=== PATIENT | male | born 1950 | race Caucasian/White ===

== ENCOUNTER 2017-01-28 10:33 | Outpatient (CLI) | payer OTHER | END 2017-01-28 10:34 | disposition home or self-care (01) | DX: Z00.00 Encounter for general adult medical examination without abnormal findings (principal); I10 Essential (primary) hypertension; Z79.899 Other long term (current) drug therapy; B19.20 Unspecified viral hepatitis C without hepatic coma; N40.0 Benign prostatic hyperplasia without lower urinary tract symptoms; Z87.820 Personal history of traumatic brain injury; M54.5 Low back pain; R73.01 Impaired fasting glucose; C44.91 Basal cell carcinoma of skin, unspecified ==

== ENCOUNTER 2017-04-15 11:06 | Outpatient (CLI) | payer OTHER | END 2017-04-15 11:07 | disposition home or self-care (01) | LOC: LAB 11:06 | PROVIDERS: ATTEND Urology | DX: N40.0 Benign prostatic hyperplasia without lower urinary tract symptoms (principal) | CPT/HCPCS: 36415; 84153 ==

== ENCOUNTER 2017-06-18 10:45 | Day surgery (SDC) | payer MEDICARE, OTHER ==
[2017-06-18] MEDS ORDERED: LACTATED RINGERS 1,000 ML IV ONE (11:15)
[2017-06-18] MEDS ORDERED: MIDAZOLAM 2 MG/2 ML VIAL IVP ONE (12:02)
[2017-06-18] MEDS ORDERED: fentaNYL 100 MCG/2 ML VIAL IVP ONE (12:02)
[2017-06-18 13:33] VITALS: BP 112/67
== END 2017-06-18 10:46 | disposition home or self-care (01) ==
LOC: SDS 10:45
PROVIDERS: ATTEND Surgery
PROC: 0DBN8ZX Excision of Sigmoid Colon, Via Natural or Artificial Opening Endoscopic, Diagnostic (ICD-10-PCS; 2017-06-18)
PROC: 0DBH8ZX Excision of Cecum, Via Natural or Artificial Opening Endoscopic, Diagnostic (ICD-10-PCS; principal; 2017-06-18 12:15)
DX: R19.5 Other fecal abnormalities (principal); D12.5 Benign neoplasm of sigmoid colon; I10 Essential (primary) hypertension; F32.9 Major depressive disorder, single episode, unspecified; E66.9 Obesity, unspecified; F17.210 Nicotine dependence, cigarettes, uncomplicated; Z68.30 Body mass index [BMI] 30.0-30.9, adult
CPT/HCPCS: 45380; 45385; J7120; 88305

== ENCOUNTER 2017-09-18 13:22 | Outpatient (CLI) | payer MEDICARE, OTHER ==
[2017-09-18 13:50] LABS: INR 1.5 (0.8-1.2); PT - PROTHROMBIN TIME 16.3 secs (9.9-12.6)
[2017-09-18 13:57] LABS: PARTIAL THROMBOPLASTIN TIME 41.4 secs (24.9-33.3)
[2017-09-18 14:13] LABS: ALBUMIN/GLOBULIN RATIO 0.6 (1.0-2.2); BILIRUBIN,DIRECT 0.5 mg/dL (0.1-0.5); BILIRUBIN,TOTAL 1.5 mg/dL (0.2-1.0); BUN - BLOOD UREA NITROGEN < 5 mg/dL (6-20); CALCIUM 8.6 mg/dL (8.5-10.3); CARBON DIOXIDE - CO2 22 mmol/L (21-32); CHLORIDE 97 mmol/L (101-111); CREATININE 0.6 mg/dL (0.6-1.2); GFR - MDRD 135 (>89); GLUCOSE 166 mg/dL (70-100); POTASSIUM 3.9 mmol/L (3.5-5.0); SODIUM 131 mmol/L (135-145); TOTAL PROTEIN 7.9 g/dL (6.7-8.2)
== END 2017-09-18 13:23 | disposition home or self-care (01) ==
LOC: LAB 13:22
PROVIDERS: ATTEND Surgery
DX: K74.60 Unspecified cirrhosis of liver (principal)
CPT/HCPCS: 36415; 80053; 80076; 82247; 85610; 85730

== ENCOUNTER 2017-11-26 12:37 | Outpatient (CLI) | payer MEDICARE, OTHER ==
[2017-11-26 13:11] LABS: CREATININE 0.8 mg/dL (0.6-1.2)
== END 2017-11-26 12:38 | disposition home or self-care (01) ==
LOC: LAB 12:37
DX: K70.31 Alcoholic cirrhosis of liver with ascites (principal)
CPT/HCPCS: 36415; 80048

== ENCOUNTER 2017-11-28 07:03 | Outpatient (CLI) | payer MEDICARE, OTHER ==
--- NOTE | 2017-11-28 19:09 | Ultrasound Report ---
DATE OF SERVICE: 11/28/2017 RIGHT UPPER QUADRANT ULTRASOUND: 11/28/2017 CLINICAL INDICATION: Cirrhosis, hepatitis C, surveillance. COMPARISON: CT 09/04/2017. TECHNIQUE: Real-time scanning was performed with energy conservation representative static images obtained. The liver measures 18.4 cm. Cirrhotic changes are stable. Trace perihepatic ascites is again seen. There are multiple small hypoechoic nodules in the left lobe of the liver, the largest, in the mid portion, measuring 1.1 x 0.9 x 0.8 cm. Inferiorly, one measures 1.0 x 0.9 x 0.6 cm, and more superiorly, one measures 0.8 x 0.8 x 0.7 cm. The gallbladder demonstrates small calculi. No wall thickening or pericholecystic fluid is seen. The common bile duct measures 7 mm. The right kidney measures 11.3 cm, and demonstrates no hydronephrosis. IMPRESSION: Cirrhotic liver. Three small nodules in the left lobe. Consider liver MRI for further evaluation. Cholelithiasis, without evidence of acute cholecystitis or biliary dilatation. TD: 11/28/2017 20:07
== END 2017-11-28 07:04 | disposition home or self-care (01) ==
LOC: DI 07:03
DX: K70.30 Alcoholic cirrhosis of liver without ascites (principal); B19.20 Unspecified viral hepatitis C without hepatic coma; K80.20 Calculus of gallbladder without cholecystitis without obstruction
CPT/HCPCS: 76705

== ENCOUNTER 2017-12-17 12:08 | Outpatient (CLI) | payer MEDICARE, OTHER ==
[~2017-12-17 12:08] MED LIST: GADOBUTROL 10 MMOL/10 ML VIAL ONE
[2017-12-17] MEDS ORDERED: GADOBUTROL 10 MMOL/10 ML VIAL IVP ONE (13:25)
--- NOTE | 2017-12-18 08:48 | MRI Report ---
EXAM: MR ABDOMEN WITH AND WITHOUT CONTRAST (MR LIVER) EXAM DATE: 12/17/2017 01:36 PM. CLINICAL HISTORY: OTHER CIRRHOSIS OF LIVER,ABNORMAL FINDINGS ON DX I. COMPARISON: CT abdomen and pelvis 09/04/2017 and ultrasound 11/28/2017. TECHNIQUE: Multiplanar breath-hold T1, T2, and DWI sequences obtained through the abdomen on an [facility] valerie. Images obtained before and after administration of 8 mL Gadavist intravenous contrast. Multiph ase postcontrast images obtained of the liver and abdomen. FINDINGS: Lung Bases: Unremarkable. Liver: Nodular liver contour. Widening of the fissures. Delayed reticular enhancement. Enlargement of the lateral segment left hepatic lobe and caudate. Cirrhosis. Liver loses signal on out of phase imaging consistent with hepatic steatosis. Portosystemic collateral vessels. Esophageal varices. Portal hypertension. No arterial phase hyperenhancing lesions with washout to indicate hepatocellular carcinoma. T2 hyperintense, T1 hypointense nonenhancing biliary cystic hamartoma in segment 8 of the right hepat ic lobe near the dome, series 701, axial image 31, measuring a few millimeters. Multiple intrinsically T1 hyperintense liver nodules without arterial phase hyperenhancement or washo ut or restricted diffusion consistent with LR-3 nodules Gallbladder: Small gallstones. Pancreas: Moderate atrophy. No ductal dilatation. No mass. Spleen: The spleen appears normal. Kidneys and Adrenals: The kidneys appear normal with no mass or hydronephrosis. T2 hyperintense, T1 h ypointense cyst in the right mid kidney measures 1.2 cm. Tiny cortical cysts in the left kidney. The adrenals appear normal. Bowel: The small bowel and colon appear normal with no inflammation or obstruction. Retroperitoneum: The retroperitoneal structures appear normal with no mass or lymphadenopathy. IMPRESSION: 1. Cirrhosis with portal hypertension including esophageal varices 2. Hepatic steatosis 3. No evidence of hepatocellular carcinoma 4. Innumerable LR-3 liver nodules 5. Small gallstones [facility] Referring Provider Line: [phone] SITE ID: [id number]
== END 2017-12-17 12:09 | disposition home or self-care (01) ==
LOC: DI 12:08
DX: K74.69 Other cirrhosis of liver (principal); K76.0 Fatty (change of) liver, not elsewhere classified; K76.9 Liver disease, unspecified; K76.6 Portal hypertension; I85.10 Secondary esophageal varices without bleeding
CPT/HCPCS: 74183; A9585

== ENCOUNTER 2017-12-19 14:46 | Outpatient (CLI) | payer MEDICARE, OTHER ==
[2017-12-19 15:28] LABS: CALCIUM 9.2 mg/dL (8.5-10.3); CREATININE 0.7 mg/dL (0.6-1.2)
== END 2017-12-19 14:47 | disposition home or self-care (01) ==
LOC: LAB 14:46
DX: K70.31 Alcoholic cirrhosis of liver with ascites (principal)
CPT/HCPCS: 36415; 80048

== ENCOUNTER 2018-01-15 16:14 | Outpatient (CLI) | payer MEDICARE, OTHER ==
[2018-01-15 16:37] LABS: CALCIUM 9.4 mg/dL (8.5-10.3)
== END 2018-01-15 16:15 | disposition home or self-care (01) ==
LOC: LAB 16:14
DX: K70.30 Alcoholic cirrhosis of liver without ascites (principal)
CPT/HCPCS: 36415; 80048

== ENCOUNTER 2018-03-26 14:00 | Outpatient (CLI) | payer MEDICARE, OTHER ==
[2018-03-26 14:32] LABS: ALBUMIN 3.3 g/dL (3.2-5.5); BILIRUBIN,DIRECT 0.3 mg/dL (0.1-0.5); BILIRUBIN,TOTAL 1.3 mg/dL (0.2-1.0); CREATININE 0.6 mg/dL (0.6-1.2)
[2018-03-28 15:56] LABS: HCV RNA QNT <1.18 NOT DETECTED Log IU/mL (NOT DETECTED); HCV RNA QUANT RT PCR <15 NOT DETECTED IU/mL (NOT DETECTED)
== END 2018-03-26 14:01 | disposition home or self-care (01) ==
LOC: LAB 14:00
PROVIDERS: ATTEND Nurse Practitioner Family
DX: B18.2 Chronic viral hepatitis C (principal)
CPT/HCPCS: 36415; 80048; 80076; 87522

== ENCOUNTER 2018-04-01 13:41 | Outpatient (CLI) | payer MEDICARE, OTHER ==
[2018-04-01] MEDS ORDERED: GADOBUTROL 10 MMOL/10 ML VIAL IVP ONE (14:26)
--- NOTE | 2018-04-02 15:21 | MRI Report ---
EXAM: MR ABDOMEN WITH AND WITHOUT CONTRAST (MR LIVER). EXAM DATE: 04/01/2018 03:10 PM. CLINICAL HISTORY: Liver lesion, abnormal liver diagnostic, cirrhosis. COMPARISON: 12/17/2007 comparison. TECHNIQUE: Multiplanar breath-hold T1, T2, and DWI sequences obtained through the abdomen on an [facility] valerie. Images obtained before and after administration of 80 mL Gadavist given IV, no reaction intrav enous contrast. Multiphase postcontrast images obtained of the liver and abdomen. FINDINGS: Lung Bases: Unremarkable. Liver: Similar morphology to previous, please note there is a focal artifact on diffusion weighted se quences located in the right lobe liver which is not corroborated on other imaging sequences. Liver shows a fine and irregular nodular border. As the previous exam, numerous intrinsically hyperde nse T1 liver nodules. No arterial phase enhancement. These are small, measuring 1 cm or less. Largest is seen in segment 4 on series 1201 image 78 measuring about 1 cm. This is unchanged. Short gastric varices, splenic varices and left renal in the left renal hilum, compatible with colla terals and portal venous hypertension. Gallbladder: Small amount of dependent debris is present in the gallbladder, probably small stones. Pancreas: The pancreas appears normal with no mass or ductal dilatation. Spleen: The spleen appears normal. Kidneys and Adrenals: The kidneys appear normal with no mass or hydronephrosis. Stable benign left po sterior kidney cyst, also measuring about 1.1 cm. Series 801 image 16. The adrenals appear normal. Bowel: The small bowel and colon appear normal with no inflammation or obstruction. Retroperitoneum: The retroperitoneal structures appear normal with no mass or lymphadenopathy. IMPRESSION: 1. No MRI evidence for arterially enhancing nodules to suspect hepatocellular carcinoma. 2. Cirrhosis, portal venous hypertension. 3. Numerous small 1 cm or less nodules are seen in the liver, similar to previous. (LR-3). [facility] Referring Provider Line: [phone] SITE ID: [id number]
== END 2018-04-01 13:42 | disposition home or self-care (01) ==
LOC: DI 13:41
DX: K74.69 Other cirrhosis of liver (principal); K76.9 Liver disease, unspecified; K76.6 Portal hypertension; R93.2 Abnormal findings on diagnostic imaging of liver and biliary tract
CPT/HCPCS: 74183; A9585

== ENCOUNTER 2018-05-09 21:00 | Outpatient (CLI) | payer MEDICARE, OTHER | END 2018-05-09 21:01 | disposition critical access hospital (66) | LOC: EMS 21:00 | PROVIDERS: ATTEND Surgery | DX: S69.91XA Unspecified injury of right wrist, hand and finger(s), initial encounter (principal); S09.90XA Unspecified injury of head, initial encounter; M54.2 Cervicalgia; M54.9 Dorsalgia, unspecified; W17.89XA Other fall from one level to another, initial encounter; Y93.H2 Activity, gardening and landscaping; Y92.007 Garden or yard of unspecified non-institutional (private) residence as the place of occurrence of the external cause; Z72.89 Other problems related to lifestyle | CPT/HCPCS: A0425; A0429 ==

== ENCOUNTER 2018-05-09 21:25 | Emergency (ER) | payer OTHER ==
--- NOTE | 2018-05-09 21:46 | ED Physician Documentation ---
PD HPI Fall - Stated complaint Stated Complaint: GLF/WRIST DEFORMITY - Chief complaint Chief Complaint: Trauma Hd/Nk - History obtained from History obtained from: Patient, Family - History of Present Illness Mechanism of injury: Slipped Fall distance: Standing position, 5 to 10ft Where injury occurred: Home Timing - onset: Today Injury(ies) location: Head, Neck, Right Upper Extremity Quality of pain: Pain, Throbbing Associated symptoms: Neck pain. No: LOC, AMS, Amnesia, Seizures, Ear drainage, Nasal drainage, Weakness, Paresthesias, Dyspnea, Nausea / vomiting Symptoms improve with: Rest Worsens with: Movement, Palpation Contributing factors: No: Anticoagulated Similar symptoms before: Has not had sx before Recently seen: Not recently seen - Additional information Additional information: 67 year-old male was the top of his bulkhead today pulling weeds when he slipped and fell over the bulkhead about 5-6 feet he landed on his head and his right wrist has deformity. He states that he cried out for about half an hour and he eventually was able to walk to a neighbors ladder and get back to his home where his was able to call the ambulance. He denies any loss of consciousness or vomiting he does have an abrasion to his forehead and pain in his neck. He has pain in the shoulder his elbow and his wrist and knows he has a deformity of the wrist. He arrives to the emergency department on a backboard in C-spine precaution with his neck slightly flexed as he has a prior cervical disc issue and has pain if he extends his neck completely. PD PAST MEDICAL HISTORY - Past Medical History Cardiovascular: Hypertension GI: GI bleed, Ulcers Other Past Medical History: hep C - Past Surgical History Past Surgical History: Yes General: EGD Ortho: Knee replacement - Present Medications Home Medications: Ambulatory Orders Medication Instructions Recorded Confirmed Citalopram [CeleXA] 40 mg PO DAILY 05/09/18 05/09/18 Furosemide 10 mg PO 05/09/18 Sofosbuvir/Velpatasvir [Epclusa 1 each PO 05/09/18 400 mg-100 mg Tablet] Spironolactone 25 mg 05/09/18 Terazosin [Hytrin] 10 mg PO DAILY 05/09/18 05/09/18 amLODIPine [Norvasc] 10 mg PO DAILY 05/09/18 05/09/18 HYDROcod/ACETAM 5/325 [[place] 5/325] 1 - 2 ea PO Q6H PRN #15 tablet 05/10/18 - Allergies Allergies/Adverse Reactions: Allergies Allergy/AdvReac Type Severity Reaction Status Date / Time lisinopril Allergy Edema Verified 05/09/18 21:32 any "prils". Allergy Unknown Uncoded 05/09/18 21:32 - Social History Does the pt smoke?: Yes Smoking Status: Current every day smoker Does the pt drink ETOH?: Yes Does the pt have substance abuse?: No - Immunizations Immunizations are current?: Yes PD ED PE NORMAL - Vitals Vital signs reviewed: Yes (hypertensive ) - General General: Alert and oriented X 3, Well developed/nourished, Other (on a backboard with C-spine in place appears to be in pain ) - HEENT HEENT: PERRL, EOMI, Other (abrasion to the left forehead) - Neck Neck: Supple, no meningeal sign, Other (bony point tenderness to mid c-spine) - Cardiac Cardiac: RRR, No murmur - Respiratory Respiratory: No respiratory distress, Clear bilaterally - Abdomen Abdomen: Soft, Non tender - Back Back: No CVA TTP, Other (lower lumbar paraspinous muscle tenderness bilaterally ) - Derm Derm: Normal color, Warm and dry, No rash - Extremities Extremities: Other (There is deformity to the right wrist dorsally and there is tenderness to the elbow and shoulder. Distal n/v is intact ) - Neuro Neuro: Alert and oriented X 3, No motor deficit, No sensory deficit, Normal speech Eye Opening: Spontaneous Motor: Obeys Commands Verbal: Oriented GCS Score: 15 - Psych Psych: Normal mood, Normal affect Results - Vitals Vitals: Vital Signs - 24 hr 05/09/18 05/09/18 05/10/18 21:28 23:45 01:00 Temperature 37.1 C Heart Rate 64 70 69 Respiratory 168 H 16 18 Rate Blood Pressure 145/89 H 140/73 H 122/69 O2 Saturation 94 94 96 05/10/18 02:55 Temperature Heart Rate 72 Respiratory 18 Rate Blood Pressure 126/72 O2 Saturation 94 Oxygen O2 Source Room air - Rads (name of study) shoulder Radiology: Prelim report reviewed (Impression: No acute bony abnormality.), EMP read indepedently, See rad report elbow Radiology: Prelim report reviewed (Impression: No acute elbow abnormality or joint effusion.), EMP read indepedently, See rad report wrist Radiology: Prelim report reviewed (Impression: Displaced radial metaphyseal and ulnar styloid fractures.), EMP read indepedently, See rad report head CT Radiology: Prelim report reviewed (Impression: No acute intracranial process.), EMP read indepedently, See rad report CT c-spine Radiology: Prelim report reviewed (Impression: No acute cervical spine fracture or malalignment.), EMP read indepedently, See rad report lumbar spine Radiology: Prelim report reviewed (Impression: 1. No acute lumbar spine abnormality), EMP read indepedently, See rad report Procedures - Splint (location) right wrist Splint applied by: Tech Type of splint: Fiberglass, Sugar tong Other: Patient tolerated well, No complications, Neurovascular intact, Good alignment, Sling provided PD MEDICAL DECISION MAKING - ED course Complexity details: reviewed old records, reviewed results, re-evaluated patient , considered differential, d/w patient, d/w family ED course: 67-year-old male who is fallen off a bulk head and fractured his right wrist. He has a number of other injuries all without radiographic abnormalities. Dr. Zacarias Senior is consulted in the case with the patient's fracture and after review of the patient's films he recommends placement of a sugar tong splint and follow -up in the orthopedic clinic. Hematoma block is performed patient's placed into finger traps and the fracture is manipulated forward slightly and is placed into a sugar tong. He appears to tolerate this well and is discharged ambulating with a sling in place. - Sepsis Event Vital Signs: Vital Signs - 24 hr 05/09/18 05/09/18 05/10/18 21:28 23:45 01:00 Temperature 37.1 C Heart Rate 64 70 69 Respiratory 168 H 16 18 Rate Blood Pressure 145/89 H 140/73 H 122/69 O2 Saturation 94 94 96 05/10/18 02:55 Temperature Heart Rate 72 Respiratory 18 Rate Blood Pressure 126/72 O2 Saturation 94 Oxygen O2 Source Room air Departure - Departure Disposition: 01 Home, Self Care Clinical Impression: Distal radial fracture Qualifiers: Encounter type: initial encounter Fracture type: closed Fracture morphology: Colles' Laterality: right Qualified Code(s): S52.531A - Colles' fracture of right radius, initial encounter for closed fracture Condition: Stable Instructions: ED Fx Forearm Radius Ulna Redu Requ Follow-Up: [facility] [Provider Group] Prescriptions: HYDROcod/ACETAM 5/325 [[place] 5/325] 1 - 2 ea PO Q6H PRN #15 tablet PRN Reason: Pain Discharge Date/Time: 05/10/18 03:18
--- NOTE | 2018-05-09 23:03 | CT Report ---
Procedure Date: 05/09/2018 Accession Number: [id number] / [id number] Procedure: CT - Head W/O CPT Code: FULL RESULT: EXAM: CT HEAD EXAM DATE: 05/09/2018 10:00 PM. CLINICAL HISTORY: Head pain, fall. COMPARISON: None. TECHNIQUE: Multiaxial CT images were obtained from the foramen magnum to the vertex. Reformats: Coronal. IV contrast: None. In accordance with CT protocol optimization, one or more of the following dose reduction techniques were utilized for this exam: automated exposure control, adjustment of mA and/or KV based on patient size, or use of iterative reconstructive technique. FINDINGS: Parenchyma: No intraparenchymal hemorrhage. No evidence of mass, midline shift, or CT findings of infarction. Andrade-white differentiation is distinct. Extraaxial Spaces: Normal for age. No subdural or epidural collections identified. Ventricles: Normal in size and position. Sinuses and Orbits: There is moderate right maxillary sinus mucosal thickening. The orbits and mastoid sinuses are unremarkable. Bones: No evidence of fracture or calvarial defect. Other: Mild intracranial atherosclerosis is noted. IMPRESSION: No acute intracranial process. [facility]
--- NOTE | 2018-05-09 23:09 | XRAY Report ---
Procedure Date: 05/09/2018 Accession Number: [id number] / [id number] Procedure: XR - Wrist 4 View RT CPT Code: FULL RESULT: EXAM: RIGHT WRIST RADIOGRAPHY EXAM DATE: 05/09/2018 10:46 PM. CLINICAL HISTORY: Fall. Wrist pain and deformity. COMPARISON: None. TECHNIQUE: 4 views. FINDINGS: Bones: Radial metaphyseal fracture displaced dorsally by about 6 mm with dorsal impaction, comminution, and intra-articular extension. Displaced ulnar styloid fracture. Joints: Normal. No subluxations. Soft Tissues: Associated soft tissue swelling. IMPRESSION: Displaced radial metaphyseal and ulnar styloid fractures. [facility]
--- NOTE | 2018-05-09 23:10 | XRAY Report ---
Procedure Date: 05/09/2018 Accession Number: [id number] / [id number] Procedure: XR - Shoulder 3 View RT CPT Code: FULL RESULT: EXAM: RIGHT SHOULDER RADIOGRAPHY EXAM DATE: 05/09/2018 10:46 PM. CLINICAL HISTORY: Fall with shoulder pain. COMPARISON: None. TECHNIQUE: 3 views. FINDINGS: Bones: Old fifth rib fracture. No acute traumatic or destructive bone abnormalities. Joints: The glenohumeral and acromioclavicular joints are normal. Soft tissues: The visualized hemithorax is unremarkable. IMPRESSION: No acute bony abnormality. [facility]
--- NOTE | 2018-05-09 23:10 | XRAY Report ---
Procedure Date: 05/09/2018 Accession Number: [id number] / [id number] Procedure: XR - Lumbar Spine 2 View CPT Code: FULL RESULT: EXAM: LUMBOSACRAL SPINE RADIOGRAPHY EXAM DATE: 05/09/2018 10:49 PM. CLINICAL HISTORY: Fall low back pain. COMPARISONS: None. TECHNIQUE: 2 views. FINDINGS: Alignment: Unremarkable. Bones: Five [id number]-[id number] lumbar vertebral bodies are present. No fractures or bone lesions. Disks: Disk heights are relatively well maintained. Mild marginal osteophyte formation. Facets: Mild degenerative joint disease in the lower lumbar spine. Sacroiliac Joints: Unremarkable. Soft Tissues: Vascular calcifications. IMPRESSION: 1. No acute lumbar spine abnormality. [facility]
--- NOTE | 2018-05-09 23:11 | XRAY Report ---
Procedure Date: 05/09/2018 Accession Number: [id number] / [id number] Procedure: XR - Elbow 3 View RT CPT Code: FULL RESULT: EXAM: RIGHT ELBOW RADIOGRAPHY EXAM DATE: 05/09/2018 10:46 PM. CLINICAL HISTORY: Fall. Elbow pain. COMPARISON: None. TECHNIQUE: 3 views. FINDINGS: Bones: No traumatic or destructive bone abnormality. Olecranon enthesophyte noted. Joints: Normal. No effusion. No subluxation. Soft Tissues: Unremarkable. IMPRESSION: No acute elbow abnormality or joint effusion. [facility]
--- NOTE | 2018-05-09 23:12 | CT Report ---
Procedure Date: 05/09/2018 Accession Number: [id number] / [id number] Procedure: CT - Cervical Spine W/O CPT Code: FULL RESULT: EXAM: CT CERVICAL SPINE WITHOUT CONTRAST DATE: 05/09/2018 10:11 PM. HISTORY: Fall, head injury, neck pain. COMPARISONS: None. TECHNIQUE: Thin-section axial images were acquired of the cervical spine without contrast. Post-processing: Coronal and sagittal reformats. Other: None. In accordance with CT protocol optimization, one or more of the following dose reduction techniques were utilized for this exam: automated exposure control, adjustment of mA and/or KV based on patient size, or use of iterative reconstructive technique. FINDINGS: Alignment: No scoliosis or spondylolisthesis. Bones: There is no acute cervical spine fracture. Interspace Levels/Facets: C1-C2: Mild degenerative changes are present anteriorly with craniocervical stenosis. C2-C3: Unremarkable. C3-C4: Unremarkable. 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 The foramina are patent. C5-C6: A disk bulge results in mild spinal canal stenosis. There is mild bilateral foraminal narrowing due to uncovertebral hypertrophy. C6-C7: Unremarkable. C7-T1: Unremarkable. Musculature: Normal. No fatty atrophy. Other: No acute abnormality is seen in the remaining soft tissues of the neck. The lung apices are clear. IMPRESSION: No acute cervical spine fracture or malalignment. [facility]
[2018-05-09] MEDS ORDERED: ONDANSETRON 4 MG/2 ML VIAL IVP STA (23:28)
[2018-05-09] MEDS ORDERED: HYDROmorphone 1 MG/ML CARPUJECT IVP STA (23:28)
[2018-05-10] MEDS ORDERED: BUPIVACAINE 0.5% PF 10 ML VIAL SUBQ STA (02:14)
[2018-05-10] MEDS ORDERED: HYDROcod/ACET 5/325 Prepack 4 PO STA (02:49)
[2018-05-10 03:02] VITALS: BP 126/72
== END 2018-05-10 03:18 | disposition home or self-care (01) ==
LOC: EDUNIT# → EDBD → ED 21:25 → EDUNIT# 21:25 → ED 05-10 03:18
DX: S52.531A Colles' fracture of right radius, initial encounter for closed fracture (principal); W01.0XXA Fall on same level from slipping, tripping and stumbling without subsequent striking against object, initial encounter; W17.89XA Other fall from one level to another, initial encounter; Y93.H2 Activity, gardening and landscaping; Y92.007 Garden or yard of unspecified non-institutional (private) residence as the place of occurrence of the external cause; I10 Essential (primary) hypertension; B19.20 Unspecified viral hepatitis C without hepatic coma; Z96.659 Presence of unspecified artificial knee joint; F17.200 Nicotine dependence, unspecified, uncomplicated
CPT/HCPCS: 29125; 70450; 72100; 72125; 73030; 73080; 73110; 96374; 96375; 99283; J1170; 99281

== ENCOUNTER 2018-05-21 11:13 | Outpatient (CLI) | payer MEDICARE, OTHER ==
[2018-05-21 11:30] LABS: BASOPHILS # (AUTO) 0.1 10^3/uL (0.0-0.1); BASOPHILS % (AUTO) 0.9 %; EOSINOPHILS # (AUTO) 0.1 10^3/uL (0.0-0.7); EOSINOPHILS % (AUTO) 1.5 %; HGB - HEMOGLOBIN 15.5 g/dL (14.0-18.0); LYMPHOCYTES # (AUTO) 0.8 10^3/uL (1.5-3.5); LYMPHOCYTES % (AUTO) 13.9 %; MEAN CORPUSCULAR HEMOGLOBIN 35.9 pg (27.0-31.0); MEAN CORPUSCULAR HGB CONC 34.6 g/dL (32.0-36.0); MEAN CORPUSCULAR VOLUME 103.9 fL (80.0-94.0); MEAN PLATELET VOLUME 7.2 fL (7.4-11.4); MONOCYTES # (AUTO) 1.1 10^3/uL (0.0-1.0); MONOCYTES % (AUTO) 18.4 %; NEUTROPHILS # (AUTO) 3.8 10^3/uL (1.5-6.6); NEUTROPHILS % (AUTO) 65.3 %; PLT - PLATELET COUNT 160 10^3/uL (130-450); RED CELL DISTRIBUTION WIDTH 14.5 % (12.0-15.0); WHITE BLOOD COUNT 5.9 x10^3/uL (4.8-10.8)
[2018-05-21 11:45] LABS: BILIRUBIN,URINE NEGATIVE (NEGATIVE); GLUCOSE, URINE (UA) NEGATIVE (NEGATIVE); KETONES,URINE (UA) NEGATIVE (NEGATIVE); LEUKOCYTE ESTERASE, URINE NEGATIVE (NEGATIVE); NITRITE,URINE NEGATIVE (NEGATIVE); OCCULT BLOOD,URINE TRACE-INTA (NEGATIVE); PROTEIN,URINE NEGATIVE (NEGATIVE); UROBILINOGEN,URINE 0.2 (NORMAL) E.U./dL (NORMAL)
[2018-05-21 11:46] LABS: HB2 TOTAL 16.9 g/dL; HEMOGLOBIN A1C 0.57 g/dL; HEMOGLOBIN A1C % 5.2 % (4.6-6.2)
[2018-05-21 11:48] LABS: CLARITY,URINE CLEAR (CLEAR)
[2018-05-21 11:55] LABS: ALBUMIN 3.4 g/dL (3.2-5.5); ALBUMIN/GLOBULIN RATIO 0.6 (1.0-2.2); ALKALINE PHOSPHATASE 59 IU/L (42-121); ALT ALANINE AMINOTRANSFERASE 40 IU/L (10-60); AST ASPARTATE AMINOTRANSFERASE 87 IU/L (10-42); BILIRUBIN,TOTAL 1.5 mg/dL (0.2-1.0); BUN - BLOOD UREA NITROGEN 7 mg/dL (6-20); CALCIUM 8.9 mg/dL (8.5-10.3); CARBON DIOXIDE - CO2 26 mmol/L (21-32); CHLORIDE 95 mmol/L (101-111); CHOL/HDL RATIO 5.3 (<5.0); CHOLESTEROL 168 mg/dL; CREATININE 0.6 mg/dL (0.6-1.2); GFR - MDRD 135 (>89); GLUCOSE 106 mg/dL (70-100); HDL CHOLESTEROL 32 mg/dL; LDL CHOLESTEROL,CALCULATED 118 mg/dL; LDL/HDL RATIO 3.7 (<3.6); SODIUM 129 mmol/L (135-145); TOTAL PROTEIN 8.8 g/dL (6.7-8.2); VLDL CHOLESTEROL 18 mg/dL
[2018-05-21 12:08] LABS: BACTERIA,URINE None Seen /HPF (None Seen); RBC,URINE 0-5 /HPF (0-5); SQUAMOUS EPITHELIAL CELL,UR NONE SEEN (<= Few)
== END 2018-05-21 11:14 | disposition home or self-care (01) ==
LOC: LAB 11:13
PROVIDERS: ATTEND Internal Medicine
DX: Z79.899 Other long term (current) drug therapy (principal); Z12.5 Encounter for screening for malignant neoplasm of prostate; B18.2 Chronic viral hepatitis C; Z87.820 Personal history of traumatic brain injury; R73.01 Impaired fasting glucose; F32.9 Major depressive disorder, single episode, unspecified; F41.9 Anxiety disorder, unspecified
CPT/HCPCS: 36415; 80053; 80061; 81001; 83036; 84443; 85025; G0103; 83721; 84153

== ENCOUNTER 2018-07-14 13:49 | Outpatient (CLI) | payer MEDICARE, OTHER ==
[2018-07-14 14:27] LABS: ALBUMIN 3.3 g/dL (3.2-5.5); BILIRUBIN,DIRECT 0.5 mg/dL (0.1-0.5); BILIRUBIN,TOTAL 1.9 mg/dL (0.2-1.0); CALCIUM 8.9 mg/dL (8.5-10.3); CREATININE 0.7 mg/dL (0.6-1.2); TOTAL PROTEIN 7.9 g/dL (6.7-8.2)
== END 2018-07-14 13:50 | disposition home or self-care (01) ==
LOC: LAB 13:49
PROVIDERS: ATTEND Nurse Practitioner Family
DX: B18.2 Chronic viral hepatitis C (principal)
CPT/HCPCS: 36415; 80048; 80076; 87522

== ENCOUNTER 2018-07-15 12:37 | Outpatient (CLI) | payer MEDICARE, OTHER ==
[2018-07-15] MEDS ORDERED: GADOBUTROL 7.5 MMOL/7.5 ML VIAL ONE (13:20)
[2018-07-15] MEDS ORDERED: GADOBUTROL 7.5 MMOL/7.5 ML VIAL IVP ONE (13:42)
--- NOTE | 2018-07-16 14:50 | MRI Report ---
Reason: LIVER LESION,ABN DIAG IMAG,OTHER CIRRHOSI OF LIVER Procedure Date: 07/15/2018 Accession Number: [id number] / [id number] Procedure: MRI - Abdomen W/WO CPT Code: FULL RESULT: EXAM: MR ABDOMEN WITH AND WITHOUT CONTRAST (MR LIVER). EXAM DATE: 07/15/2018 01:36 PM. CLINICAL HISTORY: Cirrhosis of the liver. Liver mass. COMPARISON: Abdomen with and without 12/17/2017. TECHNIQUE: Multiplanar breath-hold T1, T2, and DWI sequences obtained through the abdomen on an MR scanner. Images obtained before and after administration of intravenous contrast. Multiphase postcontrast images obtained of the liver and abdomen. FINDINGS: Lung Bases: Unremarkable. Liver: Nodular cirrhotic liver is again demonstrated. As before, the liver parenchyma demonstrates heterogeneous T1 and T2 signal change primarily due to underlying cirrhosis. There is some loss of signal on T1 out of phase imaging which may represent a component of fatty change. As before, there are a few scattered hyperintense T1 signal lesions which are difficult to visualize on precontrast imaging due to respiratory motion artifact; however, appearance is similar to prior study on arterial phase imaging. These areas are most notably seen in segment 2 (image 74, series 1101) and segment 5/6 (image 51, series 1101). There is no definitive washout or capsular enhancement seen. These lesions remain LI-RADS 3. No new liver lesion or masses suggested. Gallbladder/bile ducts: Tiny gallstones are suggested in the gallbladder. There is no gallbladder wall thickening or biliary dilation. Pancreas: Generalized atrophy of the pancreas is seen. No pancreatic mass or ductal dilation is suggested. Spleen: Normal overall size. Tiny subcapsular cyst is seen posteriorly similar to prior study. Kidneys and Adrenals: The kidneys appear normal with no mass or hydronephrosis. There are small cysts in the kidneys. The adrenals appear normal. Bowel: The visualized bowel loops are unremarkable. Trace ascites is seen in the right upper quadrant region. Moderate short gastric varices are seen along the proximal stomach. Retroperitoneum: The retroperitoneal structures appear normal with no mass or lymphadenopathy. IMPRESSION: 1. Stable exam compared with 12/17/2017. Again demonstrating a few scattered hyperintense T1 nodules in the liver parenchyma consistent with LR 3. 2. No arterial hyperenhancing nodule or washout to suggest hepatocellular carcinoma. 3. Stable cirrhosis with possible fatty change and moderate short gastric varices. Trace ascites seen. No splenomegaly. 4. Cholelithiasis without biliary dilation. [facility]
== END 2018-07-15 12:38 | disposition home or self-care (01) ==
LOC: DI 12:37
DX: K74.69 Other cirrhosis of liver (principal); K76.9 Liver disease, unspecified; K80.20 Calculus of gallbladder without cholecystitis without obstruction; R93.2 Abnormal findings on diagnostic imaging of liver and biliary tract
CPT/HCPCS: 74183; A9585

== ENCOUNTER 2018-09-13 12:27 | Outpatient (CLI) | payer MEDICARE, OTHER ==
[2018-09-13 14:05] LABS: ALBUMIN 3.2 g/dL (3.2-5.5); BILIRUBIN,DIRECT 0.4 mg/dL (0.1-0.5); BILIRUBIN,TOTAL 1.5 mg/dL (0.2-1.0); CALCIUM 8.4 mg/dL (8.5-10.3); CREATININE 0.7 mg/dL (0.6-1.2); TOTAL PROTEIN 7.5 g/dL (6.7-8.2)
== END 2018-09-13 12:28 | disposition home or self-care (01) ==
LOC: LAB 12:27
PROVIDERS: ATTEND Nurse Practitioner Family
DX: B18.2 Chronic viral hepatitis C (principal)
CPT/HCPCS: 36415; 80048; 80076; 87522

== ENCOUNTER 2018-11-12 07:30 | Outpatient (CLI) | payer MEDICARE, OTHER ==
[2018-11-12] MEDS ORDERED: GADOBUTROL 10 MMOL/10 ML VIAL ONE (08:04)
[2018-11-12] MEDS ORDERED: GADOBUTROL 10 MMOL/10 ML VIAL IVP ONE (09:55)
--- NOTE | 2018-11-12 17:21 | MRI Report ---
Reason: LIVER LESION Procedure Date: 11/12/2018 Accession Number: [id number] / [id number] Procedure: MRI - Abdomen W/WO CPT Code: FULL RESULT: EXAM: MR ABDOMEN WITH AND WITHOUT CONTRAST (MR LIVER) EXAM DATE: 11/12/2018 09:56 AM. CLINICAL HISTORY: LIVER LESION. COMPARISON: Liver MRI from 07/15/2018, 04/01/2018. TECHNIQUE: Multiplanar breath-hold T1, T2, and DWI sequences obtained through the liver and abdomen on an MR scanner. Images obtained before and after administration of 10 cc Gadavist intravenous contrast. Multiphase postcontrast sequences obtained through the pancreas. FINDINGS: Lung Bases: The visualized portions are unremarkable. Liver: There is hypertrophy of the lateral segment of the left hepatic lobe with fissural widening and surface nodularity, compatible with known cirrhosis. There are several nodules with intrinsic T1 signal hyperintensity scattered throughout the liver. This includes a 1.6 x 1.5 cm lesion with peripheral T1 signal hyperintensity in central signal hypointensity in segment 2/3 (series 1101, image 72). Associated mild T2 signal hyperintensity is demonstrated. However, given intrinsic T1 signal hyperintensity, it does not demonstrate definite arterial phase enhancement. Furthermore, no convincing washout or pseudocapsule. This lesion previously measured approximately 1.3 x 1.2 cm. Previously described 0.7 cm lesion in hepatic segment 5/6 (series 1201, image 52) also demonstrates intrinsic T1 signal hyperintensity and therefore does not demonstrate convincing arterial phase enhancement, washout, or pseudocapsule. There are small foci of arterial phase enhancement in hepatic segment 7 and 8, measuring 0.3-0.4 cm (series 1201, images 103 and 102). These appear to have been present on the previous examination. A 0.5 cm focus of arterial phase enhancement is present in segment 5 (series 1201, image 62), not definitely seen previously. No washout or pseudocapsule demonstrated. Gallbladder: Multiple stones demonstrated. No gallbladder wall thickening. Bile ducts: Common bile duct measures 9 mm, which is mildly dilated but similar to prior examinations. No choledocholithiasis. Only minimal prominence of the central intrahepatic bile ducts, similar to the prior examination. Pancreas: Unremarkable. No focal lesion or ductal dilation. Spleen: There is a 0.5 cm cyst in the medial aspect. Otherwise within normal limits. No splenomegaly. Kidneys and Adrenals: There are bilateral nonenhancing renal cysts. No solid renal lesion. No hydronephrosis. No adrenal nodules. Bowel: There appears to be mild wall thickening of the ascending colon with small amount of surrounding edema. This is similar to the previous examination. No evidence of bowel obstruction. Retroperitoneum: No abdominal aortic aneurysm. No retroperitoneal adenopathy. Other: There appear to be prominent varices in the region of the gastrohepatic ligament and around the esophagus. Trace perihepatic ascites present. IMPRESSION: 1. Cirrhosis configuration of the liver with prominent portal-systemic collaterals and trace perihepatic ascites, compatible with portal hypertension. 2. Previously seen liver lesions do not demonstrate convincing arterial phase enhancement, washout, or pseudocapsule. However, the lesion in segment 2/3 demonstrates more conspicuous T2 signal hyperintensity and is slightly increased in size from the prior examination. Despite its increase in size, it does not meet criteria for "threshold growth." Therefore, it remains most compatible with a LI-RADS 3 lesion (intermediate probability for hepatocellular carcinoma). 3. Additional subcentimeter arterial phase enhancing foci in hepatic segments 5, 7, and 8 do not demonstrate washout or pseudocapsule and are also compatible with LI-RADS 3 lesions. 4. No convincing LI-RADS 4 or 5 lesions demonstrated. 5. Mild wall thickening and edema around the ascending colon, similar to the prior examination. In the setting of portal hypertension, this may represent sequela of portal hypertensive colopathy. Inflammatory colitis is not excluded. 6. Cholelithiasis without sonographic evidence for acute cholecystitis. The common bile duct is mildly dilated; however, this is not significantly changed from prior examinations. RADIA
== END 2018-11-12 07:31 | disposition home or self-care (01) ==
LOC: DI 07:30
PROVIDERS: ATTEND Nurse Practitioner Family
DX: K76.9 Liver disease, unspecified (principal); K80.20 Calculus of gallbladder without cholecystitis without obstruction; K74.60 Unspecified cirrhosis of liver
CPT/HCPCS: 74183; A9585

== ENCOUNTER 2019-01-30 11:59 | Outpatient (CLI) | payer MEDICARE, OTHER ==
[2019-01-30 12:31] LABS: BASOPHILS # (AUTO) 0.1 10^3/uL (0.0-0.1); BASOPHILS % (AUTO) 0.8 %; EOSINOPHILS # (AUTO) 0.1 10^3/uL (0.0-0.7); EOSINOPHILS % (AUTO) 1.8 %; GLUCOSE, URINE (UA) NEGATIVE (NEGATIVE); KETONES,URINE (UA) 15 mg/dL (NEGATIVE); LEUKOCYTE ESTERASE, URINE NEGATIVE (NEGATIVE); LYMPHOCYTES % (AUTO) 13.9 %; MEAN CORPUSCULAR HEMOGLOBIN 35.5 pg (27.0-31.0); MEAN CORPUSCULAR HGB CONC 34.3 g/dL (32.0-36.0); MEAN CORPUSCULAR VOLUME 103.6 fL (80.0-94.0); MEAN PLATELET VOLUME 7.8 fL (7.4-11.4); MONOCYTES # (AUTO) 1.7 10^3/uL (0.0-1.0); MONOCYTES % (AUTO) 24.3 %; NEUTROPHILS # (AUTO) 4.2 10^3/uL (1.5-6.6); NEUTROPHILS % (AUTO) 59.2 %; NITRITE,URINE NEGATIVE (NEGATIVE); OCCULT BLOOD,URINE NEGATIVE (NEGATIVE); PLT - PLATELET COUNT 78 10^3/uL (130-450); PROTEIN,URINE NEGATIVE (NEGATIVE); RED BLOOD COUNT 3.37 10^6/uL (4.70-6.10); RED CELL DISTRIBUTION WIDTH 19.8 % (12.0-15.0); UROBILINOGEN,URINE 1 (NORMAL) E.U./dL (NORMAL); WHITE BLOOD COUNT 7.1 x10^3/uL (4.8-10.8)
[2019-01-30 12:35] LABS: BILIRUBIN,URINE SMALL (NEGATIVE); CLARITY,URINE CLEAR (CLEAR); ICTOTEST,URINE POSITIVE
[2019-01-30 12:43] LABS: ALBUMIN 3.1 g/dL (3.2-5.5); ALBUMIN/GLOBULIN RATIO 0.7 (1.0-2.2); BILIRUBIN,TOTAL 4.3 mg/dL (0.2-1.0); CALCIUM 8.9 mg/dL (8.5-10.3); CREATININE 0.8 mg/dL (0.6-1.2); TOTAL PROTEIN 7.7 g/dL (6.7-8.2)
[2019-01-30] MEDS ORDERED: IOPAMIDOL-300 50 ML VIAL ONE (13:03)
[2019-01-30] MEDS ORDERED: IOPAMIDOL-300 100 ML VIAL ONE (13:03)
[2019-01-30] MEDS ORDERED: IOPAMIDOL-300 100 ML VIAL IVP ONE (14:16)
[2019-01-30] MEDS ORDERED: IOVERSOL 320 50 ML VIAL PO ONE (14:16)
[2019-01-30] MEDS ORDERED: IOPAMIDOL-300 50 ML VIAL PO ONE (14:16)
--- NOTE | 2019-01-30 15:05 | CT Report ---
Reason: ABDM PAIN,FEVER Procedure Date: 01/30/2019 Accession Number: [id number] / [id number] Procedure: CT - Abdomen/Pelvis W CPT Code: FULL RESULT: EXAM: CT ABDOMEN AND PELVIS EXAM DATE: 01/30/2019 02:14 PM. CLINICAL HISTORY: ABDM PAIN,FEVER. COMPARISONS: ABDOMEN/PELVIS W/ 09/04/2017 11:39 AM ABDOMEN W/WO 11/12/2018 7:57 AM ABDOMEN W/WO 07/15/2018 1:36 PM ABDOMEN/LIVER W/WO 04/01/2018 2:11 PM ABDOMEN W/WO 12/17/2017 1:00 PM. TECHNIQUE: Routine helical CT imaging was performed through the abdomen and pelvis. IV contrast: ISOVUE 300 100mL. Enteric contrast: Yes. Reconstructions: Coronal and sagittal. In accordance with CT protocol optimization, one or more of the following dose reduction techniques were utilized for this exam: automated exposure control, adjustment of mA and/or KV based on patient size, or use of iterative reconstructive technique. FINDINGS: Lung Bases: Unremarkable. Liver: Marked diffuse heterogeneity and generally decreased density. Irregular surface typical for his cirrhosis. Gallbladder/Bile Ducts: Mildly distended with multiple small stones. No ductal dilation. Spleen: Tiny calcified granuloma. Otherwise unremarkable. Pancreas: Normal. Adrenal Glands: Normal. Kidneys: Normal. No masses or hydronephrosis. Peritoneal Cavity/Bowel: Moderate amount of ascites. No free air. No bowel dilation. No lymphadenopathy. The appendix is well visualized and normal. Pelvic Organs: Normal. The bladder and visualized pelvic organs are within normal limits. Vasculature: Gastric varices and other upper abdominal collateral vessels related to portal hypertension. No aneurysm. Bones: No significant abnormality. Other: None. IMPRESSION: 1. Cirrhosis with small to moderate amount of ascites. Marked heterogeneity of liver parenchyma compared to previous studies. 2. Portal hypertension with gastric varices. 3. Cholelithiasis. RADIA
== END 2019-01-30 12:00 | disposition home or self-care (01) ==
LOC: DI 11:59
PROVIDERS: ATTEND Internal Medicine
DX: K74.60 Unspecified cirrhosis of liver (principal); R18.8 Other ascites; K76.6 Portal hypertension; I86.4 Gastric varices; K80.20 Calculus of gallbladder without cholecystitis without obstruction; R50.9 Fever, unspecified; R11.2 Nausea with vomiting, unspecified; R19.7 Diarrhea, unspecified
CPT/HCPCS: 36415; 74177; 80053; 81003; 82150; 83605; 83690; 85025; Q9967; 81001; 87086

== ENCOUNTER 2019-05-14 12:45 | Outpatient (CLI) | payer MEDICARE, OTHER ==
[2019-05-14] MEDS ORDERED: GADOBUTROL 10 MMOL/10 ML VIAL ONE (13:05)
[2019-05-14] MEDS ORDERED: GADOBUTROL 10 MMOL/10 ML VIAL IV ONE (17:27)
--- NOTE | 2019-05-15 16:26 | MRI Report ---
Reason: LIVER LESION,HEPATIC CIRRHOSIS,UNSPECIFIED,ALCOHOL Procedure Date: 05/14/2019 Accession Number: [id number] / [id number] Procedure: MRI - Abdomen W/WO CPT Code: FULL RESULT: EXAM: MR ABDOMEN WITH AND WITHOUT CONTRAST MRI LIVER. EXAM DATE: 05/14/2019 02:30 PM. CLINICAL HISTORY: Liver lesion, hepatic cirrhosis, unspecified, alcohol. COMPARISON: ABDOMEN W/WO 11/12/2018 7:57 AM ABDOMEN/PELVIS W/ 01/30/2019 2:08 PM ABDOMEN W/WO 07/15/2018 1:36 PM ABDOMEN/LIVER W/WO 04/01/2018 2:11 PM ABDOMEN/PELVIS W/ 09/04/2017 11:39 AM. TECHNIQUE: Multiplanar breath-hold T1, T2, and DWI sequences obtained through the abdomen on an MR scanner. Images obtained before and after administration of 8 mL Gadavist intravenous contrast. Multiphase postcontrast sequences obtained through the abdomen. Variable patient motion artifact. FINDINGS: Lung Bases: Unremarkable. Liver: Cirrhotic liver morphology with left liver lobe hypertrophy and nodular contour as previously noted. Heterogeneous liver. In addition, there is a diffuse fatty infiltration with generalized decreased signal on [id number] series. Subtraction images were requested, however soil technologist Julienne was unable to process. I asked technologist to contact director of enterprise applications to see if subtraction images can be obtained from current exam. As previously noted, there are multiple scattered T1 hyperintense observations within the liver. Of note, there is a 2.2 x 2.2 cm observation within segment 2/3 on series 1001 image 60 previously measuring 1.6 x 1.6 cm on MRI 01/30/2019 and 1.3 x 1.2 cm on MRI 04/01/2018. Progressive increase in size, demonstrating subthreshold growth. In addition, there is focal fatty sparing on series 701 image 39 and questionable restricted diffusion. Incidental ghosting artifact within posterior left liver dome segment 2 on series 1001 image 78. Portions of mid to posterior right liver dome were not imaged on postcontrast axial images due to patient's variability in breath holds. The entire liver, with exception of a small portion of posterior liver dome, was imaged on 100 second coronal series 1301. Gallbladder: Distended gallbladder contains small layering stones. Bile Ducts: No intrahepatic or extrahepatic duct dilatation. Pancreas: Spleen: The spleen appears normal. No splenomegaly. Kidneys: Small bilateral renal cysts. No suspicious renal mass or hydronephrosis. Adrenals: The adrenals appear normal. Bowel: The visualized segments of the small bowel and colon appear normal with no inflammation or obstruction. Retroperitoneum: The retroperitoneal structures appear normal with no mass or lymphadenopathy. Other: Small amount of ascites, mostly within right upper quadrant. Nonocclusive thrombus within portal vein. Esophageal and 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. IMPRESSION: 1. Cirrhotic liver with progressive increase in size of a T1 hyperintense observation within segment 2/3. Observation now measures 2.2 x 2.2 cm, previously 1.6 x 1.6 on 11/12/18 and 1.3 x 1.2 cm on MRI 04/01/2018. There is focal fatty sparing within this region and questionable restricted diffusion. Findings are concerning for malignancy, however not necessarily from hepatocellular carcinoma. Recommend ultrasound to see if this observation is amenable to biopsy and consider reviewing patient at tumor board. 2. Nonocclusive portal vein thrombus. 3. Portal hypertension with esophageal and left upper quadrant varices. Splenorenal shunting. No splenomegaly. 4. Small amount of ascites. 5. Cholelithiasis. RAD[facility] The call report notification system was initiated by Dr. Murali Martin at 02:37 PM on 05/15/2019. The above call report findings were discussed with Michelle Talley by Dr. Murali Martin at 02:50 PM on 05/15/2019.
== END 2019-05-14 12:46 | disposition home or self-care (01) ==
LOC: DI 12:45
PROVIDERS: ATTEND Nurse Practitioner
DX: K74.60 Unspecified cirrhosis of liver (principal); R18.8 Other ascites; I81 Portal vein thrombosis; K76.6 Portal hypertension; K72.90 Hepatic failure, unspecified without coma; K80.20 Calculus of gallbladder without cholecystitis without obstruction; F10.10 Alcohol abuse, uncomplicated; Z86.19 Personal history of other infectious and parasitic diseases
CPT/HCPCS: 74183; A9585

== ENCOUNTER 2019-05-25 11:04 | Emergency (ER) | payer MEDICARE, OTHER ==
[2019-05-25] MEDS ORDERED: ONDANSETRON 4 MG/2 ML VIAL IVP STA (11:30)
[2019-05-25] MEDS ORDERED: HYDROmorphone 1 MG/ML CARPUJECT IVP STA (11:30)
--- NOTE | 2019-05-25 11:32 | ED Physician Documentation ---
PD HPI ABD PAIN - Stated complaint Stated Complaint: ABD PX - Chief complaint Chief Complaint: Abd Pain - History obtained from History obtained from: Patient, Family () - History of Present Illness Timing - onset: Other (69-year-old gentleman presents by private vehicle with his complaining of joint pain all over and abdominal pain that have been going on chronically. He has a history of cirrhosis due to hepatitis C and presumed alcohol use and he admits to ongoing alcohol use including this morning. He is taking oxycodone for pain but says it is intermittently insufficient. They were on their way to [place] to morning this morning for medical appointments but [place] Review of Systems Constitutional: reports: Fatigue, Weight Loss. denies: Fever, Chills Cardiac: denies: Chest pain / pressure, Palpitations Respiratory: denies: Dyspnea, Cough GI: reports: Abdominal Pain, Nausea, Vomiting. denies: Constipation, Diarrhea PD PAST MEDICAL HISTORY - Past Medical History Past Medical History: Yes Cardiovascular: Hypertension Respiratory: None Endocrine/Autoimmune: None GI: Hepatitis, Cirrhosis : Benign prostate hypertrophy HEENT: Glaucoma, Other Psych: None Musculoskeletal: Osteoarthritis Derm: None - Past Surgical History General: Colonoscopy Ortho: Knee replacement Derm: Skin cancer surgery - Present Medications Home Medications: Ambulatory Orders Medication Instructions Recorded Confirmed Citalopram Hydrobromide 40 mg PO DAILY 06/17/17 06/17/17 [Citalopram HBr] RX: Amlodipine Besylate 10 mg PO DAILY 06/17/17 06/17/17 RX: Terazosin HCl 10 mg PO DAILY 06/17/17 06/17/17 oxyCODONE [Roxicodone] 5 mg PO PRN PRN 06/17/17 06/17/17 Citalopram [CeleXA] 40 mg PO DAILY 05/09/18 05/09/18 RX: Furosemide 10 mg PO 05/09/18 RX: Spironolactone 25 mg 05/09/18 Sofosbuvir/Velpatasvir [Epclusa 1 each PO 05/09/18 400 mg-100 mg Tablet] Terazosin [Hytrin] 10 mg PO DAILY 05/09/18 05/09/18 amLODIPine [Norvasc] 10 mg PO DAILY 05/09/18 05/09/18 RX: HYDROcod/ACETAM 5/325 [[place] 1 - 2 ea PO Q6H PRN #15 tablet 05/10/18 5/325] RX: oxyCODONE [Roxicodone] 5 mg PO Q4-6H PRN #14 tablet 05/10/18 - Allergies Allergies/Adverse Reactions: Allergies Allergy/AdvReac Type Severity Reaction Status Date / Time ELIU Inhibitors Allergy Severe Edema Verified 05/25/19 11:19 lisinopril Allergy Edema Verified 05/25/19 11:19 - Social History Does the pt smoke?: Yes Smoking Status: Current every day smoker Does the pt drink ETOH?: Yes Does the pt have substance abuse?: No PD ED PE NORMAL - Vitals Vital signs reviewed: Yes - General General: Alert and oriented X 3, No acute distress - HEENT HEENT: Other (Mildly icteric gentleman's in bed in no distress but obviously frustrated and depressed. Smells of alcohol.) - Neck Neck: Supple, no meningeal sign, No bony TTP - Cardiac Cardiac: RRR, No murmur - Respiratory Respiratory: No respiratory distress, Clear bilaterally - Abdomen Abdomen: Other (Mild ascites, not tense. Umbilical hernia, not tender and reducible. No tenderness.) - Back Back: No CVA TTP, No spinal TTP - Derm Derm: Normal color, Warm and dry - Neuro Neuro: Alert and oriented X 3, Normal speech Results - Vitals Vitals: Vital Signs - 24 hr 05/25/19 05/25/19 05/25/19 11:15 11:52 12:40 Temperature 37.0 C Heart Rate 96 86 86 Respiratory 14 17 13 Rate Blood Pressure 153/84 H 137/86 H 141/79 H O2 Saturation 98 97 94 Oxygen O2 Source Room air - Labs Labs: Laboratory Tests 05/25/19 05/25/19 05/25/19 11:53 11:53 11:53 WBC 7.4 RBC 3.25 L Hgb 11.5 L Hct 32.7 L MCV 100.6 H MCH 35.4 H MCHC 35.2 RDW 17.6 H Plt Count 87 L MPV 9.6 Neut # (Auto) 4.4 Lymph # (Auto) 1.5 [place] # (Auto) 1.3 H Eos # (Auto) 0.1 Baso # (Auto) 0.1 Absolute Nucleated RBC 0.00 Nucleated RBC % 0.0 PT 16.1 H INR 1.4 H Sodium 135 Potassium 3.6 Chloride 95 L Carbon Dioxide 24 Anion Gap 16.0 H BUN 7 Creatinine 0.8 Estimated GFR (MDRD) 96 Glucose 126 H Calcium 8.7 Total Bilirubin 2.8 H AST 233 H ALT 52 Alkaline Phosphatase 67 Ammonia Total Protein 7.9 Albumin 2.9 L Globulin 5.0 H Albumin/Globulin Ratio 0.6 L Lipase 38 Ethyl Alcohol 285.0 05/25/19 11:53 WBC RBC Hgb Hct MCV MCH MCHC RDW Plt Count MPV Neut # (Auto) Lymph # (Auto) [place] # (Auto) Eos # (Auto) Baso # (Auto) Absolute Nucleated RBC Nucleated RBC % PT INR Sodium Potassium Chloride Carbon Dioxide Anion Gap BUN Creatinine Estimated GFR (MDRD) Glucose Calcium Total Bilirubin AST ALT Alkaline Phosphatase Ammonia 31.3 Total Protein Albumin Globulin Albumin/Globulin Ratio Lipase Ethyl Alcohol PD MEDICAL DECISION MAKING - ED course ED course: 69-year-old gentleman presents for an exacerbation of chronic body wide pain complicated by cirrhosis and ongoing alcohol use. He felt much better after a dose of pain medication. We discussed with him and his the importance of quitting drinking given his ongoing liver disease. There is no evidence of an acute intra-abdominal emergency including SBP which is considered but he is not tender. Departure - Departure Disposition: 01 Home, Self Care Clinical Impression: Chronic pain, Cirrhosis, Alcohol intoxication Condition: Good Record reviewed to determine appropriate education?: Yes Instructions: ED Alcohol Intoxication Comments: Continue current medications. As discussed your symptoms will continue to worsen as long as you are drinking alcohol and no one will be able to reverse that. Follow up with your physician at [facility] for ongoing management of your liver disease and to discuss biopsy of the liver lesion. Your blood pressure was elevated today on check into the emergency department. This does not mean that you have hypertension, it is a common phenomenon to come to the emergency department and have elevated blood pressure. I recommend that you see your primary care physician within the week to have it rechecked when you are feeling better. Discharge Date/Time: 05/25/19 12:49
[2019-05-25 11:55] LABS: BASOPHILS # (AUTO) 0.1 10^3/uL (0.0-0.1); BASOPHILS % (AUTO) 1.2 %; EOSINOPHILS # (AUTO) 0.1 10^3/uL (0.0-0.7); EOSINOPHILS % (AUTO) 1.2 %; HGB - HEMOGLOBIN 11.5 g/dL (14.0-18.0); LYMPHOCYTES # (AUTO) 1.5 10^3/uL (1.5-3.5); LYMPHOCYTES % (AUTO) 19.9 %; MEAN CORPUSCULAR HEMOGLOBIN 35.4 pg (27.0-31.0); MEAN CORPUSCULAR HGB CONC 35.2 g/dL (32.0-36.0); MEAN CORPUSCULAR VOLUME 100.6 fL (80.0-94.0); MEAN PLATELET VOLUME 9.6 fL (7.4-11.4); MONOCYTES # (AUTO) 1.3 10^3/uL (0.0-1.0); MONOCYTES % (AUTO) 18.2 %; NEUTROPHILS # (AUTO) 4.4 10^3/uL (1.5-6.6); NEUTROPHILS % (AUTO) 59.1 %; PLT - PLATELET COUNT 87 10^3/uL (130-450); RED BLOOD COUNT 3.25 10^6/uL (4.70-6.10); RED CELL DISTRIBUTION WIDTH 17.6 % (12.0-15.0); WHITE BLOOD COUNT 7.4 x10^3/uL (4.8-10.8)
[2019-05-25 12:08] LABS: INR 1.4 (0.8-1.2); PT - PROTHROMBIN TIME 16.1 secs (9.9-12.6)
[2019-05-25 12:09] LABS: BILIRUBIN,TOTAL 2.8 mg/dL (0.2-1.0); CALCIUM 8.7 mg/dL (8.5-10.3); CREATININE 0.8 mg/dL (0.6-1.2); TOTAL PROTEIN 7.9 g/dL (6.7-8.2)
[2019-05-25 12:10] LABS: ALBUMIN 2.9 g/dL (3.2-5.5); ALBUMIN/GLOBULIN RATIO 0.6 (1.0-2.2)
[2019-05-25 12:40] VITALS: BP 141/79
== END 2019-05-25 12:49 | disposition home or self-care (01) ==
LOC: ED 11:04
DX: R10.9 Unspecified abdominal pain (principal); M25.50 Pain in unspecified joint; G89.29 Other chronic pain; R11.2 Nausea with vomiting, unspecified; F10.929 Alcohol use, unspecified with intoxication, unspecified; K74.60 Unspecified cirrhosis of liver; B19.20 Unspecified viral hepatitis C without hepatic coma; K42.9 Umbilical hernia without obstruction or gangrene; I10 Essential (primary) hypertension; F17.200 Nicotine dependence, unspecified, uncomplicated
CPT/HCPCS: 36415; 80053; 82140; 83690; 85025; 85610; 96374; 99283; J1170; 80320

== ENCOUNTER 2019-09-07 11:24 | Outpatient (CLI) | payer MEDICARE, OTHER ==
[2019-09-07 11:39] LABS: BASOPHILS # (AUTO) 0.1 10^3/uL (0.0-0.1); EOSINOPHILS # (AUTO) 0.1 10^3/uL (0.0-0.7); EOSINOPHILS % (AUTO) 1.3 %; HGB - HEMOGLOBIN 13.2 g/dL (14.0-18.0); LYMPHOCYTES # (AUTO) 0.9 10^3/uL (1.5-3.5); LYMPHOCYTES % (AUTO) 15.7 %; MEAN CORPUSCULAR HEMOGLOBIN 38.9 pg (27.0-31.0); MEAN CORPUSCULAR VOLUME 111.2 fL (80.0-94.0); MEAN PLATELET VOLUME 9.2 fL (7.4-11.4); MONOCYTES # (AUTO) 1.5 10^3/uL (0.0-1.0); MONOCYTES % (AUTO) 24.7 %; NEUTROPHILS # (AUTO) 3.4 10^3/uL (1.5-6.6); NEUTROPHILS % (AUTO) 56.6 %; PLT - PLATELET COUNT 91 10^3/uL (130-450); RED BLOOD COUNT 3.39 10^6/uL (4.70-6.10); RED CELL DISTRIBUTION WIDTH 15.9 % (12.0-15.0)
[2019-09-07 11:47] LABS: INR 1.6 (0.8-1.2); PT - PROTHROMBIN TIME 17.5 secs (9.9-12.6)
[2019-09-07 12:04] LABS: ALBUMIN 3.1 g/dL (3.2-5.5); ALBUMIN/GLOBULIN RATIO 0.6 (1.0-2.2); BILIRUBIN,TOTAL 3.1 mg/dL (0.2-1.0); CALCIUM 9.1 mg/dL (8.5-10.3); CREATININE 0.8 mg/dL (0.6-1.2); TOTAL PROTEIN 8.4 g/dL (6.7-8.2)
[2019-09-07 12:42] LABS: PLATELET ESTIMATE, MANUAL DECREASED (<130,000) (NORMAL); PLATELET MORPHOLOGY NORMAL APPEARANCE (NORMAL)
== END 2019-09-07 11:25 | disposition home or self-care (01) ==
LOC: LAB 11:24
PROVIDERS: ATTEND Physician Assistant
DX: C22.0 Liver cell carcinoma (principal); K74.60 Unspecified cirrhosis of liver
CPT/HCPCS: 36415; 80053; 82105; 85025; 85610

== ENCOUNTER 2019-09-08 12:50 | Outpatient (CLI) | payer MEDICARE, OTHER ==
[2019-09-08] MEDS ORDERED: IOVERSOL 320 100 ML VIAL IVP ONE ×2 (13:16→16:49)
[2019-09-08] MEDS ORDERED: IOVERSOL 320 50 ML VIAL PO ONE (16:49)
--- NOTE | 2019-09-09 11:27 | CT Report ---
Reason: HCC MONITORING,ALCOHOLIC CIRRHOSIS OF LIVER Procedure Date: 09/08/2019 Accession Number: [id number] / [id number] Procedure: CT - ABDOMEN W/WO CPT Code: Final Report FULL RESULT: EXAM: CT LIVER WITHOUT AND WITH CONTRAST EXAM DATE: 09/08/2019 01:19 PM. CLINICAL HISTORY: HCC MONITORING,ALCOHOLIC CIRRHOSIS OF LIVER. COMPARISONS: ABDOMEN W/WO 05/14/2019 1:24 PM ABDOMEN/PELVIS W/ 01/30/2019 2:08 PM. TECHNIQUE: Routine multiphase liver CT before and after the administration of IV contrast. IV contrast: OPTI 320 100ML. Enteric contrast: None. Reconstructions: Coronal and sagittal. In accordance with CT protocol optimization, one or more of the following dose reduction techniques were utilized for this exam: automated exposure control, adjustment of mA and/or KV based on patient size, or use of iterative reconstructive technique. FINDINGS: Lung Bases: Normal. Liver: Nodular liver again seen consistent with macronodular cirrhosis. Focal liver lesions are as follows: 1. Wedge shaped treatment cavity is evident in segment 3 measuring 3 x 2.4 cm (5/15). No residual enhancing nodularity or washout seen associated with the treatment cavity to suspect residual disease or recurrence (LRTR nonviable). 2. 1.7 cm curvilinear arterial phase hyperenhancing lesion in segment 8 (5/13) is seen without associated washout or capsule representing an indeterminate lesion (LR 3). 3. Adjacent somewhat ill-defined additional 1.7 cm segment 8 lesion is also seen without associated washout or capsule representing an indeterminate lesion (LR 3). 4. 1.3 cm segment 4B lesion (5/15) is seen without washout or capsule representing an additional indeterminate lesion (LR 3). 5. 0.8 cm segment 5 lesion (5/25) is seen without washout or capsule representing an additional indeterminate lesion (LR 3). Gallbladder/Biliary System: Gallstones seen in the gallbladder. No pericholecystic fluid or biliary dilation. Other Solid Organs: No splenomegaly no focal splenic lesion. Unremarkable pancreas and bilateral adrenal glands. No solid renal masses or hydronephrosis. Bowel: Mild perihepatic ascites. Normal caliber bowel loops without obstruction. Bones: Degenerative changes in the spine. Other: Again seen is nonocclusive thrombus in the extrahepatic main portal vein. IMPRESSION: 1. Again seen is hepatic cirrhosis with ascites reflecting portal hypertension. 2. Ablation cavity seen in segment 3 without evidence for residual disease or recurrence (LRTR nonviable). 3. A few additional indeterminate observations are seen in the liver for which attention on follow-up studies is recommended (LR 3).. 4. Cholelithiasis again noted. RADIA
== END 2019-09-08 12:51 | disposition home or self-care (01) ==
LOC: DI 12:50
PROVIDERS: ATTEND Nurse Practitioner Family
DX: K70.31 Alcoholic cirrhosis of liver with ascites (principal); K80.20 Calculus of gallbladder without cholecystitis without obstruction
CPT/HCPCS: 74170; Q9967

== ENCOUNTER 2019-12-30 14:14 | Outpatient (CLI) | payer MEDICARE, OTHER ==
[2019-12-30 15:00] LABS: INR 1.5 (0.8-1.2); PT - PROTHROMBIN TIME 16.4 secs (9.9-12.6)
[2019-12-30 15:06] LABS: ALBUMIN 2.6 g/dL (3.2-5.5); BILIRUBIN,DIRECT 0.6 mg/dL (0.1-0.5); BILIRUBIN,TOTAL 1.7 mg/dL (0.2-1.0); CALCIUM 8.6 mg/dL (8.5-10.3); CREATININE 0.6 mg/dL (0.6-1.2); TOTAL PROTEIN 7.3 g/dL (6.7-8.2)
== END 2019-12-30 14:15 | disposition home or self-care (01) ==
LOC: LAB 14:14
PROVIDERS: ATTEND Internal Medicine
DX: K72.90 Hepatic failure, unspecified without coma (principal); K70.31 Alcoholic cirrhosis of liver with ascites
CPT/HCPCS: 36415; 80048; 80076; 85610

== ENCOUNTER 2020-01-14 07:26 | Outpatient (CLI) | payer MEDICARE, OTHER | END 2020-01-14 07:27 | disposition critical access hospital (66) | LOC: EMS 07:26 | PROVIDERS: ATTEND Surgery | DX: M54.2 Cervicalgia (principal); M25.511 Pain in right shoulder; W18.30XA Fall on same level, unspecified, initial encounter; Y92.008 Other place in unspecified non-institutional (private) residence as the place of occurrence of the external cause | CPT/HCPCS: A0425; A0429 ==

== ENCOUNTER 2020-01-14 07:44 | Inpatient (IN) | payer MEDICARE, OTHER ==
[2020-01-14] MEDS ORDERED: TETANUS/DIPHTHERIA/PERTUSSIS 0.5 ML SYRINGE IM ONE (08:02)
[2020-01-14] MEDS ORDERED: MORPHINE 2 MG/ML CARPUJECT IVP STA (08:02)
--- NOTE | 2020-01-14 08:04 | ED Physician Documentation ---
History of Present Illness - Stated complaint Stated Complaint: FALL - Chief complaint Chief Complaint: General - History obtained from History obtained from: Patient, EMS - History of Present Illness Timing: Today (This is a 69-year-old gentleman with alcohol-related cirrhosis who admits to drinking last night and then fell in his driveway. He could not really get up because he was generally weak. He has number of scrapes and what not. He complains mostly of right shoulder pain. Brought in by ambulance after the neighbor heard him screaming in the driveway.) Review of Systems Ten Systems: 10 systems reviewed and negative Constitutional: denies: Fever, Chills Nose: denies: Rhinorrhea / runny nose Throat: denies: Sore throat Cardiac: denies: Chest pain / pressure, Palpitations Respiratory: denies: Dyspnea, Cough PD PAST MEDICAL HISTORY - Past Medical History Cardiovascular: Hypertension Respiratory: None Endocrine/Autoimmune: None GI: Hepatitis, Cirrhosis : Benign prostate hypertrophy HEENT: Glaucoma, Other Psych: None Musculoskeletal: Osteoarthritis Derm: None - Past Surgical History General: Colonoscopy Ortho: Knee replacement Derm: Skin cancer surgery - Present Medications Home Medications: Ambulatory Orders Medication Instructions Recorded Confirmed oxyCODONE [Roxicodone] 5 mg PO PRN PRN 06/17/17 06/17/17 Furosemide 40 mg PO DAILY 05/09/18 Spironolactone 100 mg DAILY 05/09/18 Lactulose [Constulose] 15 ml BID 01/14/20 01/14/20 Tamsulosin [Flomax] 0.4 mg DAILY 01/14/20 01/14/20 rifAXIMin [Xifaxan] 550 mg BID 01/14/20 01/14/20 - Allergies Allergies/Adverse Reactions: Allergies Allergy/AdvReac Type Severity Reaction Status Date / Time ELIU Inhibitors Allergy Severe Edema Verified 01/14/20 08:49 lisinopril Allergy Edema Verified 01/14/20 08:49 - Social History Does the pt smoke?: Yes Smoking Status: Current every day smoker Does the pt drink ETOH?: Yes Does the pt have substance abuse?: No PD ED PE NORMAL - Vitals Vital signs reviewed: Yes - General General: Alert and oriented X 3, No acute distress, Other (He is alert oriented and cooperative, slightly slurred speech. He was logrolled off the backboard during initial examination but cervical collar was maintained pending imaging.) - HEENT HEENT: Other (Smallish but reactive pupils with lateral nystagmus in either direction) - Neck Neck: No bony TTP - Cardiac Cardiac: RRR, No murmur - Respiratory Respiratory: No respiratory distress, Clear bilaterally - Abdomen Abdomen: Soft, Non tender - Back Back: No CVA TTP, No spinal TTP - Derm Derm: Normal color, Warm and dry - Extremities Extremities: No tenderness to palpate, Other (There is bruising over the right shoulder with mild tenderness over the glenohumeral joint. But he seems to have pretty full range of motion. There is no asterixis, he has scrapes all over including the dorsum of the right hand, the left foot, both legs. 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, No motor deficit, No sensory deficit, Normal speech Results - Vitals Vitals: Vital Signs - 24 hr 01/14/20 01/14/20 07:53 09:11 Temperature 36.6 C 36.8 C Heart Rate 88 82 Respiratory 17 16 Rate Blood Pressure 141/82 H 147/98 H O2 Saturation 99 97 Oxygen O2 Source Room air - Labs Labs: Laboratory Tests 01/14/20 01/14/20 01/14/20 08:56 08:56 08:56 WBC 6.1 RBC 3.21 L Hgb 11.7 L Hct 33.3 L MCV 103.7 H MCH 36.4 H MCHC 35.1 RDW 15.2 H Plt Count 70 L MPV 9.8 Neut # (Auto) 4.7 Lymph # (Auto) 0.4 L Baca # (Auto) 0.9 Eos # (Auto) 0.0 Baso # (Auto) 0.1 Absolute Nucleated RBC 0.00 Nucleated RBC % 0.0 PT 17.4 H INR 1.6 H Sodium 124 L Potassium 4.2 Chloride 90 L Carbon Dioxide 24 Anion Gap 10.0 BUN 9 Creatinine 0.8 Estimated GFR (MDRD) 96 Glucose 121 H Calcium 8.0 L Total Bilirubin 2.0 H AST 87 H ALT 29 Alkaline Phosphatase 85 Ammonia Total Creatine Kinase 318 H Total Protein 7.9 Albumin 3.2 Globulin 4.7 H Albumin/Globulin Ratio 0.7 L Lipase 33 Ethyl Alcohol 291.5 03/12/20 08:56 WBC RBC Hgb Hct MCV MCH MCHC RDW Plt Count MPV Neut # (Auto) Lymph # (Auto) Baca # (Auto) Eos # (Auto) Baso # (Auto) Absolute Nucleated RBC Nucleated RBC % PT INR Sodium Potassium Chloride Carbon Dioxide Anion Gap BUN Creatinine Estimated GFR (MDRD) Glucose Calcium Total Bilirubin AST ALT Alkaline Phosphatase Ammonia 40.5 H Total Creatine Kinase Total Protein Albumin Globulin Albumin/Globulin Ratio Lipase Ethyl Alcohol - Rads (name of study) CT of the head and cervical spine Radiology: EMP read contemporaneously (No acute disease) Chest x-ray and right shoulder x-ray Radiology: EMP read contemporaneously (Nondisplaced right clavicular fracture) PD MEDICAL DECISION MAKING - ED course ED course: This is a 69-year-old gentleman with alcoholic cirrhosis who presents by ambulance after a fall in his driveway from which she could not get up. He has multiple skin tears and is found to have a clavicular fracture which is placed in a sling. Work-up is notable for alcohol intoxication, evidence of ongoing cirrhosis, and acute hyponatremia at 124, it looks like his baseline is about 132. He was given gentle IV fluids and IV thiamine. Spoke with Dr. Bonilla for observation given the acute hyponatremia and weakness at 9:58AM. Departure - Departure Disposition: ED Place in Observation Clinical Impression: Alcohol intoxication, Right clavicle fracture, Hyponatremia, Cirrhosis, Fall from ground level, Generalized weakness, Multiple skin tears Condition: Fair
--- NOTE | 2020-01-14 08:57 | XRAY Report ---
Reason: fall alcohol Procedure Date: 01/14/2020 Accession Number: [id number] / [id number] Procedure: XR - Chest 1 View X-Ray CPT Code: 84554 Final Report FULL RESULT: EXAM: CHEST RADIOGRAPHY EXAM DATE: 01/14/2020 08:09 AM. CLINICAL HISTORY: Fall alcohol. COMPARISON: XR CHEST PA AND LAT 03/13/2009 8:18 AM CERVICAL SPINE W/O 01/14/2020 8:12 AM SHOULDER 3 VIEW RT 01/14/2020 8:11 AM. TECHNIQUE: 1 view. FINDINGS: Lungs/Pleura: No focal opacities. No effusions. Mediastinum: Stable Other: Nondisplaced distal right clavicular fracture. Old right posterior fifth rib fracture. IMPRESSION: 1. No acute radiographic cardiopulmonary process. 2. Nondisplaced right distal clavicular fracture RADIA
[2020-01-14] MEDS ORDERED: BACITRACIN ZINC OINT 1 PACKET TOP STA (08:59)
--- NOTE | 2020-01-14 09:00 | XRAY Report ---
Reason: fall shoulder pain Procedure Date: 01/14/2020 Accession Number: [id number] / [id number] Procedure: XR - Shoulder 3 View RT CPT Code: Final Report FULL RESULT: EXAM: RIGHT SHOULDER RADIOGRAPHY EXAM DATE: 01/14/2020 08:11 AM. CLINICAL HISTORY: Right shoulder pain. COMPARISON: SHOULDER 3 VIEW RT 05/09/2018 10:11 PM. TECHNIQUE: 3 views. FINDINGS: Bones: There is deformity of the distal clavicle suggesting nondisplaced fracture. Old appearing right lateral rib fractures are seen. Remainder osseous structures are intact. Joints: Mild glenohumeral joint degenerative disease is seen. Mild acromioclavicular degenerative joint disease is seen. Alignment is preserved. Soft tissues: The visualized hemithorax is unremarkable. No soft tissue swelling. IMPRESSION: Nondisplaced distal clavicle fracture suggested. RADIA
--- NOTE | 2020-01-14 09:02 | CT Report ---
Reason: fall alcohol Procedure Date: 01/14/2020 Accession Number: [id number] / [id number] Procedure: CT - HEAD WO CPT Code: Final Report FULL RESULT: EXAM: CT HEAD EXAM DATE: 01/14/2020 08:24 AM. CLINICAL HISTORY: Acute pain due to trauma. COMPARISON: HEAD W/O 05/09/2018 10:00 PM. TECHNIQUE: Multiaxial CT images were obtained from the foramen magnum to the vertex. Reformats: Sagittal and coronal. IV contrast: None. In accordance with CT protocol optimization, one or more of the following dose reduction techniques were utilized for this exam: automated exposure control, adjustment of mA and/or KV based on patient size, or use of iterative reconstructive technique. FINDINGS: Parenchyma: No intraparenchymal hemorrhage. No evidence of mass, midline shift, or CT findings of infarction. Andrade-white differentiation is distinct. Extraaxial Spaces: Normal for age. No subdural or epidural collections identified. Ventricles: Normal in size and position. Sinuses and Orbits: Chronic mild right maxillary sinus disease is again seen. Orbits are intact. Bones: No evidence of fracture or calvarial defect. Other: None. IMPRESSION: No acute findings. Chronic right maxillary sinus disease again seen. RADIA
[2020-01-14 09:05] LABS: BASOPHILS # (AUTO) 0.1 10^3/uL (0.0-0.1); BASOPHILS % (AUTO) 0.8 %; EOSINOPHILS % (AUTO) 0.3 %; HGB - HEMOGLOBIN 11.7 g/dL (14.0-18.0); LYMPHOCYTES # (AUTO) 0.4 10^3/uL (1.5-3.5); LYMPHOCYTES % (AUTO) 6.6 %; MEAN CORPUSCULAR HEMOGLOBIN 36.4 pg (27.0-31.0); MEAN CORPUSCULAR HGB CONC 35.1 g/dL (32.0-36.0); MEAN CORPUSCULAR VOLUME 103.7 fL (80.0-94.0); MEAN PLATELET VOLUME 9.8 fL (7.4-11.4); MONOCYTES # (AUTO) 0.9 10^3/uL (0.0-1.0); MONOCYTES % (AUTO) 14.6 %; NEUTROPHILS # (AUTO) 4.7 10^3/uL (1.5-6.6); NEUTROPHILS % (AUTO) 76.9 %; PLT - PLATELET COUNT 70 10^3/uL (130-450); RED BLOOD COUNT 3.21 10^6/uL (4.70-6.10); RED CELL DISTRIBUTION WIDTH 15.2 % (12.0-15.0); WHITE BLOOD COUNT 6.1 x10^3/uL (4.8-10.8)
--- NOTE | 2020-01-14 09:10 | CT Report ---
Reason: neck injury Procedure Date: 01/14/2020 Accession Number: [id number] / [id number] Procedure: CT - CERVICAL SPINE WO CPT Code: Final Report FULL RESULT: EXAM: CT CERVICAL SPINE WITHOUT CONTRAST DATE: 01/14/2020 08:24 AM. HISTORY: Acute pain due to trauma. COMPARISONS: CERVICAL SPINE W/O 05/09/2018 10:04 PM. TECHNIQUE: Thin-section axial images were acquired of the cervical spine without contrast. Post-processing: Coronal and sagittal reformats. Other: None. In accordance with CT protocol optimization, one or more of the following dose reduction techniques were utilized for this exam: automated exposure control, adjustment of mA and/or KV based on patient size, or use of iterative reconstructive technique. FINDINGS: Alignment: No scoliosis or spondylolisthesis. Bones: No fracture or bone lesion. Interspace Levels/Facets: There is mild diffuse degenerative disk and facet disease seen throughout the mid and lower aspects of the cervical spine. Musculature: Normal. No fatty atrophy. Other: The paravertebral and prevertebral soft tissues are unremarkable. Mild left carotid bulb calcification is seen. The lung apices are clear. IMPRESSION: No acute osseous abnormality demonstrated. RADIA
[2020-01-14 09:19] LABS: ALBUMIN 3.2 g/dL (3.2-5.5); ALBUMIN/GLOBULIN RATIO 0.7 (1.0-2.2); CREATININE 0.8 mg/dL (0.6-1.2); TOTAL PROTEIN 7.9 g/dL (6.7-8.2)
[2020-01-14 09:26] LABS: INR 1.6 (0.8-1.2); PT - PROTHROMBIN TIME 17.4 secs (9.9-12.6)
[2020-01-14] MEDS ORDERED: THIAMINE INJ 100 MG in SODIUM CHLORIDE 0.9% 50 ML IV STA (09:29)
[2020-01-14] MEDS ORDERED: SODIUM CHLORIDE 0.9% 1,000 ML IV ONE (09:29)
[2020-01-14] MEDS ORDERED: THIAMINE INJ 100 MG in SODIUM CHLORIDE 0.9% 50 ML IV ONE (09:44)
[2020-01-14] MEDS ORDERED: SODIUM CHLORIDE FLUSH 0.9% 10 ML SYRINGE IVP PRN (10:00)
[2020-01-14] MEDS ORDERED: SODIUM CHLORIDE 0.9% 1,000 ML IV SCH (10:00)
[2020-01-14] MEDS ORDERED: ONDANSETRON 4 MG/2 ML VIAL IVP PRN (10:00)
[2020-01-14] MEDS ORDERED: ACETAMINOPHEN 325 MG TABLET PO PRN (10:00)
[2020-01-14] MEDS ORDERED: LORazepam 2 MG/ML VIAL IVP PRN (10:06)
--- NOTE | 2020-01-14 10:40 | PHARMACY PROGRESS NOTE ---
- Best Possible Medication History Admit Date and Time: 01/14/20 1000 Processed by: Pharmacy Medication History completed: Yes Patient Interview: Pt unable to participate Secondary Source(s): Physician records, Pharmacy records, Insurance records As the person ultimately responsible for medication therapy, providers are able to order a medication from an existing home medication list in [facility] via the "Reconcile Routine" prior to Confirmation of that medication by credit support specialist. Such practice is discouraged except when the physician, in their clinical judgment, deems that a medical need exists for a medication without regard to previous use.
--- NOTE | 2020-01-14 10:44 | HISTORY & PHYSICAL EXAMINATION ---
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 after pt report he drunk 3 glasses of alcohol, the he fell in his driveway. He could not really get up because he felt generally weak. he was brought in by ambulance after the neighbor heard him screamed in the driveway. He has number of scrapes on his face, shoulder. He complains mostly of right shoulder pain. now he complain of left shoulder pain. he denies chest pain, headache, abdominal pain, fever, chill, cough, shortness of breath. pt report he continue cigarette smoking now and continue drunk with alcohol. Route lab test reveals pt has Na at 124, elevated Bili at 2, AST 87, a mmonia level 41 and CK 318, and elevated INR at 1.6. Image studies reveals nondisplaced distal clavicle fracture in right shoulder Xray. pt is admitted for above medical reason in observation unit now. Discussed with care goal with pt, pt clearly expressed DNR/DNI for his code status. History - Past Medical History Cardiovascular: reports: Hypertension Respiratory: reports: None Endocrine/Autoimmune: reports: None GI: reports: Hepatitis, Cirrhosis : reports: Benign prostate hypertrophy HEENT: reports: Glaucoma, Other Psych: reports: None Musculoskeletal: reports: Osteoarthritis Derm: reports: None MRSA Hx?: No - Past Surgical History General: reports: Colonoscopy Ortho: reports: Knee replacement Derm: reports: Skin cancer surgery - Family & Social History Family History: Mother: , Cancer, Father: , Cancer Family History Comment/Other: pt report both his pareants from cancer, his two brother also . he has four children, and living with his at [facility]. Living arrangement: At home Living Situation: With spouse/s.o. Social History Notes: pt report he continue smoking with cigrette and drink alcohol now, he denies drug issue. he report he has been working at [employer] for his whole life. Meds/Allgy - Home Medications Home Medications: Ambulatory Orders Medication Instructions Recorded Confirmed oxyCODONE [Roxicodone] 5 mg PO QID PRN 06/17/17 01/14/20 Furosemide 40 mg PO DAILY 01/14/20 01/14/20 Lactulose [Constulose] 10 gm PO BID 01/14/20 01/14/20 Spironolactone 100 mg PO DAILY 01/14/20 01/14/20 Tamsulosin [Flomax] 0.4 mg DAILY 01/14/20 01/14/20 rifAXIMin [Xifaxan] 550 mg BID 01/14/20 01/14/20 - Allergies Allergies/Adverse Reactions: Allergies Allergy/AdvReac Type Severity Reaction Status Date / Time ELIU Inhibitors Allergy Severe Edema Verified 01/14/20 08:49 lisinopril Allergy Edema Verified 01/14/20 08:49 Review of Systems - Constitutional Constitutional: denies: Fatigue, Fever, Chills, Malaise, Weakness, Poor appetite, Diaphoresis, Night sweats - Eyes Eyes: denies: Pain, Irritation, Amaurosis, Blurred vision, Spots in vision, Field loss, Vision loss, Dipolpia - Ears, Nose & Throat Ears, Nose & Throat: denies: Ear pain, Hearing loss, Hearing aids, Tinnitus, Vertigo, Nasal discharge, Nosebleeds, Nasal congestion, Postnasal drainage, Dentures, Sore throat, Hoarseness - Cardiovascular Cariovascular: denies: Irregular heart rate, Palpitations, Chest pain, Edema, Lightheadedness, Syncope, Exertional dyspnea, Decr. exercise tolerance - Respiratory Respiratory: denies: Cough, Sputum production, Wheezing, Snoring, Hemoptysis, Orthopnea, SOB at rest, SOB with exertion - Gastrointestinal Gastrointestinal: denies: Abdominal pain, Abdominal distention, Constipation, Diarrhea, Change in bowel habits, Rectal bleeding, Black stools, Bloody stools, Nausea, Vomiting, Bile emesis, Harshal blood emesis, Coffee grounds emesis - Genitourinary Genitourinary: denies: Dysuria, Urgency, Incontinence, Flank pain, Nocturia - Musculoskeletal Musculoskeletal: reports: Muscle pain, Back pain, Limited range of motion. denies: Muscle aches, Stiffness, Muscle weakness, Gout, Joint pain - Integumentary Integumentary: reports: Rash. denies: Pruritis, Dryness, Lumps, Acne - Neurological Neurological: denies: General weakness, Focal weakness, Headache, Dizziness, Numbness, Memory problems, Pre-existing deficit, Abnormal gait, Seizures, Inc oordination, Slurred speech - Psychiatric Psychiatric: denies: Depression, Anxiety, Suicidal, Delusions, Hallucinations, Homicidal - Endocrine Endocrine: denies: Polyuria, Polydypsia, Polyphagia, Intolerance to cold - Hematologic/Lymphatic Hematologic/Lymphatic: reports: Bruising. denies: Anemia, Petechiae, Blood clots, Lymphadenopathy, Bleeding tendencies Exam - Vital Signs Vital Signs: Vital Signs x48h Temp Pulse Resp BP Pulse Ox 01/14/20 09:11 36.8 C 82 16 147/98 H 97 01/14/20 07:53 36.6 C 88 17 141/82 H 99 - Physical Exam General Appearance: positive: No acute distress, Alert. negative: Lethargic Eyes Bilateral: positive: Normal inspection, PERRL, No lid inflammation ENT: positive: ENT inspection nml, Pharynx nml, No signs of dehydration. negative: Purulent nasal drainage Neck: positive: Nml inspection, Thyroid nml, No JVD, Trachea midline. negative: Thyromegaly, Lymphadenopathy (R), Lymphadenopathy (L), Stiff neck, Tracheal deviation Respiratory: positive: Chest non-tender, No respiratory distress, Breath sounds nml. negative: Wheezes, Rales, Rhonchi Cardiovascular: positive: Regular rate & rhythm, No murmur, No gallop. negative: Irregularly irregular, Extrasystoles, Tachycardia, Bradycardia, JVD present, Systolic murmur, Diastolic murmur Peripheral Pulses: positive: 2+ Abdomen: positive: Non-tender, Nml bowel sounds. negative: Tenderness, Guarding, Rebound Back: negative: CVA tenderness (R), CVA tenderness (L) Skin: positive: Warm, Dry. negative: Cyanosis, Diaphoresis, Pallor Extremities: positive: Non-tender. negative: Calf tenderness, Myla's sign/cords Neurologic/Psychiatric: positive: Oriented x3, Sensation nml. negative: Weakness, Sensory loss, Facial droop, Slurred/abnml speech, Depressed mood/affect Sepsis Event Note (H) - Evaluation Current Stage of Sepsis: Ruled out Conclusion/Plan - Problem List (1) Fall Conclusion/Plan: pt has fall at home after he had alcohol drunk. right shoulder Xray reveals right clavicle fracture without other fracture. pt present multiple location of skin bruises and tear from the fall. Left shoulder Xray did not reveal fracture. pt has sling for his right shoulder and hand fall precaution pain control advise pt quit alcohol (2) Alcohol intoxication Conclusion/Plan: pt has long hx of alcohol abuse. alcohol test is positive at 290. pt had a fall after he had drunk alcohol. plan: advise pt quit alcohol, consult with certified social workers in health care to help pt quit start CIWA protocol start banna bag start ativan IV as CIWA protocol Qualifiers: Complication of substance-induced condition: uncomplicated Qualified Code(s): F10.920 - Alcohol use, unspecified with intoxication, uncomplicated (3) Hyponatremia Conclusion/Plan: pt's Na is 124 today, it is likely from his alcoholic drinking, hypovolumia hyponatremia. start with IV of NS. lab monitor (4) Right clavicle fracture Conclusion/Plan: Xray reveals right clavicle fracture from his fall due to alcoholic intoxicaition. there is No other injury as far pt has sling for the injury. start pain control Qualifiers: Encounter type: initial encounter Clavicle location: lateral end Fracture type: closed Fracture alignment: nondisplaced Qualified Code(s): S42.034A - Nondisplaced fracture of lateral end of right clavicle, initial encounter for closed fracture (5) Cirrhosis Conclusion/Plan: previous image studies revealed pt has alcoholic hepatic cirrhosis. pt has elevated ammonia level, elevated bili and AST, elevated INR level. advise pt quit alcohol resume home meds Lactulose and rifaximan lab monitor Qualifiers: Hepatic cirrhosis type: alcoholic cirrhosis Ascites presence: unspecified Qualified Code(s): K70.30 - Alcoholic cirrhosis of liver without ascites (6) Varices, esophageal Conclusion/Plan: pt's previous study reveals pt has varices vain in esophageal with splenorenal shunting, caused by pt's port hypertension, cirrhosis and alcohol abuse closely monitor pt if bleeding, hold blood thinner, vital monitor and lab monitor. (7) Thrombocytopenia Conclusion/Plan: plt is 70 today, likely caused by alcoholic hepatic cirrhosis, liver failure. hold blood thinner, closely monitor if pt has bleeding. lab monitor advise pt quit alcohol - Lab Results Fish Bones: 01/14/20 08:56 01/14/20 08:56 Core Measures - Anticipated LOS I expect patient to be DC'd or transferred within 96 hours.: Yes - DVT/VTE - Prophylaxis VTE/DVT Device ordered at admit?: Yes VTE/DVT Prophylaxis med ordered at admit?: Yes
[2020-01-14] MEDS: oxyCODONE 5 MG TABLET PO PRN ×3 (11:00→21:58)
[2020-01-14] MEDS: MORPHINE 2 MG/ML CARPUJECT IVP PRN ×2 (11:00→16:55)
[2020-01-14] MEDS: SODIUM CHLORIDE 0.9% 1,000 ML IV SCH ×2 (11:04→22:00)
[2020-01-14] MEDS: PANTOPRAZOLE 40 MG TABLET PO SCH (11:33)
[2020-01-14] MEDS: rifAXIMin 550 MG TABLET PO SCH ×2 (11:33→20:08)
[2020-01-14] MEDS: LACTULOSE 10 GM /15 ML UDC PO SCH ×2 (11:33→20:08)
[2020-01-14 12:13] LABS: MUDS CUTOFF CONCENTRATIONS CUTOFF CONC BELOW:
[2020-01-14 12:16] LABS: BILIRUBIN,URINE NEGATIVE (NEGATIVE); GLUCOSE, URINE (UA) NEGATIVE (NEGATIVE); KETONES,URINE (UA) NEGATIVE (NEGATIVE); LEUKOCYTE ESTERASE, URINE NEGATIVE (NEGATIVE); NITRITE,URINE NEGATIVE (NEGATIVE); OCCULT BLOOD,URINE NEGATIVE (NEGATIVE); PH,URINE 5.5 PH (5.0-7.5); PROTEIN,URINE NEGATIVE (NEGATIVE); UROBILINOGEN,URINE 0.2 (NORMAL) E.U./dL (NORMAL)
[2020-01-14 12:18] LABS: CLARITY,URINE CLEAR (CLEAR)
[2020-01-14] MEDS: NICOTINE 14 MG PATCH TOP SCH (12:23)
[2020-01-14 12:26] LABS: AMPHETAMINE SCREEN,URINE NEGATIVE (NEGATIVE); BENZODIAZEPINES SCREEN, URINE NEGATIVE (NEGATIVE); COCAINE SCREEN URINE NEGATIVE (NEGATIVE); METHADONE SCREEN, URINE NEGATIVE (NEGATIVE); METHAMPHETAMINES SCREEN, URINE NEGATIVE (NEGATIVE); OPIATE SCREEN, URINE POSITIVE (NEGATIVE); OXYCODONE SCREEN, URINE POSITIVE (NEGATIVE); PROPOXYPHENE SCREEN, URINE NEGATIVE (NEGATIVE); TRICYCLIC ANTIDEPRESSANT,URINE NEGATIVE (NEGATIVE)
--- NOTE | 2020-01-14 13:44 | XRAY Report ---
Reason: fall Procedure Date: 01/14/2020 Accession Number: [id number] / [id number] Procedure: XR - Shoulder 3 View LT CPT Code: Final Report FULL RESULT: EXAM: LEFT SHOULDER RADIOGRAPHY EXAM DATE: 01/14/2020 12:12 PM. CLINICAL HISTORY: Fall. Left shoulder pain. COMPARISON: SHOULDER 3 VIEW RT 01/14/2020 8:11 AM. TECHNIQUE: 3 views. FINDINGS: Bones: No acute fracture or dislocation. Joints: The glenohumeral and acromioclavicular joints are intact with mild degenerative changes. Soft tissues: Unremarkable. IMPRESSION: No acute fracture or dislocation visualized. RADIA
[2020-01-14] MEDS: SODIUM CHLORIDE FLUSH 0.9% 10 ML SYRINGE IVP SCH (17:50)
[2020-01-14] MEDS ORDERED: rifAXIMin 550 MG TABLET PO SCH (21:00)
[2020-01-15] MEDS: SODIUM CHLORIDE FLUSH 0.9% 10 ML SYRINGE IVP SCH ×3 (00:05→17:28)
[2020-01-15] MEDS: MORPHINE 2 MG/ML CARPUJECT IVP PRN ×6 (01:13→20:57)
[2020-01-15 05:24] LABS: BASOPHILS % (AUTO) 0.5 %; EOSINOPHILS % (AUTO) 0.7 %; LYMPHOCYTES # (AUTO) 0.6 10^3/uL (1.5-3.5); LYMPHOCYTES % (AUTO) 10.5 %; MEAN CORPUSCULAR HEMOGLOBIN 34.9 pg (27.0-31.0); MEAN CORPUSCULAR HGB CONC 34.2 g/dL (32.0-36.0); MEAN CORPUSCULAR VOLUME 101.9 fL (80.0-94.0); MEAN PLATELET VOLUME 9.2 fL (7.4-11.4); MONOCYTES # (AUTO) 1.1 10^3/uL (0.0-1.0); MONOCYTES % (AUTO) 18.4 %; NEUTROPHILS % (AUTO) 69.4 %; PLT - PLATELET COUNT 46 10^3/uL (130-450); RED BLOOD COUNT 2.58 10^6/uL (4.70-6.10); RED CELL DISTRIBUTION WIDTH 15.6 % (12.0-15.0); WHITE BLOOD COUNT 5.8 x10^3/uL (4.8-10.8)
[2020-01-15 05:43] LABS: ALBUMIN 2.4 g/dL (3.2-5.5); ALBUMIN/GLOBULIN RATIO 0.6 (1.0-2.2); BILIRUBIN,TOTAL 2.8 mg/dL (0.2-1.0); CALCIUM 7.8 mg/dL (8.5-10.3); CREATININE 0.8 mg/dL (0.6-1.2); MAGNESIUM 1.7 mg/dL (1.7-2.8); TOTAL PROTEIN 6.3 g/dL (6.7-8.2)
[2020-01-15] MEDS: PANTOPRAZOLE 40 MG TABLET PO SCH (06:45)
[2020-01-15] MEDS: oxyCODONE 5 MG TABLET PO PRN ×3 (06:46→17:26)
[2020-01-15] MEDS: PRENATAL VITAMIN TABLET PO SCH (08:52)
[2020-01-15] MEDS: rifAXIMin 550 MG TABLET PO SCH ×2 (08:53→20:58)
[2020-01-15] MEDS: NICOTINE 14 MG PATCH TOP SCH (08:53)
[2020-01-15] MEDS: THIAMINE 100 MG TABLET PO SCH (08:53)
[2020-01-15] MEDS: TAMSULOSIN 0.4 MG CAPSULE PO SCH (08:53)
[2020-01-15] MEDS: LACTULOSE 10 GM /15 ML UDC PO SCH ×3 (09:00→20:59)
[2020-01-15] MEDS ORDERED: ENOXAPARIN 40 MG/0.4 ML SYRINGE SUBQ SCH (09:00)
[2020-01-15] MEDS ORDERED: MULTIVITAMIN 10 ML, THIAMINE INJ 100 MG, FOLIC ACID INJ 1 MG in SODIUM CHLORIDE 0.9% 1,... IV SCH (09:00)
[2020-01-15] MEDS ORDERED: SODIUM CHLORIDE 0.9% 1,000 ML IV ONE (10:30)
[2020-01-15] MEDS: SODIUM CHLORIDE 0.9% 1,000 ML IV SCH ×3 (10:30→19:48)
--- NOTE | 2020-01-15 11:21 | PROVIDER PROGRESS NOTE ---
Assessment/Plan - Problem List (1) Rhabdomyolysis Assessment/Plan: 01/14 pt's CK is upto over 1000 now, it is likely from pt's multiple fall, muscle damage, slight delay released. pt's renal function is stable now. increase IVF to 125 daily. pt has cirrhosis and ascites so IVF is not upto too much lab monitor (2)elevated ammonia level 01/14 pt's mental status seems stable today. pt was given Lactulose and rifaximin. today his ammonia level increased to 70 from 40. increase Lactulose dosage and continue rifaximin, continue lab monitor (3) Fall Conclusion/Plan: 01/14 left shoulder xray reveals no fracture, continue right shoulder sling, pain control pt has fall at home after he had alcohol drunk. right shoulder Xray reveals right clavicle fracture without other fracture. pt present multiple location of skin bruises and tear from the fall. Left shoulder Xray did not reveal fracture. pt has sling for his right shoulder and hand fall precaution pain control advise pt quit alcohol (4) Alcohol intoxication Conclusion/Plan: 01/14 pt's alcohol is running down, will add librium, continue CIWA protocol for alcohol withdrawal pt has long hx of alcohol abuse. alcohol test is positive at 290. pt had a fall after he had drunk alcohol. plan: advise pt quit alcohol, consult with social studies teacher to help pt quit start CIWA protocol start banna bag start ativan IV as CIWA protocol Qualifiers: Complication of substance-induced condition: uncomplicated Qualified Code(s): F10.920 - Alcohol use, unspecified with intoxication, uncomplicated (5) Hyponatremia Conclusion/Plan: 01/14 improved. Na is 131 today. continue IVF of NS, lab monitor pt's Na is 124 today, it is likely from his alcoholic drinking, hypovolumia hyponatremia. start with IV of NS. lab monitor (6) Right clavicle fracture Conclusion/Plan: Xray reveals right clavicle fracture from his fall due to alcoholic intoxicaition. there is No other injury as far pt has sling for the injury. start pain control (7) Cirrhosis Conclusion/Plan: previous image studies revealed pt has alcoholic hepatic cirrhosis. pt has elevated ammonia level, elevated bili and AST, elevated INR level. advise pt quit alcohol resume home meds Lactulose and rifaximan lab monitor Qualifiers: Hepatic cirrhosis type: alcoholic cirrhosis Ascites presence: unspecified Qualified Code(s): K70.30 - Alcoholic cirrhosis of liver without ascites (8) Varices, esophageal Conclusion/Plan: pt's previous study reveals pt has varices vain in esophageal with splenorenal shunting, caused by pt's port hypertension, cirrhosis and alcohol abuse closely monitor pt if bleeding, hold blood thinner, vital monitor and lab monitor. (9) Thrombocytopenia Conclusion/Plan: 01/14 Plt is 46 today, closely monitor if bleeding, continue lab monitor plt is 70 today, likely caused by alcoholic hepatic cirrhosis, liver failure. hold blood thinner, closely monitor if pt has bleeding. lab monitor advise pt quit alcohol (4) Alcohol intoxication Qualifiers: Complication of substance-induced condition: uncomplicated Qualified Code(s): F10.920 - Alcohol use, unspecified with intoxication, uncomplicated (6) Right clavicle fracture Qualifiers: Encounter type: initial encounter Clavicle location: lateral end Fracture type: closed Fracture alignment: nondisplaced Qualified Code(s): S42.034A - Nondisplaced fracture of lateral end of right clavicle, initial encounter for closed fracture (7) Cirrhosis Qualifiers: Hepatic cirrhosis type: alcoholic cirrhosis Ascites presence: unspecified Qualified Code(s): K70.30 - Alcoholic cirrhosis of liver without ascites - Current Meds Current Meds: Current Medications Generic Name Dose Route Start Last Admin Trade Name Freq PRN Reason Stop Dose Admin Acetaminophen 650 mg 01/14/20 10:01/14/20 11:00 Tylenol PO 650 mg Q4HR PRN Administration Pain 1 to 4 Lactulose 10 gm 01/15/20 08:53 01/15/20 09:00 Enulose PO 10 gm TID BROWN Administration Morphine Sulfate 2 mg 01/14/20 10:01/15/20 09:25 Morphine (Carpuject) IVP 2 mg Q2HR PRN Administration Pain 8 to 10 Nicotine 1 patch 01/14/20 13:00 01/15/20 08:53 Nicoderm TOP 1 patch DAILY BROWN Administration Oxycodone HCl 5 mg 01/14/20 10:00 01/15/20 06:46 Roxicodone PO 5 mg Q4HR PRN Administration Pain 5 to 7 Pantoprazole Sodium 40 mg 01/14/20 11:00 01/15/20 06:45 Protonix PO 40 mg QDAC BROWN Administration Multivit/Folic Acid/Iron 1 tab 01/15/20 08:00 01/15/20 08:52 Trinatal Rx 1 PO 1 tab DAILYWM BROWN Administration Rifaximin 550 mg 01/14/20 11:00 01/15/20 08:53 Xifaxan PO 550 mg BID BROWN Administration Sodium Chloride 10 ml 01/14/20 17:00 01/15/20 08:53 Normal Saline Flush 0.9% IVP 10 ml 0100,0900,1700 BROWN Administration Tamsulosin HCl 0.4 mg 01/15/20 09:00 01/15/20 08:53 Flomax PO 0.4 mg DAILY BROWN Administration Thiamine HCl 100 mg 01/15/20 09:00 01/15/20 08:53 Vitamin B-1 PO 100 mg DAILY BROWN Administration - Lab Result Fish Bone Diagrams: 01/15/20 05:05 01/15/20 05:05 - Additional Planning My Orders: My Active Orders 01/14/20 11:00 Pantoprazole [Protonix] 40 mg PO QDAC rifAXIMin [Xifaxan] 550 mg PO BID 01/14/20 13:00 Nicotine 14 mg Patch [Nicoderm] 1 patch TOP DAILY 01/14/20 13:02 Code Status [OTHERS] Routine 01/14/20 17:00 Sodium Chloride Flush 0.9% [Normal Saline Flush 0.9%] 10 ml IVP 0100,0900,1700 01/14/20 Lunch Regular Diet [DIET] 01/15/20 08:00 Vitamin [Trinatal Rx 1] 1 tab PO DAILYWM 01/15/20 08:53 Lactulose [Enulose] 10 gm PO TID 01/15/20 09:00 Tamsulosin [Flomax] 0.4 mg PO DAILY Thiamine [Vitamin B-1] 100 mg PO DAILY 01/16/20 05:00 AMMONIA [CHEM] DAILYLAB CBC - COMP BLD CT W/AUTO DIFF [HEME] DAILYLAB CK- CREATINE KINASE [CHEM] DAILYLAB CMP [COMPREHENSIVE METABOLIC PANEL] [CHEM] DAILYLAB 01/17/20 05:00 AMMONIA [CHEM] DAILYLAB CBC - COMP BLD CT W/AUTO DIFF [HEME] DAILYLAB CK- CREATINE KINASE [CHEM] DAILYLAB CMP [COMPREHENSIVE METABOLIC PANEL] [CHEM] DAILYLAB 01/18/20 05:00 AMMONIA [CHEM] DAILYLAB CBC - COMP BLD CT W/AUTO DIFF [HEME] DAILYLAB CK- CREATINE KINASE [CHEM] DAILYLAB CMP [COMPREHENSIVE METABOLIC PANEL] [CHEM] DAILYLAB Subjective - Subjective Patient Reports: Pain Objective Vital Signs: Vital Signs - 24 hr 01/14/20 01/14/20 01/15/20 16:00 20:05 00:18 Temperature 37.0 C 36.9 C 36.9 C Heart Rate [ 77 81 79 Brachial] Respiratory 16 16 20 Rate Blood Pressure 114/61 106/55 L 121/53 L [Left Brachial artery] O2 Saturation 94 94 93 01/15/20 01/15/20 03:42 09:00 Temperature 36.8 C 36.7 C Heart Rate [ 80 81 Brachial] Respiratory 18 20 Rate Blood Pressure 130/56 L 128/58 L [Left Brachial artery] O2 Saturation 93 95 Oxygen O2 Source Room air I&O (Last 24 Hrs): Intake and Output Totals x24h 01/13/20 01/14/20 01/15/20 23:59 23:59 23:59 Intake Total 1760 Output Total 1200 1100 Balance 560 -1100 General: Alert, Mild distress HEENT: Atraumatic Neck: Supple Lymphatic: no adenopathy Neuro: Alert, Non Focal, Oriented Times 3 Cardiovascular: Regular rate, Normal S1, Normal S2 Respiratory: Chest non-tender, No respiratory distress, Breath sounds nml Abdomen: Normal bowel sounds, Soft, No tenderness Extremities: No edema, Normal pulses - Results Results: Laboratory Results WBC 5.8 x10^3/uL (4.8-10.8) 01/15/20 05:05 RBC 2.58 10^6/uL (4.70-6.10) L 01/15/20 05:05 Hgb 9.0 g/dL (14.0-18.0) L 01/15/20 05:05 Hct 26.3 % (42.0-52.0) L 01/15/20 05:05 MCV 101.9 fL (80.0-94.0) H 01/15/20 05:05 MCH 34.9 pg (27.0-31.0) H 01/15/20 05:05 MCHC 34.2 g/dL (32.0-36.0) 01/15/20 05:05 RDW 15.6 % (12.0-15.0) H 01/15/20 05:05 Plt Count 46 10^3/uL (130-450) L 01/15/20 05:05 MPV 9.2 fL (7.4-11.4) 01/15/20 05:05 Neut # (Auto) 4.0 10^3/uL (1.5-6.6) 01/15/20 05:05 Lymph # (Auto) 0.6 10^3/uL (1.5-3.5) L 01/15/20 05:05 [place] # (Auto) 1.1 10^3/uL (0.0-1.0) H 01/15/20 05:05 Eos # (Auto) 0.0 10^3/uL (0.0-0.7) 01/15/20 05:05 Baso # (Auto) 0.0 10^3/uL (0.0-0.1) 01/15/20 05:05 Absolute Nucleated RBC 0.00 x10^3/uL 01/15/20 05:05 Nucleated RBC % 0.0 /100WBC 01/15/20 05:05 PT 17.4 secs (9.9-12.6) H 01/14/20 08:56 INR 1.6 (0.8-1.2) H 01/14/20 08:56 Sodium 131 mmol/L (135-145) L 01/15/20 05:05 Potassium 4.3 mmol/L (3.5-5.0) 01/15/20 05:05 Chloride 100 mmol/L (101-111) L 01/15/20 05:05 Carbon Dioxide 25 mmol/L (21-32) 01/15/20 05:05 Anion Gap 6.0 (6-13) 01/15/20 05:05 BUN 10 mg/dL (6-20) 01/15/20 05:05 Creatinine 0.8 mg/dL (0.6-1.2) 01/15/20 05:05 Estimated GFR (MDRD) 96 (>89) 01/15/20 05:05 Glucose 113 mg/dL (70-100) H 01/15/20 05:05 Calcium 7.8 mg/dL (8.5-10.3) L 01/15/20 05:05 Magnesium 1.7 mg/dL (1.7-2.8) 01/15/20 05:05 Total Bilirubin 2.8 mg/dL (0.2-1.0) H 01/15/20 05:05 AST 118 IU/L (10-42) H 01/15/20 05:05 ALT 25 IU/L (10-60) 01/15/20 05:05 Alkaline Phosphatase 56 IU/L (42-121) 01/15/20 05:05 Ammonia 75.0 umol/L (7-35) H 01/15/20 05:05 Total Creatine Kinase 1604 IU/L (22-269) H* 01/15/20 05:05 Total Protein 6.3 g/dL (6.7-8.2) L 01/15/20 05:05 Albumin 2.4 g/dL (3.2-5.5) L 01/15/20 05:05 Globulin 3.9 g/dL (2.1-4.2) 01/15/20 05:05 Albumin/Globulin Ratio 0.6 (1.0-2.2) L 01/15/20 05:05 Lipase 33 U/L (22-51) 01/14/20 08:56 Urine Color YELLOW 01/14/20 11:30 Urine Clarity CLEAR (CLEAR) 01/14/20 11:30 Urine pH 5.5 PH (5.0-7.5) 01/14/20 11:30 Ur Specific [place] 1.020 (1.002-1.030) 01/14/20 11:30 Urine Protein NEGATIVE mg/dL (NEGATIVE) 01/14/20 11:30 Urine Glucose (UA) NEGATIVE mg/dL (NEGATIVE) 01/14/20 11:30 Urine Ketones NEGATIVE mg/dL (NEGATIVE) 01/14/20 11:30 Urine Occult Blood NEGATIVE (NEGATIVE) 01/14/20 11:30 Urine Nitrite NEGATIVE (NEGATIVE) 01/14/20 11:30 Urine Bilirubin NEGATIVE (NEGATIVE) 01/14/20 11:30 Urine Urobilinogen 0.2 (NORMAL) E.U./dL (NORMAL) 01/14/20 11:30 Ur Leukocyte Esterase NEGATIVE (NEGATIVE) 01/14/20 11:30 Ur Microscopic Review NOT INDICATED 01/14/20 11:30 Urine Culture Comments NOT INDICATED 01/14/20 11:30 Urine Opiates Screen POSITIVE (NEGATIVE) H 01/14/20 11:30 Ur Oxycodone Screen POSITIVE (NEGATIVE) H 01/14/20 11:30 Urine Methadone Screen NEGATIVE (NEGATIVE) 01/14/20 11:30 Ur Propoxyphene Screen NEGATIVE (NEGATIVE) 01/14/20 11:30 Ur Barbiturates Screen NEGATIVE (NEGATIVE) 01/14/20 11:30 Ur Tricyclics Screen NEGATIVE (NEGATIVE) 01/14/20 11:30 Ur Phencyclidine Scrn NEGATIVE (NEGATIVE) 01/14/20 11:30 Ur Amphetamine Screen NEGATIVE (NEGATIVE) 01/14/20 11:30 U Methamphetamines Scrn NEGATIVE (NEGATIVE) 01/14/20 11:30 U Benzodiazepines Scrn NEGATIVE (NEGATIVE) 01/14/20 11:30 Urine Cocaine Screen NEGATIVE (NEGATIVE) 01/14/20 11:30 U Cannabinoids Screen NEGATIVE (NEGATIVE) 01/14/20 11:30 Ethyl Alcohol 184.9 mg/dL 01/14/20 15:12 - Procedures Procedures: Procedures EXCISION OF CECUM, ENDO, DIAGN (06/18/17) EXCISION OF SIGMOID COLON, ENDO, DIAGN (06/18/17) Sepsis Event Note (H) - Evaluation Current Stage of Sepsis: Ruled out ABX Reporting Has patient been on IV antibiotics over the past 48 hours?: No Current Medications - Current Medications Current Medications: Active Medications Acetaminophen (Tylenol) 650 mg PO Q4HR PRN PRN Reason: Pain 1 to 4 Last Admin: 01/14/20 11:00 Dose: 650 mg Chlordiazepoxide HCl (Librium) 25 mg PO Q6HR BROWN Lactulose (Enulose) 10 gm PO TID [facility] Last Admin: 01/15/20 09:00 Dose: 10 gm Lorazepam (Ativan Inj (Vial)) 1 mg IVP Q30M PRN; Protocol PRN Reason: CIWA >8 Morphine Sulfate (Morphine (Carpuject)) 2 mg IVP Q2HR PRN PRN Reason: Pain 8 to 10 Last Admin: 01/15/20 09:25 Dose: 2 mg Nicotine (Nicoderm) 1 patch TOP DAILY [facility] Last Admin: 01/15/20 08:53 Dose: 1 patch Ondansetron HCl (Zofran Inj) 4 mg IVP Q6HR PRN PRN Reason: Nausea / Vomiting Oxycodone HCl (Roxicodone) 5 mg PO Q4HR PRN PRN Reason: Pain 5 to 7 Last Admin: 01/15/20 11:13 Dose: 5 mg Pantoprazole Sodium (Protonix) 40 mg PO QDAC [facility] Last Admin: 01/15/20 06:45 Dose: 40 mg Multivit/Folic Acid/Iron (Trinatal Rx 1) 1 tab PO DAILYWM [facility] Last Admin: 01/15/20 08:52 Dose: 1 tab Rifaximin (Xifaxan) 550 mg PO BID [facility] Last Admin: 01/15/20 08:53 Dose: 550 mg Sodium Chloride (Normal Saline Flush 0.9%) 10 ml IVP PRN PRN PRN Reason: NEEDED PER PROVIDER ORDERS Sodium Chloride (Normal Saline Flush 0.9%) 10 ml IVP 0100,0900,1700 [facility] Last Admin: 01/15/20 08:53 Dose: 10 ml Tamsulosin HCl (Flomax) 0.4 mg PO DAILY [facility] Last Admin: 01/15/20 08:53 Dose: 0.4 mg Thiamine HCl (Vitamin B-1) 100 mg PO DAILY [facility] Last Admin: 01/15/20 08:53 Dose: 100 mg oxyCODONE [Roxicodone] 5 mg PO QID PRN 06/17/17 Furosemide 40 mg PO DAILY 01/14/20 Lactulose [Constulose] 10 gm PO BID 01/14/20 Spironolactone 100 mg PO DAILY 01/14/20 Tamsulosin [Flomax] 0.4 mg DAILY 01/14/20 rifAXIMin [Xifaxan] 550 mg BID 01/14/20
[2020-01-15] MEDS: chlordiazePOXIDE 25 MG CAPSULE PO SCH ×2 (13:28→18:34)
[2020-01-16] MEDS: SODIUM CHLORIDE FLUSH 0.9% 10 ML SYRINGE IVP SCH ×3 (00:42→19:50)
[2020-01-16] MEDS: chlordiazePOXIDE 25 MG CAPSULE PO SCH ×4 (00:43→19:14)
[2020-01-16] MEDS: SODIUM CHLORIDE 0.9% 1,000 ML IV SCH ×3 (01:14→19:49)
[2020-01-16] MEDS: oxyCODONE 5 MG TABLET PO PRN ×5 (01:14→21:59)
[2020-01-16] MEDS: MORPHINE 2 MG/ML CARPUJECT IVP PRN ×2 (04:38→16:11)
[2020-01-16 05:34] LABS: BASOPHILS % (AUTO) 0.9 %; EOSINOPHILS # (AUTO) 0.2 10^3/uL (0.0-0.7); EOSINOPHILS % (AUTO) 3.3 %; HGB - HEMOGLOBIN 9.6 g/dL (14.0-18.0); LYMPHOCYTES # (AUTO) 0.6 10^3/uL (1.5-3.5); LYMPHOCYTES % (AUTO) 13.8 %; MEAN CORPUSCULAR HEMOGLOBIN 35.2 pg (27.0-31.0); MEAN CORPUSCULAR HGB CONC 32.8 g/dL (32.0-36.0); MEAN CORPUSCULAR VOLUME 107.3 fL (80.0-94.0); MONOCYTES # (AUTO) 1.1 10^3/uL (0.0-1.0); MONOCYTES % (AUTO) 23.8 %; NEUTROPHILS # (AUTO) 2.6 10^3/uL (1.5-6.6); PLT - PLATELET COUNT 49 10^3/uL (130-450); RED BLOOD COUNT 2.73 10^6/uL (4.70-6.10); RED CELL DISTRIBUTION WIDTH 16.2 % (12.0-15.0); WHITE BLOOD COUNT 4.5 x10^3/uL (4.8-10.8)
[2020-01-16 05:49] LABS: ALBUMIN 2.4 g/dL (3.2-5.5); ALBUMIN/GLOBULIN RATIO 0.6 (1.0-2.2); BILIRUBIN,TOTAL 4.2 mg/dL (0.2-1.0); CALCIUM 8.3 mg/dL (8.5-10.3); CREATININE 0.7 mg/dL (0.6-1.2); TOTAL PROTEIN 6.5 g/dL (6.7-8.2)
[2020-01-16] MEDS: LACTULOSE 10 GM /15 ML UDC PO SCH ×3 (06:49→21:59)
[2020-01-16] MEDS: PANTOPRAZOLE 40 MG TABLET PO SCH (06:50)
[2020-01-16] MEDS: THIAMINE 100 MG TABLET PO SCH (09:17)
[2020-01-16] MEDS: TAMSULOSIN 0.4 MG CAPSULE PO SCH (09:17)
[2020-01-16] MEDS: NICOTINE 14 MG PATCH TOP SCH (09:17)
[2020-01-16] MEDS: rifAXIMin 550 MG TABLET PO SCH ×2 (09:17→21:59)
[2020-01-16] MEDS: PRENATAL VITAMIN TABLET PO SCH (09:18)
--- NOTE | 2020-01-16 16:33 | PROVIDER PROGRESS NOTE ---
Subjective - Prog Note Date Prog Note Date: 01/16/20 Prog Note Time: 16:29 - Subjective Pt reports feeling: Improved Subjective: Ashutosh complains of wanting to "get out of bed", but remains too weak. He states he does have anxiety, tremors, and no nausea. Current Medications - Current Medications Current Medications: Active Medications: Acetaminophen (Tylenol) 650 mg PO Q6HR PRN Chlordiazepoxide HCl (Librium) 25 mg PO Q6HR BROWN Sodium Chloride (Normal Saline 0.9%) 1,000 mls @ 125 mls/hr IV .Q8H BROWN Lactulose (Enulose) 10 gm PO TID BROWN Lorazepam (Ativan Inj (Vial)) 1 mg IVP Q30M PRN; Protocol Morphine Sulfate (Morphine (Carpuject)) 2 mg IVP Q2HR PRN Nicotine (Nicoderm) 1 patch TOP DAILY BROWN Ondansetron HCl (Zofran Inj) 4 mg IVP Q6HR PRN Oxycodone HCl (Roxicodone) 5 mg PO Q4HR PRN Pantoprazole Sodium (Protonix) 40 mg PO QDAC [facility] Polyethylene Glycol (Miralax) 17 gm PO DAILY [facility] Multivit/Folic Acid/Iron (Trinatal Rx 1) 1 tab PO DAILYWM [facility] Rifaximin (Xifaxan) 550 mg PO BID [facility] Tamsulosin HCl (Flomax) 0.4 mg PO DAILY [facility] Thiamine HCl (Vitamin B-1) 100 mg PO DAILY [facility] HOME meds: oxyCODONE [Roxicodone] 5 mg PO QID PRN 06/17/17 Furosemide 40 mg PO DAILY 01/14/20 Lactulose [Constulose] 10 gm PO BID 01/14/20 Spironolactone 100 mg PO DAILY 01/14/20 Tamsulosin [Flomax] 0.4 mg DAILY 01/14/20 rifAXIMin [Xifaxan] 550 mg BID 01/14/20 Objective - Vital Signs/Intake & Output Reviewed Vital Signs: Yes Vital Signs: Vital Signs x48h Temp Pulse Resp BP Pulse Ox 01/16/20 16:20 36.9 C 86 20 108/54 L 94 01/16/20 13:00 87 20 133/58 H 96 01/16/20 08:59 36.7 C 72 20 111/67 91 L Intake & Output: Intake & Output 01/13/20 01/14/20 01/15/20 01/16/20 23:59 23:59 23:59 23:59 Intake Total 1760 2676.000 3542.917 Output Total 1200 1425 1350 Balance 560 5755.333 6234.917 - Objective General Appearance: positive: Alert, Moderate distress, Anxious, Lethargic Eyes Bilateral: positive: No lid inflammation Eyes: OU Scleral icterus ENT: positive: Pharyngeal erythema, Dry mucous membranes Neck: positive: Trachea midline, Stiff neck Respiratory: positive: Chest non-tender, No respiratory distress, Other (diminshed bilaterally) Cardiovascular: positive: Regular rate & rhythm, No gallop, JVD present, Systolic murmur, Decreased pulse(s) Peripheral Pulses: 1+ Radial (R), 1+ Radial (L) Abdomen: positive: Non-tender, Nml bowel sounds, Other (tympanic, rounded, soft) Back: positive: Nml inspection Skin: positive: No rash, Warm, Dry, Other (bronze toned skin) Extremities: positive: Non-tender, Pedal edema, Joint swelling Neurologic/Psychiatric: positive: Disoriented to place, Disoriented to time, Weakness, Sensory loss, Slurred/abnml speech, Depressed mood/affect Reflexes: Bicep (R): 2+, Bicep (L): 2+ - Lab Results Fish Bones: 01/16/20 05:15 01/16/20 05:15 Other Labs: Lab Results x24hrs 01/16/20 01/16/20 01/16/20 Range/Units 05:15 05:15 05:15 WBC 4.5 L (4.8-10.8) x10^3/uL RBC 2.73 L (4.70-6.10) 10^6/uL Hgb 9.6 L (14.0-18.0) g/dL Hct 29.3 L (42.0-52.0) % MCV 107.3 H (80.0-94.0) fL MCH 35.2 H (27.0-31.0) pg MCHC 32.8 (32.0-36.0) g/dL RDW 16.2 H (12.0-15.0) % Plt Count 49 L (130-450) 10^3/uL MPV 10.0 (7.4-11.4) fL Neut # (Auto) 2.6 (1.5-6.6) 10^3/uL Lymph # (Auto) 0.6 L (1.5-3.5) 10^3/uL [place] # (Auto) 1.1 H (0.0-1.0) 10^3/uL Eos # (Auto) 0.2 (0.0-0.7) 10^3/uL Baso # (Auto) 0.0 (0.0-0.1) 10^3/uL Absolute Nucleated RBC 0.00 x10^3/uL Nucleated RBC % 0.0 /100WBC Sodium 134 L (135-145) mmol/L Potassium 3.9 (3.5-5.0) mmol/L Chloride 106 (101-111) mmol/L Carbon Dioxide 23 (21-32) mmol/L Anion Gap 5.0 L (6-13) BUN 8 (6-20) mg/dL Creatinine 0.7 (0.6-1.2) mg/dL Estimated GFR (MDRD) 112 (>89) Glucose 104 H (70-100) mg/dL Calcium 8.3 L (8.5-10.3) mg/dL Total Bilirubin 4.2 H (0.2-1.0) mg/dL AST 126 H (10-42) IU/L ALT 26 (10-60) IU/L Alkaline Phosphatase 47 (42-121) IU/L Ammonia 41.1 H (7-35) umol/L Total Creatine Kinase 624 H (22-269) IU/L Total Protein 6.5 L (6.7-8.2) g/dL Albumin 2.4 L (3.2-5.5) g/dL Globulin 4.1 (2.1-4.2) g/dL Albumin/Globulin Ratio 0.6 L (1.0-2.2) ABX Reporting Has patient been on IV antibiotics over the past 48 hours?: No Sepsis Event Note (H) - Evaluation Current Stage of Sepsis: Ruled out Assessment/Plan - Problem List (1) Rhabdomyolysis Impression: -Upon admission, CK was moderately elevated at 318, then peaked at 1604, now coming back down to 624 -Likely a result of physical decompensation with multiple falls resulting in acute muscle damage -Continues on IVFs at 125/ml per hour -Patient also has cirrhosis with ascites and takes chronic Lasix/spironolactone- on HOLD -Routine labs, adjust IV fluids as needed Hepatic encephalopathy -known alcoholism, found down by neighbor, leading to this admission -Still has profound confusion, CIWA scores 3-7 Elevated ammonia level -Upon admission, serum ammonia level was 40.5, peaked at 75.0, now 41.1 -No BMs since at least 01/12, still none today -Consider gastro-grafin if no results -Patient continues on Lactulose TID and rifaximin BID -Routine labs, CIWA protocol per nursing, monitor for BMs Fall -Patient was found on the floor by a neighbor, who called 911, resulting in this admission -PT/OT evaluation after medically stable -Fall precautions -CIWA protocol per nursing Alcohol intoxication -Blood alcohol level was 291, and 184 since admission -Patient continues to have profound confusion, staying in bed -Multiple complications 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, cirrhosis, falls, deconditioning, and soon an inability to care for himself -Patient continues on Librium, lorazepam, PRN and continuous CIWA protocol -Social work consult to evaluate for placement or rehab Hyponatremia -Upon admission, serum sodium was very low at 124, now improved at 134 -Indicator of severity of cirrhosis, now on IV fluids for acute rhabdo -Routine labs, monitor for worsening mental status Right clavicle fracture -X-ray shows a right clavicle fracture from his fall likely due to alcoholic intoxication -Pain control with IV morphine, resume home oxycodone as appropriate -OT evaluation in the AM Cirrhosis -Prior imaging showed hepatic cirrhosis, also with esophageal varices -Patient continues on home lactulose, rifaximin -Elevated ammonia level, elevated bili and AST, elevated INR level -Encourage cessation, social work consult Varices, esophageal -Prior work up showed varices within the esophagus with spleno-renal shunting, caused by portal hypertension, cirrhosis and alcohol abuse -Monitor for vomiting blood, soft diet when eating, routine labs Thrombocytopenia -Serum platelets are low, now 49 from 46 yesterday -Routine labs
[2020-01-16] MEDS: SENNA 8.6 MG TABLET PO SCH (19:14)
[2020-01-16] MEDS: DOCUSATE SODIUM 250 MG CAPSULE PO SCH (19:15)
[2020-01-17] MEDS: chlordiazePOXIDE 25 MG CAPSULE PO SCH ×4 (01:44→20:09)
[2020-01-17] MEDS: SODIUM CHLORIDE FLUSH 0.9% 10 ML SYRINGE IVP SCH ×3 (01:57→20:09)
[2020-01-17] MEDS: oxyCODONE 5 MG TABLET PO PRN ×2 (02:08→13:34)
[2020-01-17] MEDS: SODIUM CHLORIDE 0.9% 1,000 ML IV SCH (03:10)
[2020-01-17 05:37] LABS: BASOPHILS % (AUTO) 0.8 %; EOSINOPHILS # (AUTO) 0.1 10^3/uL (0.0-0.7); EOSINOPHILS % (AUTO) 1.9 %; LYMPHOCYTES # (AUTO) 0.6 10^3/uL (1.5-3.5); LYMPHOCYTES % (AUTO) 12.1 %; MEAN CORPUSCULAR HEMOGLOBIN 34.6 pg (27.0-31.0); MEAN CORPUSCULAR HGB CONC 33.1 g/dL (32.0-36.0); MEAN CORPUSCULAR VOLUME 104.6 fL (80.0-94.0); MEAN PLATELET VOLUME 9.2 fL (7.4-11.4); MONOCYTES # (AUTO) 1.3 10^3/uL (0.0-1.0); MONOCYTES % (AUTO) 25.3 %; NEUTROPHILS # (AUTO) 3.1 10^3/uL (1.5-6.6); NEUTROPHILS % (AUTO) 59.5 %; PLT - PLATELET COUNT 52 10^3/uL (130-450); RED CELL DISTRIBUTION WIDTH 16.3 % (12.0-15.0); WHITE BLOOD COUNT 5.2 x10^3/uL (4.8-10.8)
[2020-01-17 05:50] LABS: ALBUMIN 2.2 g/dL (3.2-5.5); ALBUMIN/GLOBULIN RATIO 0.6 (1.0-2.2); BILIRUBIN,TOTAL 3.6 mg/dL (0.2-1.0); CALCIUM 7.8 mg/dL (8.5-10.3); CREATININE 0.7 mg/dL (0.6-1.2); TOTAL PROTEIN 6.1 g/dL (6.7-8.2)
[2020-01-17] MEDS: LACTULOSE 10 GM /15 ML UDC PO SCH ×2 (07:00→14:35)
[2020-01-17] MEDS: PANTOPRAZOLE 40 MG TABLET PO SCH (07:01)
[2020-01-17] MEDS: NICOTINE 14 MG PATCH TOP SCH (09:07)
[2020-01-17] MEDS: THIAMINE 100 MG TABLET PO SCH (09:08)
[2020-01-17] MEDS: DOCUSATE SODIUM 250 MG CAPSULE PO SCH (09:08)
[2020-01-17] MEDS: PRENATAL VITAMIN TABLET PO SCH (09:08)
[2020-01-17] MEDS: SENNA 8.6 MG TABLET PO SCH (09:08)
[2020-01-17] MEDS: rifAXIMin 550 MG TABLET PO SCH ×2 (09:08→20:14)
[2020-01-17] MEDS: TAMSULOSIN 0.4 MG CAPSULE PO SCH (09:08)
[2020-01-17] MEDS: polyethylene glycoL 3350 17 GM PACKET PO SCH (09:09)
[2020-01-17] MEDS ORDERED: DIATR MEGLU/DIATRIZOATE SODIUM 120 ML BOTTLE PO SCH (10:00)
[2020-01-17] MEDS: FUROSEMIDE 40 MG/4 ML VIAL IVP SCH (10:03)
[2020-01-17] MEDS: SPIRONOLACTONE 25 MG TABLET PO SCH (10:03)
[2020-01-17] MEDS: THIAMINE INJ 500 MG in SODIUM CHLORIDE 0.9% 50 ML IV SCH ×3 (10:04→21:59)
[2020-01-17] MEDS: ACETAMINOPHEN 325 MG TABLET PO PRN (10:11)
--- NOTE | 2020-01-17 10:42 | PROVIDER PROGRESS NOTE ---
Subjective - Prog Note Date Prog Note Date: 01/17/20 Prog Note Time: 10:38 - Subjective Pt reports feeling: No change Subjective: Ashutosh will not answer questions on exam. He appears much more confused. By mid- morning he has finally had good results from all the bowel meds. He now has a fever of 38.4 C, so undergoing a sepsis work up. Current Medications - Current Medications Current Medications: Active Medications: Acetaminophen (Tylenol) 650 mg PO Q6HR PRN Chlordiazepoxide HCl (Librium) 25 mg PO Q6H [facility] Diatrizoate Meglum/Diatrizoate Sod 120 ml PO ONCE [facility] Docusate Sodium (Colace 250mg Capsule) 250 - 500 mg PO DAILY [facility] Furosemide (Lasix Inj 40 Mg Vial) 40 mg IVP DAILY [facility] Thiamine HCl 500 mg/ Sodium (Chloride) 55 mls @ 100 mls/hr IV TID [facility] Lactulose (Enulose) 10 gm PO TID [facility] Lorazepam (Ativan Inj (Vial)) 1 mg IVP Q30M PRN; Protocol Morphine Sulfate (Morphine (Carpuject)) 2 mg IVP Q2HR PRN Nicotine (Nicoderm) 1 patch TOP DAILY [facility] Ondansetron HCl (Zofran Inj) 4 mg IVP Q6HR PRN Oxycodone HCl (Roxicodone) 5 mg PO Q4HR PRN Pantoprazole Sodium (Protonix) 40 mg PO QDAC [facility] Polyethylene Glycol (Miralax) 17 gm PO DAILY [facility] Multivit/Folic Acid/Iron (Trinatal Rx 1) 1 tab PO DAILYWM [facility] Rifaximin (Xifaxan) 550 mg PO BID [facility] Senna (Senokot) 8.6 - 17.2 mg PO DAILY [facility] Spironolactone (Aldactone) 100 mg PO DAILY [facility] Tamsulosin HCl (Flomax) 0.4 mg PO DAILY [facility] HOME meds: oxyCODONE [Roxicodone] 5 mg PO QID PRN 06/17/17 Furosemide 40 mg PO DAILY 01/14/20 Lactulose [Constulose] 10 gm PO BID 01/14/20 Spironolactone 100 mg PO DAILY 01/14/20 Tamsulosin [Flomax] 0.4 mg DAILY 01/14/20 rifAXIMin [Xifaxan] 550 mg BID 01/14/20 Objective - Vital Signs/Intake & Output Reviewed Vital Signs: Yes Vital Signs: Vital Signs x48h Temp Pulse Resp BP Pulse Ox 01/17/20 09:39 38.4 C H 84 20 138/66 H 93 Intake & Output: Intake & Output 01/14/20 01/15/20 01/16/20 01/17/20 23:59 23:59 23:59 23:59 Intake Total 1760 2676.000 4515.000 1454.167 Output Total 1200 1425 1550 375 Balance 560 4135.543 9315.000 1079.167 - Objective General Appearance: positive: Alert, Moderate distress, Anxious, Lethargic, Other (more confusion) Eyes Bilateral: positive: No lid inflammation Eyes: OU Scleral icterus ENT: positive: Pharynx nml, Dry mucous membranes Neck: positive: No JVD, Trachea midline, Stiff neck Respiratory: positive: Chest non-tender, No respiratory distress, Wheezes, Rhonchi Cardiovascular: positive: Regular rate & rhythm, No gallop, Tachycardia, Systolic murmur, Decreased pulse(s) Peripheral Pulses: 1+ Radial (R), 1+ Radial (L) Abdomen: positive: Nml bowel sounds, Tenderness, Guarding, Hepatomegaly, Other (rounded, soft) Back: positive: Nml inspection Skin: positive: No rash, Warm, Dry, Other (bronze, jaundice) Extremities: positive: Pedal edema, Joint swelling Neurologic/Psychiatric: positive: Disoriented to time, Weakness, Sensory loss, Slurred/abnml speech (less speech today), Depressed mood/affect (flat) Reflexes: Bicep (R): 2+, Bicep (L): 2+ - Lab Results Fish Bones: 01/17/20 05:15 01/17/20 05:15 Other Labs: Lab Results x24hrs 01/17/20 01/17/20 01/17/20 Range/Units 05:15 05:15 05:15 WBC 5.2 (4.8-10.8) x10^3/uL RBC 2.60 L (4.70-6.10) 10^6/uL Hgb 9.0 L (14.0-18.0) g/dL Hct 27.2 L (42.0-52.0) % MCV 104.6 H (80.0-94.0) fL MCH 34.6 H (27.0-31.0) pg MCHC 33.1 (32.0-36.0) g/dL RDW 16.3 H (12.0-15.0) % Plt Count 52 L (130-450) 10^3/uL MPV 9.2 (7.4-11.4) fL Neut # (Auto) 3.1 (1.5-6.6) 10^3/uL Lymph # (Auto) 0.6 L (1.5-3.5) 10^3/uL [place] # (Auto) 1.3 H (0.0-1.0) 10^3/uL Eos # (Auto) 0.1 (0.0-0.7) 10^3/uL Baso # (Auto) 0.0 (0.0-0.1) 10^3/uL Absolute Nucleated RBC 0.00 x10^3/uL Nucleated RBC % 0.0 /100WBC Sodium 131 L (135-145) mmol/L Potassium 4.0 (3.5-5.0) mmol/L Chloride 102 (101-111) mmol/L Carbon Dioxide 23 (21-32) mmol/L Anion Gap 6.0 (6-13) BUN 8 (6-20) mg/dL Creatinine 0.7 (0.6-1.2) mg/dL Estimated GFR (MDRD) 112 (>89) Glucose 95 (70-100) mg/dL Calcium 7.8 L (8.5-10.3) mg/dL Total Bilirubin 3.6 H (0.2-1.0) mg/dL AST 102 H (10-42) IU/L ALT 24 (10-60) IU/L Alkaline Phosphatase 33 L (42-121) IU/L Ammonia 50.3 H (7-35) umol/L Total Creatine Kinase 266 (22-269) IU/L Total Protein 6.1 L (6.7-8.2) g/dL Albumin 2.2 L (3.2-5.5) g/dL Globulin 3.9 (2.1-4.2) g/dL Albumin/Globulin Ratio 0.6 L (1.0-2.2) ABX Reporting Has patient been on IV antibiotics over the past 48 hours?: No Sepsis Event Note (H) - Evaluation Current Stage of Sepsis: Sepsis - Sepsis Criteria Sepsis Criteria: Recorded Temperature greater than 38.3C or Less than 36C, Recorded Heart Rate greater than 90 bpm, ABRASIVE WHEEL MOLDER: altered consciousness (unrelated to primary neuro pathology), Hepatic: Bilirubin greater than 2mg/dl, Hematologic: platelets < 100,000; INR > 1.5, or a PTT>60 seconds Assessment/Plan - Problem List (1) Sepsis Impression: -Now with a fever of 38.4 C -New confusion, which was originally thought to be Wernicke encephalopathy -Septic work up; chest x-ray, blood cultures, new urine culture via straight cath, labs, lactic acid -Await a few results, before starting empiric antibiotics ~ 30 minutes -Follow results, monitor for improvement, vital signs Rhabdomyolysis -Upon admission, CK was moderately elevated at 318, then peaked at 1604, now coming back down to 624 -Likely a result of physical decompensation with multiple falls resulting in acute muscle damage -Continues on IVFs at 125/ml per hour -Patient also has cirrhosis with ascites and takes chronic Lasix/spironolactone- on HOLD -Routine labs, adjust IV fluids as needed Wernicke's encephalopathy -known alcoholism, found down by neighbor, leading to this admission -Still has profound confusion, CIWA scores 3-7 -High dose IV thiamine 500 mg TID x3 days -Monitor for improvement -Fall precautions Elevated ammonia level -Upon admission, serum ammonia level was 40.5, peaked at 75.0, now 41.1 -Finally moving bowels today after gastro-grafin x1 -Patient continues on Lactulose TID and rifaximin BID -Routine labs, CIWA protocol per nursing, monitor for BMs Fall -Patient was found on the floor by a neighbor, who called 911, resulting in this admission -PT/OT evaluation after medically stable -Fall precautions -CIWA protocol per nursing Alcohol intoxication -Blood alcohol level was 291, and 184 since admission -Patient continues to have profound confusion, staying in bed -Multiple complications due to his assisted use of alcohol, cirrhosis, falls, deconditioning, and soon an inability to care for himself -Patient continues on Librium, lorazepam, PRN and continuous CIWA protocol -Social work consult to evaluate for placement or rehab Hyponatremia -Upon admission, serum sodium was very low at 124, now improved at 131 -Indicator of severity of cirrhosis -Status post IV fluids for acute rhabdo, now resumed on diuretics, unless sepsis is found -Routine labs, monitor for worsening mental status Right clavicle fracture -X-ray shows a right clavicle fracture from his fall likely due to alcoholic intoxication -Pain control with IV morphine, resume home oxycodone as appropriate -Profound right shoulder bruising, sling for getting out of bed and for comfort -OT evaluation when medically stable Cirrhosis -Prior imaging showed hepatic cirrhosis, also with esophageal varices -Patient continues on home lactulose, rifaximin -Elevated ammonia level, elevated bili and AST, elevated INR level -Encourage cessation, social work consult Varices, esophageal -Prior work up showed varices within the esophagus with spleno-renal shunting, caused by portal hypertension, cirrhosis and alcohol abuse -Monitor for vomiting blood, soft diet when eating, routine labs Thrombocytopenia -Serum platelets are low, now 52 from 49 yesterday -Routine labs
[2020-01-17 10:56] LABS: BASOPHILS % (AUTO) 0.7 %; EOSINOPHILS % (AUTO) 0.7 %; HGB - HEMOGLOBIN 10.6 g/dL (14.0-18.0); LYMPHOCYTES # (AUTO) 0.4 10^3/uL (1.5-3.5); LYMPHOCYTES % (AUTO) 8.2 %; MEAN CORPUSCULAR HEMOGLOBIN 37.2 pg (27.0-31.0); MEAN CORPUSCULAR HGB CONC 34.5 g/dL (32.0-36.0); MEAN CORPUSCULAR VOLUME 107.7 fL (80.0-94.0); MEAN PLATELET VOLUME 9.7 fL (7.4-11.4); MONOCYTES # (AUTO) 1.3 10^3/uL (0.0-1.0); MONOCYTES % (AUTO) 23.9 %; NEUTROPHILS # (AUTO) 3.6 10^3/uL (1.5-6.6); NEUTROPHILS % (AUTO) 66.3 %; PLT - PLATELET COUNT 70 10^3/uL (130-450); RED BLOOD COUNT 2.85 10^6/uL (4.70-6.10); RED CELL DISTRIBUTION WIDTH 16.4 % (12.0-15.0); WHITE BLOOD COUNT 5.4 x10^3/uL (4.8-10.8)
[2020-01-17] MEDS ORDERED: LIDOCAINE 2% URO-JET 5 ML SYRINGE UR PRN (11:44)
[2020-01-17 11:53] LABS: INR 1.7 (0.8-1.2); PT - PROTHROMBIN TIME 19.3 secs (9.9-12.6)
--- NOTE | 2020-01-17 13:23 | XRAY Report ---
Reason: cough, fever Procedure Date: 01/17/2020 Accession Number: [id number] / [id number] Procedure: XR - Chest 1 View X-Ray CPT Code: 25708 Final Report FULL RESULT: EXAM: CHEST RADIOGRAPHY EXAM DATE: 01/17/2020 11:07 AM. CLINICAL HISTORY: Cough, fever. COMPARISON: CHEST 1 VIEW 01/14/2020 8:09 AM. TECHNIQUE: 1 view. FINDINGS: Lungs/Pleura: No focal opacities evident. No pleural effusion. No pneumothorax. Mediastinum: Within exam limitations, the cardiomediastinal contour is normal. Other: Old right rib fracture. Recent right clavicle fracture. IMPRESSION: No acute process seen in the chest. RADIA
[2020-01-17 13:48] LABS: BILIRUBIN,URINE NEGATIVE (NEGATIVE); GLUCOSE, URINE (UA) NEGATIVE (NEGATIVE); KETONES,URINE (UA) NEGATIVE (NEGATIVE); LEUKOCYTE ESTERASE, URINE NEGATIVE (NEGATIVE); NITRITE,URINE NEGATIVE (NEGATIVE); OCCULT BLOOD,URINE NEGATIVE (NEGATIVE); PH,URINE 5.5 PH (5.0-7.5); PROTEIN,URINE NEGATIVE (NEGATIVE); UROBILINOGEN,URINE 0.2 (NORMAL) E.U./dL (NORMAL)
[2020-01-17 13:57] LABS: CLARITY,URINE CLEAR (CLEAR)
[2020-01-17] MEDS: LACTULOSE 10 GM/15 ML BOTTLE PO SCH (21:59)
[2020-01-18] MEDS: ACETAMINOPHEN 325 MG TABLET PO PRN (02:03)
[2020-01-18] MEDS: chlordiazePOXIDE 25 MG CAPSULE PO SCH ×4 (02:03→19:25)
[2020-01-18] MEDS: SODIUM CHLORIDE FLUSH 0.9% 10 ML SYRINGE IVP SCH ×4 (02:03→23:51)
[2020-01-18] MEDS ORDERED: SODIUM CHLORIDE 0.9% 500 ML ONE (06:04)
[2020-01-18] MEDS: LACTULOSE 10 GM/15 ML BOTTLE PO SCH ×3 (06:10→21:09)
[2020-01-18] MEDS: THIAMINE INJ 500 MG in SODIUM CHLORIDE 0.9% 50 ML IV SCH ×3 (06:11→21:27)
[2020-01-18] MEDS: PANTOPRAZOLE 40 MG TABLET PO SCH (06:11)
[2020-01-18] MEDS: oxyCODONE 5 MG TABLET PO PRN ×3 (06:14→21:13)
[2020-01-18 06:15] LABS: BASOPHILS % (AUTO) 0.5 %; EOSINOPHILS % (AUTO) 0.5 %; HGB - HEMOGLOBIN 8.6 g/dL (14.0-18.0); LYMPHOCYTES # (AUTO) 0.5 10^3/uL (1.5-3.5); LYMPHOCYTES % (AUTO) 13.2 %; MEAN CORPUSCULAR HEMOGLOBIN 34.8 pg (27.0-31.0); MEAN CORPUSCULAR HGB CONC 33.2 g/dL (32.0-36.0); MEAN CORPUSCULAR VOLUME 104.9 fL (80.0-94.0); MONOCYTES # (AUTO) 1.1 10^3/uL (0.0-1.0); NEUTROPHILS # (AUTO) 2.1 10^3/uL (1.5-6.6); NEUTROPHILS % (AUTO) 56.3 %; PLT - PLATELET COUNT 62 10^3/uL (130-450); RED BLOOD COUNT 2.47 10^6/uL (4.70-6.10); RED CELL DISTRIBUTION WIDTH 16.8 % (12.0-15.0); WHITE BLOOD COUNT 3.7 x10^3/uL (4.8-10.8)
[2020-01-18 06:24] LABS: ALBUMIN 2.1 g/dL (3.2-5.5); ALBUMIN/GLOBULIN RATIO 0.6 (1.0-2.2); BILIRUBIN,TOTAL 2.7 mg/dL (0.2-1.0); CALCIUM 7.9 mg/dL (8.5-10.3); CREATININE 0.7 mg/dL (0.6-1.2); TOTAL PROTEIN 5.6 g/dL (6.7-8.2)
[2020-01-18] MEDS ORDERED: VANCOMYCIN PER PHARMACY 100 GM in SODIUM CHLORIDE 0.9% 250 ML IV SCH (07:00)
--- NOTE | 2020-01-18 07:52 | PHARMACY PROGRESS NOTE ---
- Therapy Status Vancomycin regimen day #: 1 (Loading dose: 2 g IV x 1, Maintenance dose: 1.5 g IV q12h per protocol) Therapy status: Awaiting steady state Basis for treatment: Empirical Treatment indication: sepsis Trough goal: 15-20 - MARIS Risk Acute Kidney Injury risk factors: Goal trough >15, Chronic baseline hypertension, Sepsis - Monitoring and Recommendation Clinical response to treatment: I&O Previous 24 hours 01/16/20 01/17/20 01/18/20 23:59 23:59 23:59 Intake Total 4515.000 2759.167 205 Output Total 1550 525 100 Balance 2965.000 2234.167 105 Lab Results 01/18/20 01/17/20 01/17/20 05:31 10:45 05:15 ESR 34 H BUN 9 8 Creatinine 0.7 0.7 Estimated GFR (MDRD) 112 112 01/16/20 01/15/20 01/14/20 05:15 05:05 08:56 ESR BUN 8 10 9 Creatinine 0.7 0.8 0.8 Estimated GFR (MDRD) 112 96 96 Cultures 01/17/20 11:20 Blood Blood Culture - Preliminary 01/17/20 10:45 Blood Blood Culture - Preliminary Monitoring plan: Daily serum creatinine Next trough due prior to maintenance dose #: 4 Next trough due (date/time): 01/18 at 1830 Areas for additional monitoring: IV to PO when appropriate, Therapy de- escalation based on culture results, Acute Kidney Injury Pharmacy recommendation: Continue current regime
[2020-01-18] MEDS ORDERED: VANCOMYCIN INJ 2 GM in SODIUM CHLORIDE 0.9% 500 ML IV ONE (08:00)
[2020-01-18] MEDS: PRENATAL VITAMIN TABLET PO SCH (08:04)
[2020-01-18] MEDS: NICOTINE 14 MG PATCH TOP SCH (08:04)
[2020-01-18] MEDS: rifAXIMin 550 MG TABLET PO SCH ×2 (08:04→21:09)
[2020-01-18] MEDS: polyethylene glycoL 3350 17 GM PACKET PO SCH (08:05)
[2020-01-18] MEDS: TAMSULOSIN 0.4 MG CAPSULE PO SCH (08:05)
[2020-01-18] MEDS: SENNA 8.6 MG TABLET PO SCH (08:05)
[2020-01-18] MEDS: DOCUSATE SODIUM 250 MG CAPSULE PO SCH (08:06)
[2020-01-18] MEDS: FUROSEMIDE 40 MG/4 ML VIAL IVP SCH (08:06)
[2020-01-18] MEDS: SPIRONOLACTONE 25 MG TABLET PO SCH (08:06)
--- NOTE | 2020-01-18 16:01 | PROVIDER PROGRESS NOTE ---
Subjective - Prog Note Date Prog Note Date: 01/18/20 Prog Note Time: 15:55 - Subjective Pt reports feeling: Improved Subjective: Ashutosh cannot contribute to his review of systems and appears calm and comfortable on exam. He denies anxiety, shaking, itching, prickly skin, chest pain, nausea, vomiting, abdominal pain, dizziness, or hallucinations when asked. Current Medications - Current Medications Current Medications: Active Medications: Acetaminophen (Tylenol) 650 mg PO Q6HR PRN Chlordiazepoxide HCl (Librium) 25 mg PO Q6H [facility] Docusate Sodium (Colace 250mg Capsule) 250 - 500 mg PO DAILY [facility] Thiamine HCl 500 mg/ Sodium (Chloride) 55 mls @ 100 mls/hr IV TID [facility] Vancomycin HCl 1.5 gm/ Sodium (Chloride) 500 mls @ 250 mls/hr IV Q12H [facility] Dextrose/Sodium Chloride (D5.45ns) 1,000 mls @ 83.333 mls/hr IV .Q12H [facility] Lactulose (Lactulose) 10 gm PO TID [facility] Lidocaine HCl (Xylocaine Uro-Jet 2%) 2.5 ml UR Q6H PRN Morphine Sulfate (Morphine (Carpuject)) 2 mg IVP Q2HR PRN Ondansetron HCl (Zofran Inj) 4 mg IVP Q6HR PRN Oxycodone HCl (Roxicodone) 5 mg PO Q4HR PRN Pantoprazole Sodium (Protonix) 40 mg PO QDAC [facility] Multivit/Folic Acid/Iron (Trinatal Rx 1) 1 tab PO DAILYWM [facility] Rifaximin (Xifaxan) 550 mg PO BID [facility] Tamsulosin HCl (Flomax) 0.4 mg PO DAILY [facility] HOME meds: OxyCODONE [Roxicodone] 5 mg PO QID PRN 06/17/17 Furosemide 40 mg PO DAILY 01/14/20 Lactulose [Constulose] 10 gm PO BID 01/14/20 Spironolactone 100 mg PO DAILY 01/14/20 Tamsulosin [Flomax] 0.4 mg DAILY 01/14/20 rifAXIMin [Xifaxan] 550 mg BID 01/14/20 Objective - Vital Signs/Intake & Output Reviewed Vital Signs: Yes Vital Signs: Vital Signs x48h Temp Pulse Pulse Pulse Pulse Resp BP 01/18/20 14:15 85 79 75 03/16/20 11:35 79 85 75 01/18/20 08:05 38.2 C H 69 16 98/50 L BP BP BP Pulse Ox Pulse Ox Pulse Ox 01/18/20 14:15 98/56 L 96/58 L 118/58 L 95 01/18/20 11:35 98/56 L 96/53 L 118/58 L 95 01/18/20 08:05 92 Intake & Output: Intake & Output 01/15/20 01/16/20 01/17/20 01/18/20 23:59 23:59 23:59 23:59 Intake Total 2676.000 4515.000 2759.167 1240 Output Total 1425 1550 525 100 Balance 1133.026 5658.000 2234.167 1140 - Objective General Appearance: positive: Alert, Moderate distress, Anxious, Lethargic Eyes: OU Scleral icterus ENT: positive: Pharyngeal erythema, Oral lesions, Dry mucous membranes Neck: positive: Trachea midline, Stiff neck Respiratory: positive: Chest non-tender, No respiratory distress, Other (diminished bilaterally) Cardiovascular: positive: Regular rate & rhythm, No gallop, Tachycardia, Systolic murmur, Decreased pulse(s) Peripheral Pulses: 1+ Radial (R), 1+ Radial (L) Abdomen: positive: Non-tender, Nml bowel sounds, Other (rounded, soft) Back: positive: Nml inspection Skin: positive: No rash, Warm, Dry, Diaphoresis (at times), Other (bronze, jaundice, scleral icterus, profound deep purple bruising noted to right shoulder extending down to forearm) Extremities: positive: Non-tender, Pedal edema, Joint swelling Neurologic/Psychiatric: positive: Disoriented to place, Disoriented to time, Weakness, Sensory loss, Slurred/abnml speech, Depressed mood/affect, Other (baseline alcoholic dementia) Reflexes: Bicep (L): 1+ - Lab Results Fish Bones: 01/18/20 05:31 01/18/20 05:31 Other Labs: Lab Results x24hrs 01/18/20 01/18/20 Range/Units 05:31 05:31 WBC 3.7 L (4.8-10.8) x10^3/uL RBC 2.47 L (4.70-6.10) 10^6/uL Hgb 8.6 L (14.0-18.0) g/dL Hct 25.9 L (42.0-52.0) % MCV 104.9 H (80.0-94.0) fL MCH 34.8 H (27.0-31.0) pg MCHC 33.2 (32.0-36.0) g/dL RDW 16.8 H (12.0-15.0) % Plt Count 62 L (130-450) 10^3/uL MPV 10.0 (7.4-11.4) fL Neut # (Auto) 2.1 (1.5-6.6) 10^3/uL Lymph # (Auto) 0.5 L (1.5-3.5) 10^3/uL [place] # (Auto) 1.1 H (0.0-1.0) 10^3/uL Eos # (Auto) 0.0 (0.0-0.7) 10^3/uL Baso # (Auto) 0.0 (0.0-0.1) 10^3/uL Absolute Nucleated RBC 0.00 x10^3/uL Nucleated RBC % 0.0 /100WBC Sodium 133 L (135-145) mmol/L Potassium 3.6 (3.5-5.0) mmol/L Chloride 106 (101-111) mmol/L Carbon Dioxide 22 (21-32) mmol/L Anion Gap 5.0 L (6-13) BUN 9 (6-20) mg/dL Creatinine 0.7 (0.6-1.2) mg/dL Estimated GFR (MDRD) 112 (>89) Glucose 100 (70-100) mg/dL Calcium 7.9 L (8.5-10.3) mg/dL Total Bilirubin 2.7 H (0.2-1.0) mg/dL AST 139 H (10-42) IU/L ALT 34 (10-60) IU/L Alkaline Phosphatase 34 L (42-121) IU/L Total Protein 5.6 L (6.7-8.2) g/dL Albumin 2.1 L (3.2-5.5) g/dL Globulin 3.5 (2.1-4.2) g/dL Albumin/Globulin Ratio 0.6 L (1.0-2.2) ABX Reporting Has patient been on IV antibiotics over the past 48 hours?: Yes Sepsis Event Note (H) - Evaluation Current Stage of Sepsis: Sepsis - Sepsis Criteria Sepsis Criteria: Recorded Temperature greater than 38.3C or Less than 36C, Recorded Heart Rate greater than 90 bpm, JEWELRY DESIGNER: altered consciousness (unrelated to primary neuro pathology), Renal: urine output less than 0.5ml/kg/hr for 2 hours or creatinine gr, Hepatic: Bilirubin greater than 2mg/dl, Hematologic: pl atelets < 100,000; INR > 1.5, or a PTT>60 seconds Assessment/Plan - Problem List (1) Gram-positive cocci in chains, clusters, and pairs present Impression: -Continues with fevers today, 38.2 C, ok for small amounts of tylenol for comfort -Ongoing confusion, which was originally thought to be Wernicke encephalopathy -Septic work up; chest x-ray, blood cultures x2 are positive for gram + cocci, new urine culture via straight cath was negative, labs showed no WBC -Elevated inflammatory markers with an ESR of 37, CRP 1.7, lactic acid was normal -Night Hospitalist started IV vancomycin per pharmacy -Follow results, monitor for improvement, treat symptoms, fall precautions, vital signs Rhabdomyolysis -Upon admission, CK was moderately elevated at 318, then peaked at 1604, now coming back down to 624 -Likely a result of physical decompensation with multiple falls resulting in acute muscle damage -Resumed gentle IV fluids today since finding blood stream infection, source of infection may be skin -Patient also has cirrhosis with ascites and takes chronic Lasix/spironolactone- on HOLD -Routine labs, adjust IV fluids as needed Wernicke's encephalopathy -known alcoholism, found down by neighbor, leading to this admission -Still has profound confusion, but may be a further consequence of blood stream infection -High dose IV thiamine 500 mg TID x3 days -Monitor for improvement -Fall precautions Elevated ammonia level -Upon admission, serum ammonia level was 40.5, peaked at 75.0, now 41.1 -Finally moving bowels after gastro-grafin x1 -Patient continues on Lactulose TID and rifaximin BID -Routine labs, monitor for BMs Fall -Patient was found on the floor by a neighbor, who called 911, resulting in this admission -PT/OT evaluation today since being treated for blood stream infection -Fall precautions Alcoholism -Blood alcohol level was 291, and 184 since admission -Patient continues to have profound confusion, staying in bed -Multiple complications due to his long goods drier use of alcohol, cirrhosis, falls, deconditioning, and soon an inability to care for himself -Patient continues on Librium, thiamin high dose via IV -CIWA protocol no longer indicated -Social work consult to evaluate for placement or rehab Hyponatremia -Upon admission, serum sodium was very low at 124, now improved at 133 -Indicator of severity of cirrhosis -Positive blood cultures today since having fevers yesterday -Routine labs, monitor for worsening mental status Macrocytic anemia -Trending down H/H, now 8.6/25.9, elevated MCV at 104 -Likely due to longstanding alcoholism -No recent iron studies, B12 or folate, now ordered for the AM -Monitor for bleeding, transfuse for hemoglobin less than 7.0 -Routine labs, await studies Right clavicle fracture -X-ray shows a right clavicle fracture from his fall likely due to alcoholic intoxication -Pain control with IV morphine, resume home oxycodone as appropriate -Profound right shoulder bruising, sling for getting out of bed and for comfort -OT/PT evaluation when medically stable Cirrhosis -Prior imaging showed hepatic cirrhosis, also with esophageal varices -Patient continues on home lactulose, rifaximin, holding diuretics since becoming bacteremic -Elevated ammonia level, elevated bili and AST, elevated INR level -Encourage cessation, social work consult Varices, esophageal -Prior work up showed varices within the esophagus with spleno-renal shunting, caused by portal hypertension, cirrhosis and alcohol abuse -Avoid the use of blood thinners or aspirin -Monitor for vomiting blood, soft diet when eating, routine labs Thrombocytopenia -Serum platelets 62 today, no evidence of bleeding -Routine labs
[2020-01-18] MEDS: DEXTROSE 5%-0.45% NACL 1,000 ML IV SCH (16:28)
[2020-01-18] MEDS: VANCOMYCIN INJ 1.5 GM in SODIUM CHLORIDE 0.9% 500 ML IV SCH (19:25)
[2020-01-19] MEDS: chlordiazePOXIDE 25 MG CAPSULE PO SCH ×4 (02:03→21:48)
[2020-01-19] MEDS: THIAMINE INJ 500 MG in SODIUM CHLORIDE 0.9% 50 ML IV SCH ×3 (05:28→22:24)
[2020-01-19] MEDS: PANTOPRAZOLE 40 MG TABLET PO SCH (05:29)
[2020-01-19] MEDS: SODIUM CHLORIDE FLUSH 0.9% 10 ML SYRINGE IVP SCH ×2 (05:29→20:12)
[2020-01-19] MEDS: oxyCODONE 5 MG TABLET PO PRN ×2 (05:41→14:47)
[2020-01-19 05:48] LABS: BASOPHILS % (AUTO) 0.7 %; EOSINOPHILS % (AUTO) 3.6 %; LYMPHOCYTES % (AUTO) 17.1 %; MEAN CORPUSCULAR HEMOGLOBIN 35.3 pg (27.0-31.0); MEAN CORPUSCULAR HGB CONC 33.2 g/dL (32.0-36.0); MEAN CORPUSCULAR VOLUME 106.3 fL (80.0-94.0); MEAN PLATELET VOLUME 9.7 fL (7.4-11.4); MONOCYTES % (AUTO) 35.2 %; NEUTROPHILS % (AUTO) 42.9 %; PLT - PLATELET COUNT 62 10^3/uL (130-450); RED BLOOD COUNT 2.55 10^6/uL (4.70-6.10); RED CELL DISTRIBUTION WIDTH 17.1 % (12.0-15.0); WHITE BLOOD COUNT 4.2 x10^3/uL (4.8-10.8)
[2020-01-19 06:06] LABS: INR 1.9 (0.8-1.2); PT - PROTHROMBIN TIME 20.7 secs (9.9-12.6)
[2020-01-19 06:09] LABS: ALBUMIN/GLOBULIN RATIO 0.6 (1.0-2.2); BILIRUBIN,TOTAL 2.2 mg/dL (0.2-1.0); CALCIUM 7.7 mg/dL (8.5-10.3); CREATININE 0.7 mg/dL (0.6-1.2); CRP - C-REACTIVE PROTEIN 1.2 mg/dL (0-1.0); MAGNESIUM 1.5 mg/dL (1.7-2.8); PHOSPHORUS 3.6 mg/dL (2.5-4.6); TOTAL PROTEIN 5.4 g/dL (6.7-8.2)
[2020-01-19 06:12] LABS: ABNORMAL LYMPHS % (MANUAL) 5 %; BAND NEUTROPHILS % (MANUAL) 4 %; EOSINOPHILS # (MANUAL) 0.3 10^3/uL (0-0.7); LYMPHOCYTES # (MANUAL) 1.1 10^3/uL (1.5-3.5); LYMPHOCYTES % (MANUAL) 20 %; MONOCYTES # (MANUAL) 1.1 10^3/uL (0.0-1.0)
[2020-01-19 06:13] LABS: RBC MORPHOLOGY (MULTIPLE) 1+ HYPOCHROMASIA (NORMAL)
[2020-01-19 06:14] LABS: DIFFERENTIAL COMMENT MANUAL DIFFERENTIAL; PLATELET ESTIMATE, MANUAL DECREASED (<130,000) (NORMAL); PLATELET MORPHOLOGY NORMAL APPEARANCE (NORMAL)
[2020-01-19 06:18] LABS: THYROID STIMULATING HORMONE 7.92 uIU/mL (0.34-5.60)
[2020-01-19] MEDS: LACTULOSE 10 GM/15 ML BOTTLE PO SCH ×3 (06:21→21:48)
[2020-01-19 06:29] LABS: FOLATE 14.15 ng/mL (5.90 - >24.8)
[2020-01-19] MEDS ORDERED: MAGNESIUM SULFATE 2 GRAM 2 GM/50 ML BAG IV ONE (07:26)
[2020-01-19] MEDS: DEXTROSE 5%-0.45% NACL 1,000 ML IV SCH (07:59)
[2020-01-19] MEDS: VANCOMYCIN INJ 1.5 GM in SODIUM CHLORIDE 0.9% 500 ML IV SCH ×2 (10:23→19:59)
[2020-01-19] MEDS: DOCUSATE SODIUM 250 MG CAPSULE PO SCH (10:24)
[2020-01-19] MEDS: PRENATAL VITAMIN TABLET PO SCH (10:24)
[2020-01-19] MEDS: TAMSULOSIN 0.4 MG CAPSULE PO SCH (10:24)
[2020-01-19] MEDS: FERROUS GLUCONATE 324 MG TABLET PO SCH (10:24)
[2020-01-19] MEDS: rifAXIMin 550 MG TABLET PO SCH ×2 (10:25→21:48)
--- NOTE | 2020-01-19 12:43 | PROVIDER PROGRESS NOTE ---
Subjective - Prog Note Date Prog Note Date: 01/19/20 - Subjective Pt reports feeling: Improved Subjective: pt is alert and orient to himself and location but no time. he denies fever and chill. he denies chest pain, shortness of breath. pt's first blood culture in both tube were positive gram positive CoNS. the second blood culture are pending now. Current Medications - Current Medications Current Medications: Active Medications Acetaminophen (Tylenol) 650 mg PO Q6HR PRN PRN Reason: Pain 1 to 4 Last Admin: 01/17/20 10:11 Dose: 650 mg Chlordiazepoxide HCl (Librium) 25 mg PO Q6H [facility] Last Admin: 01/19/20 10:24 Dose: 25 mg Docusate Sodium (Colace 250mg Capsule) 250 - 500 mg PO DAILY [facility] Last Admin: 01/19/20 10:24 Dose: 250 mg Ferrous Gluconate (Fergon) 324 mg PO DAILYWM [facility] Last Admin: 01/19/20 10:24 Dose: 324 mg Thiamine HCl 500 mg/ Sodium (Chloride) 55 mls @ 100 mls/hr IV TID [facility] Stop: 01/20/20 09:59 Last Infusion: 01/19/20 07:00 Dose: Infused Vancomycin HCl 1.5 gm/ Sodium (Chloride) 500 mls @ 250 mls/hr IV Q12H [facility] Last Admin: 01/19/20 10:23 Dose: 250 mls/hr Dextrose/Sodium Chloride (D5.45ns) 1,000 mls @ 83.333 mls/hr IV .Q12H [facility] Last Admin: 01/19/20 07:59 Dose: 83.33 mls/hr Lactulose (Lactulose) 10 gm PO TID [facility] Last Admin: 01/19/20 06:21 Dose: 10 gm Lidocaine HCl (Xylocaine Uro-Jet 2%) 2.5 ml UR Q6H PRN PRN Reason: PAIN Morphine Sulfate (Morphine (Carpuject)) 2 mg IVP Q2HR PRN PRN Reason: Pain 8 to 10 Last Admin: 01/16/20 16:11 Dose: 2 mg Ondansetron HCl (Zofran Inj) 4 mg IVP Q6HR PRN PRN Reason: Nausea / Vomiting Oxycodone HCl (Roxicodone) 5 mg PO Q4HR PRN PRN Reason: Pain 5 to 7 Last Admin: 01/19/20 05:41 Dose: 5 mg Pantoprazole Sodium (Protonix) 40 mg PO QDAC [facility] Last Admin: 01/19/20 05:29 Dose: 40 mg Multivit/Folic Acid/Iron (Trinatal Rx 1) 1 tab PO DAILYWM [facility] Last Admin: 01/19/20 10:24 Dose: 1 tab Rifaximin (Xifaxan) 550 mg PO BID [facility] Last Admin: 01/19/20 10:25 Dose: 550 mg Sodium Chloride (Normal Saline Flush 0.9%) 10 ml IVP PRN PRN PRN Reason: NEEDED PER PROVIDER ORDERS Last Admin: 01/17/20 22:02 Dose: 10 ml Sodium Chloride (Normal Saline Flush 0.9%) 10 ml IVP 0100,0900,1700 [facility] Last Admin: 01/19/20 05:29 Dose: 10 ml Tamsulosin HCl (Flomax) 0.4 mg PO DAILY [facility] Last Admin: 01/19/20 10:24 Dose: 0.4 mg oxyCODONE [Roxicodone] 5 mg PO QID PRN 06/17/17 Furosemide 40 mg PO DAILY 01/14/20 Lactulose [Constulose] 10 gm PO BID 01/14/20 Spironolactone 100 mg PO DAILY 01/14/20 Tamsulosin [Flomax] 0.4 mg DAILY 01/14/20 rifAXIMin [Xifaxan] 550 mg BID 01/14/20 Objective - Vital Signs/Intake & Output Vital Signs: Vital Signs x48h Temp Pulse Resp BP Pulse Ox 01/19/20 11:18 37.3 C 01/19/20 07:52 36.8 C 63 20 114/69 93 Intake & Output: Intake & Output 01/16/20 01/17/20 01/18/20 01/19/20 23:59 23:59 23:59 23:59 Intake Total 4515.000 2759.167 2539.443 1110.557 Output Total 1550 525 350 275 Balance 2965.000 2234.167 2189.443 835.557 - Objective General Appearance: positive: No acute distress, Alert. negative: Lethargic Eyes Bilateral: positive: Normal inspection, PERRL ENT: positive: ENT inspection nml, Pharynx nml, No signs of dehydration. negative: Purulent nasal drainage Neck: positive: Nml inspection, Thyroid nml, No JVD, Trachea midline. negative: Thyromegaly, Lymphadenopathy (R), Lymphadenopathy (L), Stiff neck, Tracheal deviation Respiratory: positive: Chest non-tender, No respiratory distress, Breath sounds nml. negative: Wheezes, Rales, Rhonchi Cardiovascular: positive: Regular rate & rhythm, No murmur, No gallop. n egative: Irregularly irregular, Extrasystoles, Tachycardia, Bradycardia, JVD present, Systolic murmur, Diastolic murmur Peripheral Pulses: 2+ Radial (R), 2+ Radial (L), 2+ Dorsalis pedis (R), 2+ Dorsalis pedis (L) Abdomen: positive: Non-tender, No organomegaly, Nml bowel sounds. negative: Tenderness, Guarding, Rebound Back: positive: Nml inspection. negative: CVA tenderness (R), CVA tenderness (L) Skin: positive: Warm, Dry. negative: Cyanosis, Diaphoresis, Pallor Extremities: positive: Non-tender. negative: Calf tenderness, Myla's sign/cords Neurologic/Psychiatric: positive: Sensation nml. negative: Weakness, Sensory loss, Facial droop, Slurred/abnml speech, Depressed mood/affect - Lab Results Fish Bones: 01/19/20 05:30 01/19/20 05:30 Other Labs: Lab Results x24hrs 01/19/20 01/19/20 01/19/20 Range/Units 05:30 05:30 05:30 WBC (4.8-10.8) x10^3/uL RBC (4.70-6.10) 10^6/uL Hgb (14.0-18.0) g/dL Hct (42.0-52.0) % MCV (80.0-94.0) fL MCH (27.0-31.0) pg MCHC (32.0-36.0) g/dL RDW (12.0-15.0) % Plt Count (130-450) 10^3/uL MPV (7.4-11.4) fL Neut # (Auto) Lymph # (Auto) [place] # (Auto) Eos # (Auto) Baso # (Auto) Absolute Nucleated RBC Total Counted Band Neuts % (Manual) (0 - 10) % Abnorm Lymph % (Manual) % Nucleated RBC % Neutrophils # (Manual) (1.5-6.6) 10^3/uL Lymphocytes # (Manual) (1.5-3.5) 10^3/uL Monocytes # (Manual) (0.0-1.0) 10^3/uL Eosinophils # (Manual) (0-0.7) 10^3/uL Basophils # (Manual) (0-0.1) 10^3/uL Differential Comment WBC Morphology (NORMAL) Platelet Estimate (NORMAL) Platelet Morphology (NORMAL) RBC Morph Micro Appear (NORMAL) ESR 25 H (0-20) mm/Hr PT (9.9-12.6) secs INR (0.8-1.2) Sodium 134 L (135-145) mmol/L Potassium 3.6 (3.5-5.0) mmol/L Chloride 108 (101-111) mmol/L Carbon Dioxide 22 (21-32) mmol/L Anion Gap 4.0 L (6-13) BUN 9 (6-20) mg/dL Creatinine 0.7 (0.6-1.2) mg/dL Estimated GFR (MDRD) 112 (>89) Glucose 111 H (70-100) mg/dL Lactic Acid 1.1 (0.5-2.2) mmol/L Calcium 7.7 L (8.5-10.3) mg/dL Phosphorus 3.6 (2.5-4.6) mg/dL Magnesium 1.5 L (1.7-2.8) mg/dL Iron 24 L (45-182) ug/dL TIBC 220 L (250-450) ug/dL % Saturation 11 L (20-50) % Transferrin 157 L (180-329) mg/dL Total Bilirubin 2.2 H (0.2-1.0) mg/dL AST 149 H (10-42) IU/L ALT 44 (10-60) IU/L Alkaline Phosphatase 34 L (42-121) IU/L C-Reactive Protein 1.2 H (0-1.0) mg/dL Total Protein 5.4 L (6.7-8.2) g/dL Albumin 2.0 L (3.2-5.5) g/dL Globulin 3.4 (2.1-4.2) g/dL Albumin/Globulin Ratio 0.6 L (1.0-2.2) Vitamin B12 (180-914) pg/mL Folate (5.90 - >24.8) ng/mL TSH (0.34-5.60) uIU/mL 01/19/20 01/19/20 01/19/20 Range/Units 05:30 05:30 05:30 WBC 4.2 L (4.8-10.8) x10^3/uL RBC 2.55 L (4.70-6.10) 10^6/uL Hgb 9.0 L (14.0-18.0) g/dL Hct 27.1 L (42.0-52.0) % MCV 106.3 H (80.0-94.0) fL MCH 35.3 H (27.0-31.0) pg MCHC 33.2 (32.0-36.0) g/dL RDW 17.1 H (12.0-15.0) % Plt Count 62 L (130-450) 10^3/uL MPV 9.7 (7.4-11.4) fL Neut # (Auto) Not Reportable Lymph # (Auto) Not Reportable [place] # (Auto) Not Reportable Eos # (Auto) Not Reportable Baso # (Auto) Not Reportable Absolute Nucleated RBC Not Reportable Total Counted 100 Band Neuts % (Manual) 4 (0 - 10) % Abnorm Lymph % (Manual) 5 % Nucleated RBC % Not Reportable Neutrophils # (Manual) 1.8 (1.5-6.6) 10^3/uL Lymphocytes # (Manual) 1.1 L (1.5-3.5) 10^3/uL Monocytes # (Manual) 1.1 H (0.0-1.0) 10^3/uL Eosinophils # (Manual) 0.3 (0-0.7) 10^3/uL Basophils # (Manual) 0.0 (0-0.1) 10^3/uL Differential Comment MANUAL DIFFERENTIAL WBC Morphology NORMAL APPEARANCE (NORMAL) Platelet Estimate DECREASED (<130,000) (NORMAL) Platelet Morphology NORMAL APPEARANCE (NORMAL) RBC Morph Micro Appear 1+ HYPOCHROMASIA (NORMAL) ESR (0-20) mm/Hr PT 20.7 H (9.9-12.6) secs INR 1.9 H (0.8-1.2) Sodium (135-145) mmol/L Potassium (3.5-5.0) mmol/L Chloride (101-111) mmol/L Carbon Dioxide (21-32) mmol/L Anion Gap (6-13) BUN (6-20) mg/dL Creatinine (0.6-1.2) mg/dL Estimated GFR (MDRD) (>89) Glucose (70-100) mg/dL Lactic Acid (0.5-2.2) mmol/L Calcium (8.5-10.3) mg/dL Phosphorus (2.5-4.6) mg/dL Magnesium (1.7-2.8) mg/dL Iron (45-182) ug/dL TIBC (250-450) ug/dL % Saturation (20-50) % Transferrin (180-329) mg/dL Total Bilirubin (0.2-1.0) mg/dL AST (10-42) IU/L ALT (10-60) IU/L Alkaline Phosphatase (42-121) IU/L C-Reactive Protein (0-1.0) mg/dL Total Protein (6.7-8.2) g/dL Albumin (3.2-5.5) g/dL Globulin (2.1-4.2) g/dL Albumin/Globulin Ratio (1.0-2.2) Vitamin B12 1691 H (180-914) pg/mL Folate 14.15 (5.90 - >24.8) ng/mL TSH 7.92 H (0.34-5.60) uIU/mL ABX Reporting Has patient been on IV antibiotics over the past 48 hours?: Yes Sepsis Event Note (H) - Evaluation Current Stage of Sepsis: Sepsis - Sepsis Criteria Sepsis Criteria: Recorded Temperature greater than 38.3C or Less than 36C, Recorded Heart Rate greater than 90 bpm, ELEVATING [employer]ER [employer]PERATOR: altered consciousness (unrelated to primary neuro pathology), Renal: urine output less than 0.5ml/kg/hr for 2 hours or creatinine gr, Hepatic: Bilirubin greater than 2mg/dl, Hematologic: platelets < 100,000; INR > 1.5, or a PTT>60 seconds Assessment/Plan - Problem List (1) Fever Impression: pt had 3/15, and 3/16 twice lower degree fever, first two tube blood culture was positive for CoNS. pt was treated with vancomycin. pt has no fever for 24 hours. it is unknown etiology. pt's CXR and UTI were negative for infection. pt has ascites with his alcoholic liver failure, spontaneous ascites caused infection is not excluded. ESR and CRP indicate infection is improved. second blood culture is pending now. pt has no more fever for 24 hours. continue vancomycin, and blood culture sensitive study. Rhabdomyolysis resolved. Wernicke's encephalopathy started on High dose IV thiamine 500 mg TID x3 days -Monitor for improvement -Fall precautions Elevated ammonia level the last ammonia is 50.3, still higher than normal. will check Ammonia level, continue lactulose and rifaximin Fall fall after pt had drunk. Fall precautions, advise pt quit alcohol abuse Alcoholism -Patient continues on Librium, thiamin high dose via IV. Social work consult to evaluate for placement or rehab Hyponatremia Na is 131 today. pt has hx of chronic hyponatremia, likely from his ascites and cirrhosis Right clavicle fracture X-ray shows a right clavicle fracture from his fall likely due to alcoholic intoxication continue pain control and OT evaluation and treatment Cirrhosis Prior imaging showed hepatic cirrhosis, also with esophageal varices. Patient continues on home lactulose, rifaximin impaired liver function including Elevated ammonia level, elevated bili and AST, elevated INR level Encourage cessation of alcohol, social work consult Varices, esophageal Prior work up showed varices within the esophagus with spleno-renal shunting, caused by portal hypertension, cirrhosis and alcohol abuse. Avoid the use of blood thinners or aspirin Monitor for vomiting blood, soft diet when eating, routine labs Thrombocytopenia stable as his chronic conditions, Routine lab monitor. (5) Alcohol intoxication Qualifiers: Complication of substance-induced condition: uncomplicated Qualified Code(s): F10.920 - Alcohol use, unspecified with intoxication, uncomplicated (7) Right clavicle fracture Qualifiers: Encounter type: initial encounter Clavicle location: lateral end Fracture type: closed Fracture alignment: nondisplaced Qualified Code(s): S42.034A - Nondisplaced fracture of lateral end of right clavicle, initial encounter for closed fracture (8) Cirrhosis Qualifiers: Hepatic cirrhosis type: alcoholic cirrhosis Ascites presence: unspecified Qualified Code(s): K70.30 - Alcoholic cirrhosis of liver without ascites
[2020-01-19 18:56] LABS: VANCOMYCIN,TROUGH 19.9 ug/mL (10.0-20.0)
[2020-01-19] MEDS: CALCIUM CARBONATE CHEW 500 MG TABLET PO SCH (21:48)
[2020-01-20] MEDS: DEXTROSE 5%-0.45% NACL 1,000 ML IV SCH ×2 (01:21→14:38)
[2020-01-20] MEDS: SODIUM CHLORIDE FLUSH 0.9% 10 ML SYRINGE IVP SCH ×3 (01:23→19:46)
[2020-01-20] MEDS: chlordiazePOXIDE 25 MG CAPSULE PO SCH ×3 (01:23→19:45)
[2020-01-20 05:44] LABS: BASOPHILS % (AUTO) 0.9 %; EOSINOPHILS % (AUTO) 3.1 %; HGB - HEMOGLOBIN 9.3 g/dL (14.0-18.0); MEAN CORPUSCULAR HEMOGLOBIN 36.6 pg (27.0-31.0); MEAN CORPUSCULAR HGB CONC 34.3 g/dL (32.0-36.0); MEAN CORPUSCULAR VOLUME 106.7 fL (80.0-94.0); MEAN PLATELET VOLUME 9.6 fL (7.4-11.4); MONOCYTES % (AUTO) 32.2 %; NEUTROPHILS % (AUTO) 53.2 %; PLT - PLATELET COUNT 67 10^3/uL (130-450); RED BLOOD COUNT 2.54 10^6/uL (4.70-6.10); WHITE BLOOD COUNT 5.4 x10^3/uL (4.8-10.8)
[2020-01-20 05:48] LABS: ALBUMIN/GLOBULIN RATIO 0.6 (1.0-2.2); BILIRUBIN,TOTAL 2.2 mg/dL (0.2-1.0); CALCIUM 7.6 mg/dL (8.5-10.3); CREATININE 0.7 mg/dL (0.6-1.2); TOTAL PROTEIN 5.4 g/dL (6.7-8.2)
[2020-01-20 05:53] LABS: INR 1.8 (0.8-1.2); PT - PROTHROMBIN TIME 20.1 secs (9.9-12.6)
[2020-01-20 05:56] LABS: ABNORMAL LYMPHS % (MANUAL) 0 %
[2020-01-20] MEDS: THIAMINE INJ 500 MG in SODIUM CHLORIDE 0.9% 50 ML IV SCH (05:58)
[2020-01-20] MEDS: LACTULOSE 10 GM/15 ML BOTTLE PO SCH ×2 (06:02→14:38)
[2020-01-20] MEDS: PANTOPRAZOLE 40 MG TABLET PO SCH (06:05)
[2020-01-20 06:29] LABS: BAND NEUTROPHILS % (MANUAL) 1 %; BASOPHILS # (MANUAL) 0.1 10^3/uL (0-0.1); BASOPHILS % (MANUAL) 2 %; EOSINOPHILS # (MANUAL) 0.1 10^3/uL (0-0.7); LYMPHOCYTES # (MANUAL) 1.1 10^3/uL (1.5-3.5); LYMPHOCYTES % (MANUAL) 21 %; METAMYELOCYTES % (MANUAL) 1 %; MONOCYTES # (MANUAL) 0.9 10^3/uL (0.0-1.0); MYELOCYTES % (MANUAL) 1 %; RBC MORPHOLOGY (MULTIPLE) NORMAL APPEARANCE (NORMAL)
[2020-01-20 06:30] LABS: DIFFERENTIAL COMMENT MANUAL DIFFERENTIAL; PLATELET ESTIMATE, MANUAL DECREASED (<130,000) (NORMAL)
[2020-01-20] MEDS: CHOLECALCIFEROL 1,000 UNIT TABLET PO SCH (08:24)
[2020-01-20] MEDS: PRENATAL VITAMIN TABLET PO SCH (08:24)
[2020-01-20] MEDS: TAMSULOSIN 0.4 MG CAPSULE PO SCH (08:24)
[2020-01-20] MEDS: rifAXIMin 550 MG TABLET PO SCH ×2 (08:24→22:48)
[2020-01-20] MEDS: CALCIUM CARBONATE CHEW 500 MG TABLET PO SCH ×2 (08:24→22:48)
[2020-01-20] MEDS: DOCUSATE SODIUM 250 MG CAPSULE PO SCH (08:25)
[2020-01-20] MEDS: FERROUS GLUCONATE 324 MG TABLET PO SCH (08:25)
[2020-01-20] MEDS: VANCOMYCIN INJ 1.5 GM in SODIUM CHLORIDE 0.9% 500 ML IV SCH (08:26)
[2020-01-20] MEDS: oxyCODONE 5 MG TABLET PO PRN (11:20)
[2020-01-20] MEDS: polyethylene glycoL 3350 17 GM PACKET PO SCH (12:05)
[2020-01-20] MEDS: SENNA 8.6 MG TABLET PO SCH (12:05)
--- NOTE | 2020-01-20 13:30 | PROVIDER PROGRESS NOTE ---
Subjective - Prog Note Date Prog Note Date: 01/20/20 - Subjective Pt reports feeling: Worse Subjective: pt present profound weakness today, he was having difficult feeding himself, as the food kept failing off the spoon. He denies fever, chill, chest pain. Current Medications - Current Medications Current Medications: Active Medications Acetaminophen (Tylenol) 650 mg PO Q6HR PRN PRN Reason: Pain 1 to 4 Last Admin: 01/17/20 10:11 Dose: 650 mg Calcium Carbonate/Glycine (Tums) 500 mg PO BID PENDING SALE TO [facility] Last Admin: 01/20/20 08:24 Dose: 500 mg Chlordiazepoxide HCl (Librium) 25 mg PO Q12H PENDING SALE TO [facility] Cholecalciferol (Vitamin D3) 2,000 unit PO DAILY PENDING SALE TO [facility] Last Admin: 01/20/20 08:24 Dose: 2,000 unit Docusate Sodium (Colace 250mg Capsule) 250 - 500 mg PO DAILY PENDING SALE TO [facility] Last Admin: 01/20/20 08:25 Dose: 250 mg Ferrous Gluconate (Fergon) 324 mg PO DAILYWM PENDING SALE TO [facility] Last Admin: 01/20/20 08:25 Dose: 324 mg Vancomycin HCl 1.5 gm/ Sodium (Chloride) 500 mls @ 250 mls/hr IV Q12H PENDING SALE TO [facility] Last Infusion: 01/20/20 10:25 Dose: Infused Dextrose/Sodium Chloride (D5.45ns) 1,000 mls @ 83.333 mls/hr IV .Q12H PENDING SALE TO [facility] Last Admin: 01/20/20 01:21 Dose: 83.3 mls/hr Lactulose (Lactulose) 10 gm PO TID PENDING SALE TO [facility] Last Admin: 01/20/20 06:02 Dose: 10 gm Lidocaine HCl (Xylocaine Uro-Jet 2%) 2.5 ml UR Q6H PRN PRN Reason: PAIN Ondansetron HCl (Zofran Inj) 4 mg IVP Q6HR PRN PRN Reason: Nausea / Vomiting Pantoprazole Sodium (Protonix) 40 mg PO QDAC PENDING SALE TO [facility] Last Admin: 01/20/20 06:05 Dose: 40 mg Polyethylene Glycol (Miralax) 17 gm PO DAILY PENDING SALE TO [facility] Last Admin: 01/20/20 12:05 Dose: 17 gm Multivit/Folic Acid/Iron (Trinatal Rx 1) 1 tab PO DAILYWM PENDING SALE TO [facility] Last Admin: 01/20/20 08:24 Dose: 1 tab Rifaximin (Xifaxan) 550 mg PO BID PENDING SALE TO [facility] Last Admin: 01/20/20 08:24 Dose: 550 mg Senna (Senokot) 8.6 - 17.2 mg PO DAILY PENDING SALE TO [facility] Last Admin: 01/20/20 12:05 Dose: 8.6 mg Sodium Chloride (Normal Saline Flush 0.9%) 10 ml IVP PRN PRN PRN Reason: NEEDED PER PROVIDER ORDERS Last Admin: 01/17/20 22:02 Dose: 10 ml Sodium Chloride (Normal Saline Flush 0.9%) 10 ml IVP 0100,0900,1700 PENDING SALE TO [facility] Last Admin: 01/20/20 08:25 Dose: 10 ml Tamsulosin HCl (Flomax) 0.4 mg PO DAILY PENDING SALE TO [facility] Last Admin: 01/20/20 08:24 Dose: 0.4 mg oxyCODONE [Roxicodone] 5 mg PO QID PRN 06/17/17 Furosemide 40 mg PO DAILY 01/14/20 Lactulose [Constulose] 10 gm PO BID 01/14/20 Spironolactone 100 mg PO DAILY 01/14/20 Tamsulosin [Flomax] 0.4 mg DAILY 01/14/20 rifAXIMin [Xifaxan] 550 mg BID 01/14/20 Objective - Vital Signs/Intake & Output Vital Signs: Vital Signs x48h Temp Pulse Resp BP Pulse Ox 01/20/20 08:05 37.0 C 65 22 103/55 L 91 L Intake & Output: Intake & Output 01/17/20 01/18/20 01/19/20 01/20/20 23:59 23:59 23:59 23:59 Intake Total 2759.167 2539.443 2865.517 1350 Output Total 525 350 600 700 Balance 2234.167 2189.443 2265.517 650 - Objective General Appearance: positive: No acute distress, Alert, Lethargic Eyes Bilateral: positive: Normal inspection, PERRL, No lid inflammation ENT: positive: ENT inspection nml, Pharynx nml, No signs of dehydration. negative: Purulent nasal drainage Neck: positive: Nml inspection, Thyroid nml, No JVD, Trachea midline. negative: Thyromegaly, Lymphadenopathy (R), Lymphadenopathy (L), Stiff neck, Tracheal deviation Respiratory: positive: Chest non-tender, No respiratory distress, Breath sounds nml. negative: Wheezes, Rales, Rhonchi Cardiovascular: positive: Regular rate & rhythm, No murmur, No gallop. negative: Irregularly irregular, Extrasystoles, Tachycardia, Bradycardia, JVD present, Systolic murmur, Diastolic murmur Peripheral Pulses: 2+ Radial (R), 2+ Radial (L), 2+ Dorsalis pedis (R), 2+ Dorsalis pedis (L) Abdomen: positive: Non-tender, No organomegaly, Nml bowel sounds. negative: Tenderness, Guarding, Rebound Back: positive: Nml inspection. negative: CVA tenderness (R), CVA tenderness (L) Skin: positive: Warm, Dry. negative: Cyanosis, Diaphoresis, Pallor Extremities: positive: Nml appearance. negative: Calf tenderness, Myla's sign/cords Neurologic/Psychiatric: positive: Sensation nml. negative: Weakness, Sensory loss, Facial droop, Slurred/abnml speech, Depressed mood/affect - Lab Results Fish Bones: 01/20/20 05:15 01/20/20 05:15 Other Labs: Lab Results x24hrs 01/20/20 01/20/20 01/20/20 Range/Units 05:15 05:15 05:15 WBC (4.8-10.8) x10^3/uL RBC (4.70-6.10) 10^6/uL Hgb (14.0-18.0) g/dL Hct (42.0-52.0) % MCV (80.0-94.0) fL MCH (27.0-31.0) pg MCHC (32.0-36.0) g/dL RDW (12.0-15.0) % Plt Count (130-450) 10^3/uL MPV (7.4-11.4) fL Neut # (Auto) Lymph # (Auto) Levy # (Auto) Eos # (Auto) Baso # (Auto) Absolute Nucleated RBC Total Counted Band Neuts % (Manual) (0 - 10) % Abnorm Lymph % (Manual) % Metamyelocytes % ( - 0) % Myelocytes % ( - 0) % Nucleated RBC % Neutrophils # (Manual) (1.5-6.6) 10^3/uL Lymphocytes # (Manual) (1.5-3.5) 10^3/uL Monocytes # (Manual) (0.0-1.0) 10^3/uL Eosinophils # (Manual) (0-0.7) 10^3/uL Basophils # (Manual) (0-0.1) 10^3/uL Differential Comment Platelet Estimate (NORMAL) RBC Morph Micro Appear (NORMAL) PT 20.1 H (9.9-12.6) secs INR 1.8 H (0.8-1.2) Sodium 135 (135-145) mmol/L Potassium 3.8 (3.5-5.0) mmol/L Chloride 109 (101-111) mmol/L Carbon Dioxide 22 (21-32) mmol/L Anion Gap 4.0 L (6-13) BUN 8 (6-20) mg/dL Creatinine 0.7 (0.6-1.2) mg/dL Estimated GFR (MDRD) 112 (>89) Glucose 117 H (70-100) mg/dL Calcium 7.6 L (8.5-10.3) mg/dL Total Bilirubin 2.2 H (0.2-1.0) mg/dL AST 107 H (10-42) IU/L ALT 41 (10-60) IU/L Alkaline Phosphatase 36 L (42-121) IU/L Ammonia 49.5 H (7-35) umol/L Total Protein 5.4 L (6.7-8.2) g/dL Albumin 2.0 L (3.2-5.5) g/dL Globulin 3.4 (2.1-4.2) g/dL Albumin/Globulin Ratio 0.6 L (1.0-2.2) Free T4 (0.58-1.64) ng/dL Last Dose Date Last Dose Time Vancomycin Trough (10.0-20.0) ug/mL 01/20/20 01/20/20 01/19/20 Range/Units 05:15 05:15 18:39 WBC 5.4 (4.8-10.8) x10^3/uL RBC 2.54 L (4.70-6.10) 10^6/uL Hgb 9.3 L (14.0-18.0) g/dL Hct 27.1 L (42.0-52.0) % MCV 106.7 H (80.0-94.0) fL MCH 36.6 H (27.0-31.0) pg MCHC 34.3 (32.0-36.0) g/dL RDW 17.0 H (12.0-15.0) % Plt Count 67 L (130-450) 10^3/uL MPV 9.6 (7.4-11.4) fL Neut # (Auto) Not Reportable Lymph # (Auto) Not Reportable Levy # (Auto) Not Reportable Eos # (Auto) Not Reportable Baso # (Auto) Not Reportable Absolute Nucleated RBC Not Reportable Total Counted 100 Band Neuts % (Manual) 1 (0 - 10) % Abnorm Lymph % (Manual) 0 % Metamyelocytes % 1 H ( - 0) % Myelocytes % 1 H ( - 0) % Nucleated RBC % Not Reportable Neutrophils # (Manual) 3.1 (1.5-6.6) 10^3/uL Lymphocytes # (Manual) 1.1 L (1.5-3.5) 10^3/uL Monocytes # (Manual) 0.9 (0.0-1.0) 10^3/uL Eosinophils # (Manual) 0.1 (0-0.7) 10^3/uL Basophils # (Manual) 0.1 (0-0.1) 10^3/uL Differential Comment MANUAL DIFFERENTIAL Platelet Estimate DECREASED (<130,000) (NORMAL) RBC Morph Micro Appear NORMAL APPEARANCE (NORMAL) PT (9.9-12.6) secs INR (0.8-1.2) Sodium (135-145) mmol/L Potassium (3.5-5.0) mmol/L Chloride (101-111) mmol/L Carbon Dioxide (21-32) mmol/L Anion Gap (6-13) BUN (6-20) mg/dL Creatinine (0.6-1.2) mg/dL Estimated GFR (MDRD) (>89) Glucose (70-100) mg/dL Calcium (8.5-10.3) mg/dL Total Bilirubin (0.2-1.0) mg/dL AST (10-42) IU/L ALT (10-60) IU/L Alkaline Phosphatase (42-121) IU/L Ammonia (7-35) umol/L Total Protein (6.7-8.2) g/dL Albumin (3.2-5.5) g/dL Globulin (2.1-4.2) g/dL Albumin/Globulin Ratio (1.0-2.2) Free T4 0.88 (0.58-1.64) ng/dL Last Dose Date Last Dose Time 1223 Vancomycin Trough 19.9 (10.0-20.0) ug/mL 01/19/20 Range/Units 14:13 WBC (4.8-10.8) x10^3/uL RBC (4.70-6.10) 10^6/uL Hgb (14.0-18.0) g/dL Hct (42.0-52.0) % MCV (80.0-94.0) fL MCH (27.0-31.0) pg MCHC (32.0-36.0) g/dL RDW (12.0-15.0) % Plt Count (130-450) 10^3/uL MPV (7.4-11.4) fL Neut # (Auto) Lymph # (Auto) Levy # (Auto) Eos # (Auto) Baso # (Auto) Absolute Nucleated RBC Total Counted Band Neuts % (Manual) (0 - 10) % Abnorm Lymph % (Manual) % Metamyelocytes % ( - 0) % Myelocytes % ( - 0) % Nucleated RBC % Neutrophils # (Manual) (1.5-6.6) 10^3/uL Lymphocytes # (Manual) (1.5-3.5) 10^3/uL Monocytes # (Manual) (0.0-1.0) 10^3/uL Eosinophils # (Manual) (0-0.7) 10^3/uL Basophils # (Manual) (0-0.1) 10^3/uL Differential Comment Platelet Estimate (NORMAL) RBC Morph Micro Appear (NORMAL) PT (9.9-12.6) secs INR (0.8-1.2) Sodium (135-145) mmol/L Potassium (3.5-5.0) mmol/L Chloride (101-111) mmol/L Carbon Dioxide (21-32) mmol/L Anion Gap (6-13) BUN (6-20) mg/dL Creatinine (0.6-1.2) mg/dL Estimated GFR (MDRD) (>89) Glucose (70-100) mg/dL Calcium (8.5-10.3) mg/dL Total Bilirubin (0.2-1.0) mg/dL AST (10-42) IU/L ALT (10-60) IU/L Alkaline Phosphatase (42-121) IU/L Ammonia 37.1 H (7-35) umol/L Total Protein (6.7-8.2) g/dL Albumin (3.2-5.5) g/dL Globulin (2.1-4.2) g/dL Albumin/Globulin Ratio (1.0-2.2) Free T4 (0.58-1.64) ng/dL Last Dose Date Last Dose Time Vancomycin Trough (10.0-20.0) ug/mL ABX Reporting Has patient been on IV antibiotics over the past 48 hours?: Yes Sepsis Event Note (H) - Evaluation Current Stage of Sepsis: Sepsis - Sepsis Criteria Sepsis Criteria: Recorded Temperature greater than 38.3C or Less than 36C, Recorded Heart Rate greater than 90 bpm, SENIOR TELLER: altered consciousness (unrelated to primary neuro pathology), Renal: urine output less than 0.5ml/kg/hr for 2 hours or creatinine gr, Hepatic: Bilirubin greater than 2mg/dl, Hematologic: platelets < 100,000; INR > 1.5, or a PTT>60 seconds Assessment/Plan - Problem List (1) Weakness generalized Impression: 01/19 Patient present generalized profound weakness today, difficult to hold his spoon to eat his lunch. pt had his oxycodone for his pain at 1100, pt had right clavicle fracture. hold his pain meds Oxy codone and Morphine, keep Tylenol. Reduce Librium dosage to reduce of the meds's side effect of drowsiness and dizziness since pt already had 6 days inpt and acute withdrawal of alcohol is good controlled. continue PT/OT evaluation and treatment dysphagia 01/19 pt present dysphagia and hx of varices esophagus. ST had evaluation for pt, and recommended dysphagia area mechanic soft diet with aspiration precaution. Fever 01/19 no more fever for 48 hours. The second blood culture was negative for bacteremia. continue antibiotics Vancomycin pt had 01/16, and 01/17 twice lower degree fever, first two tube blood culture was positive for CoNS. pt was treated with vancomycin. pt has no fever for 24 hours. it is unknown etiology. pt's CXR and UTI were negative for infection. pt has ascites with his alcoholic liver failure, spontaneous ascites caused infection is not excluded. ESR and CRP indicate infection is improved. second blood culture is pending now. pt has no more fever for 24 hours. continue vancomycin, and blood culture sensitive study. Rhabdomyolysis resolved. Wernicke's encephalopathy started on High dose IV thiamine 500 mg TID x3 days will continue PO B1 Elevated ammonia level 01/19 pt's ammonia level is 49 today, slight higher than yesterday, continue lactulose and rifaximin, and lab monitor the last ammonia is 50.3, still higher than normal. will check Ammonia level, continue lactulose and rifaximin Fall 01/19 continue PT/OT, fall precaution. fall after pt had drunk. Fall precautions, advise pt quit alcohol abuse Alcoholism -Patient continues on Librium, thiamin high dose via IV. Social work consult to evaluate for placement or rehab Hyponatremia resolved, Na is 35 Na is 131 today. pt has hx of chronic hyponatremia, likely from his ascites and cirrhosis Right clavicle fracture X-ray shows a right clavicle fracture from his fall likely due to alcoholic intoxication continue pain control and OT evaluation and treatment Cirrhosis Prior imaging showed hepatic cirrhosis, also with esophageal varices. Patient continues on home lactulose, rifaximin impaired liver function including Elevated ammonia level, elevated bili and AST, elevated INR level Encourage cessation of alcohol, social work consult Varices, esophageal Prior work up showed varices within the esophagus with spleno-renal shunting, caused by portal hypertension, cirrhosis and alcohol abuse. Avoid the use of blood thinners or aspirin Monitor for vomiting blood, soft diet when eating, routine labs Thrombocytopenia stable as his chronic conditions, Routine lab monitor. (6) Alcohol intoxication Qualifiers: Complication of substance-induced condition: uncomplicated Qualified Code(s): F10.920 - Alcohol use, unspecified with intoxication, uncomplicated (8) Right clavicle fracture Qualifiers: Encounter type: initial encounter Clavicle location: lateral end Fracture type: closed Fracture alignment: nondisplaced Qualified Code(s): S42.034A - Nondisplaced fracture of lateral end of right clavicle, initial encounter for closed fracture (9) Cirrhosis Qualifiers: Hepatic cirrhosis type: alcoholic cirrhosis Ascites presence: unspecified Qualified Code(s): K70.30 - Alcoholic cirrhosis of liver without ascites
[2020-01-20] MEDS: ACETAMINOPHEN 325 MG TABLET PO PRN (19:46)
[2020-01-20] MEDS: LACTULOSE 10 GM /15 ML UDC PO SCH (23:56)
[2020-01-21 00:42] LABS: VANCOMYCIN,TROUGH 18.3 ug/mL (10.0-20.0)
[2020-01-21] MEDS ORDERED: oxyCODONE 5 MG TABLET PO PRN (00:52)
[2020-01-21] MEDS ORDERED: VANCOMYCIN INJ 1 GM, VANCOMYCIN INJ 250 MG in SODIUM CHLORIDE 0.9% 250 ML IV SCH ×5 (02:00→14:00)
[2020-01-21] MEDS: SODIUM CHLORIDE FLUSH 0.9% 10 ML SYRINGE IVP SCH ×3 (02:06→16:16)
[2020-01-21] MEDS: DEXTROSE 5%-0.45% NACL 1,000 ML IV SCH ×2 (03:51→10:00)
[2020-01-21 05:46] LABS: BASOPHILS # (AUTO) 0.1 10^3/uL (0.0-0.1); BASOPHILS % (AUTO) 1.1 %; EOSINOPHILS # (AUTO) 0.2 10^3/uL (0.0-0.7); EOSINOPHILS % (AUTO) 3.4 %; HGB - HEMOGLOBIN 9.3 g/dL (14.0-18.0); LYMPHOCYTES # (AUTO) 0.7 10^3/uL (1.5-3.5); LYMPHOCYTES % (AUTO) 14.4 %; MEAN CORPUSCULAR HEMOGLOBIN 37.1 pg (27.0-31.0); MEAN CORPUSCULAR HGB CONC 34.2 g/dL (32.0-36.0); MEAN CORPUSCULAR VOLUME 108.4 fL (80.0-94.0); MEAN PLATELET VOLUME 9.9 fL (7.4-11.4); MONOCYTES # (AUTO) 1.2 10^3/uL (0.0-1.0); NEUTROPHILS # (AUTO) 2.6 10^3/uL (1.5-6.6); NEUTROPHILS % (AUTO) 54.9 %; PLT - PLATELET COUNT 78 10^3/uL (130-450); RED BLOOD COUNT 2.51 10^6/uL (4.70-6.10); RED CELL DISTRIBUTION WIDTH 17.1 % (12.0-15.0); WHITE BLOOD COUNT 4.7 x10^3/uL (4.8-10.8)
[2020-01-21 05:48] LABS: INR 1.7 (0.8-1.2); PT - PROTHROMBIN TIME 18.8 secs (9.9-12.6)
[2020-01-21 06:03] LABS: ALBUMIN/GLOBULIN RATIO 0.6 (1.0-2.2); BILIRUBIN,TOTAL 2.6 mg/dL (0.2-1.0); CALCIUM 7.6 mg/dL (8.5-10.3); CREATININE 0.9 mg/dL (0.6-1.2); TOTAL PROTEIN 5.4 g/dL (6.7-8.2)
[2020-01-21] MEDS: PANTOPRAZOLE 40 MG TABLET PO SCH (06:28)
[2020-01-21] MEDS: LACTULOSE 10 GM /15 ML UDC PO SCH ×2 (06:28→13:43)
[2020-01-21] MEDS: chlordiazePOXIDE 25 MG CAPSULE PO SCH (06:28)
[2020-01-21] MEDS ORDERED: SODIUM CHLORIDE 0.9% 500 ML IV ONE (08:07)
[2020-01-21] MEDS ORDERED: ALBUMIN 25% 12.5 GM/50 ML VIAL IV STA (08:08)
[2020-01-21] MEDS ORDERED: THIAMINE 100 MG TABLET PO SCH (09:00)
[2020-01-21] MEDS: FERROUS GLUCONATE 324 MG TABLET PO SCH (10:00)
[2020-01-21] MEDS: ACETAMINOPHEN 325 MG TABLET PO PRN (10:00)
[2020-01-21] MEDS: CHOLECALCIFEROL 1,000 UNIT TABLET PO SCH (10:00)
[2020-01-21] MEDS: TAMSULOSIN 0.4 MG CAPSULE PO SCH (10:01)
[2020-01-21] MEDS: rifAXIMin 550 MG TABLET PO SCH (10:01)
[2020-01-21] MEDS: CALCIUM CARBONATE CHEW 500 MG TABLET PO SCH (10:01)
[2020-01-21] MEDS: PRENATAL VITAMIN TABLET PO SCH (10:01)
[2020-01-21] MEDS: SENNA 8.6 MG TABLET PO SCH (10:02)
[2020-01-21] MEDS: DOCUSATE SODIUM 250 MG CAPSULE PO SCH (10:02)
[2020-01-21] MEDS: polyethylene glycoL 3350 17 GM PACKET PO SCH (10:02)
--- NOTE | 2020-01-21 14:49 | Discharge Plan ---
"Discharge Plan for SNF / [facility] - Discharge Plan And Transition Orders Problem Reviewed?: Yes Disposition: 61 Swing Bed DC/Xfer Condition: Poor Allergies and Adverse Reactions: Allergies Allergy/AdvReac Type Severity Reaction Status Date / Time ELIU Inhibitors Allergy Severe Edema Verified 01/14/20 08:49 lisinopril Allergy Edema Verified 01/14/20 08:49 Health Concerns: generalized weakness, fall with right clavicle fracture, bacteremia, alcoholism, varices esophageal Plan of Treatment: may continue PT/OT training and fall precautions in Swing bed, continue sling on right hand and pain control for right clavicle fracture, continue total two weeks IV of vancomycin for MRSA bacteremia, continue dysphagia mechanical diet for varices esophagus Care Goals: stabilization and improvement of pt's medical conditions Assessment: discussed the care plan, and d/c to swing bed with pt, pt state he understood. - SNF / [facility] Transition Orders Admit to (Facility): Swing bed Under the care of (Name): Alivia Ortiz Discharge Diagnosis: generalized weakness, fall, right clavicle fracture, bacteremia, sepsis, alcohol intoxication, alcoholism, cirrhosis, varices esophageal, thrombocytopenia Medicare Certification Statement: I certify that [facility] long[facility] care is medically necessary on a continuing basis for any of the conditions for which she/he is receiving care during hospitalization. Notify PCP of admission and forward orders to primary provider for signature. Weight on admission and: Daily Call PCP immediately if weight increases by: 2 kg Other Notification Orders: Call PCP immediately if patient develops dyspnea, chest pain/tightness or edema. House Bowel Program: Yes Additional Bowel Program Orders: If no BM after 2 days, nurse may give M.O.M. 30ml PO PRN and/or ducolax Supp 1 NH and/or SYBIL 250mg P.O., and/or senna 1-2 tabs PO. On day 3 nurse may give r epeat above order until residents constipation is resolved. Annual Influenza Vaccine (between Jul 05 and February 01): Yes Two-step PPD per [facility] [phone] or approved exception documents: Yes Treatments & Other Orders: may continue PT/OT training and fall precautions in Swing bed, continue sling on right hand and pain control for right clavicle fracture, continue total two weeks IV of vancomycin for MRSA bacteremia, continue dysphagia mechanical diet for varices esophagus Medication Orders: PLEASE REFER TO THE DISCHARGE MEDICATION LIST. Insulin Orders?: No - Diet Type: Geriatric Texture: Dysphagia mech Liquids: [place] thick May have monthly special meal: Yes - Therapies | Activity Therapy: Evaluation | Treat if indicated: PT, OT Rehabilitation Potential: Maximize functional status Activity: Activity as Tolerated"
--- NOTE | 2020-01-21 15:41 | DISCHARGE SUMMARY ---
Discharge Summary Admit Date: 01/14/20 Discharge Date: 01/21/20 Discharging Provider: Elan Meek Primary Care Provider: Ramonita Mansfield Condition at Discharge: Poor Discharge Disposition: 61 Swing Bed DC/Xfer Discharge Facility Name: [facility] bed in [facility] - DIAGNOSES Admission Diagnoses: (1) Fall (2) Alcohol intoxication (3) Hyponatremia (4) Right clavicle fracture (5) Cirrhosis (6) Varices, esophageal (7) Thrombocytopenia Discharge Diagnoses with Status of Each Condition: Weakness generalized continue PT/OT in swing bed dysphagia stable, dysphagia mobile home mechanic soft diet with aspiration precaution. Sepsis pt was found to have fever, decreased BP, bacteremia with MRSA. continue IV of vancomycin for two weeks bacteremia two tube of blood culture were MRSA positive. continue IV of vancomycin for two weeks Rhabdomyolysis resolved. Wernicke's encephalopathy stable, finished High dose IV thiamine 500 mg TID x3 days continue PO B1 Elevated ammonia level stable Ammonia level, continue lactulose and rifaximin Fall continue PT/OT Alcoholism continue swing bed, advise pt quit alcohol Hyponatremia resolved Right clavicle fracture X-ray shows a right clavicle fracture from his fall likely due to alcoholic intoxication continue pain control and sling on right hand Cirrhosis stable, chronic continues on home lactulose, rifaximin impaired liver function including Elevated ammonia level, elevated bili and AST, elevated INR level Encourage cessation of alcohol Varices, esophageal stable, mechanical dysphagia diet Thrombocytopenia stable - HPI History of Present Illness: This is a 69-yrs-old make with hx of alcohol abuse, fall, Hypertension, alcoholic Hepatitis, Cirrhosis with liver lesions, ascites, esophageal and 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, nonocclusive portal vein thrombus, Benign prostate hypertrophy, Glaucoma, Osteoarthritis, who present ER complain of fall and shoulder pain. after pt report he drunk 3 glasses of alcohol, the he fell in his driveway. He could not really get up because he felt generally weak. he was brought in by ambulance after the neighbor heard him screamed in the driveway. He has number of scrapes on his face, shoulder. He complains mostly of right shoulder pain. now he complain of left shoulder pain. he denies chest pain, headache, abdominal pain, fever, chill, cough, shortness of breath. pt report he continue cigarette smoking now and continue drunk with alcohol. Route lab test reveals pt has Na at 124, elevated Bili at 2, AST 87, ammonia level 41 and CK 318, and elevated INR at 1.6. Image studies reveals nondisplaced distal clavicle fracture in right shoulder Xray. pt is admitted for above medical reason in observation unit now. Discussed with care goal with pt, pt clearly expressed DNR/DNI for his code status. - HOSPITAL COURSE Hospital Course: pt was admitted for alcohol intoxication, fall with right clavicle fracture. pt was put sling for right hand, and pain control. pt has long hx of hepatic failure with cirrhosis, mild asites, varices esophageal. pt was put on CIWA protocol for his alcohol withdrawal. pt also was found elevated CK and rhadb domyolysis. after hydration, his rhabdomyolysis was resolved. Then pt was found to have fever, bacteremia with positve MRSA and sepsis. pt was treated with Vancomycin. PT/OT was consulted for his weakness. Pt was recommended to swing bed for continuing training. The detail hospital course is as the below: Weakness generalized continue PT/OT in swing bed dysphagia stable, dysphagia mobile home mechanic soft diet with aspiration precaution. Sepsis pt was found to have fever, decreased BP, bacteremia with MRSA. continue IV of vancomycin for two weeks bacteremia two tube of blood culture were MRSA positive. continue IV of vancomycin for two weeks Rhabdomyolysis resolved. Wernicke's encephalopathy stable, finished High dose IV thiamine 500 mg TID x3 days continue PO B1 Elevated ammonia level stable Ammonia level, continue lactulose and rifaximin Fall continue PT/OT Alcoholism continue swing bed, advise pt quit alcohol Hyponatremia resolved Right clavicle fracture X-ray shows a right clavicle fracture from his fall likely due to alcoholic intoxication continue pain control and sling on right hand Cirrhosis stable, chronic continues on home lactulose, rifaximin impaired liver function including Elevated ammonia level, elevated bili and AST, elevated INR level Encourage cessation of alcohol Varices, esophageal stable, mechanical dysphagia diet Thrombocytopenia stable - ALLERGIES Allergies/Adverse Reactions: Allergies Allergy/AdvReac Type Severity Reaction Status Date / Time ELIU Inhibitors Allergy Severe Edema Verified 01/14/20 08:49 lisinopril Allergy Edema Verified 01/14/20 08:49 - MEDICATIONS Home Medications: Ambulatory Orders Medication Instructions Recorded Confirmed oxyCODONE [Roxicodone] 5 mg PO QID PRN 06/17/17 01/14/20 Furosemide 40 mg PO DAILY 01/14/20 01/14/20 Lactulose [Constulose] 10 gm PO BID 01/14/20 01/14/20 Spironolactone 100 mg PO DAILY 01/14/20 01/14/20 Tamsulosin [Flomax] 0.4 mg DAILY 01/14/20 01/14/20 rifAXIMin [Xifaxan] 550 mg BID 01/14/20 01/14/20 - PHYSICAL EXAM AT DISCHARGE General Appearance: positive: No acute distress, Alert. negative: Lethargic Eyes Bilateral: positive: Normal inspection, PERRL, No lid inflammation ENT: positive: ENT inspection nml, Pharynx nml, No signs of dehydration. negative: Purulent nasal drainage Neck: positive: Nml inspection, Thyroid nml, No JVD, Trachea midline. negative: Thyromegaly, Lymphadenopathy (R), Lymphadenopathy (L), Stiff neck, Tracheal deviation Respiratory: positive: Chest non-tender, No respiratory distress, Breath sounds nml. negative: Wheezes, Rales, Rhonchi Cardiovascular: positive: Regular rate & rhythm, No murmur, No gallop. negative: Irregularly irregular, Extrasystoles, Tachycardia, Bradycardia, JVD present, Systolic murmur, Diastolic murmur Peripheral Pulses: positive: 2+ Abdomen: positive: Non-tender, Nml bowel sounds. negative: Tenderness, Guarding, Rebound Back: positive: Nml inspection. negative: CVA tenderness (R), CVA tenderness (L) Skin: positive: Warm, Dry. negative: Cyanosis, Diaphoresis, Pallor Extremities: positive: Non-tender. negative: Calf tenderness, Myla's sign/c ords Neurologic/Psychiatric: positive: Oriented x3, Sensation nml. negative: Weakness, Sensory loss, Facial droop, Slurred/abnml speech - LABS Result Diagrams: 01/21/20 05:25 01/21/20 05:25 - SEPSIS Current Stage of Sepsis: Sepsis Sepsis Criteria: Recorded Temperature greater than 38.3C or Less than 36C, Recorded Heart Rate greater than 90 bpm, GERIATRIC PHYSICAL THERAPIST: altered consciousness (unrelated to primary neuro pathology), Renal: urine output less than 0.5ml/kg/hr for 2 anuradha rs or creatinine gr, Hepatic: Bilirubin greater than 2mg/dl, Hematologic: platelets < 100,000; INR > 1.5, or a PTT>60 seconds - FOLLOW UP Follow Up: may continue PT/OT training and fall precautions in Swing bed, continue sling on right hand and pain control for right clavicle fracture, continue total two weeks IV of vancomycin for MRSA bacteremia, continue dysphagia mechanical diet for varices esophagus - TIME SPENT Time Spent in Discharge (Minutes): 30
[2020-01-21 16:36] VITALS: BP 123/62
== END 2020-01-21 19:01 | disposition swing bed (61) | DRG 896 ==
LOC: EDUNIT# → ED 07:44 → MS2 10:00 → OBSVTOIN 01-15 10:32
PROVIDERS: ADMIT Nurse Practitioner Gerontology; ATTEND Nurse Practitioner Gerontology
DX: F10.120 Alcohol abuse with intoxication, uncomplicated (principal); F10.229 Alcohol dependence with intoxication, unspecified; I81 Portal vein thrombosis; A41.02 Sepsis due to Methicillin resistant Staphylococcus aureus; M62.82 Rhabdomyolysis; E87.1 Hypo-osmolality and hyponatremia; K76.6 Portal hypertension; I85.10 Secondary esophageal varices without bleeding; E51.2 Wernicke's encephalopathy; Y90.8 Blood alcohol level of 240 mg/100 ml or more; Y90.9 Presence of alcohol in blood, level not specified; F10.239 Alcohol dependence with withdrawal, unspecified; S42.034A Nondisplaced fracture of lateral end of right clavicle, initial encounter for closed fracture; K70.31 Alcoholic cirrhosis of liver with ascites; K70.11 Alcoholic hepatitis with ascites; K70.40 Alcoholic hepatic failure without coma; W17.89XA Other fall from one level to another, initial encounter; Z91.81 History of falling; Y92.008 Other place in unspecified non-institutional (private) residence as the place of occurrence of the external cause; D69.59 Other secondary thrombocytopenia; D63.8 Anemia in other chronic diseases classified elsewhere; I10 Essential (primary) hypertension; F17.210 Nicotine dependence, cigarettes, uncomplicated; N40.0 Benign prostatic hyperplasia without lower urinary tract symptoms; M19.90 Unspecified osteoarthritis, unspecified site; H40.9 Unspecified glaucoma; H53.2 Diplopia; R26.89 Other abnormalities of gait and mobility; H91.90 Unspecified hearing loss, unspecified ear; S80.812A Abrasion, left lower leg, initial encounter; S80.811A Abrasion, right lower leg, initial encounter; S90.812A Abrasion, left foot, initial encounter; S60.511A Abrasion of right hand, initial encounter; Z66 Do not resuscitate; Z96.659 Presence of unspecified artificial knee joint; R13.10 Dysphagia, unspecified; Z79.891 Long term (current) use of opiate analgesic; Z85.828 Personal history of other malignant neoplasm of skin
CPT/HCPCS: 36415; 70450; 71045; 72125; 73030; 80053; 80202; 81003; 81599; 82140; 82550; 82607; 82746; 83540; 83605; 83690; 83735; 84100; 84439; 84443; 84466; 84484; 85025; 85610; 85651; 86140; 87040; 87077; 87181; 90471; 90715; 92610; 96361; 96374; 96376; 97116; 97162; 97166; 97530; 97535; 99285; A9270; G0378; J3370; J3411; J7040; J8499; P9047; Q9963; 80306; 80320; 81001; 87086

== ENCOUNTER 2020-01-20 11:15 | Inpatient (IN) | payer MEDICARE, OTHER ==
[2020-01-21] MEDS: oxyCODONE 5 MG TABLET PO PRN (22:04)
[2020-01-21] MEDS: LACTULOSE 10 GM /15 ML UDC PO SCH (22:05)
[2020-01-22] MEDS: VANCOMYCIN INJ 1 GM, VANCOMYCIN INJ 250 MG in SODIUM CHLORIDE 0.9% 250 ML IV SCH ×2 (03:10→14:13)
[2020-01-22] MEDS: oxyCODONE 5 MG TABLET PO PRN ×2 (03:35→22:38)
[2020-01-22] MEDS: LACTULOSE 10 GM /15 ML UDC PO SCH ×3 (10:46→21:18)
--- NOTE | 2020-01-22 11:48 | HISTORY & PHYSICAL EXAMINATION ---
Chief Complaint - Chief Complaint Chief Complaint: deconditioning, balance deficit, bacteremia History of Present Illness - Admitted From Admitted From:: Home - History Obtained From Records Reviewed: [facility] History obtained from: SA[facility]L [facility] and [facility] Exam Limitations: patient has cognitive deficits and isn't motivated - History of Present Illness HPI Comment/Other: This unfortunate gentleman presented to our emergency room January 13 with a history of alcohol abuse, having drank 3 glasses of alcohol, and falling in his driveway. He had generalized weakness, really could not get up. And neighbor heard him screaming in the driveway so they called an ambulance and he was brought to our emergency room by ambulance. He had abrasions on his face and shoulder. Had some shoulder plain with imaging showing a nondisplaced clavicle fracture on the right shoulder. He was hyponatremic at 124, had elevated liver enzymes with a bili of 2, AST 87, ammonia level 41, and CK 318. INR was 1.6. During his stay he did develop a fever and ended up having staph auricularis growing in 2 sets of blood cultures within 24 hours. He was put on empiric antibiotic therapy and is going to require 2 weeks of vancomycin therapy. Also treated was the elevated CK/rhabdomyolysis, Warnicke's encephalopathy, hyponatremia, and he did not have any issues with his esophageal varices. His mental status gradually improved. He was working with physical therapy who feels that he is a candidate for continued therapy with custodial facility services. He was seen by speech therapy where he was profoundly weak, too weak to feed himself and he cannot hold his utensils. Chewing was very weak and inefficient. Varices require a very soft moist diet that is easy to chew. Barriers to him improving were cognitive deficits and missing molars. He has possible penetration of liquids due to weak esophageal transit. So she recommends dysphagia mechanically altered, nectar thick diet. Sitting upright at 90 degrees. Double swallowing. And observe for aspiration. She recommends that he be followed in the SNF as well for his swallow evaluation. With regards to his physical limitations he has to have his head of bed elevated so that he can sit up and then place his feet on the grounds. He still needs prompting to sit up, put his hands on the bed bar, and scoot to the edge of the bed. He is able to stand with a front wheel walker and can take 8 steps to the chair with minimum cues. Some of the barrier to him moving freely is the sling for his clavicle fracture. He is very sleepy, and requires maximum prompting and motivation to get him out of bed. Once up he will participate well with his ability to use the walker and take steps needing moderate cues for safety and orientation of hands and moving the walker. Physical therapy recommends that he continue to get for thorough therapy for further progress and improved orientation. Because of his alcohol abuse, it is hoped that he will complete physical therapy to be ambulatory, independent and then allow him to be sent to alcohol rehab. History - Past Medical History Cardiovascular: reports: Hypertension Respiratory: reports: None Neuro: reports: Other (chronic hepatic encephalopathy) Endocrine/Autoimmune: reports: None GI: reports: Hepatitis (C with no previous treatment), Cirrhosis (from alcoholic liver disease, has esophageal varices) : reports: Benign prostate hypertrophy HEENT: reports: Glaucoma, Dental implants Psych: reports: None Musculoskeletal: reports: Osteoarthritis Derm: reports: None MRSA Hx?: No - Past Surgical History General: reports: Colonoscopy Ortho: reports: Knee replacement Derm: reports: Skin cancer surgery - Family & Social History Family History: Mother: , Cancer, Father: , Cancer Family History Comment/Other: pt report both his pareants from cancer, his two brother also . he has four children, and living with his at [facility]. Living arrangement: At home Living Situation: With spouse/s.o. Social History Notes: pt reports he continues smoking with cigrettes and does abuse alcohol. he use to work 2 weeks on and 2 weeks off. Drank the 2 weeks off all of his career. No recreational substance abuse. he worked in the [employer] industry for his whole life. - Substance History Abuse: Recurrent use of substance despite neg consequences: Alcohol, Inhalant Abuse Issues: Intoxication, Sexual Dysfunction Dependence: Experiences withdrawal or developed tolerances: Alcohol Dependence Issues: Intoxication - POLST Patient has POLST: No POLST Status: Full Code Meds/Allgy - Home Medications Home Medications: Ambulatory Orders Medication Instructions Recorded Confirmed oxyCODONE [Roxicodone] 5 mg PO QID PRN 06/17/17 01/14/20 Furosemide 40 mg PO DAILY 01/14/20 01/14/20 Lactulose [Constulose] 10 gm PO BID 01/14/20 01/14/20 Spironolactone 100 mg PO DAILY 01/14/20 01/14/20 Tamsulosin [Flomax] 0.4 mg DAILY 01/14/20 01/14/20 rifAXIMin [Xifaxan] 550 mg BID 01/14/20 01/14/20 - Allergies Allergies/Adverse Reactions: Allergies Allergy/AdvReac Type Severity Reaction Status Date / Time ELIU Inhibitors Allergy Severe Edema Verified 01/14/20 08:49 lisinopril Allergy Edema Verified 01/14/20 08:49 Review of Systems - Constitutional Constitutional: reports: Fatigue, Poor appetite - Eyes Eyes: denies: Pain, Irritation, Amaurosis - Ears, Nose & Throat Ears, Nose & Throat: reports: Mouth lesions, Dental decay, Dental pain - Cardiovascular Cariovascular: reports: Exertional dyspnea, Decr. exercise tolerance. denies: Irregular heart rate, Palpitations, Chest pain, Edema - Respiratory Respiratory: reports: SOB with exertion. denies: Cough, Sputum production, Wheezing, Orthopnea, SOB at rest - Gastrointestinal Gastrointestinal: denies: Abdominal pain, Abdominal distention, Constipation, Diarrhea - Genitourinary Genitourinary: reports: Frequency, Urgency, Nocturia. denies: Dysuria, Hematuria, Urethral discharge - Musculoskeletal Musculoskeletal: reports: Muscle aches, Joint pain - Integumentary Integumentary: reports: Pruritis. denies: Rash, Lesions - Neurological Neurological: reports: General weakness, Memory problems, Incoordination, Slurred speech - Psychiatric Psychiatric: reports: Anxiety. denies: Suicidal, Delusions - Endocrine Endocrine: denies: Polyuria, Polydypsia, Polyphagia - Hematologic/Lymphatic Hematologic/Lymphatic: reports: Anemia, Bruising Prior Level of Functionality: This gentleman is able to do his activities of daily living. But because of his continued alcohol abuse is not able to drive much now. Relies on his . He lost a lot with regards to mobility with this most recent hospitalization. Wh ereas before he use grab bars in the bathroom, and did not need any durable medical equipment, he now needs assist with activities of daily living, and a walker. He is also limited by the fact his clavicle hurts in his right arm and he cannot use his arm completely. Exam - Vital Signs Reviewed Vital Signs: Yes Vital Signs: Vital Signs x48h Temp Pulse Resp BP Pulse Ox 01/22/20 11:00 36.4 C L 72 19 123/77 96 - Physical Exam General Appearance: positive: No acute distress, Other (He is not so much lethargic is constantly wants to sleep. Gets annoyed when we wake him up. When he is awake, he is alert, appropriate. Just not motivated. Really grumbles when we push him to do physical therapy.) Eyes Bilateral: positive: PERRL, EOMI ENT: positive: Other (Dental decay and gingivitis) Neck: positive: No JVD. negative: Stiff neck Respiratory: positive: Chest non-tender. negative: Wheezes, Rales, Rhonchi Cardiovascular: positive: Regular rate & rhythm. negative: Gallop/S4, Friction rub Abdomen: positive: No organomegaly, Nml bowel sounds, No distention. negative: Guarding, Rebound Skin: positive: Warm, Dry Extremities: positive: Full ROM Neurologic/Psychiatric: positive: CN's nml (2-12), Disoriented to time. negative: Motor nml (Off balance. Slightly dragging feet.) Conclusion/Plan - Problem List (1) Generalized weakness Conclusion/Plan: Multifactorial causes including alcoholism, malnutrition, recent right clavicle fracture. Plan is for him to now be in jail status with PT and OT. Goal is for him to be independent with activities of daily living, and to transition from sitting to standing and walking with use of a walker or cane so that he can go to rehab. (2) Bacteremia due to Staphylococcus Conclusion/Plan: He had an evening of fever, met criteria for sepsis. 2 out of 4 blood cultures positive for staph auricularis at less than 24 hours. He has been on vancomycin for treatment and will need therapy for 2 weeks total. His cultures were negative on January 17. As such he will be off antibiotics January 31. I will also order an echocardiogram since he has bad dentition, and bacteremia. (3) Alcohol abuse Conclusion/Plan: He is completed high-dose thiamine. This is to avoid Wernicke's encephalopathy. He should be continued on a vitamin, folate, thiamine. His plan is to go into inpatient rehab when done with custodial facility rehab. (4) Chronic alcoholic liver disease Conclusion/Plan: With cirrhosis, esophageal varices. He also has mild hepatic encephalopathy controlled with lactulose. As he transitions to custodial facility status, will stop Xifaxan and continue lactulose at a slightly increased dose. (5) Encephalopathy chronic Conclusion/Plan: Most likely hepatic. It is improved with lactulose use. But there seems to be an element of cognitive deficit, and poor understanding. Physical therapy will continue to prompt him, encouraged him and motivated. - Lab Results Lab results reviewed: Yes Marvin Bones: 01/22/20 14:46 Core Measures - Anticipated LOS I expect patient to be DC'd or transferred within 96 hours.: No - DVT/VTE - Prophylaxis VTE/DVT Device ordered at admit?: Yes
[2020-01-22] MEDS: FERROUS GLUCONATE 324 MG TABLET PO SCH (12:03)
[2020-01-22 14:12] LABS: VANCOMYCIN,TROUGH 31.8 ug/mL (10.0-20.0)
[2020-01-22 15:05] LABS: CREATININE 1.1 mg/dL (0.6-1.2)
--- NOTE | 2020-01-22 15:11 | PHARMACY PROGRESS NOTE ---
- Therapy Status Vancomycin regimen day #: 5 Therapy status: Trough supratherapeutic Basis for treatment: Culture result Treatment indication: POSITIVE BLOOD CX FOR STAPH AURICULAOS SENSITIVE TO VANCO Trough goal: 15-20 - MARIS Risk Risk level for Acute Kidney Injury: Moderate Acute Kidney Injury risk factors: Duration >7 days, Goal trough >15, Chronic baseline hypertension - Monitoring and Recommendation Clinical response to treatment: I&O Previous 24 hours 01/20/20 01/21/20 01/22/20 23:59 23:59 23:59 Intake Total 700 Output Total 800 Balance -100 Vancomycin Monitoring 01/22/20 13:51 Vancomycin Trough 31.8 H* Monitoring plan: Draw trough early Next trough due prior to maintenance dose #: 1 (Prior to new adjusted dosing regimen) Next trough due (date/time): 01/22 at 1330 prior to dose Areas for additional monitoring: IV to PO when appropriate, Therapy de- escalation based on culture results, Acute Kidney Injury Pharmacy recommendation: Continue current regime (Dosing regimen was adjusted due to supratherapeuitc level; dose due at 1400 today was held for this reason, and new regimen has been placed (changed from 1250 mg IV q12h to 1250 mg IV q24 h) per protocol; random level has been ordered to be drawn prior to next dose to ensure level is no longer supratherapeutic before dose administration. Recommending closely moniotring and evaluating SCr/renal fnx, and level and making appropriate adjustments to ensure therapeutic range is achieved)
[2020-01-22] MEDS: MULTIVITAMIN W/MINERALS TABLET PO SCH (15:44)
[2020-01-23 05:09] LABS: VANCOMYCIN,TROUGH 18.8 ug/mL (10.0-20.0)
[2020-01-23] MEDS: LACTULOSE 10 GM /15 ML UDC PO SCH ×3 (05:31→20:40)
[2020-01-23] MEDS: MULTIVITAMIN W/MINERALS TABLET PO SCH (07:58)
[2020-01-23] MEDS: FERROUS GLUCONATE 324 MG TABLET PO SCH (07:58)
[2020-01-23] MEDS: oxyCODONE 5 MG TABLET PO PRN ×4 (08:00→19:18)
[2020-01-23] MEDS: VANCOMYCIN INJ 1 GM in SODIUM CHLORIDE 0.9% 250 ML IV SCH ×2 (10:36→20:55)
--- NOTE | 2020-01-23 11:12 | PHARMACY PROGRESS NOTE ---
- Best Possible Medication History Admit Date and Time: 01/21/201907 Processed by: Pharmacy Medication History completed: Yes Patient Interview: Pt unable to participate Secondary Source(s): Previous admit records As the person ultimately responsible for medication therapy, providers are able to order a medication from an existing home medication list in [facility] via the "Reconcile Routine" prior to Confirmation of that medication by software support representative. Such practice is discouraged except when the physician, in their clinical judgment, deems that a medical need exists for a medication without regard to previous use.
[2020-01-23] MEDS ORDERED: VANCOMYCIN INJ 1 GM, VANCOMYCIN INJ 250 MG in SODIUM CHLORIDE 0.9% 250 ML IV SCH (14:00)
[2020-01-23] MEDS: NICOTINE 7 MG PATCH TOP SCH (18:06)
[2020-01-24] MEDS: LACTULOSE 10 GM /15 ML UDC PO SCH ×3 (05:53→21:28)
[2020-01-24] MEDS: oxyCODONE 5 MG TABLET PO PRN ×3 (05:53→21:23)
[2020-01-24] MEDS: NICOTINE 7 MG PATCH TOP SCH (09:14)
[2020-01-24] MEDS: VANCOMYCIN INJ 1 GM in SODIUM CHLORIDE 0.9% 250 ML IV SCH ×2 (09:15→21:50)
[2020-01-24] MEDS: FERROUS GLUCONATE 324 MG TABLET PO SCH (09:15)
[2020-01-24] MEDS: MULTIVITAMIN W/MINERALS TABLET PO SCH (09:15)
[2020-01-24] MEDS: SENNA 8.6 MG TABLET PO SCH (13:28)
[2020-01-24] MEDS: DOCUSATE SODIUM 250 MG CAPSULE PO SCH (13:29)
[2020-01-24] MEDS: ACETAMINOPHEN 325 MG TABLET PO PRN (21:23)
--- NOTE | 2020-01-24 22:59 | XRAY Report ---
Reason: Cough. Wheezing. Eval for aspiration. Procedure Date: 01/24/2020 Accession Number: [id number] / [id number] Procedure: XR - Chest 1 View X-Ray CPT Code: 56996 Final Report FULL RESULT: EXAM: CHEST RADIOGRAPHY EXAM DATE: 01/24/2020 10:18 PM. CLINICAL HISTORY: Cough. Wheezing. Eval for aspiration. COMPARISON: CHEST 1 VIEW 01/17/2020 10:49 AM. TECHNIQUE: 1 view. FINDINGS: Lungs/Pleura: Decreased lung volumes. Some ill-defined opacities in the lung bases, left more than right with silhouetting of the left diaphragm. Also some nonspecific perihilar opacities. No pneumothoraces. Obscuration of the left costophrenic angle, cannot exclude a tiny left pleural effusion. Mediastinum: Within exam limitations, the cardiomediastinal contour is normal. Other: Healing fracture of the distal right clavicle. IMPRESSION: Low lung volumes with some bibasilar opacities that are likely related to atelectasis, but more ill-defined disease in the left base could be related to pneumonia and/or aspiration. Cannot exclude a trace left pleural effusion. RADIA
[2020-01-24] MEDS: SODIUM CHLORIDE FLUSH 0.9% 10 ML SYRINGE IVP PRN (23:42)
[2020-01-25] MEDS: LACTULOSE 10 GM /15 ML UDC PO SCH ×3 (07:38→22:49)
[2020-01-25] MEDS: SPIRONOLACTONE 25 MG TABLET PO SCH (08:09)
[2020-01-25] MEDS: SENNA 8.6 MG TABLET PO SCH (08:09)
[2020-01-25] MEDS: rifAXIMin 550 MG TABLET PO SCH ×2 (08:09→22:49)
[2020-01-25] MEDS: DOCUSATE SODIUM 250 MG CAPSULE PO SCH (08:10)
[2020-01-25] MEDS: FUROSEMIDE 40 MG TABLET PO SCH (08:10)
[2020-01-25] MEDS: NICOTINE 7 MG PATCH TOP SCH (08:10)
[2020-01-25] MEDS: MULTIVITAMIN W/MINERALS TABLET PO SCH (08:10)
[2020-01-25] MEDS: TAMSULOSIN 0.4 MG CAPSULE PO SCH (08:10)
[2020-01-25] MEDS: FERROUS GLUCONATE 324 MG TABLET PO SCH (08:11)
[2020-01-25 08:18] LABS: CREATININE 1.6 mg/dL (0.6-1.2)
--- NOTE | 2020-01-25 11:17 | PROVIDER PROGRESS NOTE ---
Subjective - Prog Note Date Prog Note Date: 01/25/20 Prog Note Time: 11:14 - Subjective Subjective: He was always reluctant to participate with PT. Needed a lot of prompting but was able to follow commands. At discharge from acute hospital stay, he needed minimum assist, was able to stand and ambulate with ataxia. Since being transitioned to swing bed, nursing reports that he is just not doing well. He spending more more time in bed. Even prompting does not result in him getting up. He is getting more confused. Spiked a fever last night. There is no report of cough, shortness of breath, abdominal pain, and he still oxygenating well on room air. Vitals are stable normal other than the 37.8 temperature rise. Current Medications - Current Medications Current Medications: Active Medications Acetaminophen (Tylenol) 650 mg PO Q4HR PRN PRN Reason: Pain 1 to 4 Last Admin: 01/24/20 21:23 Dose: 650 mg Docusate Sodium (Colace 250mg Capsule) 250 - 500 mg PO DAILY [facility] Last Admin: 01/25/20 08:10 Dose: 250 mg Ferrous Gluconate (Fergon) 324 mg PO DAILYWM [facility] Last Admin: 01/25/20 08:11 Dose: 324 mg Furosemide (Lasix) 40 mg PO DAILY [facility] Last Admin: 01/25/20 08:10 Dose: 40 mg Vancomycin HCl 1.25 gm/ Sodium (Chloride) 250 mls @ 167 mls/hr IV Q24H [facility] Lactulose (Enulose) 20 gm PO TID [facility] Last Admin: 01/25/20 07:38 Dose: 20 gm Multivitamins/Minerals (Theragran M) 1 tab PO DAILYWM [facility] Last Admin: 01/25/20 08:10 Dose: 1 tab Nicotine (Nicoderm) 1 patch TOP DAILY [facility] Last Admin: 01/25/20 08:10 Dose: 1 patch Oxycodone HCl (Roxicodone) 5 mg PO Q4HR PRN PRN Reason: Pain 5 to 7 Last Admin: 01/24/20 21:23 Dose: 5 mg Rifaximin (Xifaxan) 550 mg PO BID [facility] Last Admin: 01/25/20 08:09 Dose: 550 mg Senna (Senokot) 8.6 - 17.2 mg PO DAILY [facility] Last Admin: 01/25/20 08:09 Dose: 8.6 mg Sodium Chloride (Normal Saline Flush 0.9%) 10 ml IVP PRN PRN PRN Reason: NEEDED PER PROVIDER ORDERS Last Admin: 01/24/20 23:42 Dose: 10 ml Spironolactone (Aldactone) 50 mg PO DAILY [facility] Last Admin: 01/25/20 08:09 Dose: 50 mg Tamsulosin HCl (Flomax) 0.4 mg PO DAILY [facility] Last Admin: 01/25/20 08:10 Dose: 0.4 mg oxyCODONE [Roxicodone] 5 mg PO QID PRN 06/17/17 Furosemide 40 mg PO DAILY 01/14/20 Lactulose [Constulose] 10 gm PO BID 01/14/20 Spironolactone 100 mg PO DAILY 01/14/20 Tamsulosin [Flomax] 0.4 mg DAILY 01/14/20 rifAXIMin [Xifaxan] 550 mg BID 01/14/20 Objective - Vital Signs/Intake & Output Reviewed Vital Signs: Yes Vital Signs: Vital Signs x48h Temp Pulse Resp BP 01/25/20 07:51 36.3 C L 63 18 117/60 Intake & Output: Intake & Output 01/22/20 01/23/20 01/24/20 01/25/20 23:59 23:59 23:59 23:59 Intake Total 875 1590 1017 360 Output Total 1150 650 500 150 Balance -275 940 517 210 - Objective General Appearance: positive: No acute distress, Alert Eyes Bilateral: positive: PERRL ENT: positive: Pharynx nml Neck: positive: No JVD Respiratory: positive: Chest non-tender. negative: Wheezes, Rales, Rhonchi Cardiovascular: positive: Regular rate & rhythm. negative: Gallop/S4, Friction rub Abdomen: positive: Non-tender, No organomegaly, Nml bowel sounds, No distention Skin: positive: Warm, Dry Extremities: positive: Non-tender, Full ROM, No pedal edema Neurologic/Psychiatric: positive: CN's nml (2-12), Motor nml, Disoriented to time, Depressed mood/affect (apathetic) - Lab Results Fish Bones: 01/26/20 10:55 01/27/20 08:25 Other Labs: Lab Results x24hrs 01/25/20 01/25/20 Range/Units 08:00 08:00 Creatinine 1.6 H (0.6-1.2) mg/dL Estimated GFR (MDRD) 43 L (>89) Last Dose Date 01/24/20 Last Dose Time 2341 Vancomycin Trough 37.0 H* (10.0-20.0) ug/mL ABX Reporting Has patient been on IV antibiotics over the past 48 hours?: Yes Assessment/Plan - Problem List (1) Fever Impression: In an elderly patient that is in a swing bed status. Has mild to moderate cogn itive deficits to begin with. Had bacteremia in the acute patient setting. Is on vancomycin. On review of systems and exam no source identified at this time. He has had bacteremia with neg cultures after treatment started. Plan: CBC, CMP, UA and chest x-ray. consider echo. Qualifiers: Fever type: unspecified Qualified Code(s): R50.9 - Fever, unspecified
[2020-01-25 11:46] LABS: BASOPHILS # (AUTO) 0.1 10^3/uL (0.0-0.1); BASOPHILS % (AUTO) 1.3 %; EOSINOPHILS # (AUTO) 0.2 10^3/uL (0.0-0.7); EOSINOPHILS % (AUTO) 2.6 %; HGB - HEMOGLOBIN 9.6 g/dL (14.0-18.0); LYMPHOCYTES # (AUTO) 0.6 10^3/uL (1.5-3.5); LYMPHOCYTES % (AUTO) 8.1 %; MEAN CORPUSCULAR HEMOGLOBIN 35.7 pg (27.0-31.0); MEAN CORPUSCULAR HGB CONC 32.2 g/dL (32.0-36.0); MEAN CORPUSCULAR VOLUME 110.8 fL (80.0-94.0); MEAN PLATELET VOLUME 9.3 fL (7.4-11.4); MONOCYTES # (AUTO) 1.5 10^3/uL (0.0-1.0); MONOCYTES % (AUTO) 21.7 %; NEUTROPHILS # (AUTO) 4.6 10^3/uL (1.5-6.6); NEUTROPHILS % (AUTO) 65.9 %; PLT - PLATELET COUNT 130 10^3/uL (130-450); RED BLOOD COUNT 2.69 10^6/uL (4.70-6.10); RED CELL DISTRIBUTION WIDTH 16.6 % (12.0-15.0)
--- NOTE | 2020-01-25 11:50 | XRAY Report ---
Reason: fever, ams in swing bed patient Procedure Date: 01/25/2020 Accession Number: [id number] / [id number] Procedure: XR - Chest 1 View X-Ray CPT Code: 76572 Final Report FULL RESULT: EXAM: CHEST RADIOGRAPHY EXAM DATE: 01/25/2020 11:29 AM. CLINICAL HISTORY: Fever. Altered mental status. COMPARISON: CHEST 1 VIEW 01/24/2020 10:18 PM. TECHNIQUE: 1 view. FINDINGS: Lungs/Pleura: Persistent hazy bibasilar airspace opacities, left greater than right. No pleural effusion or pneumothorax. Mediastinum: Heart size is normal. The aortic arch is tortuous, as before. Other: Old fracture deformities of the right posterior fifth and sixth ribs. Thoracic spine DISH. IMPRESSION: Persistent hazy bibasilar airspace opacities, which could represent infection, aspiration, and/or atelectasis. RADIA
[2020-01-25 12:06] LABS: ALBUMIN 2.2 g/dL (3.2-5.5); ALBUMIN/GLOBULIN RATIO 0.6 (1.0-2.2); BILIRUBIN,TOTAL 2.7 mg/dL (0.2-1.0); CALCIUM 8.7 mg/dL (8.5-10.3); CREATININE 1.6 mg/dL (0.6-1.2)
[2020-01-25] MEDS: oxyCODONE 5 MG TABLET PO PRN ×2 (12:16→22:49)
[2020-01-25 12:21] LABS: PLATELET ESTIMATE, MANUAL NORMAL (130-450,000) (NORMAL); PLATELET MORPHOLOGY NORMAL APPEARANCE (NORMAL)
--- NOTE | 2020-01-25 16:09 | PHARMACY PROGRESS NOTE ---
- Therapy Status Vancomycin regimen day #: 8 Therapy status: Trough supratherapeutic Trough goal: 15-20 - MARIS Risk Risk level for Acute Kidney Injury: Moderate Acute Kidney Injury risk factors: Duration >7 days, Goal trough >15, Chronic baseline hypertension - Monitoring and Recommendation Clinical response to treatment: I&O Previous 24 hours 01/23/20 01/24/20 01/25/20 23:59 23:59 23:59 Intake Total 1590 1017 480 Output Total 650 500 150 Balance 940 517 330 Lab Results 01/25/20 01/25/20 01/22/20 11:36 08:00 14:46 BUN 17 Creatinine 1.6 H 1.6 H 1.1 Estimated GFR (MDRD) 43 L 43 L 67 L Vancomycin Monitoring 01/25/20 01/23/20 01/22/20 08:00 04:50 13:51 Vancomycin Trough 37.0 H* 18.8 31.8 H* Monitoring plan: Daily serum creatinine, Draw trough early Next trough due prior to maintenance dose #: 3 (Per protocol) Next trough due (date/time): 01/27 Areas for additional monitoring: IV to PO when appropriate, Therapy de- escalation based on culture results, Acute Kidney Injury Pharmacy recommendation: Hold dose (Dosing regimen was adjusted due to supratherapeuitc level as a result dose held and new regimen has been placed per protocol (Per [facility] global PK mult Ke calculation for vancomycin, new regimen 1250 mg IV q24H will achieve trough of ~16). Random level ordered to be drawn prior to next dose to ensure level is no longer supratherapeutic before dose adm inistration. Recommending closely moniotring and evaluating SCr/renal fnx, and level and making appropriate adjustments to ensure therapeutic range is achieved)
[2020-01-25 22:07] LABS: BILIRUBIN,URINE NEGATIVE (NEGATIVE); CLARITY,URINE CLEAR (CLEAR); GLUCOSE, URINE (UA) NEGATIVE (NEGATIVE); KETONES,URINE (UA) NEGATIVE (NEGATIVE); LEUKOCYTE ESTERASE, URINE NEGATIVE (NEGATIVE); NITRITE,URINE NEGATIVE (NEGATIVE); OCCULT BLOOD,URINE NEGATIVE (NEGATIVE); PROTEIN,URINE NEGATIVE (NEGATIVE); UROBILINOGEN,URINE 0.2 (NORMAL) E.U./dL (NORMAL)
[2020-01-25 22:13] LABS: BACTERIA,URINE None Seen /HPF (None Seen); RBC,URINE None Seen /HPF (0-5); SQUAMOUS EPITHELIAL CELL,UR NONE SEEN (<= Few)
[2020-01-26] MEDS: SODIUM CHLORIDE FLUSH 0.9% 10 ML SYRINGE IVP PRN ×2 (00:41→10:41)
[2020-01-26] MEDS: LACTULOSE 10 GM /15 ML UDC PO SCH ×3 (06:45→22:07)
[2020-01-26] MEDS ORDERED: VANCOMYCIN INJ 1.25 GM in SODIUM CHLORIDE 0.9% 250 ML IV SCH (09:00)
[2020-01-26] MEDS: DOCUSATE SODIUM 250 MG CAPSULE PO SCH (09:53)
[2020-01-26] MEDS: TAMSULOSIN 0.4 MG CAPSULE PO SCH (09:53)
[2020-01-26] MEDS: FUROSEMIDE 40 MG TABLET PO SCH (09:53)
[2020-01-26] MEDS: SPIRONOLACTONE 25 MG TABLET PO SCH (09:53)
[2020-01-26] MEDS: rifAXIMin 550 MG TABLET PO SCH ×2 (09:53→22:07)
[2020-01-26] MEDS: FERROUS GLUCONATE 324 MG TABLET PO SCH (09:54)
[2020-01-26] MEDS: MULTIVITAMIN W/MINERALS TABLET PO SCH (09:54)
[2020-01-26] MEDS: SENNA 8.6 MG TABLET PO SCH (09:55)
[2020-01-26] MEDS: NICOTINE 7 MG PATCH TOP SCH (10:01)
[2020-01-26 10:05] LABS: VANCOMYCIN,TROUGH 23.8 ug/mL (10.0-20.0)
--- NOTE | 2020-01-26 10:14 | PROVIDER PROGRESS NOTE ---
Assessment/Plan - Problem List (1) Weakness generalized Assessment/Plan: More lethargic and less amenable to working with PT over the past 2-3 days is possibly due to fever, narcotic use for pain, worsened creat, low BP or liver failure, or a combination of all those. Will recheck BMP, LFTs, ammonia level. Will administer 1L of D5 1/2 NS. Will decrease the daily Lasix to just , Th, Sat, but continue daily Spironolactone. Continue help with daily feeding. Will decrease the narcotic order from q4h prn to q8h prn, to decrease somnolence. (2) MARIS (acute kidney injury) Assessment/Plan: BP is "soft" today, also consistent with dehydration. IV fluids planned for today. Will decrease the po Lasix to qod. (3) Fever Qualifiers: Fever type: unspecified Qualified Code(s): R50.9 - Fever, unspecified Assessment/Plan: No abnormality found yesterday after the fever spike on his U/A or CXR or any elevated WBC seen. He is still getting iv Vanco for the positive Staph aureus blood cx from the recent admission. He may have atelectasis from being sleepy. Will order IS. Continue monitoring for a fever. (4) Bacteremia due to Staphylococcus Assessment/Plan: Vanco use was planned until 02/01/20. Pharmacy is monitoring levels and dosing. (5) Right clavicle fracture Qualifiers: Encounter type: initial encounter Clavicle location: lateral end Fracture type: closed Fracture alignment: nondisplaced Qualified Code(s): S42.034A - Nondisplaced fracture of lateral end of right clavicle, initial encounter for closed fracture Assessment/Plan: This occurred when he fell before the last recent hospitalization. Any pain and using the sling affect his activity; he needs help with feeding. (6) Chronic alcoholic liver disease Assessment/Plan: Ammonia level and LFTs pending today. Continue Spironolactone, some Lasix, Rifaximin and Lactulose. (7) Anemia Assessment/Plan: No problems with his esophageal varices at this last recent hospitalization. Continue MOV and Iron treatment. (8) BPH (benign prostatic hyperplasia) Assessment/Plan: He is on Flomax (9) Tobacco use Assessment/Plan: He is getting a Nicotine patch - Current Meds Current Meds: Current Medications Generic Name Dose Route Start Last Admin Trade Name Freq PRN Reason Stop Dose Admin Acetaminophen 650 mg 01/21/20 14:54 01/24/20 21:23 Tylenol PO 650 mg Q4HR PRN Administration Pain 1 to 4 Docusate Sodium 250 - 500 mg 01/24/20 12:00 01/26/20 09:53 Colace 250mg Capsule PO 250 mg DAILY BROWN Administration Ferrous Gluconate 324 mg 01/22/20 08:00 01/26/20 09:54 Fergon PO 324 mg DAILYWM BROWN Administration Lactulose 20 gm 01/21/20 22:00 01/26/20 06:45 Enulose PO Not Given TID BROWN Multivitamins/Minerals 1 tab 01/22/20 15:00 01/26/20 09:54 Theragran M PO 1 tab DAILYWM BROWN Administration Nicotine 1 patch 01/23/20 17:27 01/26/20 10:01 Nicoderm TOP 1 patch DAILY BROWN Administration Rifaximin 550 mg 01/25/20 09:00 01/26/20 09:53 Xifaxan PO 550 mg BID BROWN Administration Senna 8.6 - 17.2 mg 01/24/20 12:00 01/26/20 09:55 Senokot PO 8.6 mg DAILY BROWN Administration Sodium Chloride 10 ml 01/24/20 23:42 01/26/20 00:41 Normal Saline Flush 0.9% IVP 10 ml PRN PRN Administration NEEDED PER PROVIDER ORDERS Spironolactone 50 mg 01/25/20 09:00 01/26/20 09:53 Aldactone PO Not Given DAILY BROWN Tamsulosin HCl 0.4 mg 01/25/20 09:00 01/26/20 09:53 Flomax PO 0.4 mg DAILY BROWN Administration - Lab Result Fish Bone Diagrams: 01/26/20 10:55 01/26/20 10:55 - Additional Planning My Orders: My Active Orders 01/26/20 AMMONIA [CHEM] Urgent CBC - COMP BLD CT W/AUTO DIFF [HEME] Urgent CMP [COMPREHENSIVE METABOLIC PANEL] [CHEM] Urgent 01/26/20 10:08 oxyCODONE [Roxicodone] 5 mg PO Q8HR PRN 01/26/20 11:00 Dextrose 5%-0.45% NaCl [D5.45ns] 1,000 ml IV 60 mls/hr 01/28/20 11:00 Furosemide [Lasix] 40 mg PO TUTHSA Subjective - Subjective Patient Reports: Other (Not communicative because "he's tired") Nursing Reports: Other (He was OOB twice and worked with PT and OT today.) Objective Vital Signs: Vital Signs - 24 hr 01/25/20 01/26/20 01/26/20 21:00 08:26 09:50 Temperature 36.6 C 36.6 C Heart Rate [ 65 62 68 Brachial] Respiratory 16 16 Rate Blood Pressure 104/56 L [Left Brachial artery] Blood Pressure 135/76 H 97/53 L [Right Brachial artery] O2 Saturation 95 94 Oxygen O2 Source Room air I&O (Last 24 Hrs): Intake and Output Totals x24h 01/24/20 01/25/20 01/26/20 23:59 23:59 23:59 Intake Total 1017 850 150 Output Total 500 861 125 Balance 517 -11 25 General: Other (Appears fatigued, stoic.) HEENT: Mucous membr. moist/pink, Other Neck: Supple Neuro: Other (Minimally communicative currently) Respiratory: No respiratory distress Extremities: Other (Leathery tanned skin of face and extremities) - Results Results: Laboratory Results WBC 7.0 x10^3/uL (4.8-10.8) 01/25/20 11:36 RBC 2.69 10^6/uL (4.70-6.10) L 01/25/20 11:36 Hgb 9.6 g/dL (14.0-18.0) L 01/25/20 11:36 Hct 29.8 % (42.0-52.0) L 01/25/20 11:36 MCV 110.8 fL (80.0-94.0) H 01/25/20 11:36 MCH 35.7 pg (27.0-31.0) H 01/25/20 11:36 MCHC 32.2 g/dL (32.0-36.0) 01/25/20 11:36 RDW 16.6 % (12.0-15.0) H 01/25/20 11:36 Plt Count 130 10^3/uL (130-450) 01/25/20 11:36 MPV 9.3 fL (7.4-11.4) 01/25/20 11:36 Neut # (Auto) 4.6 10^3/uL (1.5-6.6) 01/25/20 11:36 Lymph # (Auto) 0.6 10^3/uL (1.5-3.5) L 01/25/20 11:36 [place] # (Auto) 1.5 10^3/uL (0.0-1.0) H 01/25/20 11:36 Eos # (Auto) 0.2 10^3/uL (0.0-0.7) 01/25/20 11:36 Baso # (Auto) 0.1 10^3/uL (0.0-0.1) 01/25/20 11:36 Absolute Nucleated RBC 0.00 x10^3/uL 01/25/20 11:36 Nucleated RBC % 0.0 /100WBC 01/25/20 11:36 Manual Slide Review Indicated 01/25/20 11:36 Platelet Estimate NORMAL (130-450,000) (NORMAL) 01/25/20 11:36 Platelet Morphology NORMAL APPEARANCE (NORMAL) 01/25/20 11:36 RBC Morph Micro Appear 2+ MACROCYTOSIS (NORMAL) 1+ ANISOCYTOSIS (NORMAL) 01/25/20 11:36 RBC Morph Micro Appear 2+ MACROCYTOSIS (NORMAL) 1+ ANISOCYTOSIS (NORMAL) 01/25/20 11:36 Sodium 141 mmol/L (135-145) 01/25/20 11:36 Potassium 4.0 mmol/L (3.5-5.0) 01/25/20 11:36 Chloride 111 mmol/L (101-111) 01/25/20 11:36 Carbon Dioxide 24 mmol/L (21-32) 01/25/20 11:36 Anion Gap 6.0 (6-13) 01/25/20 11:36 BUN 17 mg/dL (6-20) 01/25/20 11:36 Creatinine 1.6 mg/dL (0.6-1.2) H 01/25/20 11:36 Estimated GFR (MDRD) 43 (>89) L 01/25/20 11:36 Glucose 118 mg/dL (70-100) H 01/25/20 11:36 Calcium 8.7 mg/dL (8.5-10.3) 01/25/20 11:36 Total Bilirubin 2.7 mg/dL (0.2-1.0) H 01/25/20 11:36 AST 62 IU/L (10-42) H 01/25/20 11:36 ALT 28 IU/L (10-60) 01/25/20 11:36 Alkaline Phosphatase 37 IU/L (42-121) L 01/25/20 11:36 Total Protein 6.0 g/dL (6.7-8.2) L 01/25/20 11:36 Albumin 2.2 g/dL (3.2-5.5) L 01/25/20 11:36 Globulin 3.8 g/dL (2.1-4.2) 01/25/20 11:36 Albumin/Globulin Ratio 0.6 (1.0-2.2) L 01/25/20 11:36 Urine Color YELLOW 01/25/20 20:00 Urine Clarity CLEAR (CLEAR) 01/25/20 20: Urine pH 5.0 PH (5.0-7.5) 01/25/20 20:00 Ur Specific [place] 1.015 (1.002-1.030) 01/25/20 20:00 Urine Protein NEGATIVE mg/dL (NEGATIVE) 01/25/20 20:00 Urine Glucose (UA) NEGATIVE mg/dL (NEGATIVE) 01/25/20 20:00 Urine Ketones NEGATIVE mg/dL (NEGATIVE) 01/25/20 20:00 Urine Occult Blood NEGATIVE (NEGATIVE) 01/25/20 20:00 Urine Nitrite NEGATIVE (NEGATIVE) 01/25/20 20: Urine Bilirubin NEGATIVE (NEGATIVE) 01/25/20 20:00 Urine Urobilinogen 0.2 (NORMAL) E.U./dL (NORMAL) 01/25/20 20:00 Ur Leukocyte Esterase NEGATIVE (NEGATIVE) 01/25/20 20:00 Urine RBC None Seen /HPF (0-5) 01/25/20 20:00 Urine WBC 0-3 /HPF (0-3) 01/25/20 20:00 Ur Squamous Epith Cells NONE SEEN (<= Few) 01/25/20 20:00 Urine Bacteria None Seen /HPF (None Seen) 01/25/20 20: Urine Culture Comments NOT INDICATED 01/25/20 20:00 Last Dose Date 01/24/20 01/25/20 08:00 Last Dose Time 23401/25/20 08:00 Vancomycin Trough 23.8 ug/mL (10.0-20.0) H 01/26/20 09:50 - Procedures Procedures: Procedures EXCISION OF CECUM, ENDO, DIAGN (06/18/17) EXCISION OF SIGMOID COLON, ENDO, DIAGN (06/18/17)
[2020-01-26 10:39] LABS: CREATININE 1.7 mg/dL (0.6-1.2)
[2020-01-26] MEDS: VANCOMYCIN INJ 1 GM in SODIUM CHLORIDE 0.9% 250 ML IV SCH (10:49)
[2020-01-26] MEDS ORDERED: DEXTROSE 5%-0.45% NACL 1,000 ML IV SCH (11:00)
[2020-01-26 11:04] LABS: BASOPHILS # (AUTO) 0.1 10^3/uL (0.0-0.1); BASOPHILS % (AUTO) 1.2 %; EOSINOPHILS # (AUTO) 0.2 10^3/uL (0.0-0.7); EOSINOPHILS % (AUTO) 2.4 %; HGB - HEMOGLOBIN 10.5 g/dL (14.0-18.0); LYMPHOCYTES # (AUTO) 0.6 10^3/uL (1.5-3.5); LYMPHOCYTES % (AUTO) 7.7 %; MEAN CORPUSCULAR HEMOGLOBIN 37.1 pg (27.0-31.0); MEAN CORPUSCULAR HGB CONC 33.1 g/dL (32.0-36.0); MEAN PLATELET VOLUME 9.3 fL (7.4-11.4); MONOCYTES # (AUTO) 1.3 10^3/uL (0.0-1.0); MONOCYTES % (AUTO) 16.9 %; NEUTROPHILS # (AUTO) 5.4 10^3/uL (1.5-6.6); NEUTROPHILS % (AUTO) 71.5 %; PLT - PLATELET COUNT 147 10^3/uL (130-450); RED BLOOD COUNT 2.83 10^6/uL (4.70-6.10); RED CELL DISTRIBUTION WIDTH 16.4 % (12.0-15.0); WHITE BLOOD COUNT 7.6 x10^3/uL (4.8-10.8)
[2020-01-26 11:16] LABS: ALBUMIN 2.4 g/dL (3.2-5.5); ALBUMIN/GLOBULIN RATIO 0.5 (1.0-2.2); BILIRUBIN,TOTAL 3.1 mg/dL (0.2-1.0); CALCIUM 8.8 mg/dL (8.5-10.3); CREATININE 1.7 mg/dL (0.6-1.2); TOTAL PROTEIN 6.8 g/dL (6.7-8.2)
[2020-01-26 11:47] LABS: PLATELET ESTIMATE, MANUAL NORMAL (130-450,000) (NORMAL); PLATELET MORPHOLOGY NORMAL APPEARANCE (NORMAL)
[2020-01-26] MEDS: oxyCODONE 5 MG TABLET PO PRN (22:07)
[2020-01-26] MEDS: ACETAMINOPHEN 325 MG TABLET PO PRN (23:52)
[2020-01-27] MEDS: SODIUM CHLORIDE FLUSH 0.9% 10 ML SYRINGE IVP PRN ×3 (04:58→11:54)
[2020-01-27] MEDS: LACTULOSE 10 GM /15 ML UDC PO SCH (06:50)
[2020-01-27] MEDS: oxyCODONE 5 MG TABLET PO PRN (06:51)
[2020-01-27 08:41] LABS: CALCIUM 8.6 mg/dL (8.5-10.3); CREATININE 1.6 mg/dL (0.6-1.2)
[2020-01-27] MEDS: NICOTINE 7 MG PATCH TOP SCH (09:28)
[2020-01-27] MEDS: MULTIVITAMIN W/MINERALS TABLET PO SCH (09:29)
[2020-01-27] MEDS: DOCUSATE SODIUM 250 MG CAPSULE PO SCH (09:45)
[2020-01-27] MEDS: SENNA 8.6 MG TABLET PO SCH (09:45)
[2020-01-27] MEDS: SPIRONOLACTONE 25 MG TABLET PO SCH (09:46)
[2020-01-27] MEDS: TAMSULOSIN 0.4 MG CAPSULE PO SCH (09:46)
[2020-01-27] MEDS: FERROUS GLUCONATE 324 MG TABLET PO SCH (09:46)
[2020-01-27] MEDS: rifAXIMin 550 MG TABLET PO SCH (10:10)
--- NOTE | 2020-01-27 10:15 | PROVIDER PROGRESS NOTE ---
Assessment/Plan - Problem List (1) Weakness generalized Assessment/Plan: He was more lethargic and less amenable to working with PT over the past 2-3 days, was likely due to fever 2 days ago, narcotic use for pain, worsened creat yesterday, low BP yesterday or liver failure with elevated ammonia yesterday, or a combination of all those. He got 1L iv hydrated yesterday, Lasix was decreased to qod, and frequency of narcotic decreased from q4h prn to q8h prn, to decrease somnolence. Continue with PT and OT. (2) Chronic alcoholic liver disease Assessment/Plan: The serum ammonia was 58 yesterday, today it is better at 30. In reviewing his BMs on Lactulose treatment, it is noted that he has not had even 1 BM for 2 days. Pharmacy pointed out that he was refusing his Lactulose intermittently. Will stop the Rifaximin treatment and promote compliance, and increase the dose of Lactulose. (3) Medication noncompliance due to cognitive impairment Assessment/Plan: As above in #2 (4) MARIS (acute kidney injury) Assessment/Plan: The creat improved slightly from 1.7 the previous 2 days to 1.6 today, after getting 1L of iv fluids yesterday. BP also better with mild rehydration. His Lasix po was made qod now, but Spironolactone is continued daily. (5) Bacteremia due to Staphylococcus Assessment/Plan: This was found at thr recent hospitalization. IV Vanco is planned thru 01/31/20 then stop. (6) Right clavicle fracture Qualifiers: Encounter type: initial encounter Clavicle location: lateral end Fracture type: closed Fracture alignment: nondisplaced Qualified Code(s): S42.034A - Nondisplaced fracture of lateral end of right clavicle, initial encounter for closed fracture Assessment/Plan: This occurred when he fell before the last recent hospitalization. Any pain and using the sling affect his activity; he needs help with feeding. (7) Anemia Assessment/Plan: No problems with his esophageal varices at this last recent hospitalization. Continue MOV and Iron treatment. (8) BPH (benign prostatic hyperplasia) Assessment/Plan: He is on Flomax (9) Tobacco use Assessment/Plan: He is getting a Nicotine patch. The dose is already at the lowest. (10) Fever Qualifiers: Fever type: unspecified Qualified Code(s): R50.9 - Fever, unspecified Assessment/Plan: Resolved, no further fever spikes sincer 3 days ago. No source of fever was found with strable CXR and urinalysis 2 days ago. Continue the iv Vanco tx of Staph aureus bacteremia thru 01/31/20 then finished. - Current Meds Current Meds: Current Medications Generic Name Dose Route Start Last Admin Trade Name Freq PRN Reason Stop Dose Admin Acetaminophen 650 mg 01/21/20 14:54 01/26/20 23:52 Tylenol PO 650 mg Q4HR PRN Administration Pain 1 to 4 Docusate Sodium 250 - 500 mg 01/24/20 12:00 01/27/20 09:45 Colace 250mg Capsule PO 500 mg DAILY BROWN Administration Ferrous Gluconate 324 mg 01/22/20 08:00 01/27/20 09:46 Fergon PO 324 mg DAILYWM BROWN Administration Vancomycin HCl 1 gm/ Sodium 250 mls @ 167 mls/hr 01/26/20 09:00 01/26/20 12:20 Chloride IV Infused Q24H BROWN Infusion Multivitamins/Minerals 1 tab 01/22/20 15:00 01/27/20 09:29 Theragran M PO 1 tab DAILYWM BROWN Administration Nicotine 1 patch 01/23/20 17:27 01/27/20 09:28 Nicoderm TOP 1 patch DAILY BROWN Administration Oxycodone HCl 5 mg 01/26/20 10:08 01/27/20 06:51 Roxicodone PO 5 mg Q8HR PRN Administration Pain 5 to 7 Senna 8.6 - 17.2 mg 01/24/20 12:00 01/27/20 09:45 Senokot PO 17.2 mg DAILY BROWN Administration Sodium Chloride 10 ml 01/24/20 23:42 01/27/20 09:28 Normal Saline Flush 0.9% IVP 10 ml PRN PRN Administration NEEDED PER PROVIDER ORDERS Spironolactone 50 mg 01/25/20 09:00 01/27/20 09:46 Aldactone PO 50 mg DAILY BROWN Administration Tamsulosin HCl 0.4 mg 01/25/20 09:00 01/27/20 09:46 Flomax PO 0.4 mg DAILY BROWN Administration - Lab Result Fish Bone Diagrams: 01/26/20 10:55 01/27/20 08:25 - Additional Planning My Orders: My Active Orders 01/26/20 10:08 oxyCODONE [Roxicodone] 5 mg PO Q8HR PRN 01/26/20 11:47 PATHOLOGIST SLIDE REVIEW-RFLXD [HEME] Routine 01/26/20 Dinner Dysphagia Mechanically Altered Diet [DIET] 01/27/20 13:00 Lactulose [Enulose] 20 gm PO QID 01/28/20 09:00 Furosemide [Lasix] 40 mg PO TuThSa@0900 Subjective - Subjective Patient Reports: Feeling Better Nursing Reports: Other (More alert, more cooperative, able to feed himself, per RN) Objective Vital Signs: Vital Signs - 24 hr 01/26/20 01/27/20 01/27/20 15:54 00:00 07:34 Temperature 36.6 C 36.9 C 36.5 C Heart Rate [ 60 58 L 64 Brachial] Respiratory 16 18 19 Rate Blood Pressure 123/64 [Left Brachial artery] Blood Pressure 114/53 L [Left Radial artery] Blood Pressure 106/53 L [Right Brachial artery] O2 Saturation 97 94 93 Oxygen O2 Source Room air I&O (Last 24 Hrs): Intake and Output Totals x24h 01/25/20 01/26/20 01/27/20 23:59 23:59 23:59 Intake Total 850 648 992 Output Total 861 325 125 Balance -11 323 867 General: Alert, Oriented x3 HEENT: Mucous membr. moist/pink Neck: Supple Neuro: Non Focal Cardiovascular: No murmurs Abdomen: Soft - Results Results: Laboratory Results WBC 7.6 x10^3/uL (4.8-10.8) 01/26/20 10:55 RBC 2.83 10^6/uL (4.70-6.10) L 01/26/20 10:55 Hgb 10.5 g/dL (14.0-18.0) L 01/26/20 10:55 Hct 31.7 % (42.0-52.0) L 01/26/20 10:55 MCV 112.0 fL (80.0-94.0) H 01/26/20 10:55 MCH 37.1 pg (27.0-31.0) H 01/26/20 10:55 MCHC 33.1 g/dL (32.0-36.0) 01/26/20 10:55 RDW 16.4 % (12.0-15.0) H 01/26/20 10:55 Plt Count 147 10^3/uL (130-450) 01/26/20 10:55 MPV 9.3 fL (7.4-11.4) 01/26/20 10:55 Neut # (Auto) 5.4 10^3/uL (1.5-6.6) 01/26/20 10:55 Lymph # (Auto) 0.6 10^3/uL (1.5-3.5) L 01/26/20 10:55 [place] # (Auto) 1.3 10^3/uL (0.0-1.0) H 01/26/20 10:55 Eos # (Auto) 0.2 10^3/uL (0.0-0.7) 01/26/20 10:55 Baso # (Auto) 0.1 10^3/uL (0.0-0.1) 01/26/20 10:55 Absolute Nucleated RBC 0.00 x10^3/uL 01/26/20 10:55 Nucleated RBC % 0.0 /100WBC 01/26/20 10:55 Manual Slide Review Indicated 01/26/20 10:55 Platelet Estimate NORMAL (130-450,000) (NORMAL) 01/26/20 10:55 Platelet Morphology NORMAL APPEARANCE (NORMAL) 01/26/20 10:55 RBC Morph Micro Appear 2+ MACROCYTOSIS (NORMAL) 1+ ANISOCYTOSIS (NORMAL) 01/25/20 11:36 RBC Morph Micro Appear 2+ MACROCYTOSIS (NORMAL) 1+ HYPOCHROMASIA (NORMAL) 1+ POLYCHROMASIA (NORMAL) 01/26/20 10:55 RBC Morph Micro Appear 2+ MACROCYTOSIS (NORMAL) 1+ HYPOCHROMASIA (NORMAL) 1+ POLYCHROMASIA (NORMAL) 01/26/20 10:55 RBC Morph Micro Appear 2+ MACROCYTOSIS (NORMAL) 1+ HYPOCHROMASIA (NORMAL) 1+ POLYCHROMASIA (NORMAL) 01/26/20 10:55 Sodium 140 mmol/L (135-145) 01/27/20 08:25 Potassium 3.5 mmol/L (3.5-5.0) 01/27/20 08:25 Chloride 108 mmol/L (101-111) 01/27/20 08:25 Carbon Dioxide 25 mmol/L (21-32) 01/27/20 08:25 Anion Gap 7.0 (6-13) 01/27/20 08:25 BUN 18 mg/dL (6-20) 01/27/20 08:25 Creatinine 1.6 mg/dL (0.6-1.2) H 01/27/20 08:25 Estimated GFR (MDRD) 43 (>89) L 01/27/20 08:25 Glucose 100 mg/dL (70-100) 01/27/20 08:25 Calcium 8.6 mg/dL (8.5-10.3) 01/27/20 08:25 Total Bilirubin 3.1 mg/dL (0.2-1.0) H 01/26/20 10:55 AST 58 IU/L (10-42) H 01/26/20 10:55 ALT 27 IU/L (10-60) 01/26/20 10:55 Alkaline Phosphatase 41 IU/L (42-121) L 01/26/20 10:55 Ammonia 30.3 umol/L (7-35) 01/27/20 08:25 Total Protein 6.8 g/dL (6.7-8.2) 01/26/20 10:55 Albumin 2.4 g/dL (3.2-5.5) L 01/26/20 10:55 Globulin 4.4 g/dL (2.1-4.2) H 01/26/20 10:55 Albumin/Globulin Ratio 0.5 (1.0-2.2) L 01/26/20 10:55 Urine Color YELLOW 01/25/20 20:00 Urine Clarity CLEAR (CLEAR) 01/25/20 20:00 Urine pH 5.0 PH (5.0-7.5) 01/25/20 20:00 Ur Specific [place] 1.015 (1.002-1.030) 01/25/20 20:00 Urine Protein NEGATIVE mg/dL (NEGATIVE) 01/25/20 20:00 Urine Glucose (UA) NEGATIVE mg/dL (NEGATIVE) 01/25/20 20:00 Urine Ketones NEGATIVE mg/dL (NEGATIVE) 01/25/20 20:00 Urine Occult Blood NEGATIVE (NEGATIVE) 01/25/20 20:00 Urine Nitrite NEGATIVE (NEGATIVE) 01/25/20 20:00 Urine Bilirubin NEGATIVE (NEGATIVE) 01/25/20 20:00 Urine Urobilinogen 0.2 (NORMAL) E.U./dL (NORMAL) 01/25/20 20:00 Ur Leukocyte Esterase NEGATIVE (NEGATIVE) 01/25/20 20:00 Urine RBC None Seen /HPF (0-5) 01/25/20 20:00 Urine WBC 0-3 /HPF (0-3) 01/25/20 20:00 Ur Squamous Epith Cells NONE SEEN (<= Few) 01/25/20 20:00 Urine Bacteria None Seen /HPF (None Seen) 01/25/20 20:00 Urine Culture Comments NOT INDICATED 01/25/20 20:00 Last Dose Date 01/26/20 01/26/20 09:50 Last Dose Time 0900 01/26/20 09:50 Vancomycin Trough 23.8 ug/mL (10.0-20.0) H 01/26/20 09:50 Slides for Path Review Indicated 01/26/20 10:55 - Procedures Procedures: Procedures EXCISION OF CECUM, ENDO, DIAGN (06/18/17) EXCISION OF SIGMOID COLON, ENDO, DIAGN (06/18/17)
[2020-01-27] MEDS: VANCOMYCIN INJ 1 GM in SODIUM CHLORIDE 0.9% 250 ML IV SCH (11:54)
[2020-01-27] MEDS: LACTULOSE 10 GM/15 ML BOTTLE PO SCH ×3 (12:15→21:01)
[2020-01-28] MEDS ORDERED: FUROSEMIDE 40 MG TABLET PO SCH (09:00)
[2020-01-28] MEDS: NICOTINE 7 MG PATCH TOP SCH (10:48)
[2020-01-28] MEDS: SENNA 8.6 MG TABLET PO SCH (10:49)
[2020-01-28] MEDS: DOCUSATE SODIUM 250 MG CAPSULE PO SCH (10:49)
[2020-01-28] MEDS: LACTULOSE 10 GM/15 ML BOTTLE PO SCH ×4 (10:49→21:53)
[2020-01-28] MEDS: SPIRONOLACTONE 25 MG TABLET PO SCH (10:49)
[2020-01-28] MEDS: MULTIVITAMIN W/MINERALS TABLET PO SCH (10:50)
[2020-01-28] MEDS: TAMSULOSIN 0.4 MG CAPSULE PO SCH (10:50)
[2020-01-28] MEDS: FERROUS GLUCONATE 324 MG TABLET PO SCH (10:50)
[2020-01-28] MEDS: SODIUM CHLORIDE FLUSH 0.9% 10 ML SYRINGE IVP PRN (12:26)
[2020-01-28] MEDS: VANCOMYCIN INJ 1 GM in SODIUM CHLORIDE 0.9% 250 ML IV SCH (12:27)
[2020-01-28] MEDS ORDERED: SODIUM CHLORIDE 0.9% 500 ML IV ONE (15:06)
[2020-01-28] MEDS: ACETAMINOPHEN 325 MG TABLET PO PRN (21:53)
[2020-01-29] MEDS: MULTIVITAMIN W/MINERALS TABLET PO SCH (08:50)
[2020-01-29] MEDS: FERROUS GLUCONATE 324 MG TABLET PO SCH (08:50)
[2020-01-29] MEDS: DOCUSATE SODIUM 250 MG CAPSULE PO SCH (08:50)
[2020-01-29] MEDS: SENNA 8.6 MG TABLET PO SCH (08:50)
[2020-01-29] MEDS: NICOTINE 7 MG PATCH TOP SCH (08:51)
[2020-01-29] MEDS: SPIRONOLACTONE 25 MG TABLET PO SCH (08:51)
[2020-01-29] MEDS: TAMSULOSIN 0.4 MG CAPSULE PO SCH (08:51)
[2020-01-29] MEDS: SODIUM CHLORIDE FLUSH 0.9% 10 ML SYRINGE IVP PRN (08:52)
--- NOTE | 2020-01-29 10:22 | PROVIDER PROGRESS NOTE ---
Assessment/Plan - Problem List (1) Urinary retention Assessment/Plan: Will increase Tamsolusin to m0.8 mg daily. Will order upright use of urinal tid. Pt refused straight cath several times yesterday (2) Weakness generalized Assessment/Plan: He is more cooperative with PT and OT for the past 2 days. (3) Chronic alcoholic liver disease Assessment/Plan: Lasix has been stopped due to dehydration, oliguria and elevated creat on the past several lab tests. Continue Spironolactone. Continue Lactulose. (7) Right clavicle fracture Qualifiers: Encounter type: initial encounter Clavicle location: lateral end Fracture type: closed Fracture alignment: nondisplaced Qualified Code(s): S42.034A - Nondisplaced fracture of lateral end of right clavicle, initial encounter for c losed fracture - Current Meds Current Meds: Current Medications Generic Name Dose Route Start Last Admin Trade Name Freq PRN Reason Stop Dose Admin Acetaminophen 650 mg 01/21/20 14:54 01/28/20 21:53 Tylenol PO 650 mg Q4HR PRN Administration Pain 1 to 4 Docusate Sodium 250 - 500 mg 01/24/20 12:00 01/29/20 08:50 Colace 250mg Capsule PO 250 mg DAILY BROWN Administration Ferrous Gluconate 324 mg 01/22/20 08:00 01/29/20 08:50 Fergon PO 324 mg DAILYWM BROWN Administration Vancomycin HCl 1 gm/ Sodium 250 mls @ 167 mls/hr 01/26/20 09:00 01/28/20 14:10 Chloride IV 01/31/20 23:55 Infused Q24H BROWN Infusion Lactulose 20 gm 01/27/20 13:00 01/28/20 21:53 Lactulose PO 20 gm QID BROWN Administration Multivitamins/Minerals 1 tab 01/22/20 15:00 01/29/20 08:50 Theragran M PO 1 tab DAILYWM BROWN Administration Nicotine 1 patch 01/23/20 17:27 01/29/20 08:51 Nicoderm TOP 01/30/20 00:00 1 patch DAILY BROWN Administration Oxycodone HCl 5 mg 01/26/20 10:08 01/27/20 06:51 Roxicodone PO 5 mg Q8HR PRN Administration Pain 5 to 7 Senna 8.6 - 17.2 mg 01/24/20 12:00 01/29/20 08:50 Senokot PO 8.6 mg DAILY BROWN Administration Sodium Chloride 10 ml 01/24/20 23:42 01/29/20 08:52 Normal Saline Flush 0.9% IVP 10 ml PRN PRN Administration NEEDED PER PROVIDER ORDERS Spironolactone 50 mg 01/25/20 09:00 01/29/20 08:51 Aldactone PO 50 mg DAILY BROWN Administration - Lab Result Fish Bone Diagrams: 01/26/20 10:55 01/27/20 08:25 - Additional Planning My Orders: My Active Orders 01/28/20 15:06 Straight Catheter Insertion [RC] PRN 01/29/20 08:58 Miscellaenous Nursing Order [RC] QSHIFT 01/29/20 11:00 Tamsulosin [Flomax] 0.4 mg PO ONCE 01/30/20 09:00 Tamsulosin [Flomax] 0.8 mg PO DAILY Subjective - Subjective Nursing Reports: Other (Refused a strsaight cath, had oliguria and eresidual was >200cc) Objective Vital Signs: Vital Signs - 24 hr 01/28/20 16:02 Temperature 36.5 C Heart Rate [ 61 Brachial] Respiratory 14 Rate Blood Pressure 115/60 [Right Brachial artery] O2 Saturation 97 Oxygen O2 Source Room air I&O (Last 24 Hrs): Intake and Output Totals x24h 01/27/20 01/28/20 01/29/20 23:59 23:59 23:59 Intake Total 1462 1600 200 Output Total 375 750 Balance 1087 850 200 General: Alert HEENT: Mucous membr. moist/pink Neuro: Other (Flat affect) - Results Results: Laboratory Results WBC 7.6 x10^3/uL (4.8-10.8) 01/26/20 10:55 RBC 2.83 10^6/uL (4.70-6.10) L 01/26/20 10:55 Hgb 10.5 g/dL (14.0-18.0) L 01/26/20 10:55 Hct 31.7 % (42.0-52.0) L 01/26/20 10:55 MCV 112.0 fL (80.0-94.0) H 01/26/20 10:55 MCH 37.1 pg (27.0-31.0) H 01/26/20 10:55 MCHC 33.1 g/dL (32.0-36.0) 01/26/20 10:55 RDW 16.4 % (12.0-15.0) H 01/26/20 10:55 Plt Count 147 10^3/uL (130-450) 01/26/20 10:55 MPV 9.3 fL (7.4-11.4) 01/26/20 10:55 Neut # (Auto) 5.4 10^3/uL (1.5-6.6) 01/26/20 10:55 Lymph # (Auto) 0.6 10^3/uL (1.5-3.5) L 01/26/20 10:55 [place] # (Auto) 1.3 10^3/uL (0.0-1.0) H 01/26/20 10:55 Eos # (Auto) 0.2 10^3/uL (0.0-0.7) 01/26/20 10:55 Baso # (Auto) 0.1 10^3/uL (0.0-0.1) 01/26/20 10:55 Absolute Nucleated RBC 0.00 x10^3/uL 01/26/20 10:55 Nucleated RBC % 0.0 /100WBC 01/26/20 10:55 Manual Slide Review Indicated 01/26/20 10:55 Platelet Estimate NORMAL (130-450,000) (NORMAL) 01/26/20 10:55 Platelet Morphology NORMAL APPEARANCE (NORMAL) 01/26/20 10:55 RBC Morph Micro Appear 2+ MACROCYTOSIS (NORMAL) 1+ ANISOCYTOSIS (NORMAL) 01/25/20 11:36 RBC Morph Micro Appear 2+ MACROCYTOSIS (NORMAL) 1+ HYPOCHROMASIA (NORMAL) 1+ POLYCHROMASIA (NORMAL) 01/26/20 10:55 RBC Morph Micro Appear 2+ MACROCYTOSIS (NORMAL) 1+ HYPOCHROMASIA (NORMAL) 1+ POLYCHROMASIA (NORMAL) 01/26/20 10:55 RBC Morph Micro Appear 2+ MACROCYTOSIS (NORMAL) 1+ HYPOCHROMASIA (NORMAL) 1+ POLYCHROMASIA (NORMAL) 01/26/20 10:55 Hematology Spec Commnt 01/26/2020 01/26/20 11:47 Sodium 140 mmol/L (135-145) 01/27/20 08:25 Potassium 3.5 mmol/L (3.5-5.0) 01/27/20 08:25 Chloride 108 mmol/L (101-111) 01/27/20 08:25 Carbon Dioxide 25 mmol/L (21-32) 01/27/20 08:25 Anion Gap 7.0 (6-13) 01/27/20 08:25 BUN 18 mg/dL (6-20) 01/27/20 08:25 Creatinine 1.6 mg/dL (0.6-1.2) H 01/27/20 08:25 Estimated GFR (MDRD) 43 (>89) L 01/27/20 08:25 Glucose 100 mg/dL (70-100) 01/27/20 08:25 Calcium 8.6 mg/dL (8.5-10.3) 01/27/20 08:25 Total Bilirubin 3.1 mg/dL (0.2-1.0) H 01/26/20 10:55 AST 58 IU/L (10-42) H 01/26/20 10:55 ALT 27 IU/L (10-60) 01/26/20 10:55 Alkaline Phosphatase 41 IU/L (42-121) L 01/26/20 10:55 Ammonia 30.3 umol/L (7-35) 01/27/20 08:25 Total Protein 6.8 g/dL (6.7-8.2) 01/26/20 10:55 Albumin 2.4 g/dL (3.2-5.5) L 01/26/20 10:55 Globulin 4.4 g/dL (2.1-4.2) H 01/26/20 10:55 Albumin/Globulin Ratio 0.5 (1.0-2.2) L 01/26/20 10:55 Urine Color YELLOW 01/25/20 20:00 Urine Clarity CLEAR (CLEAR) 01/25/20 20:00 Urine pH 5.0 PH (5.0-7.5) 01/25/20 20:00 Ur Specific [place] 1.015 (1.002-1.030) 01/25/20 20:00 Urine Protein NEGATIVE mg/dL (NEGATIVE) 01/25/20 20:00 Urine Glucose (UA) NEGATIVE mg/dL (NEGATIVE) 01/25/20 20:00 Urine Ketones NEGATIVE mg/dL (NEGATIVE) 01/25/20 20:00 Urine Occult Blood NEGATIVE (NEGATIVE) 01/25/20 20:00 Urine Nitrite NEGATIVE (NEGATIVE) 01/25/20 20:00 Urine Bilirubin NEGATIVE (NEGATIVE) 01/25/20 20:00 Urine Urobilinogen 0.2 (NORMAL) E.U./dL (NORMAL) 01/25/20 20:00 Ur Leukocyte Esterase NEGATIVE (NEGATIVE) 01/25/20 20:00 Urine RBC None Seen /HPF (0-5) 01/25/20 20:00 Urine WBC 0-3 /HPF (0-3) 01/25/20 20:00 Ur Squamous Epith Cells NONE SEEN (<= Few) 01/25/20 20:00 Urine Bacteria None Seen /HPF (None Seen) 01/25/20 20:00 Urine Culture Comments NOT INDICATED 01/25/20 20:00 Last Dose Date 01/26/20 01/26/20 09:50 Last Dose Time 0900 01/26/20 09:50 Vancomycin Trough 23.8 ug/mL (10.0-20.0) H 01/26/20 09:50 Slides for Path Review SEE SEPARATE REPORT 01/26/20 11:47 - Procedures Procedures: Procedures EXCISION OF CECUM, ENDO, DIAGN (06/18/17) EXCISION OF SIGMOID COLON, ENDO, DIAGN (06/18/17)
[2020-01-29] MEDS: LACTULOSE 10 GM/15 ML BOTTLE PO SCH ×4 (10:30→21:44)
[2020-01-29] MEDS ORDERED: TAMSULOSIN 0.4 MG CAPSULE PO ONE (11:00)
[2020-01-29] MEDS: oxyCODONE 5 MG TABLET PO PRN ×2 (11:35→21:50)
[2020-01-29] MEDS: VANCOMYCIN INJ 1 GM in SODIUM CHLORIDE 0.9% 250 ML IV SCH (13:47)
--- NOTE | 2020-01-30 00:33 | CT Report ---
Reason: bladder obstruction. ? renal calculi Procedure Date: 01/29/2020 Accession Number: [id number] / [id number] Procedure: CT - Abdomen/Pelvis WO CPT Code: Final Report FULL RESULT: EXAM: CT ABDOMEN AND PELVIS EXAM DATE:01/29/2020 09:56 PM CLINICAL HISTORY: Bladder obstruction. Question of renal calculi. History of liver tumor and cirrhosis. COMPARISONS: ABDOMEN W/WO 09/08/2019 1:15 PM ABDOMEN/PELVIS W/ 01/30/2019 2:08 PM. TECHNIQUE: Routine helical CT imaging was performed through the abdomen and pelvis without IV contrast or oral contrast. Reconstructions: Coronal and sagittal. In accordance with CT protocol optimization, one or more of the following dose reduction techniques were utilized for this exam: automated exposure control, adjustment of mA and/or KV based on patient size, or use of iterative reconstruction technique. FINDINGS: Lung Bases: Small bilateral pleural effusions and subsegmental atelectasis. Liver: Cirrhotic liver with treated lesion in the left lobe measuring approximately 2.6 x 2.5 cm on this noncontrast enhanced study. Gallbladder/Bile Ducts: Gallstones are present without gallbladder distension or pericholecystic fluid. No bile duct dilatation. Spleen: Unremarkable. Punctate calcifications may reflect the sequela of prior granulomatous disease exposure. Pancreas: Unremarkable. Adrenal Glands: Unremarkable. Kidneys: Unremarkable. Peritoneal Cavity/Bowel: Moderate ascites. Mild diffuse bowel wall thickening may reflect portal hypertension. Normal appendix. Pelvic Organs: Unremarkable. The urinary bladder is decompressed. Prostate calcifications appear similar. Vasculature: Variceal formation. Severe aortic atherosclerotic calcifications. Bones: Unremarkable. Other: Anasarca. IMPRESSION: No acute process seen in the abdomen or pelvis. No finding of urinary tract obstruction or radiopaque urinary stone. Findings of volume overload with moderate ascites, anasarca, small bilateral pleural effusions and trace pericardial effusion. Liver cirrhosis with treated lesion in the left lobe of the liver. Cholelithiasis. RADIA
--- NOTE | 2020-01-30 08:18 | XRAY Report ---
Reason: ?aspiration Procedure Date: 01/30/2020 Accession Number: [id number] / [id number] Procedure: XR - Chest 1 View X-Ray CPT Code: 16864 Final Report FULL RESULT: EXAM: CHEST RADIOGRAPHY EXAM DATE: 01/30/2020 07:29 AM. CLINICAL HISTORY: Fever. Altered mental status. Possible aspiration. COMPARISON: CHEST 1 VIEW 01/25/2020 11:09 AM. TECHNIQUE: 1 view. FINDINGS: Lungs/Pleura: There is hyperdensity in the retrocardiac left lower lobe, suggestive of consolidation or atelectasis. The differential diagnosis includes pneumonia and aspiration. Right lung appears unremarkable. Mediastinum: Within exam limitations, the cardiomediastinal contour is normal. Other: There are multiple healing right-sided rib fractures. IMPRESSION: Left lower lobe consolidation may indicate aspiration or pneumonia. RADIA
[2020-01-30 09:31] LABS: BASOPHILS # (AUTO) 0.1 10^3/uL (0.0-0.1); BASOPHILS % (AUTO) 1.8 %; EOSINOPHILS # (AUTO) 0.2 10^3/uL (0.0-0.7); EOSINOPHILS % (AUTO) 2.6 %; HGB - HEMOGLOBIN 10.4 g/dL (14.0-18.0); LYMPHOCYTES # (AUTO) 0.6 10^3/uL (1.5-3.5); LYMPHOCYTES % (AUTO) 8.2 %; MEAN CORPUSCULAR HEMOGLOBIN 36.9 pg (27.0-31.0); MEAN CORPUSCULAR HGB CONC 33.5 g/dL (32.0-36.0); MEAN CORPUSCULAR VOLUME 109.9 fL (80.0-94.0); MEAN PLATELET VOLUME 9.4 fL (7.4-11.4); MONOCYTES % (AUTO) 14.5 %; NEUTROPHILS # (AUTO) 5.2 10^3/uL (1.5-6.6); NEUTROPHILS % (AUTO) 72.6 %; PLT - PLATELET COUNT 157 10^3/uL (130-450); RED BLOOD COUNT 2.82 10^6/uL (4.70-6.10); RED CELL DISTRIBUTION WIDTH 16.2 % (12.0-15.0); WHITE BLOOD COUNT 7.2 x10^3/uL (4.8-10.8)
[2020-01-30 09:45] LABS: CALCIUM 8.3 mg/dL (8.5-10.3); CREATININE 1.5 mg/dL (0.6-1.2)
[2020-01-30] MEDS: LACTULOSE 10 GM/15 ML BOTTLE PO SCH ×4 (10:19→20:37)
[2020-01-30] MEDS: AMOX/CLAV 875 MG/125 MG TABLET PO SCH ×2 (10:20→20:32)
[2020-01-30] MEDS: SPIRONOLACTONE 25 MG TABLET PO SCH (10:20)
[2020-01-30] MEDS: FERROUS GLUCONATE 324 MG TABLET PO SCH (10:20)
[2020-01-30] MEDS: MULTIVITAMIN W/MINERALS TABLET PO SCH (10:30)
[2020-01-30] MEDS: SENNA 8.6 MG TABLET PO SCH (10:31)
[2020-01-30] MEDS: TAMSULOSIN 0.4 MG CAPSULE PO SCH (10:31)
[2020-01-30] MEDS: DOCUSATE SODIUM 250 MG CAPSULE PO SCH (10:31)
[2020-01-30] MEDS: oxyCODONE 5 MG TABLET PO PRN ×2 (11:45→20:33)
--- NOTE | 2020-01-30 15:22 | PROVIDER PROGRESS NOTE ---
Assessment/Plan - Problem List (1) Aspiration pneumonia Assessment/Plan: Overnight the patient was given some water to drink that was not nectar thick and he aspirated, had a coughing spasm, desaturated, required 6L O2 supplemental. This was weaned down to 1L by this morning. A CXR was done that shows an infiltrate. Since there is no fever or respiratory compromise now, will start treatment with po antibiotics to cover oral anaerobes, with Augmentin for 7 days. (2) Urinary retention Assessment/Plan: He requires standing to help empty his bladder. The Tamsolusin dose was increased to max dose. There is some residual, but will try not to use a Pena to avoid a potential source of infection. (3) Weakness generalized Assessment/Plan: He is making progress with PT and OT, after the set back 4 days ago with fever and then with dehydration, uremia and fatigue. (4) Chronic alcoholic liver disease Assessment/Plan: Lactulose dosing continues. (7) Bacteremia due to Staphylococcus Assessment/Plan: Finished his course of iv antibiotics (8) Right clavicle fracture Qualifiers: Encounter type: initial encounter Clavicle location: lateral end Fracture type: closed Fracture alignment: nondisplaced Qualified Code(s): S42.034A - Nondisplaced fracture of lateral end of right clavicle, initial encounter for closed fracture Assessment/Plan: Needs pain meds and OT - Current Meds Current Meds: Current Medications Generic Name Dose Route Start Last Admin Trade Name Freq PRN Reason Stop Dose Admin Acetaminophen 650 mg 01/21/20 14:54 01/28/20 21:53 Tylenol PO 650 mg Q4HR PRN Administration Pain 1 to 4 Amoxicillin/Clavulanate Potassium 1 tab 01/30/20 09:00 01/30/20 10:20 Augmentin 875/125 PO 02/05/20 21:01 1 tab BID BROWN Administration Docusate Sodium 250 - 500 mg 01/24/20 12:00 01/30/20 10:31 Colace 250mg Capsule PO 250 mg DAILY BROWN Administration Ferrous Gluconate 324 mg 01/22/20 08:00 01/30/20 10:20 Fergon PO 324 mg DAILYWM BROWN Administration Lactulose 20 gm 01/27/20 13:00 01/30/20 14:33 Lactulose PO 20 gm QID BROWN Administration Multivitamins/Minerals 1 tab 01/22/20 15:00 01/30/20 10:30 Theragran M PO 1 tab DAILYWM BROWN Administration Oxycodone HCl 5 mg 01/26/20 10:08 01/30/20 11:45 Roxicodone PO 5 mg Q8HR PRN Administration Pain 5 to 7 Senna 8.6 - 17.2 mg 01/24/20 12:00 01/30/20 10:31 Senokot PO 8.6 mg DAILY BROWN Administration Sodium Chloride 10 ml 01/24/20 23:42 01/29/20 08:52 Normal Saline Flush 0.9% IVP 10 ml PRN PRN Administration NEEDED PER PROVIDER ORDERS Spironolactone 50 mg 01/25/20 09:00 01/30/20 10:20 Aldactone PO 50 mg DAILY BROWN Administration Tamsulosin HCl 0.8 mg 01/30/20 09:00 01/30/20 10:31 Flomax PO 0.8 mg DAILY BROWN Administration - Lab Result Fish Bone Diagrams: 01/30/20 09:18 01/30/20 09:18 - Additional Planning My Orders: My Active Orders 01/30/20 09:00 Tamsulosin [Flomax] 0.8 mg PO DAILY Objective Vital Signs: Vital Signs - 24 hr 01/29/20 01/30/20 16:14 08:51 Temperature 36.2 C L 36.8 C Heart Rate [ 58 L 72 Brachial] Respiratory 18 18 Rate Blood Pressure 112/47 L [Left Brachial artery] Blood Pressure 120/55 L [Right Brachial artery] O2 Saturation 97 92 Oxygen O2 Source Room air I&O (Last 24 Hrs): Intake and Output Totals x24h 01/28/20 01/29/20 01/30/20 23:59 23:59 23:59 Intake Total 1600 1360 660 Output Total 750 425 300 Balance 850 935 360 General: Alert, No acute distress HEENT: Mucous membr. moist/pink Neuro: Non Focal Respiratory: No respiratory distress Abdomen: Soft Extremities: No edema - Results Results: Laboratory Results WBC 7.2 x10^3/uL (4.8-10.8) 01/30/20 09:18 RBC 2.82 10^6/uL (4.70-6.10) L 01/30/20 09:18 Hgb 10.4 g/dL (14.0-18.0) L 01/30/20 09:18 Hct 31.0 % (42.0-52.0) L 01/30/20 09:18 MCV 109.9 fL (80.0-94.0) H 01/30/20 09:18 MCH 36.9 pg (27.0-31.0) H 01/30/20 09:18 MCHC 33.5 g/dL (32.0-36.0) 01/30/20 09:18 RDW 16.2 % (12.0-15.0) H 01/30/20 09:18 Plt Count 157 10^3/uL (130-450) 01/30/20 09:18 MPV 9.4 fL (7.4-11.4) 01/30/20 09:18 Neut # (Auto) 5.2 10^3/uL (1.5-6.6) 01/30/20 09:18 Lymph # (Auto) 0.6 10^3/uL (1.5-3.5) L 01/30/20 09:18 Petroleum # (Auto) 1.0 10^3/uL (0.0-1.0) 01/30/20 09:18 Eos # (Auto) 0.2 10^3/uL (0.0-0.7) 01/30/20 09:18 Baso # (Auto) 0.1 10^3/uL (0.0-0.1) 01/30/20 09:18 Absolute Nucleated RBC 0.00 x10^3/uL 01/30/20 09:18 Nucleated RBC % 0.0 /100WBC 01/30/20 09:18 Manual Slide Review Indicated 01/26/20 10:55 Platelet Estimate NORMAL (130-450,000) (NORMAL) 01/26/20 10:55 Platelet Morphology NORMAL APPEARANCE (NORMAL) 01/26/20 10:55 RBC Morph Micro Appear 2+ MACROCYTOSIS (NORMAL) 1+ ANISOCYTOSIS (NORMAL) 01/25/20 11:36 RBC Morph Micro Appear 2+ MACROCYTOSIS (NORMAL) 1+ HYPOCHROMASIA (NORMAL) 1+ POLYCHROMASIA (NORMAL) 01/26/20 10:55 RBC Morph Micro Appear 2+ MACROCYTOSIS (NORMAL) 1+ HYPOCHROMASIA (NORMAL) 1+ POLYCHROMASIA (NORMAL) 01/26/20 10:55 RBC Morph Micro Appear 2+ MACROCYTOSIS (NORMAL) 1+ HYPOCHROMASIA (NORMAL) 1+ POLYCHROMASIA (NORMAL) 01/26/20 10:55 Hematology Spec Commnt 01/26/2020 01/26/20 11:47 Sodium 138 mmol/L (135-145) 01/30/20 09:18 Potassium 4.1 mmol/L (3.5-5.0) 01/30/20 09:18 Chloride 107 mmol/L (101-111) 01/30/20 09:18 Carbon Dioxide 24 mmol/L (21-32) 01/30/20 09:18 Anion Gap 7.0 (6-13) 01/30/20 09:18 BUN 16 mg/dL (6-20) 01/30/20 09:18 Creatinine 1.5 mg/dL (0.6-1.2) H 01/30/20 09:18 Estimated GFR (MDRD) 47 (>89) L 01/30/20 09:18 Glucose 86 mg/dL (70-100) 01/30/20 09:18 Calcium 8.3 mg/dL (8.5-10.3) L 01/30/20 09:18 Total Bilirubin 3.1 mg/dL (0.2-1.0) H 01/26/20 10:55 AST 58 IU/L (10-42) H 01/26/20 10:55 ALT 27 IU/L (10-60) 01/26/20 10:55 Alkaline Phosphatase 41 IU/L (42-121) L 01/26/20 10:55 Ammonia 30.3 umol/L (7-35) 01/27/20 08:25 Total Protein 6.8 g/dL (6.7-8.2) 01/26/20 10:55 Albumin 2.4 g/dL (3.2-5.5) L 01/26/20 10:55 Globulin 4.4 g/dL (2.1-4.2) H 01/26/20 10:55 Albumin/Globulin Ratio 0.5 (1.0-2.2) L 01/26/20 10:55 Urine Color YELLOW 01/25/20 20:00 Urine Clarity CLEAR (CLEAR) 01/25/20 20:00 Urine pH 5.0 PH (5.0-7.5) 01/25/20 20:00 Ur Specific Hulbert 1.015 (1.002-1.030) 01/25/20 20:00 Urine Protein NEGATIVE mg/dL (NEGATIVE) 01/25/20 20:00 Urine Glucose (UA) NEGATIVE mg/dL (NEGATIVE) 01/25/20 20:00 Urine Ketones NEGATIVE mg/dL (NEGATIVE) 01/25/20 20:00 Urine Occult Blood NEGATIVE (NEGATIVE) 01/25/20 20:00 Urine Nitrite NEGATIVE (NEGATIVE) 01/25/20 20:00 Urine Bilirubin NEGATIVE (NEGATIVE) 01/25/20 20:00 Urine Urobilinogen 0.2 (NORMAL) E.U./dL (NORMAL) 01/25/20 20:00 Ur Leukocyte Esterase NEGATIVE (NEGATIVE) 01/25/20 20:00 Urine RBC None Seen /HPF (0-5) 01/25/20 20:00 Urine WBC 0-3 /HPF (0-3) 01/25/20 20:00 Ur Squamous Epith Cells NONE SEEN (<= Few) 01/25/20 20:00 Urine Bacteria None Seen /HPF (None Seen) 01/25/20 20:00 Urine Culture Comments NOT INDICATED 01/25/20 20:00 Last Dose Date 01/26/20 01/26/20 09:50 Last Dose Time 0900 01/26/20 09:50 Vancomycin Trough 23.8 ug/mL (10.0-20.0) H 01/26/20 09:50 Slides for Path Review SEE SEPARATE REPORT 01/26/20 11:47 - Procedures Procedures: Procedures EXCISION OF CECUM, ENDO, DIAGN (06/18/17) EXCISION OF SIGMOID COLON, ENDO, DIAGN (06/18/17)
[2020-01-30] MEDS: ACETAMINOPHEN 325 MG TABLET PO PRN (16:16)
[2020-01-31] MEDS: MULTIVITAMIN W/MINERALS TABLET PO SCH (08:57)
[2020-01-31] MEDS: SENNA 8.6 MG TABLET PO SCH (08:57)
[2020-01-31] MEDS: FERROUS GLUCONATE 324 MG TABLET PO SCH (08:57)
[2020-01-31] MEDS: SPIRONOLACTONE 25 MG TABLET PO SCH (08:58)
[2020-01-31] MEDS: TAMSULOSIN 0.4 MG CAPSULE PO SCH (08:58)
[2020-01-31] MEDS: LACTULOSE 10 GM/15 ML BOTTLE PO SCH ×3 (08:58→20:52)
[2020-01-31] MEDS: DOCUSATE SODIUM 250 MG CAPSULE PO SCH (08:58)
[2020-01-31] MEDS: AMOX/CLAV 875 MG/125 MG TABLET PO SCH ×2 (09:19→20:51)
[2020-01-31] MEDS: oxyCODONE 5 MG TABLET PO PRN (19:49)
[2020-01-31] MEDS: SODIUM CHLORIDE FLUSH 0.9% 10 ML SYRINGE IVP PRN (20:52)
[2020-02-01] MEDS: ACETAMINOPHEN 325 MG TABLET PO PRN ×2 (04:08→16:40)
[2020-02-01] MEDS: FERROUS GLUCONATE 324 MG TABLET PO SCH (08:32)
[2020-02-01] MEDS: TAMSULOSIN 0.4 MG CAPSULE PO SCH (08:33)
[2020-02-01] MEDS: SPIRONOLACTONE 25 MG TABLET PO SCH (08:33)
[2020-02-01] MEDS: SENNA 8.6 MG TABLET PO SCH (08:33)
[2020-02-01] MEDS: AMOX/CLAV 875 MG/125 MG TABLET PO SCH ×2 (08:33→21:48)
[2020-02-01] MEDS: MULTIVITAMIN W/MINERALS TABLET PO SCH (08:33)
[2020-02-01] MEDS: LACTULOSE 10 GM/15 ML BOTTLE PO SCH ×2 (08:33→21:48)
[2020-02-01] MEDS: DOCUSATE SODIUM 250 MG CAPSULE PO SCH (08:33)
[2020-02-01] MEDS: oxyCODONE 5 MG TABLET PO PRN (23:46)
[2020-02-01] MEDS: SODIUM CHLORIDE FLUSH 0.9% 10 ML SYRINGE IVP PRN (23:48)
[2020-02-02] MEDS: ACETAMINOPHEN 325 MG TABLET PO PRN ×3 (05:07→21:57)
[2020-02-02] MEDS: FERROUS GLUCONATE 324 MG TABLET PO SCH (07:53)
[2020-02-02] MEDS: MULTIVITAMIN W/MINERALS TABLET PO SCH (07:54)
[2020-02-02] MEDS: TAMSULOSIN 0.4 MG CAPSULE PO SCH (08:17)
[2020-02-02] MEDS: SENNA 8.6 MG TABLET PO SCH (08:18)
[2020-02-02] MEDS: AMOX/CLAV 875 MG/125 MG TABLET PO SCH ×2 (08:18→20:11)
[2020-02-02] MEDS: SPIRONOLACTONE 25 MG TABLET PO SCH (08:18)
[2020-02-02] MEDS: LACTULOSE 10 GM/15 ML BOTTLE PO SCH ×2 (08:19→20:11)
[2020-02-02] MEDS: oxyCODONE 5 MG TABLET PO PRN (12:42)
[2020-02-03] MEDS: ACETAMINOPHEN 325 MG TABLET PO PRN (01:57)
[2020-02-03] MEDS: MULTIVITAMIN W/MINERALS TABLET PO SCH (08:09)
[2020-02-03] MEDS: FERROUS GLUCONATE 324 MG TABLET PO SCH (08:09)
[2020-02-03] MEDS: TAMSULOSIN 0.4 MG CAPSULE PO SCH (08:09)
[2020-02-03] MEDS: DOCUSATE SODIUM 250 MG CAPSULE PO SCH (08:09)
[2020-02-03] MEDS: SPIRONOLACTONE 25 MG TABLET PO SCH (08:10)
[2020-02-03] MEDS: LACTULOSE 10 GM/15 ML BOTTLE PO SCH ×2 (08:11→21:58)
[2020-02-03] MEDS: AMOX/CLAV 875 MG/125 MG TABLET PO SCH ×2 (08:52→21:57)
[2020-02-03] MEDS: oxyCODONE 5 MG TABLET PO PRN (17:14)
[2020-02-04] MEDS: oxyCODONE 5 MG TABLET PO PRN ×3 (01:02→19:40)
[2020-02-04] MEDS: SODIUM CHLORIDE FLUSH 0.9% 10 ML SYRINGE IVP PRN ×2 (01:03→23:50)
[2020-02-04] MEDS: ACETAMINOPHEN 325 MG TABLET PO PRN (03:27)
[2020-02-04] MEDS: FERROUS GLUCONATE 324 MG TABLET PO SCH (08:48)
[2020-02-04] MEDS: MULTIVITAMIN W/MINERALS TABLET PO SCH (08:48)
[2020-02-04] MEDS: AMOX/CLAV 875 MG/125 MG TABLET PO SCH ×2 (08:48→21:19)
[2020-02-04] MEDS: TAMSULOSIN 0.4 MG CAPSULE PO SCH (08:48)
[2020-02-04] MEDS: SPIRONOLACTONE 25 MG TABLET PO SCH (08:49)
[2020-02-04] MEDS: SENNA 8.6 MG TABLET PO SCH (08:49)
[2020-02-04] MEDS: LACTULOSE 10 GM/15 ML BOTTLE PO SCH ×2 (08:50→20:25)
[2020-02-04] MEDS: DOCUSATE SODIUM 250 MG CAPSULE PO SCH (08:51)
[2020-02-05] MEDS: oxyCODONE 5 MG TABLET PO PRN ×2 (04:39→12:51)
[2020-02-05] MEDS: FERROUS GLUCONATE 324 MG TABLET PO SCH (08:37)
[2020-02-05] MEDS: AMOX/CLAV 875 MG/125 MG TABLET PO SCH ×2 (08:38→20:23)
[2020-02-05] MEDS: TAMSULOSIN 0.4 MG CAPSULE PO SCH (08:38)
[2020-02-05] MEDS: LACTULOSE 10 GM/15 ML BOTTLE PO SCH ×2 (08:38→20:23)
[2020-02-05] MEDS: SPIRONOLACTONE 25 MG TABLET PO SCH (08:38)
[2020-02-05] MEDS: MULTIVITAMIN W/MINERALS TABLET PO SCH (08:38)
[2020-02-05] MEDS: DOCUSATE SODIUM 250 MG CAPSULE PO SCH (08:42)
[2020-02-05] MEDS: SENNA 8.6 MG TABLET PO SCH (08:42)
--- NOTE | 2020-02-05 11:05 | PROVIDER PROGRESS NOTE ---
Subjective - Prog Note Date Prog Note Date: 02/05/20 Prog Note Time: 11:03 - Subjective Subjective: He has been working well with physical therapy and Occupational Therapy. He is still very slow. Will take up to 45 minutes in the morning to do his morning of dilutions but he can do it with standby assist. He has been agreeable to working with both PT and OT. He needs a moderate assist for the toileting techniques. He is limited by bilateral upper extremity range of motion but that is been getting better with his rehab stay with this. For example it is difficult for him to pull up his briefs over his hips when they are down. It is recommended that when he leave his alcohol repack program, he get home health OT and PT. Although he is taking longer steps with a walker, and is following through with gait training and cueing, and has improved his balance, he still needs some prompts. Still a little unsteady. But from what he was when he first got here to what he is today, he is much more independent. Still not completely independent but better. Current Medications - Current Medications Current Medications: Active Medications Acetaminophen (Tylenol) 650 mg PO Q4HR PRN PRN Reason: Pain 1 to 4 Last Admin: 02/04/20 03:27 Dose: 650 mg Amoxicillin/Clavulanate Potassium (Augmentin 875/125) 1 tab PO BID [facility] Stop: 02/05/20 21:01 Last Admin: 02/05/20 08:38 Dose: 1 tab Docusate Sodium (Colace 250mg Capsule) 250 - 500 mg PO DAILY [facility] Last Admin: 02/05/20 08:42 Dose: Not Given Ferrous Gluconate (Fergon) 324 mg PO DAILYWM [facility] Last Admin: 02/05/20 08:37 Dose: 324 mg Lactulose (Lactulose) 20 gm PO BID [facility] Last Admin: 02/05/20 08:38 Dose: 20 gm Multivitamins/Minerals (Theragran M) 1 tab PO DAILYWM [facility] Last Admin: 02/05/20 08:38 Dose: 1 tab Oxycodone HCl (Roxicodone) 5 mg PO Q6HR PRN PRN Reason: Pain 5 to 7 Last Admin: 02/05/20 04:39 Dose: 5 mg Senna (Senokot) 8.6 - 17.2 mg PO DAILY [facility] Last Admin: 02/05/20 08:42 Dose: Not Given Spironolactone (Aldactone) 50 mg PO DAILY [facility] Last Admin: 02/05/20 08:38 Dose: 50 mg Tamsulosin HCl (Flomax) 0.8 mg PO DAILY [facility] Last Admin: 02/05/20 08:38 Dose: 0.8 mg oxyCODONE [Roxicodone] 5 mg PO QID PRN 06/17/17 Furosemide 40 mg PO DAILY 01/14/20 Lactulose [Constulose] 10 gm PO BID 01/14/20 Spironolactone 100 mg PO DAILY 01/14/20 Tamsulosin [Flomax] 0.4 mg DAILY 01/14/20 rifAXIMin [Xifaxan] 550 mg BID 01/14/20 Objective - Vital Signs/Intake & Output Reviewed Vital Signs: Yes Vital Signs: Vital Signs x48h Temp Pulse Resp BP Pulse Ox 02/05/20 09:00 36.5 C 64 16 122/54 L 91 L Intake & Output: Intake & Output 02/02/20 02/03/20 02/04/20 02/05/20 23:59 23:59 23:59 23:59 Intake Total 1400 820 820 640 Output Total 955 950 200 Balance 445 -130 620 640 - Objective General Appearance: positive: No acute distress, Alert, Other (elderly white male who is 5'6" and weighs 75.5 kg, can be cantakerous but has cooperated for days now and is progressing.) Eyes Bilateral: positive: PERRL Neck: positive: No JVD Respiratory: positive: Chest non-tender. negative: Wheezes, Rales, Rhonchi Cardiovascular: positive: Regular rate & rhythm, Systolic murmur. negative: Gallop/S4, Friction rub Abdomen: positive: Non-tender, No organomegaly, Nml bowel sounds, No distention Skin: positive: Warm, Dry Extremities: positive: No pedal edema Neurologic/Psychiatric: positive: CN's nml (2-12) (a little deaf), Motor nml, Disoriented to time, Other (slight ataxia but better than on admit) - Lab Results Fish Bones: 01/30/20 09:18 01/30/20 09:18 ABX Reporting Has patient been on IV antibiotics over the past 48 hours?: Yes Assessment/Plan - Problem List (1) Aspiration pneumonia Impression: Overnight of 01/27, the patient was given some water to drink that was not nectar thick and he aspirated, had a coughing spasm, desaturated, required 6L O2 supplemental. This was weaned down to 1L by this morning. A CXR was done that shows an infiltrate. Since there is no fever or respiratory compromise now, will start treatment with po antibiotics to cover oral anaerobes, with Augmentin for 7 days. He finishes his dosing today. (2) Urinary retention Assessment/Plan: He requires standing to help empty his bladder. The Tamsolusin dose was increased to max dose. There is some residual, but will try not to use a Pena to avoid a potential source of infection. (3) Weakness generalized Assessment/Plan: He is making progress with PT and OT, after the set back 01/23 days ago with fever and then with dehydration, uremia and fatigue. He is much improved and may be able to leave for alcohol rehab tomorrow. (4) Chronic alcoholic liver disease Assessment/Plan: Lactulose dosing continues. (7) Bacteremia due to Staphylococcus Assessment/Plan: Finished his course of iv antibiotics (8) Right clavicle fracture Qualifiers: Encounter type: initial encounter Clavicle location: lateral end Fracture type: closed Fracture alignment: nondisplaced Qualified Code(s): S42.034A - Nondisplaced fracture of lateral end of right clavicle, initial encounter for closed fracture Assessment/Plan: Needs pain meds and OT
[2020-02-05] MEDS: ACETAMINOPHEN 325 MG TABLET PO PRN (16:13)
[2020-02-06] MEDS: ACETAMINOPHEN 325 MG TABLET PO PRN ×4 (01:25→23:13)
[2020-02-06] MEDS: SENNA 8.6 MG TABLET PO SCH ×3 (08:06→09:17)
[2020-02-06] MEDS: DOCUSATE SODIUM 250 MG CAPSULE PO SCH ×2 (08:06→09:17)
[2020-02-06] MEDS: oxyCODONE 5 MG TABLET PO PRN (09:15)
[2020-02-06] MEDS: SPIRONOLACTONE 25 MG TABLET PO SCH (09:15)
[2020-02-06] MEDS: TAMSULOSIN 0.4 MG CAPSULE PO SCH (09:15)
[2020-02-06] MEDS: MULTIVITAMIN W/MINERALS TABLET PO SCH (09:15)
[2020-02-06] MEDS: FERROUS GLUCONATE 324 MG TABLET PO SCH (09:16)
--- NOTE | 2020-02-06 10:49 | Discharge Plan ---
Discharge Plan Disposition: Home, Self Care Condition: Stable Prescriptions: oxyCODONE [Roxicodone] 5 mg PO Q6HR PRN #15 tablet PRN Reason: Pain 5 to 7 Docusate Sodium 250Mg Capsule [Colace 250Mg Capsule] 250 - 500 mg PO DAILY #100 capsule Furosemide 40 mg PO DAILY #30 tablet Lactulose [Constulose] 10 gm PO BID #120 solution oxyCODONE [Roxicodone] 5 mg PO QID PRN #15 tablet PRN Reason: Pain rifAXIMin [Xifaxan] 550 mg ORAL BID #60 tablet Senna [Senokot] 8.6 - 17.2 mg PO DAILY #100 tablet Spironolactone [Aldactone] 50 mg PO DAILY #60 tablet Tamsulosin [Flomax] 0.8 mg PO DAILY #30 capsule Assistance Devices: Cane Weight Bearing: Full Weight Instruction Topics: Dysphagia Diet Altered, Dysphagia Diet Manage Liquids, COVID-19 [facility] Concerns: Pt has issues with alcohol Plan of Treatment: Respite at [facility] Goals: Continue to gain strength and inpatient alcohol treatment is recommended at some point Assessment: See discharge summary No Smoking: If you smoke, Please STOP! Call for help. Follow-up with: Ramonita Miller MD [Primary Care Provider] -
--- NOTE | 2020-02-06 10:53 | Discharge Plan ---
Discharge Plan Instruction Topics: Dysphagia Diet Altered, Dysphagia Diet Manage Liquids, COVID-19 [facility] No Smoking: If you smoke, Please STOP! Call for help. Follow-up with: Ramonita Miller MD [Primary Care Provider] -
[2020-02-06] MEDS: LACTULOSE 10 GM/15 ML BOTTLE PO SCH ×2 (11:08→20:09)
[2020-02-07] MEDS: oxyCODONE 5 MG TABLET PO PRN (01:16)
[2020-02-07] MEDS: MULTIVITAMIN W/MINERALS TABLET PO SCH (08:14)
[2020-02-07] MEDS: SPIRONOLACTONE 25 MG TABLET PO SCH (08:14)
[2020-02-07] MEDS: FERROUS GLUCONATE 324 MG TABLET PO SCH (08:14)
[2020-02-07] MEDS: TAMSULOSIN 0.4 MG CAPSULE PO SCH (08:14)
[2020-02-07] MEDS: LACTULOSE 10 GM/15 ML BOTTLE PO SCH (08:15)
[2020-02-07 09:19] VITALS: BP 144/63
--- NOTE | 2020-02-07 10:21 | DISCHARGE SUMMARY ---
"Discharge Summary Admit Date: 01/22/20 Discharge Date: 02/07/20 Discharging Provider: Dr. Villatoro Primary Care Provider: DR. Miller Code Status: Attempt Resuscitation Discharge Disposition: 61 Swing Bed DC/Xfer Discharge Facility Name: [facility] - DIAGNOSES Admission Diagnoses: Generalized Weakness Bacteremia due to STaphylococcus Alcohol Abuse Chronic alcoholic Liver disease Encephalopathy Right clavicle Fracture Discharge Diagnoses with Status of Each Condition: Right clavicle fracture - STable Anemia - Stable BPH - started on medication Acute Kidney injury - Improved Bacteremia due to staphylococcus - REsolved with 14 days of IV/PO antibiotics Alcohol abuse - He should continue on vitamins and avoid alcohol. Tried to get patient into inpatient service, but may need to seek outpatient services Chronic alcoholic liver dsiease - Continue on spironolactone, lasixs, Rifaxim, and lactulose and continue to avoid alcohol Chronic encephalopathy - Likely related to alcohol use, continue to avoid al cohol Tobacco abuse - Smoking cessation encouraged - HPI History of Present Illness: 69 yo male who admitted for weakness and and encephalopathy and right clavicle fracture. He has hx of alcohol abuse. He was admitted, but then developed Staph bacteremia for which he was started on vancomycin IV and then switched to PO augmentin. He has completed antibiotics. - CONSULTS | PROCEDURES Consultations: Physical therapy - HOSPITAL COURSE Hospital Course: Patient was admitted for weakness, encephalopathy due to chronic liver disease from alcohol abuse and right clavicle fracture. HE was treated for staph bacteremia with IV and PO antibiotics. He was evaluated with PT and continued to gain strength. HE had some issues with eating and concern for aspiration, but that has improved. Tried to get patient into an inpatient alcohol treatment center, but none was available. Due to social issues, he will be going to [facility] for 1 month of respite care and continue on oral meds. He has a right clavicle fracture. He is on oxycodone chronically. - ALLERGIES Allergies/Adverse Reactions: Allergies Allergy/AdvReac Type Severity Reaction Status Date / Time ELIU Inhibitors Allergy Severe Edema Verified 01/14/20 08:49 lisinopril Allergy Edema Verified 01/14/20 08:49 - MEDICATIONS Home Medications: Ambulatory Orders Medication Instructions Recorded Confirmed oxyCODONE [Roxicodone] 5 mg PO QID PRN 06/17/17 01/23/20 Furosemide 40 mg PO DAILY 01/14/20 01/23/20 Lactulose [Constulose] 10 gm PO BID 01/14/20 01/23/20 Spironolactone 100 mg PO DAILY 01/14/20 01/23/20 Tamsulosin [Flomax] 0.4 mg DAILY 01/14/20 01/23/20 rifAXIMin [Xifaxan] 550 mg BID 01/14/20 01/23/20 - PHYSICAL EXAM AT DISCHARGE General Appearance: positive: No acute distress Eyes Bilateral: positive: Normal inspection Respiratory: positive: No respiratory distress Cardiovascular: positive: Regular rate & rhythm - LABS Result Diagrams: 01/30/20 09:18 01/30/20 09:18 - FOLLOW UP Follow Up: Patient should f/u with Dr. Miller for hospital f/u within 1 week - TIME SPENT Time Spent in Discharge (Minutes): 30"
== END 2020-02-07 12:50 | disposition swing bed (61) | DRG 947 ==
LOC: MS3 01-21 19:08 → MS2 02-04 16:51
PROVIDERS: ADMIT Specialist; ATTEND Specialist
DX: R53.1 Weakness (principal); J69.8 Pneumonitis due to inhalation of other solids and liquids; R78.81 Bacteremia; N17.9 Acute kidney failure, unspecified; I85.10 Secondary esophageal varices without bleeding; F10.10 Alcohol abuse, uncomplicated; K70.31 Alcoholic cirrhosis of liver with ascites; K70.40 Alcoholic hepatic failure without coma; S42.034D Nondisplaced fracture of lateral end of right clavicle, subsequent encounter for fracture with routine healing; B95.8 Unspecified staphylococcus as the cause of diseases classified elsewhere; D64.9 Anemia, unspecified; R26.89 Other abnormalities of gait and mobility; R27.8 Other lack of coordination; R13.10 Dysphagia, unspecified; I10 Essential (primary) hypertension; N40.1 Benign prostatic hyperplasia with lower urinary tract symptoms; R33.8 Other retention of urine; R35.0 Frequency of micturition; R35.1 Nocturia; R39.15 Urgency of urination; M19.90 Unspecified osteoarthritis, unspecified site; R50.9 Fever, unspecified; M25.511 Pain in right shoulder; F17.210 Nicotine dependence, cigarettes, uncomplicated; E86.0 Dehydration; R53.83 Other fatigue; T47.3X6A Underdosing of saline and osmotic laxatives, initial encounter; H40.9 Unspecified glaucoma; Z96.659 Presence of unspecified artificial knee joint; Y92.230 Patient room in hospital as the place of occurrence of the external cause; W19.XXXD Unspecified fall, subsequent encounter; Z91.81 History of falling; Z79.891 Long term (current) use of opiate analgesic; Z85.05 Personal history of malignant neoplasm of liver; Z85.828 Personal history of other malignant neoplasm of skin
CPT/HCPCS: 36415; 71045; 74176; 80048; 80053; 80202; 81001; 82140; 82565; 85025; 87086; 87493; 93306

== ENCOUNTER 2020-03-25 17:37 | Outpatient (CLI) | payer MEDICARE, OTHER ==
[2020-03-25 18:12] LABS: BASOPHILS # (AUTO) 0.1 10^3/uL (0.0-0.1); BASOPHILS % (AUTO) 1.7 %; EOSINOPHILS # (AUTO) 0.1 10^3/uL (0.0-0.7); EOSINOPHILS % (AUTO) 2.9 %; HGB - HEMOGLOBIN 13.6 g/dL (14.0-18.0); LYMPHOCYTES # (AUTO) 0.9 10^3/uL (1.5-3.5); LYMPHOCYTES % (AUTO) 26.6 %; MEAN CORPUSCULAR HEMOGLOBIN 34.4 pg (27.0-31.0); MEAN CORPUSCULAR HGB CONC 34.4 g/dL (32.0-36.0); MEAN PLATELET VOLUME 9.3 fL (7.4-11.4); MONOCYTES # (AUTO) 0.6 10^3/uL (0.0-1.0); MONOCYTES % (AUTO) 18.2 %; NEUTROPHILS # (AUTO) 1.7 10^3/uL (1.5-6.6); NEUTROPHILS % (AUTO) 50.3 %; PLT - PLATELET COUNT 146 10^3/uL (130-450); RED BLOOD COUNT 3.95 10^6/uL (4.70-6.10); RED CELL DISTRIBUTION WIDTH 13.9 % (12.0-15.0); WHITE BLOOD COUNT 3.5 x10^3/uL (4.8-10.8)
[2020-03-25 18:20] LABS: INR 1.5 (0.8-1.2)
[2020-03-25 18:25] LABS: ALBUMIN 2.9 g/dL (3.2-5.5); BILIRUBIN,DIRECT 0.6 mg/dL (0.1-0.5); BILIRUBIN,TOTAL 2.6 mg/dL (0.2-1.0); CALCIUM 9.3 mg/dL (8.5-10.3); CREATININE 1.2 mg/dL (0.6-1.2); MAGNESIUM 1.7 mg/dL (1.7-2.8)
== END 2020-03-25 17:38 | disposition home or self-care (01) ==
LOC: LAB 17:37
DX: K72.90 Hepatic failure, unspecified without coma (principal); R53.83 Other fatigue; R97.8 Other abnormal tumor markers; F10.20 Alcohol dependence, uncomplicated; C22.9 Malignant neoplasm of liver, not specified as primary or secondary
CPT/HCPCS: 36415; 80048; 80076; 82105; 82140; 83735; 85025; 85610; 86301

== ENCOUNTER 2020-07-02 17:08 | Emergency (ER) | payer MEDICARE, OTHER ==
[2020-07-02 17:17] VITALS: BP 124/65
[2020-07-02] MEDS ORDERED: cephALEXin 250 MG CAPSULE PO STA (17:27)
[2020-07-02] MEDS ORDERED: BACITRACIN ZINC OINT 1 PACKET TOP STA (17:27)
--- NOTE | 2020-07-02 17:47 | ED Physician Documentation ---
History of Present Illness - Stated complaint Stated Complaint: RT HAND LAC - Chief complaint Chief Complaint: Laceration - History obtained from History obtained from: Patient - History of Present Illness Timing: Yesterday Pain level max: 3 Pain level now: 2 - Additonal information Additional information: 70-year-old male presents the emergency department stating that he cut his right hand approximately 32 hours ago. He states that he has been cleaning at home and putting antibiotic ointment on it, but wanted to have it checked in the emergency department. States he cut it going down the stairs. Unknown last tetanus shot. Patient is right-handed. Nothing makes it better or worse. Review of Systems Constitutional: denies: Fever, Chills Neurologic: denies: Focal weakness, Numbness PD PAST MEDICAL HISTORY - Past Medical History Cardiovascular: Hypertension Respiratory: None Neuro: Other Endocrine/Autoimmune: None GI: Hepatitis, Cirrhosis : Benign prostate hypertrophy HEENT: Glaucoma, Dental implants Psych: None Musculoskeletal: Osteoarthritis Derm: None - Past Surgical History Past Surgical History: Yes General: Colonoscopy Ortho: Knee replacement Derm: Skin cancer surgery - Present Medications Home Medications: Ambulatory Orders Medication Instructions Recorded Confirmed Acetaminophen [Tylenol] 650 mg PO Q4HR PRN tablet 02/07/20 Docusate Sodium 250Mg Capsule 250 - 500 mg PO DAILY #100 capsule 02/07/20 [Colace 250Mg Capsule] Furosemide 40 mg PO DAILY #30 tablet 02/07/20 Lactulose [Constulose] 10 gm PO BID #120 solution 02/07/20 Senna [Senokot] 8.6 - 17.2 mg PO DAILY #100 tablet 02/07/20 Spironolactone [Aldactone] 50 mg PO DAILY #60 tablet 02/07/20 Tamsulosin [Flomax] 0.8 mg PO DAILY #30 capsule 02/07/20 oxyCODONE [Roxicodone] 5 mg PO Q6HR PRN #15 tablet 02/07/20 oxyCODONE [Roxicodone] 5 mg PO QID PRN #15 tablet 02/07/20 rifAXIMin [Xifaxan] 550 mg ORAL BID #60 tablet 02/07/20 Bacitracin Zinc Oint 1 applic TOP BID #1 tube 07/02/20 Cephalexin [Keflex] 500 mg PO Q6H #28 capsule 07/02/20 - Allergies Allergies/Adverse Reactions: Allergies Allergy/AdvReac Type Severity Reaction Status Date / Time ELIU Inhibitors Allergy Severe Edema Verified 01/14/20 08:49 lisinopril Allergy Edema Verified 01/14/20 08:49 - Social History Does the pt smoke?: Yes Smoking Status: Current every day smoker Does the pt drink ETOH?: Yes Does the pt have substance abuse?: No - Immunizations Immunizations are current?: No Immunizations: TDAP >10years/unknown - POLST Patient has POLST: No POLST Status: Full Code PD ED PE NORMAL - Vitals Vital signs reviewed: Yes - General General: Alert and oriented X 3, No acute distress - Derm Derm: Warm and dry - Extremities Extremities: Other (Skin tear to the dorsum of the right hand. No tendon injury. Neurovascular intact. No bony injury. This is over the fourth metacarpal. Full range of motion of the hand.) - Neuro Neuro: Alert and oriented X 3 Results - Vitals Vitals: Vital Signs - 24 hr 07/02/20 17:15 Temperature 36.5 C Heart Rate 68 Respiratory 18 Rate Blood Pressure 124/65 O2 Saturation 99 Oxygen O2 Source Room air PD MEDICAL DECISION MAKING - ED course Complexity details: considered differential, d/w patient ED course: Patient's tetanus is up-to-date. The wound is over 24 hours old and appears to be a skin tear. Mepitel was placed over the wound. Bacitracin then applied and a large bulky dressing applied. We will place him on antibiotics as this wound will be at high risk for infection and have him follow-up closely with his doctor. Due to the length of time this has been open, we will not utilize stitches at this time. Unclear if stitches would hold in this area anyway. Patient counseled regarding signs and symptoms for which I believe and urgent re-evaluation would be necessary. Patient with good understanding of and agreement to plan and is comfortable going home at this time This document was made in part using voice recognition software. While efforts are made to proofread this document, sound alike and grammatical errors may occur. Departure - Departure Disposition: 01 Home, Self Care Clinical Impression: Laceration of right hand Qualifiers: Encounter type: initial encounter Foreign body presence: without foreign body Qualified Code(s): S61.411A - Laceration without foreign body of right hand, initial encounter Condition: Good Instructions: ED Laceration Hand Follow-Up: Ramonita Miller MD [Primary Care Provider] - (in 7 days for wound check) Prescriptions: Bacitracin Zinc Oint 1 applic TOP BID #1 tube Cephalexin [Keflex] 500 mg PO Q6H #28 capsule Comments: Take all antibiotics until gone. Return if you worsen. Change the outer edinson ssing twice a day. Limit use of the hand. Return if you notice redness, swelling or drainage from the wound. You need to follow-up with your doctor in approximately 1 week for a wound check. Discharge Date/Time: 07/02/20 17:50
== END 2020-07-02 17:50 | disposition home or self-care (01) ==
LOC: ED 17:08
DX: S61.411A Laceration without foreign body of right hand, initial encounter (principal); W19.XXXA Unspecified fall, initial encounter; F17.200 Nicotine dependence, unspecified, uncomplicated
CPT/HCPCS: 99282; 99283; A9270

== ENCOUNTER 2020-11-28 15:45 | Outpatient (CLI) | payer MEDICARE, OTHER ==
[2020-11-28] MEDS ORDERED: GADOBUTROL 7.5 MMOL/7.5 ML VIAL ONE (16:20)
[2020-11-28] MEDS ORDERED: GADOBUTROL 7.5 MMOL/7.5 ML VIAL IVP ONE (17:24)
--- NOTE | 2020-11-29 10:51 | MRI Report ---
PROCEDURE: Abdomen W/WO INDICATIONS: ALCOHOLIC CIRRHOSIS OF LIVER,HX LIVER CANCER CONTRAST: IV CONTRAST: Gadavist ml: 7 TECHNIQUE: Coronal ultra fast SE, axial 2D spoiled GE in- and [id number]; axial breath-hold T2 fast SE. Dynam ic axial ultra fast GE during the administration of contrast; post-contrast coronal ultra fast GE or 2D spoiled GE with fat saturation from the hepatic dome to the iliac crests. Optional diffusion weig hted imaging and ADC may be performed. COMPARISON: MRI abdomen 06/09/2020, 05/14/2019. CT abdomen pelvis 01/29/2020 FINDINGS: Image quality: There is motion artifact limiting evaluation. Lung bases: No basal pleural effusions. Heart size is normal. Solid organs: The liver is nodular in contour with diffuse heterogeneous appearance of the hepatic pa renchyma consistent with cirrhosis. A cavitary is redemonstrated within the anterior left hepatic lob e spanning segments 2 and 3 consistent with posttreatment changes from prior radiofrequency ablation. There are internal areas of intrinsic T1 hyperintensity within the posttreatment cavity redemonstrat ed consistent with the presence of residual blood products. No definite associated suspicious enhance ment or new discrete mass to suggest residual or recurrent tumor. The previously noted focus of mild hypervascular enhancement anteriorly in segment 2 of the left hepatic lobe is stable in size measurin g approximately 0.7 x 0.7 cm in transverse dimension. There is no evidence of associated washout. Dif fuse heterogeneous nodular enhancement is also demonstrated throughout the liver without definite christina picious areas of washout. The findings likely represent regenerative or dysplastic nodules. Heterogen eous areas of mild persistent hyperenhancement in the liver on the delayed phase likely represent con fluent hepatic fibrosis. The gallbladder demonstrates a few small dependent gallstones without wall thickening or pericholecys tic fluid. There is mild biliary ductal dilatation, with the common bile duct measuring up to 0.9 cm. There is a small filling defect in the distal common bile duct measuring approximately 0.3 cm sugges tive of a small, duct stone. Pancreas is normal in morphology. No peripancreatic edema or fluid colle ctions. No adrenal nodules. The kidneys demonstrate no hydronephrosis. There is a small right renal c yst. Nodes and vessels: No retroperitoneal or mesenteric adenopathy by size criteria. Aorta and inferior vena cava are normal in size. Bowel and peritoneum: Visualized bowel loops are normal in caliber. No free fluid. Bones and soft tissues: No ventral hernias. Bone marrow is normal in overall signal. IMPRESSION: 1. Posttreatment cavity redemonstrated in the left hepatic lobe without definite evidence of residual or recurrent disease. 2. Small slightly hypervascular focus of enhancement in segment 2 of the left hepatic lobe appears st able in size compared to the prior study. No evidence of associated washout. Findings are again mikael tible with an LR-3 observation. Recommend attention on follow-up. 3. Cholelithiasis without MRI evidence of cholecystitis. 4. Mild biliary ductal dilatation appears similar to the prior studies. A small filling defect in the distal common bile duct is suspicious for choledocholithiasis. Recommend correlation clinically incl uding with laboratory values. Reviewed by: Frank Mason MD on 11/29/2020 10:50 AM PST Approved by: Frank Mason MD on 11/29/2020 10:50 AM [facility] Station ID: [id number]
== END 2020-11-28 15:46 | disposition home or self-care (01) ==
LOC: DI 15:45
PROVIDERS: ATTEND Internal Medicine
DX: K70.31 Alcoholic cirrhosis of liver with ascites (principal); Z86.19 Personal history of other infectious and parasitic diseases; Z85.05 Personal history of malignant neoplasm of liver; K80.20 Calculus of gallbladder without cholecystitis without obstruction
CPT/HCPCS: 74183; A9585

== ENCOUNTER 2021-02-15 16:21 | Outpatient (CLI) | payer MEDICARE, OTHER | END 2021-02-15 16:22 | disposition critical access hospital (66) | LOC: EMS 16:21 | DX: R25.1 Tremor, unspecified (principal); R53.81 Other malaise; R41.0 Disorientation, unspecified; R53.1 Weakness; I95.9 Hypotension, unspecified | CPT/HCPCS: A0425; A0429 ==

== ENCOUNTER 2021-02-15 16:44 | Observation (INO) | payer MEDICARE, OTHER ==
[2021-02-15 17:12] LABS: BASOPHILS # (AUTO) 0.1 10^3/uL (0.0-0.1); BASOPHILS % (AUTO) 1.3 %; EOSINOPHILS # (AUTO) 0.1 10^3/uL (0.0-0.7); EOSINOPHILS % (AUTO) 2.5 %; HCT - HEMATOCRIT 37.8 % (42.0-52.0); HGB - HEMOGLOBIN 13.1 g/dL (14.0-18.0); LYMPHOCYTES # (AUTO) 1.2 10^3/uL (1.5-3.5); LYMPHOCYTES % (AUTO) 23.2 %; MEAN CORPUSCULAR HEMOGLOBIN 35.6 pg (27.0-31.0); MEAN CORPUSCULAR HGB CONC 34.7 g/dL (32.0-36.0); MEAN CORPUSCULAR VOLUME 102.7 fL (80.0-94.0); MEAN PLATELET VOLUME 9.6 fL (7.4-11.4); MONOCYTES # (AUTO) 1.1 10^3/uL (0.0-1.0); MONOCYTES % (AUTO) 20.4 %; NEUTROPHILS # (AUTO) 2.7 10^3/uL (1.5-6.6); NEUTROPHILS % (AUTO) 52.2 %; PLT - PLATELET COUNT 99 10^3/uL (130-450); RED BLOOD COUNT 3.68 10^6/uL (4.70-6.10); RED CELL DISTRIBUTION WIDTH 14.5 % (12.0-15.0); WHITE BLOOD COUNT 5.3 x10^3/uL (4.8-10.8)
--- NOTE | 2021-02-15 17:19 | ED Physician Documentation ---
History of Present Illness - Stated complaint Stated Complaint: NEAR SYNCOPAL - Chief complaint Chief Complaint: Neuro - Additonal information Additional information: 70-year-old male has a history of cirrhosis presents to the emergency department after 2 falls today both he and his report that he has become increasingly shaky and unsteady. He is typically compliant with all of his medications with the exception of the lactulose which he only takes once a day. Patient reports he is only having 1 bowel movement a day. Patient reports that over the last 2 to 3 days he has been increasingly confused attempting to start taking a shower at night when they are getting ready to go to bed and asking when they are going to leave to go someplace when they are remaining at home. Patient did fall today when getting up from using the toilet. He did not strike his head or lose consciousness. reports that it took a very long time in order to get him back to the bed. Meds: Oxycodone 5 mg 4 times daily, lactulose 1 time a day, spironolactone 50 mg daily, Lasix 40 mg daily, citalopram 40 mg daily, rifaximin 50 mg twice daily Review of Systems Constitutional: denies: Fever, Chills Eyes: reports: Reviewed and negative Ears: reports: Reviewed and negative Nose: reports: Reviewed and negative Throat: reports: Reviewed and negative Cardiac: denies: Chest pain / pressure, Palpitations, Pedal edema, Calf pain Respiratory: denies: Dyspnea, Cough GI: denies: Abdominal Pain, Abdominal Swelling, Nausea, Vomiting, Hematemesis, Bloody / black stool : reports: Reviewed and negative Skin: reports: Lesions (Multiple skin tears on upper extremities in various stages of healing) Musculoskeletal: reports: Neck pain Neurologic: reports: Generalized weakness, Near syncope, Confused. denies: Focal weakness, Numbness, Difficulty speaking, Headache, Head injury Psychiatric: reports: Reviewed and negative PD PAST MEDICAL HISTORY - Past Medical History Past Medical History: Yes Cardiovascular: Hypertension Respiratory: None Neuro: Other Endocrine/Autoimmune: None GI: Hepatitis, Cirrhosis : Benign prostate hypertrophy HEENT: Glaucoma, Dental implants Psych: None Musculoskeletal: Osteoarthritis Derm: None - Past Surgical History Past Surgical History: Yes General: Colonoscopy Ortho: Knee replacement Derm: Skin cancer surgery - Present Medications Home Medications: Ambulatory Orders Medication Instructions Recorded Confirmed Acetaminophen [Tylenol] 650 mg PO Q4HR PRN tablet 04/05/20 Docusate Sodium 250Mg Capsule 250 - 500 mg PO DAILY #100 capsule 02/07/20 [Colace 250Mg Capsule] Furosemide 40 mg PO DAILY #30 tablet 02/07/20 Lactulose [Constulose] 10 gm PO BID #120 solution 02/07/20 Senna [Senokot] 8.6 - 17.2 mg PO DAILY #100 tablet 02/07/20 Spironolactone [Aldactone] 50 mg PO DAILY #60 tablet 02/07/20 Tamsulosin [Flomax] 0.8 mg PO DAILY #30 capsule 02/07/20 oxyCODONE [Roxicodone] 5 mg PO Q6HR PRN #15 tablet 02/07/20 oxyCODONE [Roxicodone] 5 mg PO QID PRN #15 tablet 02/07/20 rifAXIMin [Xifaxan] 550 mg ORAL BID #60 tablet 02/07/20 Bacitracin Zinc Oint 1 applic TOP BID #1 tube 07/02/20 cephALEXin [Keflex] 500 mg PO Q6H #28 capsule 07/02/20 - Allergies Allergies/Adverse Reactions: Allergies Allergy/AdvReac Type Severity Reaction Status Date / Time ELIU Inhibitors Allergy Severe Edema Verified 02/15/21 16:56 lisinopril Allergy Edema Verified 02/15/21 16:56 - Social History Does the pt smoke?: Yes Smoking Status: Current every day smoker Does the pt drink ETOH?: Yes Does the pt have substance abuse?: No - Immunizations Immunizations are current?: No Immunizations: TDAP >10years/unknown - POLST Patient has POLST: No POLST Status: Full Code PD ED PE EXPANDED - General General: Alert, No acute distress - Eyes Eyes: PERRL - Neck Neck: Supple w/out meningeal sx. No: Adenopathy, No tenderness (Generalized nonfocal neck tenderness.) - Cardiac Cardiac: Regular Rate, Radial strong equal, Pedal strong equal, Cap refill < 2 sec - Respiratory Respiratory: Clear to ausultation binu. No: Distress, Labored - Abdomen Abdomen: Normal Bowel sounds. No: Tender to palpation - Derm Derm: Normal color, Other (Multiple skin tears in various stages of healing.) - Extremities Extremities: Normal. 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) Compare to prior EKG: Old EKG unavailable Computer interpretation: Agree with computer - Labs Labs: Laboratory Tests 02/15/21 02/15/21 02/15/21 17:06 17:06 17:06 WBC 5.3 RBC 3.68 L Hgb 13.1 L Hct 37.8 L MCV 102.7 H MCH 35.6 H MCHC 34.7 RDW 14.5 Plt Count 99 L MPV 9.6 Neut # (Auto) 2.7 Lymph # (Auto) 1.2 L [place] # (Auto) 1.1 H Eos # (Auto) 0.1 Baso # (Auto) 0.1 Absolute Nucleated RBC 0.00 Nucleated RBC % 0.0 PT INR APTT Sodium 133 L Potassium 4.6 Chloride 98 L Carbon Dioxide 24 Anion Gap 11.0 BUN 23 H Creatinine 1.7 H Estimated GFR (MDRD) 40 L Glucose 100 Calcium 9.7 Total Bilirubin 2.2 H AST 38 ALT 21 Alkaline Phosphatase 61 Ammonia Troponin I High Sens 4.2 Total Protein 6.8 Albumin 3.1 L Globulin 3.7 Albumin/Globulin Ratio 0.8 L Lipase 35 Urine Color Urine Clarity Urine pH Ur Specific [place] Urine Protein Urine Glucose (UA) Urine Ketones Urine Occult Blood Urine Nitrite Urine Bilirubin Urine Urobilinogen Ur Leukocyte Esterase Ur Microscopic Review Urine Culture Comments Urine Opiates Screen Ur Oxycodone Screen Urine Methadone Screen Ur Propoxyphene Screen Ur Barbiturates Screen Ur Tricyclics Screen Ur Phencyclidine Scrn Ur Amphetamine Screen U Methamphetamines Scrn U Benzodiazepines Scrn Urine Cocaine Screen U Cannabinoids Screen 02/15/21 02/15/21 02/15/21 17:06 17:06 17:20 WBC RBC Hgb Hct MCV MCH MCHC RDW Plt Count MPV Neut # (Auto) Lymph # (Auto) [place] # (Auto) Eos # (Auto) Baso # (Auto) Absolute Nucleated RBC Nucleated RBC % PT 16.7 H INR 1.5 H APTT 39.4 H Sodium Potassium Chloride Carbon Dioxide Anion Gap BUN Creatinine Estimated GFR (MDRD) Glucose Calcium Total Bilirubin AST ALT Alkaline Phosphatase Ammonia 107.1 H* Troponin I High Sens Total Protein Albumin Globulin Albumin/Globulin Ratio Lipase Urine Color YELLOW Urine Clarity CLEAR Urine pH 6.0 Ur Specific [place] 1.020 Urine Protein NEGATIVE Urine Glucose (UA) NEGATIVE Urine Ketones NEGATIVE Urine Occult Blood NEGATIVE Urine Nitrite NEGATIVE Urine Bilirubin NEGATIVE Urine Urobilinogen 1 (NORMAL) Ur Leukocyte Esterase NEGATIVE Ur Microscopic Review NOT INDICATED Urine Culture Comments NOT INDICATED Urine Opiates Screen Ur Oxycodone Screen Urine Methadone Screen Ur Propoxyphene Screen Ur Barbiturates Screen Ur Tricyclics Screen Ur Phencyclidine Scrn Ur Amphetamine Screen U Methamphetamines Scrn U Benzodiazepines Scrn Urine Cocaine Screen U Cannabinoids Screen 02/15/21 17:20 WBC RBC Hgb Hct MCV MCH MCHC RDW Plt Count MPV Neut # (Auto) Lymph # (Auto) [place] # (Auto) Eos # (Auto) Baso # (Auto) Absolute Nucleated RBC Nucleated RBC % PT INR APTT Sodium Potassium Chloride Carbon Dioxide Anion Gap BUN Creatinine Estimated GFR (MDRD) Glucose Calcium Total Bilirubin AST ALT Alkaline Phosphatase Ammonia Troponin I High Sens Total Protein Albumin Globulin Albumin/Globulin Ratio Lipase Urine Color Urine Clarity Urine pH Ur Specific [place] Urine Protein Urine Glucose (UA) Urine Ketones Urine Occult Blood Urine Nitrite Urine Bilirubin Urine Urobilinogen Ur Leukocyte Esterase Ur Microscopic Review Urine Culture Comments Urine Opiates Screen NEGATIVE Ur Oxycodone Screen POSITIVE H Urine Methadone Screen NEGATIVE Ur Propoxyphene Screen NEGATIVE Ur Barbiturates Screen NEGATIVE Ur Tricyclics Screen NEGATIVE Ur Phencyclidine Scrn NEGATIVE Ur Amphetamine Screen NEGATIVE U Methamphetamines Scrn NEGATIVE U Benzodiazepines Scrn NEGATIVE Urine Cocaine Screen NEGATIVE U Cannabinoids Screen NEGATIVE - Rads (name of study) CT head Radiology: Final report received (Evidence of acute intracranial pathology. No changes from previous studies. Chronic appearing right maxillary sinusitis.) CT neck Radiology: Final report received (Acute cervical spine fracture or dislocation. Degenerative disc disease throughout the cervical spine not significantly changed. 2 solid nodule seen in left apex not included in previous study. Nonemergent CT scan of the chest be done for further evaluation of this area.) PD MEDICAL DECISION MAKING - ED course Complexity details: reviewed results, re-evaluated patient, d/w patient ED course: 70-year-old male who has a history of cirrhosis secondary to alcohol abuse in his past presents to the emergency department with 2 falls over the last 48 hours as well as increased confusion. His reports that he is compliant with all his other medications with the exception of lactulose which he only takes once a day because he does not like the side effect of bowel movements. On presentation he is alert well-appearing nonfocal. He is alert oriented to person place and time. Screening labs are consistent with a history of cirrhosis. He has no melena or hematochezia. Unfortunately his ammonia is elevated which I think is contributing to his altered mental status. 30 gm of lactulose was ordered in the ED. A CT of the head and neck did not show any acute findings. I discussed this case with Dr. Jenkins who agrees to bring the patient in under observation status for further treatment evaluation of his encephalopathy. Departure - Departure Disposition: ED Place in Observation Clinical Impression: Hepatic encephalopathy, Increased ammonia level Altered mental status Qualifiers: Altered mental status type: coma Coma depth: Jazmyn coma 13-15 Coma timing: at hospital admission Qualified Code(s): R40.2413 - [place] coma scale score 13- 15, at hospital admission Cirrhosis Qualifiers: Hepatic cirrhosis type: alcoholic cirrhosis Ascites presence: without ascites Qualified Code(s): K70.30 - Alcoholic cirrhosis of liver without ascites
[2021-02-15 17:21] LABS: INR 1.5 (0.8-1.2); PT - PROTHROMBIN TIME 16.7 secs (9.9-12.6)
--- NOTE | 2021-02-15 17:22 | XRAY Report ---
PROCEDURE: Chest 1 View X-Ray INDICATIONS: Chest Pain TECHNIQUE: One view of the chest was acquired. COMPARISON: 01/30/2020 FINDINGS: Surgical changes and devices: None. Lungs and pleura: No pleural effusions or pneumothorax. Chronic increased interstitial lung markings are seen bilaterally. No definite focal infiltrate. Mediastinum: Mediastinal contours appear normal. Heart size is normal. Bones and chest wall: Old healed fracture involving right posterior lateral fifth rib is again seen unchanged from prior study. No suspicious bony lesions. Overlying soft tissues appear unremarkable. IMPRESSION: Likely chronic interstitial lung parenchymal disease. Superimposed pulmonary edema cannot be excluded . No focal infiltrate, pleural effusion or pneumothorax. Old healed right posterior lateral fifth rib fracture. Reviewed by: Eitan Majano MD on 02/15/2021 4:21 PM [facility] Approved by: Eitan Majano MD on 02/15/2021 4:21 PM [facility] Station ID: [id number]
[2021-02-15 17:26] LABS: ALBUMIN 3.1 g/dL (3.2-5.5); ALBUMIN/GLOBULIN RATIO 0.8 (1.0-2.2); BILIRUBIN,TOTAL 2.2 mg/dL (0.2-1.0); CALCIUM 9.7 mg/dL (8.5-10.3); CREATININE 1.7 mg/dL (0.6-1.2); POTASSIUM 4.6 mmol/L (3.5-5.0); TOTAL PROTEIN 6.8 g/dL (6.7-8.2)
[2021-02-15 17:28] LABS: BILIRUBIN,URINE NEGATIVE (NEGATIVE); GLUCOSE, URINE (UA) NEGATIVE (NEGATIVE); KETONES,URINE (UA) NEGATIVE (NEGATIVE); LEUKOCYTE ESTERASE, URINE NEGATIVE (NEGATIVE); NITRITE,URINE NEGATIVE (NEGATIVE); OCCULT BLOOD,URINE NEGATIVE (NEGATIVE); PROTEIN,URINE NEGATIVE (NEGATIVE); UROBILINOGEN,URINE 1 (NORMAL) E.U./dL (NORMAL)
[2021-02-15 17:29] LABS: CLARITY,URINE CLEAR (CLEAR)
[2021-02-15 17:29] LABS: PARTIAL THROMBOPLASTIN TIME 39.4 secs (24.9-33.3)
[2021-02-15] MEDS ORDERED: LACTULOSE 10 GM /15 ML UDC PO STA (17:38)
[2021-02-15 18:07] LABS: MUDS CUTOFF CONCENTRATIONS CUTOFF CONC BELOW:
[2021-02-15 18:19] LABS: AMPHETAMINE SCREEN,URINE NEGATIVE (NEGATIVE); BARBITURATE SCREEN,UR NEGATIVE (NEGATIVE); BENZODIAZEPINES SCREEN, URINE NEGATIVE (NEGATIVE); COCAINE SCREEN URINE NEGATIVE (NEGATIVE); METHADONE SCREEN, URINE NEGATIVE (NEGATIVE); METHAMPHETAMINES SCREEN, URINE NEGATIVE (NEGATIVE); OPIATE SCREEN, URINE NEGATIVE (NEGATIVE); OXYCODONE SCREEN, URINE POSITIVE (NEGATIVE); PROPOXYPHENE SCREEN, URINE NEGATIVE (NEGATIVE); THC CANNABINOID SCREEN, URINE NEGATIVE (NEGATIVE); TRICYCLIC ANTIDEPRESSANT,URINE NEGATIVE (NEGATIVE)
--- NOTE | 2021-02-15 18:34 | CT Report ---
PROCEDURE: CERVICAL SPINE WO INDICATIONS: fall neck pain TECHNIQUE: Noncontrast 3 mm thick sections acquired from the skull base to the T4 level. Sagittal and coronal r eformats were then constructed. For radiation dose reduction, the following was used: automated exp osure control, adjustment of mA and/or kV according to patient size. COMPARISON: 01/14/2020 and 05/19/2018. FINDINGS: Image quality: Excellent. Bones: No fractures or dislocations. Visualized superior ribs are intact. Degenerative endplate ch anges are noted throughout cervical spine. Soft tissues: Prevertebral soft tissues are normal in thickness. No paravertebral hematomas. No ap ical pneumothoraces. 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 IMPRESSION: 1. No acute cervical spine fracture or dislocation. 2. Degenerative disc disease throughout cervical spine not significantly changed from prior study 3. 2 solid nodule seen in left apex not included on the previous study. Nonemergent CT of chest can b e done for further evaluation of this area. Reviewed by: Eitan Majano MD on 02/15/2021 5:33 PM [facility] Approved by: Eitan Majano MD on 02/15/2021 5:33 PM [facility] Station ID: [id number]
--- NOTE | 2021-02-15 18:36 | CT Report ---
PROCEDURE: HEAD WO INDICATIONS: fall r/o bleed TECHNIQUE: Noncontrast 4.5 mm thick angled axial sections acquired from the foramen magnum to the vertex. For r adiation dose reduction, the following was used: automated exposure control, adjustment of mA and/or kV according to patient size. COMPARISON: 01/14/2020 and 05/09/2018 FINDINGS: Image quality: Excellent. CSF spaces: Basal cisterns are patent. No extra-axial fluid collections. The ventricles are symmet tish in size and shape. Brain: No intracranial bleeds or masses. There is cerebral volume loss for age, with resultant vent ricular and sulcal prominence. There are periventricular and deep white matter chronic small vessel ischemic changes. There is intracranial internal carotid artery atherosclerosis. Skull and face: Calvarium and visualized facial bones appear intact, without suspicious lesions. Sinuses: Partial opacification of right maxillary sinus is seen. Bilateral mastoid air cells are well aerated.. IMPRESSION: 1. No CT evidence of acute intracranial pathology. No significant changes from previous studies. 2. Chronic appearing right maxillary sinusitis. Reviewed by: Eitan Majano MD on 02/15/2021 5:34 PM [facility] Approved by: Eitan Majano MD on 02/15/2021 5:34 PM [facility] Station ID: [id number]
[2021-02-15] MEDS ORDERED: SODIUM CHLORIDE FLUSH 0.9% 10 ML SYRINGE IVP PRN (18:43)
[2021-02-15] MEDS ORDERED: ONDANSETRON ODT 4 MG TABLET TL PRN (18:43)
[2021-02-15] MEDS ORDERED: ACETAMINOPHEN 325 MG TABLET PO PRN (18:43)
--- OUTSIDE RECORDS SUMMARY | 2021-02-15 19:05 | EXTERNAL MEDICAL SUMMARY RPT | Continuity of Care Document ---
:1950 Demographics Phone Unavailable Preferred Language Unknown Marital Status Unknown Worship Affiliation Unknown Race Unknown Ethnic Group Unknown Author Organization [place] Address [address] [id number] Phone Social History date description facility [id number]
[2021-02-15] MEDS: LACTATED RINGERS 1,000 ML IV SCH (19:51)
--- NOTE | 2021-02-15 20:36 | HISTORY & PHYSICAL EXAMINATION ---
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 He has been drinking since the age of 11. He is followed by the [facility] and they have been following him for 5 years. While he is a candidate for a liver transplant, he has never been able to stay clean and sober long enough to enter into the liver transplant list. He did stop drinking about 4 months ago. Not because he wanted to but because he is so weak he cannot get out of bed and his will not buy him alcohol. He was hospita lized twice last year. 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 But after those stay, his said he was doing so well. He was bright-eyed, eating normally. Not confused. So in July 2020 she let him have the car keys back. He disappeared for 3 days and came back bloodied, bruised, intoxicated. He has basically been in bed most of that time. She does make him get up to take a shower once a week. He does eat food when it is put in front of him. He does not use a cane or a walker. For a while he had gotten down to skin and bones and he was painfully gaunt she says. But in the last 2 months he has been eating enough that he is put some weight back on and he is looking better. While he may be tired and spends most of his time in bed, he is usually not confused. She is not responsible for to giving him his meds. He refuses to let somebody give him his medications and she does acknowledge that he is noncompliant with his lactulose. She is now figured out a way to give him his lactulose without him being aware of it and will probably do that when he gets out of the hospital. He got up vaccine #1 for Covid and that was on January 27. He is due for his second vaccine February 17. For a couple of days he went back into confusion. But then he seemed to snap out of it and went back to normal. His diet has been the same. Bowel habits have been the same. No nausea or vomiting. She has not noticed him confused or febrile. He has not been coughing, having any new complaints. A few days ago she noticed that he was starting to be disoriented. Mild tremors started. He started getting increasingly shaky and off balance when he tried to walk. Today and yesterday were particularly bad. While going to the bathroom he almost passed out and fell on the floor. She does not think he hit his head. But he has skin tears on his wrist and elbows. She does not remember his last bowel movement. After getting him off the floor, getting him in bed, he was so confused that she called an ambulance and they took him to the emergency room. In the emergency room he was evaluated by CRISTIAN Desai where temperature was 37.1, heart rate 65, respirations 16, blood pressure 117/98 and 95% saturated. He was alert and oriented x3 with normal speech. He had multiple skin tears. White cell count was 5.3, hemoglobin 13.1, platelets 99. Sodium 133. BUN 23, cre atinine 1.7. Troponin 4.2. INR 1.5. Urinalysis clear. Drug screen positive for oxycodone which she does take. CT of the head and neck had only chronic right maxillary sinusitis but no acute fractures or dislocations or intracranial pathology. He has 2 solid nodules seen in the left apex of the chest that were not seen on previous studies. His usual baseline ammonia can be as low as 20s. Today he is 107. 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, nonocclusive portal vein thrombus), Other (hepatocellular cancer with radiofrequency ablation and subsequent MRSA bacteremia 01/2020) : reports: Benign prostate hypertrophy HEENT: reports: Glaucoma, Dental implants Psych: reports: None Musculoskeletal: reports: Osteoarthritis Derm: reports: None MRSA Hx?: No - Past Surgical History General: reports: Colonoscopy Ortho: reports: Knee replacement Derm: reports: Skin cancer surgery - Family & Social History Family History: Mother: , Cancer, Father: , Cancer Family History Comment/Other: Mom of lung cancer. Dad of prostate cancer metastatic to brain. 1 brother of suicide. 1 brother of end- stage liver disease from alcoholism and hepatitis C. 2 children. One daughter has severe autoimmune disease. Living arrangement: At home Living Situation: With spouse/s.o. Social History Notes: to his fourth . They live in their own home. He is retired from the [email or web address] industry. 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 It was wonderful outdoor job, with a great company. He ended up having to quit because he was drunk 27/05. Started drinking approximately the age of 11. He denies any heroin, cocaine, LSD. Did smoke. Has not smoked tobacco in a while - POLST Patient has POLST: No POLST Status: DNR ( states there is a advanced directive in their safe at home where he is DNR) Meds/Allgy - Home Medications Home Medications: Ambulatory Orders Medication Instructions Recorded Confirmed Acetaminophen [Tylenol] 650 mg PO Q4HR PRN tablet 02/07/20 Docusate Sodium 250Mg Capsule 250 - 500 mg PO DAILY #100 capsule 02/07/20 [Colace 250Mg Capsule] Furosemide 40 mg PO DAILY #30 tablet 02/07/20 Lactulose [Constulose] 10 gm PO BID #120 solution 02/07/20 Senna [Senokot] 8.6 - 17.2 mg PO DAILY #100 tablet 02/07/20 Spironolactone [Aldactone] 50 mg PO DAILY #60 tablet 02/07/20 Tamsulosin [Flomax] 0.8 mg PO DAILY #30 capsule 02/07/20 oxyCODONE [Roxicodone] 5 mg PO Q6HR PRN #15 tablet 02/07/20 oxyCODONE [Roxicodone] 5 mg PO QID PRN #15 tablet 02/07/20 rifAXIMin [Xifaxan] 550 mg ORAL BID #60 tablet 02/07/20 Bacitracin Zinc Oint 1 applic TOP BID #1 tube 07/02/20 cephALEXin [Keflex] 500 mg PO Q6H #28 capsule 07/02/20 - Allergies Allergies/Adverse Reactions: Allergies Allergy/AdvReac Type Severity Reaction Status Date / Time ELIU Inhibitors Allergy Severe Edema Verified 02/15/21 16:56 lisinopril Allergy Edema Verified 02/15/21 16:56 Review of Systems - Other Findings Other Findings: Review of systems obtained from his . Patient is contributing to the conversation but is still confused and mitigates a lot of his concerns. Prior Level of Functionality: Has been in bed since July 2020. Spends most of his day sleeping. Able to get up and walk to drink juice, get his food. He is able to get into the shower by himself but she has to prompt him once a week. No longer drives. Cannot do chores. Cannot pay bills. Exam - Vital Signs Reviewed Vital Signs: Yes Vital Signs: Vital Signs x48h Temp Pulse Pulse Resp BP BP Pulse Ox 02/15/21 20:08 37.4 C 58 L 16 151/68 H 100 02/15/21 19:00 56 L 12 113/62 98 02/15/21 17:01 37.1 C 66 18 108/58 L 96 02/15/21 16:51 37.1 C 65 16 117/98 H 95 - Physical Exam General Appearance: positive: No acute distress, Other (Slightly lethargic, thin tanned male who is awake, cooperative, slightly slurred speech, slight delayed psychomotor response. He thinks is 2021, cannot tell me the day of the week, the month but knows he is at [facility] because "I hit my head") Eyes Bilateral: positive: PERRL, EOMI ENT: positive: Dry mucous membranes, Other (bad dentition) Neck: positive: No JVD, Lymphadenopathy (R) (shotty), Lymphadenopathy (L) (shotty). negative: Stiff neck Respiratory: positive: No respiratory distress, Other (slow, shallow, unlabored respiration w rib cage prominent). negative: Wheezes, Rales, Rhonchi Cardiovascular: positive: Regular rate & rhythm, Systolic murmur. negative: Gallop/S4, Friction rub Abdomen: positive: Non-tender, Nml bowel sounds, Other (Very firm abd wall musculature with fullness that is not distensible, almost rigid from RUQ to fill most of abd, no distention, no fluid wave). negative: Guarding, Rebound Back: negative: CVA tenderness (R), CVA tenderness (L) Skin: positive: Warm, Dry. negative: Skin rash, Decubitus Extremities: positive: Non-tender, Full ROM, No pedal edema Neurologic/Psychiatric: positive: CN's nml (2-12), Disoriented to time, Slurred/abnml speech, Depressed mood/affect. negative: Motor nml (asterixis but no resting or intention tremor. Can't sit up on his own. When seated, sways and has to lay back down.) Conclusion/Plan - Problem List (1) Hepatic encephalopathy Conclusion/Plan: In trying to figure out why he is so acutely encephalopathic, his and I go over a review of systems to make sure that I am not missing an infection, GI bleed, new abdominal complaint, and nothing comes to mind for her. She states that he is actually been doing a little bit better, and putting weight back on himself. Still not out and about, and spends way too much time sleeping. But there is nothing new, and all she can think of is that may be he really has not been taking his lactulose as she thought he should be. His hemoglobin is stable. Slightly elevated creatinine. No fever, and white cell count is stab le. Ammonia level is very elevated. No evidence of spontaneous bacterial peritonitis on exam or history. Plan: Observation status Gentle IV fluids for hydration Start regular dose lactulose and anticipate his mental clearing on the basis of elevated ammonia level as a cause of his change in status (2) Cirrhosis Conclusion/Plan: From alcohol abuse and untreated hepatitis C. Patient is not a candidate for liver transplant. He also, has stated, that he does not want a liver transplant. He has refused to drink in the past. His most recent alcohol abs tinence is not so much due to a focused effort to quit drinking but inability to get out of bed to get it. And his is not buying it for him. Plan: Continue spironolactone, lactulose, Lasix, rifaximin. As far as his knows he is taking these medicines but she cannot confirm. The only possible new addition would be a beta-alfred. Blood pressure has been 108-151 since being in the emergency room. Qualifiers: Hepatic cirrhosis type: alcoholic cirrhosis Ascites presence: without ascites Qualified Code(s): K70.30 - Alcoholic cirrhosis of liver without ascites (3) Hep C w/o coma, chronic Conclusion/Plan: Not eligible for treatment. Review of his records show him to be positive for his RNA levels back in 2015. Follow-up levels have been negative in March 2018, July 2018, September 2018, and June 2020. This all indicates no current active hepatitis C infection. No change at this time. 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 On physical exam he may have abdominal fullness from a mass. (5) Dehydration Conclusion/Plan: Last year his creatinine varied between 0.6-1.1. Then starting in January his creatinine crept up to 1.7 but by June of last year was 1.2. Today he is back up to 1.7. Has dry oral mucosa, and I suspect there is some element of either hepatorenal syndrome or dehydration. His hemoglobin is 13. He is usually baseline of 10. So the hemoconcentration may be indicative of dehydration. Plan: Gentle IV hydration Repeat labs in the morning (6) Skin laceration Conclusion/Plan: Right wrist, right forearm, right elbow, left elbow. Other lacerations on his shins are healing. Plan: Nursing protocol (7) Hyponatremia Conclusion/Plan: In January of last year his sodium rebounded to normal. In March he was 130, June 04, 1934 so he is stable today at 133. Plan: Hydration until creatinine is normal Consider reducing his diuretic use since he has no fluid wave and no fluid distention on physical exam - Lab Results Lab results reviewed: Yes Fish Bones: 02/15/21 17:06 02/15/21 17:06 - Diagnostic Imaging Results Diagnostic Imaging Results: positive: Final report reviewed Diagnostic Imaging Results Comments: EXAM: [id number] CT/CSPWO ([id number]) PROCEDURE: CERVICAL SPINE WO INDICATIONS: fall neck pain TECHNIQUE: Noncontrast 3 mm thick sections acquired from the skull base to the T4 level. Sagittal and coronal reformats were then constructed. For radiation dose reduction, the following was used: automated exposure control, adjustment of mA and/or kV according to patient size. COMPARISON: 01/14/2020 and 05/19/2018. FINDINGS: Image quality: Excellent. Bones: No fractures or dislocations. Visualized superior ribs are intact. Degene rative endplate changes are noted throughout cervical spine. Soft tissues: Prevertebral soft tissues are normal in thickness. No paravertebral hematomas. No apical pneumothoraces. 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 IMPRESSION: 1. No acute cervical spine fracture or dislocation. 2. Degenerative disc disease throughout cervical spine not significantly changed from prior study 3. 2 solid nodule seen in left apex not included on the previous study. Nonemergent CT of chest can be done for further evaluation of this area. Reviewed by: Eitan Majano MD on 02/15/2021 5:33 PM AKDT Approved by: Eitan Majano MD on 02/15/2021 5:33 PM AKDT EXAM: [id number] CT/HEADWO ([id number]) PROCEDURE: HEAD WO INDICATIONS: fall r/o bleed TECHNIQUE: Noncontrast 4.5 mm thick angled axial sections acquired from the foramen magnum to the vertex. For radiation dose reduction, the following was used: automated exposure control, adjustment of mA and/or kV according to patient size. COMPARISON: 01/14/2020 and 05/09/2018 FINDINGS: Image quality: Excellent. CSF spaces: Basal cisterns are patent. No extra-axial fluid collections. The ventricles are symmetric in size and shape. Brain: No intracranial bleeds or masses. There is cerebral volume loss for age, with resultant ventricular and sulcal prominence. There are periventricular and deep white matter chronic small vessel ischemic changes. There is intracranial internal carotid artery atherosclerosis. Skull and face: Calvarium and visualized facial bones appear intact, without suspicious lesions. Sinuses: Partial opacification of right maxillary sinus is seen. Bilateral mastoid air cells are well aerated.. IMPRESSION: 1. No CT evidence of acute intracranial pathology. No significant changes from previous studies. 2. Chronic appearing right maxillary sinusitis. EXAM: [id number] XR/CXR1VW ([id number]) PROCEDURE: Chest 1 View X-Ray INDICATIONS: Chest Pain TECHNIQUE: One view of the chest was acquired. COMPARISON: 01/30/2020 FINDINGS: Surgical changes and devices: None. Lungs and pleura: No pleural effusions or pneumothorax. Chronic increased interstitial lung markings are seen bilaterally. No definite focal infiltrate. Mediastinum: Mediastinal contours appear normal. Heart size is normal. Bones and chest wall: Old healed fracture involving right posterior lateral fifth rib is again seen unchanged from prior study. No suspicious bony lesions. Overlying soft tissues appear unremarkable. IMPRESSION: Likely chronic interstitial lung parenchymal disease. Superimposed pulmonary edema cannot be excluded. No focal infiltrate, pleural effusion or pneumothorax. Old healed right posterior lateral fifth rib fracture. Reviewed by: Eitan Majano MD on 02/15/2021 4:21 PM AKDT Approved by: Eitan Majano MD on 02/15/2021 4:21 PM AKDT EXAM: [id number] MRI/ABDWWO ([id number]) PROCEDURE: Abdomen W/WO INDICATIONS: ALCOHOLIC CIRRHOSIS OF LIVER,HX LIVER CANCER CONTRAST: IV CONTRAST: Gadavist ml: 7 TECHNIQUE: Coronal ultra fast SE, axial 2D spoiled GE in- and [id number]; axial breath- hold T2 fast SE. Dynamic axial ultra fast GE during the administration of contrast; post-contrast coronal ultra fast GE or 2D spoiled GE with fat saturation from the hepatic dome to the iliac crests. Optional diffusion weighted imaging and ADC may be performed. COMPARISON: MRI abdomen 06/09/2020, 05/14/2019. CT abdomen pelvis 01/29/2020 FINDINGS: Image quality: There is motion artifact limiting evaluation. Lung bases: No basal pleural effusions. Heart size is normal. Solid organs: The liver is nodular in contour with diffuse heterogeneous appearance of the hepatic parenchyma consistent with cirrhosis. A cavitary is redemonstrated within the anterior left hepatic lobe spanning segments 2 and 3 consistent with posttreatment changes from prior radiofrequency ablation. There are internal areas of intrinsic T1 hyperintensity within the posttreatment cavity redemonstrated consistent with the presence of residual blood products. No definite associated suspicious enhancement or new discrete mass to suggest residual or recurrent t umor. The previously noted focus of mild hypervascular enhancement anteriorly in segment 2 of the l eft hepatic lobe is stable in size measuring approximately 0.7 x 0.7 cm in transverse dimension. Th ere is no evidence of associated washout. Diffuse heterogeneous nodular enhancement is also demonstr ated throughout the liver without definite suspicious areas of washout. The findings likely represe nt regenerative or dysplastic nodules. Heterogeneous areas of mild persistent hyperenhancement in t he liver on the delayed phase likely represent confluent hepatic fibrosis. The gallbladder demonstrates a few small dependent gallstones without wall thickening or pericholecystic fluid. There is mild biliary ductal dilatation, with the common bile duct measuring up to 0.9 cm. There is a small filling defect in the distal common bile duct measuring approximately 0.3 cm suggestive of a small, duct stone. Pancreas is normal in morphology. No peripancreatic edema or fluid collections. No adrenal nodules. The kidneys demonstrate no hydronephrosis. There is a small right renal cyst. Nodes and vessels: No retroperitoneal or mesenteric adenopathy by size criteria. Aorta and inferior vena cava are normal in size. Bowel and peritoneum: Visualized bowel loops are normal in caliber. No free fluid. Bones and soft tissues: No ventral hernias. Bone marrow is normal in overall signal. IMPRESSION: 1. Posttreatment cavity redemonstrated in the left hepatic lobe without definite evidence of residual or recurrent disease. 2. Small slightly hypervascular focus of enhancement in segment 2 of the left hepatic lobe appears stable in size compared to the prior study. No evidence of associated washout. Findings are again compatible with an LR-3 observation. Recommend attention on follow-up. 3. Cholelithiasis without MRI evidence of cholecystitis. 4. Mild biliary ductal dilatation appears similar to the prior studies. A small filling defect in the distal common bile duct is suspicious for choledocholithiasis. Recommend correlation clinically including with laboratory values. Reviewed by: Frank Mason MD on 11/29/2020 10:50 AM PST Approved by: Frank Mason MD on 11/29/2020 10:50 AM PST Core Measures - Anticipated LOS I expect patient to be DC'd or transferred within 96 hours.: Yes - DVT/VTE - Prophylaxis VTE/DVT Device ordered at admit?: Yes
[2021-02-15] MEDS: LACTULOSE 10 GM /15 ML UDC PO SCH (21:40)
[2021-02-15] MEDS: rifAXIMin 550 MG TABLET PO SCH (21:40)
[2021-02-16] MEDS: SODIUM CHLORIDE FLUSH 0.9% 10 ML SYRINGE IVP SCH ×3 (02:32→16:57)
[2021-02-16 04:51] LABS: BASOPHILS # (AUTO) 0.1 10^3/uL (0.0-0.1); BASOPHILS % (AUTO) 1.2 %; EOSINOPHILS # (AUTO) 0.2 10^3/uL (0.0-0.7); EOSINOPHILS % (AUTO) 3.9 %; HCT - HEMATOCRIT 33.1 % (42.0-52.0); HGB - HEMOGLOBIN 11.5 g/dL (14.0-18.0); LYMPHOCYTES # (AUTO) 1.5 10^3/uL (1.5-3.5); LYMPHOCYTES % (AUTO) 28.6 %; MEAN CORPUSCULAR HEMOGLOBIN 35.8 pg (27.0-31.0); MEAN CORPUSCULAR HGB CONC 34.7 g/dL (32.0-36.0); MEAN CORPUSCULAR VOLUME 103.1 fL (80.0-94.0); MEAN PLATELET VOLUME 9.6 fL (7.4-11.4); MONOCYTES % (AUTO) 19.3 %; NEUTROPHILS # (AUTO) 2.4 10^3/uL (1.5-6.6); NEUTROPHILS % (AUTO) 46.8 %; PLT - PLATELET COUNT 81 10^3/uL (130-450); RED BLOOD COUNT 3.21 10^6/uL (4.70-6.10); RED CELL DISTRIBUTION WIDTH 14.6 % (12.0-15.0); WHITE BLOOD COUNT 5.2 x10^3/uL (4.8-10.8)
[2021-02-16 05:01] LABS: CREATININE 1.4 mg/dL (0.6-1.2); MAGNESIUM 1.9 mg/dL (1.7-2.8); PHOSPHORUS 3.8 mg/dL (2.5-4.6); POTASSIUM 4.1 mmol/L (3.5-5.0)
[2021-02-16] MEDS: LACTATED RINGERS 1,000 ML IV SCH (05:51)
[2021-02-16] MEDS: LACTULOSE 10 GM /15 ML UDC PO SCH ×2 (05:52→14:23)
[2021-02-16] MEDS ORDERED: IOPAMIDOL-300 50 ML VIAL ONE (07:23)
[2021-02-16] MEDS ORDERED: IOPAMIDOL-300 100 ML VIAL ONE (07:24)
[2021-02-16] MEDS ORDERED: SODIUM CHLORIDE 0.9% 1,000 ML IV SCH (08:00)
[2021-02-16] MEDS: rifAXIMin 550 MG TABLET PO SCH (08:35)
--- NOTE | 2021-02-16 11:10 | PHARMACY PROGRESS NOTE ---
- Best Possible Medication History Admit Date and Time: 02/15/21 1843 Processed by: Pharmacy Medication History completed: Yes Patient Interview: Pt unable to participate Secondary Source(s): Prescription bottles, Insurance records Patient confused. unable to confirm all medications patient is taking per physician note. Medication list updated based on prescription bottles brought in from home along with insurance fill history. Patient has a bottle of citalopram 40 mg that in 2019. There are handwritten notes on the prescription bottle indicating the patient takes citalopram at night for anxiety. No recent prescriptions/fills of the medication. As the person ultimately responsible for medication therapy, providers are able to order a medication from an existing home medication list in [facility] via the "Reconcile Routine" prior to Confirmation of that medication by patient support specialist. Such practice is discouraged except when the physician, in their clinical judgment, deems that a medical need exists for a medication without regard to previous use.
[2021-02-16] MEDS ORDERED: DEXTROSE 5%-0.9% NACL 1,000 ML IV SCH (12:00)
[2021-02-16] MEDS ORDERED: MULTIVITAMIN W/MINERALS TABLET PO SCH (13:00)
[2021-02-16 16:02] VITALS: BP 129/65
--- NOTE | 2021-02-16 16:20 | PROVIDER PROGRESS NOTE ---
Assessment/Plan - Problem List (1) Abdominal pain Assessment/Plan: (2) Hepatic encephalopathy Conclusion/Plan: In trying to figure out why he is so acutely encephalopathic, his and I go over a review of systems to make sure that I am not missing an infection, GI bleed, new abdominal complaint, and nothing comes to mind for her. She states that he is actually been doing a little bit better, and putting weight back on himself. Still not out and about, and spends way too much time sleeping. But there is nothing new, and all she can think of is that may be he really has not been taking his lactulose as she thought he should be. His hemoglobin is stable . Slightly elevated creatinine. No fever, and white cell count is stable. Ammonia level is very elevated. No evidence of spontaneous bacterial peritonitis on exam or history. Plan: Observation status Gentle IV fluids for hydration Start regular dose lactulose and anticipate his mental clearing on the basis of elevated ammonia level as a cause of his change in status (3) Cirrhosis Conclusion/Plan: From alcohol abuse and untreated hepatitis C. Patient is not a candidate for liver transplant. He also, has stated, that he does not want a liver transp lant. He has refused to drink in the past. His most recent alcohol abstinence is not so much due to a focused effort to quit drinking but inability to get out of bed to get it. And his is not buying it for him. Plan: Continue spironolactone, lactulose, Lasix, rifaximin. As far as his knows he is taking these medicines but she cannot confirm. The only possible new addition would be a beta-alfred. Blood pressure has been 108-151 since being in the emergency room. Qualifiers: Hepatic cirrhosis type: alcoholic cirrhosis Ascites presence: without ascites Qualified Code(s): K70.30 - Alcoholic cirrhosis of liver without ascites (4) Hep C w/o coma, chronic Conclusion/Plan: Not eligible for treatment. Review of his records show him to be positive for his RNA levels back in 2015. Follow-up levels have been negative in March 2018, July 2018, September 2018, and June 2020. This all indicates no current active hepatitis C infection. No change at this time. 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 On physical exam he may have abdominal fullness from a mass. (6) Dehydration Conclusion/Plan: Last year his creatinine varied between 0.6-1.1. Then starting in January his creatinine crept up to 1.7 but by June of last year was 1.2. Today he is back up to 1.7. Has dry oral mucosa, and I suspect there is some element of either hepatorenal syndrome or dehydration. His hemoglobin is 13. He is usually bas nathalie of 10. So the hemoconcentration may be indicative of dehydration. Plan: Gentle IV hydration Repeat labs in the morning (7) Skin laceration Conclusion/Plan: Right wrist, right forearm, right elbow, left elbow. Other lacerations on his shins are healing. Plan: Nursing protocol (8) Hyponatremia Conclusion/Plan: In January of last year his sodium rebounded to normal. In March he was 130, June 04, 1934 so he is stable today at 133. Plan: Hydration until creatinine is normal Consider reducing his diuretic use since he has no fluid wave and no fluid distention on physical exam - Current Meds Current Meds: Current Medications Generic Name Dose Route Start Last Admin Trade Name Freq PRN Reason Stop Dose Admin Dextrose/Sodium Chloride 1,000 mls @ 83.333 mls/hr 02/16/21 12:00 02/16/21 12:03 D5ns IV 02/16/21 23:59 83.333 mls/hr .Q12H BROWN Administration Lactulose 20 gm 02/15/21 22:00 02/16/21 14:23 Lactulose 10 Gm /15 Ml Udc PO 20 gm TID BROWN Administration Multivitamins/Minerals 1 tab 02/16/21 13:00 02/16/21 14:24 Multivitamin W/Minerals Tablet PO 1 tab DAILYWM BROWN Administration Rifaximin 550 mg 02/15/21 21:00 02/16/21 08:35 Rifaximin 550 Mg Tablet PO 550 mg BID BROWN Administration Sodium Chloride 10 ml 02/16/21 01:00 02/16/21 08:35 Sodium Chloride Flush 0.9% 10 Ml Syringe IVP Not Given 0100,0900,1700 BROWN - Lab Result Fish Bone Diagrams: 02/16/21 04:44 02/16/21 04:44 - Additional Planning My Orders: My Active Orders 02/16/21 09:17 ALPHA FETOPROTEIN TUMOR MARKER [REFLAB] Urgent 02/16/21 12:00 Dextrose 5%-0.9% NaCl [D5ns] 1,000 ml IV 83.333 mls/hr Objective Vital Signs: Vital Signs - 24 hr 02/15/21 02/15/21 02/15/21 16:51 17:01 19:00 Temperature 37.1 C 37.1 C Heart Rate 65 66 56 L Heart Rate [ Brachial] Respiratory 16 18 12 Rate Blood Pressure 117/98 H 108/58 L 113/62 Blood Pressure [Right Brachial artery] O2 Saturation 95 96 98 02/15/21 02/16/21 02/16/21 20:08 00:07 06:13 Temperature 37.4 C 37.0 C 36.9 C Heart Rate Heart Rate [ 58 L 51 L 55 L Brachial] Respiratory 16 16 16 Rate Blood Pressure Blood Pressure 151/68 H 125/60 117/56 L [Right Brachial artery] O2 Saturation 100 95 93 02/16/21 02/16/21 02/16/21 07:47 11:54 16:00 Temperature 36.6 C 36.7 C 36.5 C Heart Rate Heart Rate [ 55 L 50 L 51 L Brachial] Respiratory 17 17 16 Rate Blood Pressure Blood Pressure 119/58 L 123/73 129/65 [Right Brachial artery] O2 Saturation 98 92 95 Oxygen O2 Source Room air I&O (Last 24 Hrs): Intake and Output Totals x24h 02/14/21 02/15/21 02/16/21 23:59 23:59 23:59 Intake Total 100 1563 Output Total 150 1625 Balance -50 -62 - Results Results: Laboratory Results WBC 5.2 x10^3/uL (4.8-10.8) 02/16/21 04:44 RBC 3.21 10^6/uL (4.70-6.10) L 02/16/21 04:44 Hgb 11.5 g/dL (14.0-18.0) L 02/16/21 04:44 Hct 33.1 % (42.0-52.0) L 02/16/21 04:44 MCV 103.1 fL (80.0-94.0) H 02/16/21 04:44 MCH 35.8 pg (27.0-31.0) H 02/16/21 04:44 MCHC 34.7 g/dL (32.0-36.0) 02/16/21 04:44 RDW 14.6 % (12.0-15.0) 02/16/21 04:44 Plt Count 81 10^3/uL (130-450) L 02/16/21 04:44 MPV 9.6 fL (7.4-11.4) 02/16/21 04:44 Neut # (Auto) 2.4 10^3/uL (1.5-6.6) 02/16/21 04:44 Lymph # (Auto) 1.5 10^3/uL (1.5-3.5) 02/16/21 04:44 Weber # (Auto) 1.0 10^3/uL (0.0-1.0) 02/16/21 04:44 Eos # (Auto) 0.2 10^3/uL (0.0-0.7) 02/16/21 04:44 Baso # (Auto) 0.1 10^3/uL (0.0-0.1) 02/16/21 04:44 Absolute Nucleated RBC 0.00 x10^3/uL 02/16/21 04:44 Nucleated RBC % 0.0 /100WBC 02/16/21 04:44 PT 16.7 secs (9.9-12.6) H 02/15/21 17:06 INR 1.5 (0.8-1.2) H 02/15/21 17:06 APTT 39.4 secs (24.9-33.3) H 02/15/21 17:06 Sodium 136 mmol/L (135-145) 02/16/21 04:44 Potassium 4.1 mmol/L (3.5-5.0) 02/16/21 04:44 Chloride 101 mmol/L (101-111) 02/16/21 04:44 Carbon Dioxide 25 mmol/L (21-32) 02/16/21 04:44 Anion Gap 10.0 (6-13) 02/16/21 04:44 BUN 20 mg/dL (6-20) 02/16/21 04:44 Creatinine 1.4 mg/dL (0.6-1.2) H 02/16/21 04:44 Estimated GFR (MDRD) 50 (>89) L 02/16/21 04:44 Glucose 92 mg/dL (70-100) 02/16/21 04:44 Calcium 9.0 mg/dL (8.5-10.3) 02/16/21 04:44 Phosphorus 3.8 mg/dL (2.5-4.6) 02/16/21 04:44 Magnesium 1.9 mg/dL (1.7-2.8) 02/16/21 04:44 Total Bilirubin 2.2 mg/dL (0.2-1.0) H 02/15/21 17:06 AST 38 IU/L (10-42) 02/15/21 17:06 ALT 21 IU/L (10-60) 02/15/21 17:06 Alkaline Phosphatase 61 IU/L (42-121) 02/15/21 17:06 Ammonia 37.7 umol/L (7-35) H 02/16/21 04:44 Troponin I High Sens 4.2 ng/L (2.3-19.7) 02/15/21 17:06 Total Protein 6.8 g/dL (6.7-8.2) 02/15/21 17:06 Albumin 3.1 g/dL (3.2-5.5) L 02/15/21 17:06 Globulin 3.7 g/dL (2.1-4.2) 02/15/21 17:06 Albumin/Globulin Ratio 0.8 (1.0-2.2) L 02/15/21 17:06 Lipase 35 U/L (22-51) 02/15/21 17:06 Urine Color YELLOW 02/15/21 17:20 Urine Clarity CLEAR (CLEAR) 02/15/21 17:20 Urine pH 6.0 PH (5.0-7.5) 02/15/21 17:20 Ur Specific Addison 1.020 (1.002-1.030) 02/15/21 17:20 Urine Protein NEGATIVE mg/dL (NEGATIVE) 02/15/21 17:20 Urine Glucose (UA) NEGATIVE mg/dL (NEGATIVE) 02/15/21 17:20 Urine Ketones NEGATIVE mg/dL (NEGATIVE) 02/15/21 17:20 Urine Occult Blood NEGATIVE (NEGATIVE) 02/15/21 17:20 Urine Nitrite NEGATIVE (NEGATIVE) 02/15/21 17:20 Urine Bilirubin NEGATIVE (NEGATIVE) 02/15/21 17:20 Urine Urobilinogen 1 (NORMAL) E.U./dL (NORMAL) 02/15/21 17:20 Ur Leukocyte Esterase NEGATIVE (NEGATIVE) 02/15/21 17:20 Ur Microscopic Review NOT INDICATED 02/15/21 17:20 Urine Culture Comments NOT INDICATED 02/15/21 17:20 Urine Opiates Screen NEGATIVE (NEGATIVE) 02/15/21 17:20 Ur Oxycodone Screen POSITIVE (NEGATIVE) H 02/15/21 17:20 Urine Methadone Screen NEGATIVE (NEGATIVE) 02/15/21 17:20 Ur Propoxyphene Screen NEGATIVE (NEGATIVE) 02/15/21 17:20 Ur Barbiturates Screen NEGATIVE (NEGATIVE) 02/15/21 17:20 Ur Tricyclics Screen NEGATIVE (NEGATIVE) 02/15/21 17:20 Ur Phencyclidine Scrn NEGATIVE (NEGATIVE) 02/15/21 17:20 Ur Amphetamine Screen NEGATIVE (NEGATIVE) 02/15/21 17:20 U Methamphetamines Scrn NEGATIVE (NEGATIVE) 02/15/21 17:20 U Benzodiazepines Scrn NEGATIVE (NEGATIVE) 02/15/21 17:20 Urine Cocaine Screen NEGATIVE (NEGATIVE) 02/15/21 17:20 U Cannabinoids Screen NEGATIVE (NEGATIVE) 02/15/21 17:20 Ethyl Alcohol < 5.0 mg/dL 02/15/21 17:06 - Procedures Procedures: Procedures EXCISION OF CECUM, ENDO, DIAGN (06/18/17) EXCISION OF SIGMOID COLON, ENDO, DIAGN (06/18/17) ABX Reporting Has patient been on IV antibiotics over the past 48 hours?: No
--- NOTE | 2021-02-16 17:23 | CT Report ---
PROCEDURE: CHEST W INDICATIONS: mass CONTRAST: IV CONTRAST: Isovue 300 ml: 100 PO CONTRAST: Isovue 300 ml50 TECHNIQUE: After the administration of intravenous contrast, 5 mm thick sections acquired from the pulmonary api ter to the posterior costophrenic angles. 7 mm thick coronal MIP reformats were acquired. For radia tion dose reduction, the following was used: automated exposure control, adjustment of mA and/or kV according to patient size. COMPARISON: CT chest dated 01/01/2014. FINDINGS: Lungs and pleura: 6 mm nodule seen in the left upper lobe on image 52/3. Additional 7 mm nodule seen in the left upper lobe on image 67/3. Adjacent ill-defined smaller nodularity also present. No pneumo thorax or pleural effusion. Scattered subsegmental scarring/atelectasis. No acute consolidation. Dif fuse peribronchial cuffing suggestive of nonspecific bronchitis and/or reactive airways disease. Ortiz tional 3 mm nodule seen in the medial right upper lobe is also technically indeterminate. Mediastinum: Heart: Normal. Mediastinal nodes: Normal Aorta: Normal Pulmonary arteries: Normal Esophagus: Normal Bones: Age-indeterminate fracture of the right L2 transverse process, minimally displaced. There is a n age-indeterminate sternal fracture also noted. Axillary nodes: Normal Thyroid: Normal Within the visualized abdomen, hypodense lesion in the left lobe of the liver, and background hepatic cirrhosis. IMPRESSION: Subcentimeter nodules involving the upper lobes (left more concerning than right). Findings are worri some for early metastatic disease versus primary bronchogenic carcinoma. Age-indeterminate minimally displaced fracture of the L2 right transverse process tip, and sternum. P lease correlate to point tenderness Additional chronic and incidental findings as above. Reviewed by: Michael Velazquez MD on 02/16/2021 5:22 PM PDT Approved by: Michael Velazquez MD on 02/16/2021 5:22 PM PDT Station ID: [id number]
--- NOTE | 2021-02-16 17:48 | CT Report ---
PROCEDURE: Abdomen/Pelvis W INDICATIONS: mass CONTRAST: IV CONTRAST: Isovue 300 ml: 100 PO CONTRAST: Isovue 300 ml50 TECHNIQUE: After the administration of intravenous contrast, 5 mm thick sections acquired from the diaphragms to the symphysis. 5 mm thick coronal and sagittal reformats were acquired. For radiation dose reducti on, the following was used: automated exposure control, adjustment of mA and/or kV according to poonam ent size. COMPARISON: 01/29/2020 FINDINGS: Image quality: Excellent. ABDOMEN: Lung bases: Lung bases are clear. Heart size is normal. Solid organs: The liver is small and shrunken and cirrhotic in appearance. A previous treated segment 3 left lobe liver lesion is again noted with a low-density treatment cavity measuring 2.2 x 2.3 cm. No new focal liver lesions identified. Gallbladder contains multiple small calcified gallstones. Mild gallbladder wall thickening, nonspecific finding in the setting of cirrhosis. Biliary system is non dilated. Pancreas enhances normally. No adrenal nodules. Kidneys demonstrate normal size and enhan cement, without hydronephrosis. Peritoneum and bowel: Bowel loops demonstrate normal wall thickness and caliber. No free fluid or a ir. Large upper abdominal varicosities. Spontaneous splenorenal shunt. Nodes and vessels: No retroperitoneal or mesenteric adenopathy by size criteria. Aorta and inferior vena cava are normal in size. Extensive atherosclerotic calcifications. Miscellaneous: No ventral hernias. PELVIS: Genitourinary: Bladder wall thickness is normal. Miscellaneous: No inguinal hernias or adenopathy. Bones: No suspicious bony lesions. No vertebral body compression fractures. IMPRESSION: 1. Cirrhosis. 2. Previously treated left lobe liver lesion with no evidence of residual or recurrent hepatoma. 3. Very prominent varicosities in the upper abdomen. Spontaneous splenorenal shunt. 4. Cholelithiasis. Reviewed by: Wilfrid Flores MD on 02/16/2021 5:47 PM PDT Approved by: Wilfrid Flores MD on 02/16/2021 5:47 PM PDT Station ID: [id number]
--- NOTE | 2021-02-16 18:25 | Discharge Plan ---
Discharge Plan Problem Reviewed?: Yes Disposition: Home, Self Care Condition: Poor Prescriptions: Lactulose 20 gm PO TID #100 unit Diet: Regular Activity Restrictions: Activity as Tolerated Shower Restrictions: No (fall precaution) Instruction Topics: Ammonia, Cirrhosis, Lactulose oral solution, Cancer Lung Health Concerns: Your lactulose dosage is increased to 20gm Tid which is control your ammonia level. Lactulose is prescribed to you and sent to your pharmacy. You are found to worrisome for early metastatic disease versus primary br onchogenic carcinoma in your upper lobes lung (left more concerning than right) at CT of your chest, you may followup with your PCP to have biopsy and followup with oncologist GOYO. This is discussed with you and your by phone. Plan of Treatment: as the above Care Goals: stabilization and improvement of your medical conditions. Assessment: discussed the care plan and test studies with you, and your by phone, answered your questions, you understood and agreed. Additional Instructions or Follow Up instructions: you may followup with your PCP in one week, followup with oncologist GOYO. Should your symptoms return or worsen, you may present ER or call 911 for help. No Smoking: If you smoke, Please STOP! Call for help. Follow-up with: Ramonita Miller MD [Primary Care Provider] -
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
[2021-02-16] MEDS ORDERED: IOPAMIDOL-300 100 ML VIAL IVP ONE (20:38)
[2021-02-16] MEDS ORDERED: IOPAMIDOL-300 50 ML VIAL PO ONE (20:39)
== END 2021-02-16 19:30 | disposition home or self-care (01) ==
LOC: EDUNIT# → SUPCPDRO 16:44 → ED 16:44 → MS2 18:43
PROVIDERS: ADMIT Internal Medicine; ATTEND Nurse Practitioner Gerontology
DX: K70.40 Alcoholic hepatic failure without coma (principal); K70.30 Alcoholic cirrhosis of liver without ascites; B18.2 Chronic viral hepatitis C; F10.10 Alcohol abuse, uncomplicated; Z91.81 History of falling; T47.3X6A Underdosing of saline and osmotic laxatives, initial encounter; Z91.128 Patient's intentional underdosing of medication regimen for other reason; R41.82 Altered mental status, unspecified; Z86.14 Personal history of Methicillin resistant Staphylococcus aureus infection; Z20.822 Contact with and (suspected) exposure to COVID-19; S61.511A Laceration without foreign body of right wrist, initial encounter; S51.811A Laceration without foreign body of right forearm, initial encounter; S51.012A Laceration without foreign body of left elbow, initial encounter; S51.011A Laceration without foreign body of right elbow, initial encounter; W18.11XA Fall from or off toilet without subsequent striking against object, initial encounter; Y92.002 Bathroom of unspecified non-institutional (private) residence as the place of occurrence of the external cause; Z66 Do not resuscitate; D38.1 Neoplasm of uncertain behavior of trachea, bronchus and lung; E86.0 Dehydration; E87.1 Hypo-osmolality and hyponatremia; Z85.05 Personal history of malignant neoplasm of liver; K80.20 Calculus of gallbladder without cholecystitis without obstruction; I86.8 Varicose veins of other specified sites; Z79.899 Other long term (current) drug therapy; Z87.891 Personal history of nicotine dependence
CPT/HCPCS: 36415; 70450; 71045; 71260; 72125; 74177; 80048; 80053; 80306; 81003; 82105; 82140; 83690; 83735; 84100; 84484; 85025; 85610; 85730; 93005; 99285; A9270; G0378; G0480; J7120; J8499; Q9967; U0004; 80320; 81001; 87086

== ENCOUNTER 2021-04-27 21:38 | Outpatient (CLI) | payer MEDICARE, OTHER | END 2021-04-27 21:39 | disposition EMS.NT | LOC: EMS 21:38 | DX: Z03.89 Encounter for observation for other suspected diseases and conditions ruled out (principal) ==

== ENCOUNTER 2021-06-28 09:45 | Outpatient (CLI) | payer MEDICARE, OTHER | END 2021-06-28 09:46 | disposition EMS.NT | LOC: EMS 09:45 | DX: Z72.89 Other problems related to lifestyle (principal) ==

== ENCOUNTER 2021-08-03 11:46 | Outpatient (CLI) | payer MEDICARE, OTHER | END 2021-08-03 11:47 | disposition critical access hospital (66) | LOC: EMS 11:46 | DX: R53.1 Weakness (principal); R10.11 Right upper quadrant pain; R46.0 Very low level of personal hygiene; Z72.89 Other problems related to lifestyle | CPT/HCPCS: A0425; A0429 ==

== ENCOUNTER 2021-08-03 12:08 | Emergency (ER) | payer MEDICARE, OTHER ==
--- NOTE | 2021-08-03 12:37 | ED Physician Documentation ---
History of Present Illness - Stated complaint Stated Complaint: WEAKNESS - Chief complaint Chief Complaint: Abd Pain - Additonal information Additional information: 71-year-old male presents the emergency department for evaluation of a genera lized weakness and feeling unwell. He is a patient with known cirrhosis as well as active daily alcohol use. He reports to this provider that he just does not feel well and thinks that he is dying. He reports that he has not taken any of his medications for a month or longer because he wants to . At the time that he summoned EMS [facility] also presented to the scene to give him an order of protection that his had requested against him. The patient was not aware that in order of protection was going to be served and states that he has no place to go. Patient denies fevers nausea or vomiting. He denies chest pain. States that he is short of breath but that is not new. He denies any melena or hematochezia. Positive daily tobacco use. He drinks about half to a full bottle of wine daily. Review of Systems Constitutional: denies: Fever Eyes: reports: Reviewed and negative Ears: reports: Reviewed and negative Nose: reports: Reviewed and negative Throat: reports: Reviewed and negative Cardiac: denies: Chest pain / pressure, Palpitations, Pedal edema, Calf pain Respiratory: reports: Dyspnea. denies: Cough, Hemoptysis GI: denies: Abdominal Pain, Nausea, Vomiting, Diarrhea, Hematemesis, Bloody / black stool : denies: Dysuria, Frequency, Hesitancy Skin: denies: Rash, Lesions Musculoskeletal: denies: Neck pain, Back pain PD PAST MEDICAL HISTORY - Past Medical History Cardiovascular: None (Chronic baseline metabolic encephalopathy due to liver failure), Hypertension Respiratory: None Neuro: Other Endocrine/Autoimmune: None GI: Hepatitis (C), Cirrhosis (with varices and no ascites. 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, nonocclusive portal vein thrombus), Other (hepatocellular cancer with radiofrequency ablation and subsequent MRSA bacteremia 01/2020) : Benign prostate hypertrophy HEENT: Glaucoma, Dental implants Psych: None Musculoskeletal: Osteoarthritis Derm: None - Past Surgical History Past Surgical History: Yes General: Colonoscopy Ortho: Knee replacement Derm: Skin cancer surgery - Present Medications Home Medications: Ambulatory Orders Medication Instructions Recorded Confirmed Furosemide 40 mg PO DAILY #30 tablet 02/07/20 02/16/21 rifAXIMin [Xifaxan] 550 mg ORAL BID #60 tablet 02/07/20 02/16/21 Cetirizine HCl [Allergy] 10 mg PO DAILY 08/03/21 08/03/21 Lactulose 10 gm PO TID 08/03/21 Spironolactone [Aldactone] 100 mg PO DAILY 08/03/21 guaiFENesin [Mucinex] 600 mg PO BID 08/03/21 08/03/21 - Allergies Allergies/Adverse Reactions: Allergies Allergy/AdvReac Type Severity Reaction Status Date / Time ELIU Inhibitors Allergy Severe Edema Verified 08/03/21 12:16 lisinopril Allergy Edema Verified 08/03/21 12:16 - Social History Does the pt smoke?: Yes Smoking Status: Current every day smoker Does the pt drink ETOH?: Yes Does the pt have substance abuse?: No - Immunizations Immunizations are current?: No Immunizations: TDAP >10years/unknown - POLST Patient has POLST: No POLST Status: DNR ( states there is a advanced directive in their safe at home where he is DNR) PD ED PE EXPANDED - General General: Alert, No acute distress, Other (Cachectic facial appearance. Chronically ill-appearing male.) - Cardiac Cardiac: Regular Rate, Radial strong equal, Pedal strong equal, Cap refill < 2 sec - Respiratory Respiratory: Clear to ausultation binu. No: Distress, Labored - Abdomen Abdomen: Normal Bowel sounds, Tender to palpation (Generalized abdominal tenderness though no guarding or rebound. No peritoneal sign. Mild distention but no significant palpable ascites.) - Back Back: Normal exam - Derm Derm: Normal color, Warm and dry - Extremities Extremities: Pedal edema bilateral. No: Right calf TTP/cord, Left calf TTP/cord - Neuro Neuro: Alert and Oriented X 3, Confused - GCS Eye Opening: Spontaneous Motor: Obeys Commands Verbal: Oriented Total: 15 - Psych Psych: Depressed, Tearful Results - Vitals Vitals: Vital Signs - 24 hr 08/03/21 08/03/21 08/03/21 12:16 12:39 14:04 Temperature 36.5 C Heart Rate 74 72 66 Respiratory 18 16 Rate Blood Pressure 148/77 H 154/83 H 137/78 H O2 Saturation 96 98 98 Oxygen O2 Source Room air - Labs Labs: Laboratory Tests 08/03/21 08/03/21 08/03/21 12:58 12:58 12:58 WBC 5.8 RBC 3.32 L Hgb 12.1 L Hct 35.2 L MCV 106.0 H MCH 36.4 H MCHC 34.4 RDW 15.8 H Plt Count 55 L MPV 10.4 Neut # (Auto) 3.2 Lymph # (Auto) 1.6 Mellette # (Auto) 0.6 Eos # (Auto) 0.2 Baso # (Auto) 0.1 Absolute Nucleated RBC 0.00 Nucleated RBC % 0.0 Manual Slide Review Indicated PT 17.0 H INR 1.5 H Sodium 146 H Potassium 4.8 Chloride 115 H Carbon Dioxide 21 Anion Gap 10.0 BUN 15 Creatinine 0.8 Estimated GFR (MDRD) 96 Glucose 90 Lactic Acid Calcium 8.1 L Total Bilirubin 2.1 H AST 115 H ALT 40 Alkaline Phosphatase 88 Ammonia Total Protein 6.6 L Albumin 2.6 L Globulin 4.0 Albumin/Globulin Ratio 0.7 L Lipase 55 H Urine Color Urine Clarity Urine pH Ur Specific [place] Urine Protein Urine Glucose (UA) Urine Ketones Urine Occult Blood Urine Nitrite Urine Bilirubin Urine Urobilinogen Ur Leukocyte Esterase Ur Microscopic Review Urine Culture Comments Ethyl Alcohol 08/03/21 08/03/21 08/03/21 12:58 12:58 12:58 WBC RBC Hgb Hct MCV MCH MCHC RDW Plt Count MPV Neut # (Auto) Lymph # (Auto) Mel[place] # (Auto) Eos # (Auto) Baso # (Auto) Absolute Nucleated RBC Nucleated RBC % Manual Slide Review PT INR Sodium Potassium Chloride Carbon Dioxide Anion Gap BUN Creatinine Estimated GFR (MDRD) Glucose Lactic Acid 2.8 H Calcium Total Bilirubin AST ALT Alkaline Phosphatase Ammonia 40.2 H Total Protein Albumin Globulin Albumin/Globulin Ratio Lipase Urine Color Urine Clarity Urine pH Ur Specific [place] Urine Protein Urine Glucose (UA) Urine Ketones Urine Occult Blood Urine Nitrite Urine Bilirubin Urine Urobilinogen Ur Leukocyte Esterase Ur Microscopic Review Urine Culture Comments Ethyl Alcohol 245.6 08/03/21 13:35 WBC RBC Hgb Hct MCV MCH MCHC RDW Plt Count MPV Neut # (Auto) Lymph # (Auto) [place] # (Auto) Eos # (Auto) Baso # (Auto) Absolute Nucleated RBC Nucleated RBC % Manual Slide Review PT INR Sodium Potassium Chloride Carbon Dioxide Anion Gap BUN Creatinine Estimated GFR (MDRD) Glucose Lactic Acid Calcium Total Bilirubin AST ALT Alkaline Phosphatase Ammonia Total Protein Albumin Globulin Albumin/Globulin Ratio Lipase Urine Color YELLOW Urine Clarity CLEAR Urine pH 5.5 Ur Specific [place] 1.015 Urine Protein NEGATIVE Urine Glucose (UA) NEGATIVE Urine Ketones NEGATIVE Urine Occult Blood NEGATIVE Urine Nitrite NEGATIVE Urine Bilirubin NEGATIVE Urine Urobilinogen 0.2 (NORMAL) Ur Leukocyte Esterase NEGATIVE Ur Microscopic Review NOT INDICATED Urine Culture Comments NOT INDICATED Ethyl Alcohol PD MEDICAL DECISION MAKING - ED course Complexity details: reviewed results, considered differential, d/w patient ED course: 69-year-old male presents the emergency department For evaluation of simply not feeling well. This is in the history of alcohol abuse as well as cirrhosis. He admits that he does not take his medications as prescribed though he does have f ull prescriptions in his possession. Screening labs today show consistency with a history of cirrhosis. His ammonia is only mildly elevated at 40. INR is 1.5. lactate mildly elevated at 2.8. Pt was repleated with 1 liter crystalloid here in the ED. He does have mild transaminates and T bili elevation. He has been normotensive and with unremarkable vital signs here in the emergency department. There had some mild abdominal tenderness there has been no fever or leukocytosis very scant amount of a sac ascites is present on palpation but no significant amount to warrant a therapeutic paracentesis. This gentleman was coincidentally being served with an order of protection from his and was being evicted from his residence today. While here in the emergency department he has been ambulatory without assistance though he has used a walker which she has in his possession. He was seen by our neonatal social worker and though this gentleman would desire to remain here at [facility] we cannot aid in his housing. He is going to be sent to the housing authority which is going to help arrange for halfway placement tonight medically there is no appropriate reason for admission to this gentleman who does not appear encephalopathic has normal mentation and vital signs. Departure - Departure Disposition: 01 Home, Self Care Clinical Impression: Alcohol abuse Cirrhosis Qualifiers: Hepatic cirrhosis type: alcoholic cirrhosis Ascites presence: with ascites Qualified Code(s): K70.31 - Alcoholic cirrhosis of liver with ascites Condition: Stable Record reviewed to determine appropriate education?: Yes Comments: Ashutosh fan are seen in the emergency department today because you reported that you did not feel well. Today your screening labs do show consistency with having cirrhosis. However there is no treatment that needs to be rendered immediately. It is critical however that you resume taking your cirrhosis m edications including the rifaximin, the lactulose, the Lasix and the spironolactone. We are issue you a taxi voucher to take you to the Housing Authority who will help you go to the halfway. It is important that you consider reducing alcohol use in the future though stopping abruptly could lead to withdrawal. Continue to schedule follow-up with your primary care provider. Return to the emergency department for fevers, sudden severe abdominal pain, black or bloody stools.
[2021-08-03 13:11] LABS: BASOPHILS # (AUTO) 0.1 10^3/uL (0.0-0.1); BASOPHILS % (AUTO) 1.9 %; EOSINOPHILS # (AUTO) 0.2 10^3/uL (0.0-0.7); EOSINOPHILS % (AUTO) 3.1 %; HCT - HEMATOCRIT 35.2 % (42.0-52.0); HGB - HEMOGLOBIN 12.1 g/dL (14.0-18.0); LYMPHOCYTES # (AUTO) 1.6 10^3/uL (1.5-3.5); LYMPHOCYTES % (AUTO) 27.8 %; MEAN CORPUSCULAR HEMOGLOBIN 36.4 pg (27.0-31.0); MEAN CORPUSCULAR HGB CONC 34.4 g/dL (32.0-36.0); MEAN PLATELET VOLUME 10.4 fL (7.4-11.4); MONOCYTES # (AUTO) 0.6 10^3/uL (0.0-1.0); MONOCYTES % (AUTO) 10.6 %; NEUTROPHILS # (AUTO) 3.2 10^3/uL (1.5-6.6); NEUTROPHILS % (AUTO) 55.6 %; RED BLOOD COUNT 3.32 10^6/uL (4.70-6.10); RED CELL DISTRIBUTION WIDTH 15.8 % (12.0-15.0); WHITE BLOOD COUNT 5.8 x10^3/uL (4.8-10.8)
[2021-08-03 13:12] LABS: SLIDE REVIEW? Indicated
[2021-08-03] MEDS ORDERED: SODIUM CHLORIDE 0.9% 1,000 ML IV STA (13:26)
[2021-08-03 13:28] LABS: PLT - PLATELET COUNT 55 10^3/uL (130-450)
[2021-08-03 13:31] LABS: ALBUMIN 2.6 g/dL (3.2-5.5); ALBUMIN/GLOBULIN RATIO 0.7 (1.0-2.2); BILIRUBIN,TOTAL 2.1 mg/dL (0.2-1.0); CALCIUM 8.1 mg/dL (8.5-10.3); CREATININE 0.8 mg/dL (0.6-1.2); POTASSIUM 4.8 mmol/L (3.5-5.0); TOTAL PROTEIN 6.6 g/dL (6.7-8.2)
[2021-08-03 13:36] LABS: INR 1.5 (0.8-1.2)
[2021-08-03 13:48] LABS: BILIRUBIN,URINE NEGATIVE (NEGATIVE); GLUCOSE, URINE (UA) NEGATIVE (NEGATIVE); KETONES,URINE (UA) NEGATIVE (NEGATIVE); LEUKOCYTE ESTERASE, URINE NEGATIVE (NEGATIVE); NITRITE,URINE NEGATIVE (NEGATIVE); OCCULT BLOOD,URINE NEGATIVE (NEGATIVE); PH,URINE 5.5 PH (5.0-7.5); PROTEIN,URINE NEGATIVE (NEGATIVE); UROBILINOGEN,URINE 0.2 (NORMAL) E.U./dL (NORMAL)
[2021-08-03 13:49] LABS: CLARITY,URINE CLEAR (CLEAR)
[2021-08-03 15:03] VITALS: BP 140/62
== END 2021-08-03 15:29 | disposition home or self-care (01) ==
LOC: EDUNIT# → ED 12:08
DX: K70.31 Alcoholic cirrhosis of liver with ascites (principal); F10.10 Alcohol abuse, uncomplicated; Y90.8 Blood alcohol level of 240 mg/100 ml or more; F17.200 Nicotine dependence, unspecified, uncomplicated; Z91.14 Patient's other noncompliance with medication regimen
CPT/HCPCS: 36415; 80053; 81003; 82140; 83605; 83690; 85025; 85610; 96360; 99283; G0480; 80320; 81001; 87086